=== PATIENT | female | born 1970 | race Caucasian/White ===

== ENCOUNTER → 2016-12-16 | Outpatient (CLI) | payer BC, OTHER ==
[~2016-12-16] MED LIST: ANAS1TAB6 PO; BSP15 PO; BUSP30TA2 PO; CLON0.5T3 PO; CMP/10 PO; DOCU100C PO; EFFSR75 PO; GOSE3.6I IM; LISI-788 PO; LPT10 PO; MELO15TA4 PO; MELO7.5T5 PO; METO-157 PO; ONDA-63 PO; OXYC1TAB3 PO; PANT1TAB48 PO; PANT40TA PO; POTA10CA28 PO; RANI150T3 PO; TIZA2CAP PO; TRAS440I2 IV; VENL150C56 PO; WLL100 PO; ZNTT/150 PO
== END | disposition home or self-care (01) ==
LOC: C.LABSPEC 17:50
PROVIDERS: ATTEND Nurse Practitioner Family
DX: J06.9 Acute upper respiratory infection, unspecified (principal)

== ENCOUNTER → 2016-12-28 | Outpatient (CLI) | payer BC, OTHER | END | disposition home or self-care (01) | LOC: C.MAMM 13:45 | PROVIDERS: ATTEND Internal Medicine Hematology & Oncology | DX: C50.912 Malignant neoplasm of unspecified site of left female breast (principal) ==

== ENCOUNTER → 2016-12-30 | Outpatient (CLI) | payer BC, OTHER ==
[2016-12-30 14:02] VITALS: BP 112/69; PULSE 87; TEMP 36.6; O2SAT 95
--- NOTE | 2016-12-30 14:53 | Radiation Oncology Follow-Up ---
Radiation Oncology Follow-Up Date of Visit Dec 30, 2016. Reason For Visit One-month follow-up and cancer survivorship care plan Radiation Completion Date finished 12-02-2016 Diagnosis (1) Breast cancer Onset Date: 07/13/2016 Histology Subtype: ductal Stage: l (A) Permanent Comment: Abnormal left breast mammogram Status post stereotactic biopsy 07/13/2016 revealing ductal carcinoma Estrogen receptor positive, progesterone receptor positive, HER-2/patrick positive Status post lumpectomy and sentinel lymph node biopsy 08/16/2016 Stage pT1b pN0M0 Systemic chemotherapy (TCH) with severe reaction one dose given and stopped Continue Herceptin for 1 year Status post completion of radiation therapy 12/02/2016 received 6280 cGy Last Edited By: Delaney Ornelas on Dec 07, 2016 08:53 History of Present Illness Ms. Addison is a 45-year-old female with a family history of breast cancer. The patient's mother was diagnosed with breast cancer and remains alive and well at age 65. She underwent bilateral annual digital screening mammograms. Her most recent ones on 06/30/2016. This showed a possible grouped calcifications in the left upper outer quadrant which were not evident on prior exams. I recommended spot magnification view was made. This procedure was performed on 07/07/2016. This confirmed a new group of calcifications in the left upper outer quadrant and a stereotactic biopsy was recommended. On 07/13/2016 patient underwent a stereotactic guided biopsy. Biopsy markers were placed and 2 separate biopsies were evaluated both on the left upper outer quadrant. The first specimen revealed an infiltrating ductal carcinoma grade 3 of 3 with high-grade DCIS with comedonecrosis and microcalcifications present. The second tissues sample also identified infiltrating ductal carcinoma grade 3 of 3 with ductal carcinoma in situ, high-grade with comedo necrosis. Microcalcifications were present. No perineural or lymphovascular invasion was identified. Estrogen receptors were positive (100%, strong). Progesterone receptors were positive (75%, moderate). HER-2/patrick was equivocal (2+). This tissue was evaluated by FISH analysis and was positive. Case: [id number]. Patient was seen by Dr. Darrin Loaiza who discussed treatment options with the patient. The patient agreed to proceed with breast conserving therapy. Therefore on 08/16/2016 patient underwent a needle localization left partial mastectomy with sentinel node biopsy. A single sentinel node was identified and was benign by routine sections and by immunohistochemical stain for cytokeratin. The lumpectomy specimen confirmed an invasive ductal carcinoma. The invasive carcinoma was noted within 2 blocks representing sequential sections. The foci measured 0.2 and 0.5 cm in greatest dimension. If these represented a contiguous tumor it could measure up to 0.8 cm in greatest dimension. Much of the area consisted of biopsy site and therefore the exact determination of tumor size was unclear. The invasive tumor extended to within 7 mm of the superior margin and 7 mm from the inferior margin. The DCIS extended to within 0.5 cm of the inferior margin and 7 mm of the superior margin. Both superior and inferior margins were reexcised and showed no residual tumor at the en face margins. Therefore the margins are greater than 1 cm. The final pathologic stage was therefore a pT1b pN0(sn-)ER positive, KS positive and HER-2/patrick positive. Case: [id number]. The patient was seen by Dr. Baum for discussion of the role of adjuvant therapy. They did discuss genetic testing for BRCA1 and BRCA2 with a family history of breast cancer in both her mother and maternal grandmother. Patient however declined. The decision was made to treat with TCH and her first treatment began on 08/30/2016. Unfortunately the patient struggled with significant asthenias, nausea, vomiting and abdominal pain. The patient was seen in the emergency department and treated symptomatically and discharged. She return to the clinic the next day with intractable nausea and vomiting and abdominal pain. The examination and lab studies revealed a markedly elevated LFTs with a prior history of hepatic steatosis. She was admitted for further evaluation and a CT of the abdomen revealed an ileus. Patient ultimately returned to see medical oncology and at that time refused consideration of further systemic chemotherapy. She did however agreed to continue with Herceptin and to subsequently proceed with adjuvant radiation. It is for this reason the patient is seen in referral. She underwent conventional radiation therapy. Radiation was completed 2016. She received 6280 cGy Interim History She has been doing well over the past month. Irritation of the skin healed without difficulty. She does continue to have a dark discoloration. She has noted no masses or occasional mild tenderness and no change of the axilla. She is having no swelling of her arm. She does not give the pain a pain level. She continues on Herceptin every 3 weeks. She did have some issues with depression and is seeing psychologist on a regular basis. She is on anastrozole and did not complain of any side effects. She is not currently scheduled for follow-up mammography. Allergies Coded Allergies: No Known Allergies (Verified , 02/23/17) Home Medications Scheduled Anastrozole (Anastrozole), 1 TAB PO QAM Atorvastatin (Atorvastatin Calcium), 10 MG PO QAM Buspirone Hcl (Buspirone Hcl), 30 MG PO BID Goserelin Acetate (Zoladex), 1 DOSE IM EVERY 4 WEEKS Lisinopril/Hctz (Zestoretic 20MG/25MG), 1 TAB PO QAM Meloxicam (Mobic), 15 MG PO HS Pantoprazole (Protonix), 40 MG PO QAM Potassium Chloride (Micro-K Ext Rel), 10 MEQ PO BID Ranitidine (Zantac), 150 MG PO BID Trastuzumab (Herceptin), 1 DOSE IV Q 3 WEEK Venlafaxine Hcl (Effexor Extended Rel), 300 MG PO HS Scheduled PRN Ondansetron (Ondansetron HCl), 8 MG PO TID PRN for Nausea Prochlorperazine Maleate (Prochlorperazine Maleate), 10 MG PO Q6H PRN for Nausea or Vomiting Review of Systems Gastrointestinal: Symptoms: Constipation GI Comments: stool softner daily Oral: Symptoms: No Problems Respiratory: Symptoms: WNL Urinary: Symptoms: WNL Skin: Symptoms: No Problems Breast: Right Upper Arm Measurement: 34.4 Right Mid Arm Measurement: 26.5 Right Wrist Measurement: 17.5 Left Upper Arm Measurement: 35.5 Left Mid Arm Measurement: 26.5 Left Wrist Measurement: 17.3 Arm Dominence: Right Patient Cosmetic Evaluation: Good Staff Cosmetic Evalaluation: Good Additional Notes: She completed a distress management report and answered "no" to all questions other than she is having problems with depression. She is on medication and is seeing a psychologist currently. Physical Exam Vital Signs Date Time Temp Pulse Resp B/P Pulse Ox O2 Delivery O2 Flow Rate FiO2 12/30/16 14:02 36.6 87 20 112/69 95 Pain: Side: Bilateral Patient Pain Scale: 0 - 10 Initial Pain Intensity: 0.0 Fatigue: None General Appearance: no apparent distress Eyes: normal inspection, EOMI ENT: normal ENT inspection, hearing grossly normal Neck: supple, no adenopathy Respiratory/Chest: lungs clear, no respiratory distress, no accessory muscle use Breast: Breast examination reveals residual hyperpigmentation of the left breast. There are no masses or tenderness and no axillary adenopathy. She has no skin retractions or nipple changes. There is no edema. Using the Stites score cosmesis she has a good outcome. Right breast showed no masses or tenderness and no axillary adenopathy Cardiovascular: regular rate, rhythm, no gallop, no murmur Abdomen: non tender Extremities: no pedal edema Neurologic/Psychiatric: no motor/sensory deficits, alert, normal mood/affect Skin: warm/dry Lymphatic: no adenopathy Laboratory Studies Test 10/05/16 16:58 10/08/16 11:34 11/19/16 10:50 12/10/16 10:53 Est Creatinine Clear Calc Drug Dose 139.3 ml/min Prothrombin Time 10.0 SECONDS (9.0-12.0) Prothrombin Time INR 0.9 (0.9-1.1) Urine Color YELLOW Urine Appearance CLEAR (CLEAR) Urine pH 5.0 (4.5-7.5) Urine Specific [place] 1.019 (1.000-1.030) Urine Protein NEG (NEG) Urine Glucose (UA) NEG (NEG) Urine Ketones NEG (NEG) Urine Occult Blood NEG (NEG) Urine Nitrite NEG (NEG) Urine Bilirubin NEG (NEG) Urine Urobilinogen NEG (NEG) Urine Leukocyte Esterase NEG (NEG) Urine WBC (Auto) 1-5 /hpf (0-5) Urine RBC (Auto) 0-4 /hpf (0-4) Urine Hyaline Casts (Auto) 0 /lpf (0-5) Urine Epithelial Cells (Auto) >30 /lpf (0-5) Urine Bacteria (Auto) NEG (NEG) Triglycerides Level 146 mg/dl (0-150) Cholesterol Level 181 mg/dl (0-200) HDL Cholesterol 43 mg/dl LDL Cholesterol, Calculated 109 mg/dl VLDL Cholesterol, Calculated 29 mg/dl Cholesterol/HDL Ratio 4.2 White Blood Count 5.16 K/uL (4.8-10.8) 4.72 K/uL (4.8-10.8) Red Blood Count 4.58 M/uL (4.2-5.4) 4.47 M/uL (4.2-5.4) Hemoglobin 14.4 g/dL (12.0-16.0) 14.1 g/dL (12.0-16.0) Hematocrit 41.8 % (37-47) 40.2 % (37-47) Mean Corpuscular Volume 91.3 fL (80-100) 89.9 fL (80-100) Mean Corpuscular Hemoglobin 31.4 pg (25-34) 31.5 pg (25-34) Mean Corpuscular Hemoglobin Concent 34.4 g/dl (32-36) 35.1 g/dl (32-36) Platelet Count 229 K/uL (130-400) 205 K/uL (130-400) Mean Platelet Volume 11.0 fL (7.4-10.4) 10.6 fL (7.4-10.4) Neutrophils (%) (Auto) 70.0 % 69.5 % Lymphocytes (%) (Auto) 20.5 % 21.2 % Monocytes (%) (Auto) 5.6 % 5.7 % Eosinophils (%) (Auto) 3.1 % 3.0 % Basophils (%) (Auto) 0.8 % 0.4 % Neutrophils # (Auto) 3.61 K/uL (1.4-6.5) 3.28 K/uL (1.4-6.5) Lymphocytes # (Auto) 1.06 K/uL (1.2-3.4) 1.00 K/uL (1.2-3.4) Monocytes # (Auto) 0.29 K/uL (0.11-0.59) 0.27 K/uL (0.11-0.59) Eosinophils # (Auto) 0.16 K/uL (0-0.5) 0.14 K/uL (0-0.5) Basophils # (Auto) 0.04 K/uL (0-0.2) 0.02 K/uL (0-0.2) RDW Standard Deviation 43.1 fL (36.4-46.3) 40.7 fL (36.4-46.3) RDW Coefficient of Variation 12.9 % (11.5-14.5) 12.4 % (11.5-14.5) Immature Granulocyte % (Auto) 0.0 % 0.2 % Immature Granulocyte # (Auto) 0.00 K/uL (0.00-0.02) 0.01 K/uL (0.00-0.02) Sodium Level 137 mmol/L (136-145) 141 mmol/L (136-145) Potassium Level 3.8 mmol/L (3.5-5.1) 3.6 mmol/L (3.5-5.1) Chloride Level 105 mmol/L (98-107) 106 mmol/L (98-107) Carbon Dioxide Level 25 mmol/L (21-32) 27 mmol/L (21-32) Anion Gap 7.0 mmol/L (3-11) 8.0 mmol/L (3-11) Blood Urea Nitrogen 17 mg/dl (7-18) 13 mg/dl (7-18) Creatinine 0.82 mg/dl (0.60-1.20) 0.84 mg/dl (0.60-1.20) Estimated GFR () 101.6 98.7 Estimated GFR (Non- 87.6 85.1 BUN/Creatinine Ratio 20.4 (10-20) 15.2 (10-20) Random Glucose 81 mg/dl (70-99) 97 mg/dl (70-99) Calcium Level 8.8 mg/dl (8.5-10.1) 8.9 mg/dl (8.5-10.1) Total Bilirubin 0.4 mg/dl (0.2-1) 0.2 mg/dl (0.2-1) Aspartate Amino Transferase (AST) 76 U/L (15-37) 49 U/L (15-37) Alanine Aminotransferase (ALT) 145 U/L (12-78) 96 U/L (12-78) Alkaline Phosphatase 91 U/L (45-117) 87 U/L (45-117) Lactate Dehydrogenase 180 U/L (84-246) 160 U/L (84-246) Total Protein 7.4 gm/dl (6.4-8.2) 6.8 gm/dl (6.4-8.2) Albumin 3.9 gm/dl (3.4-5.0) 3.7 gm/dl (3.4-5.0) Globulin 3.5 gm/dl (2.5-4.0) 3.1 gm/dl (2.5-4.0) Albumin/Globulin Ratio 1.1 (0.9-2) 1.2 (0.9-2) Assessment & Plan Plan: Continue regular follow-up with her primary care provider and medical oncology. She continues on the anastrozole. Follow-up mammography was scheduled. She'll have a digital diagnostic mammogram of the left breast in 2 months. She'll then have bilateral mammography in 8 months. Today we completed a cancer survivorship care plan. A copy of the document was given to the patient. She does continue to smoke and has greatly cut down. We discussed weaning off of cigarettes. To continue to decrease and wean off of cigarettes. She will continue on her Herceptin every 3 weeks. We asked her to return to our office in 6 months. She may call if she has any questions or concerns in the interim. Total Time In Follow-Up I spent 20 minutes speaking to the patient performing examination. I spent 20 minutes reviewing information, preparing the survivorship document, and completing this note. Copy To Klaus Baum D.O.; Salvatore Parra III, CRNP; Darrin Loaiza M.D. Problem Qualifiers (1) Breast cancer: Breast location: upper outer quadrant of breast Patient sex: female Laterality: left Qualified Codes: C50.412 - Malignant neoplasm of upper- outer quadrant of left female breast
== END | disposition home or self-care (01) ==
LOC: C.ONC 13:54
PROVIDERS: ATTEND Radiology Radiation Oncology
DX: Z08 Encounter for follow-up examination after completed treatment for malignant neoplasm (principal); Z92.3 Personal history of irradiation; Z85.3 Personal history of malignant neoplasm of breast

== ENCOUNTER 2017-01-14 11:03 | Emergency (ER) | payer BC, OTHER ==
[~2017-01-14] VITALS: Ht 167.6 cm; Wt 108.0 kg
[~2017-01-14 11:03] MED LIST changes: -BUSP30TA2 PO; -CLON0.5T3 PO; -GOSE3.6I IM; -LISI-788 PO; -MELO15TA4 PO; -MELO7.5T5 PO; -OXYC1TAB3 PO; -PANT1TAB48 PO; -PANT40TA PO; -POTA10CA28 PO; -RANI150T3 PO; -VENL150C56 PO; -ZNTT/150 PO
[2017-01-14 11:05] VITALS: TEMP 36.9; Ht 167.6 cm; Wt 108.0 kg
[2017-01-14] MEDS ORDERED: BUSP30TA2 PO (12:05)
[2017-01-14] MEDS ORDERED: GOSE3.6I IM (12:05)
[2017-01-14] MEDS ORDERED: LISI-788 PO (12:07)
[2017-01-14 12:54] LABS: BASO % 0.6 %; BASO ABS # 0.03 K/uL (0-0.2); COMPLETE YES; EOS % 3.3 %; IG% 0.2 %; LYMPH % 25.9 %; LYMPH ABS # 1.32 K/uL (1.2-3.4); MEAN CELL VOLUME 88.2 fL (80-100); MEAN CORPUSCULAR HEMOGLOBIN 30.8 pg (25-34); MEAN CORPUSCULAR HGB CONC 34.9 g/dl (32-36); MONO % 6.3 %; NEUT % 63.7 %; PLATELET COUNT 214 K/uL (130-400); RED BLOOD COUNT 4.42 M/uL (4.2-5.4); WHITE BLOOD COUNT 5.09 K/uL (4.8-10.8)
[2017-01-14] MEDS ORDERED: ONDANSETRON INJ 2 MG/ML 2 ML VIAL IV STA (12:55)
[2017-01-14] MEDS ORDERED: SODIUM CHLORIDE 0.9% 1000ML 1,000 ML IV STA ×2 (12:55)
--- NOTE | 2017-01-14 12:59 | EMERGENCY ROOM VISIT NOTE ---
History Report prepared by Ivelisse: Taylor Laguerre Under the Supervision of: Dr. Heri Elizabeth D.O. First contact with patient: 12:53 Chief Complaint: ABDOMINAL PAIN Stated Complaint: STOMACH PAIN Nursing Triage Summary: pt to the ED with c/o epigastric pain with nausea and decreased Po intake pt has breast CA and was sent in for hydration History of Present Illness The patient is a 46 year old female who presents to the Emergency Room with complaints of worsening upper abdominal pain beginning 2 months prior to arrival. Patient states that she was seen at her PCP today and was referred to the ED due to unknown cause of pain. She notes that pain worsens with eating and drinking. She is experiencing nausea, diarrhea, increased urinary frequency and decreased appetite. The patient denies chest pain, trouble breathing, or swelling to lower extremities. The patient has breast cancer and is done chemotherapy. 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 A total of 10 systems reviewed and were otherwise negative. Past Medical & Surgical Medical Problems: (1) Anxiety (2) Breast cancer (3) Chemotherapy induced nausea and vomiting (4) Depression (5) Esophageal Reflux (6) Hiatal hernia (7) Tobacco Use Disorder Surgical Problems: (1) Hx of cholecystectomy Family History Cancer FH: CABG (coronary artery bypass surgery) FATHER Social History Smoking Status: Current Every Day Smoker Drug Use: none Marital Status: Housing Status: lives with family Occupation Status: employed Current/Historical Medications Scheduled Anastrozole (Anastrozole), 1 TAB PO DAILY Atorvastatin (Atorvastatin Calcium), 10 MG PO DAILY Bupropion HCl (Bupropion HCl), 100 MG PO BID Buspirone Hcl (Buspirone Hcl), 30 MG PO BID Docusate Sodium (Stool Softener), 100 MG PO BID Lisinopril/Hctz (Zestoretic 20MG/25MG), 1 TAB PO DAILY Pantoprazole (Protonix), 40 MG PO DAILY Ranitidine Hcl (Zantac), 150 MG PO BID Venlafaxine Hcl (Effexor Extended Rel), 225 MG PO HS Scheduled PRN Ondansetron (Ondansetron HCl), 8 MG PO TID PRN for Nausea Oxycodone Immediate Rel Tab (Roxicodone Ir), 1-2 TAB PO Q4H PRN for Severe Pain Prochlorperazine Maleate (Prochlorperazine Maleate), 10 MG PO Q6H PRN for Nausea or Vomiting Miscellaneous Medications Goserelin Acetate (Zoladex) Trastuzumab (Herceptin) Allergies Coded Allergies: No Known Allergies (Verified , 01/14/17) Physical Exam Vital Signs Date Time Temp Pulse Resp B/P Pulse Ox O2 Delivery O2 Flow Rate FiO2 01/14/17 17:06 89 16 162/95 94 01/14/17 15:24 97 Room Air 01/14/17 15:00 90 16 131/79 96 Room Air 01/14/17 13:58 86 18 132/72 95 Room Air 01/14/17 12:57 83 16 123/67 97 Room Air 01/14/17 11:05 36.9 97 18 142/95 98 Physical Exam GENERAL: Patient is awake, alert, and in no acute distress. Patient is resting comfortably and showing no signs of anxiety EYES: The conjunctivae are clear. The pupils are round and reactive. EARS, NOSE, MOUTH AND THROAT: The nose is without any evidence of any deformity. Mucous membranes are moist tongue is midline NECK: The neck is nontender and supple. RESPIRATORY: Normal respiratory effort is noted there is no evidence of wheezing rhonchi or rales CARDIOVASCULAR: Regular rate and rhythm noted there no murmurs rubs or gallops normal S1 normal S2 GASTROINTESTINAL: The abdomen is soft. Bowel sounds are present in all quadrants. Abdomen is mildly distended, soft diffuse tenderness to palpation. Specific tenderness in right upper quadrant, epigastric and left lower quadrant regions. MUSCULOSKELETAL/EXTREMITIES: There is no evidence of gross deformity full range of motion is noted in the hips and shoulders SKIN: There is no obvious evidence of any rash. There are no petechiae, pallor or cyanosis noted. NEUROLOGIC: Patient is awake alert and oriented x3 Medical Decision & Procedures ER Provider Diagnostic Interpretation: CT results as stated below per my review and radiologist interpretation. ABDOMEN AND PELVIS CT WITH IV AND ORAL CONTRAST CT DOSE: 1213.55 mGy.cm HISTORY: Pain sent by PCP for CT TECHNIQUE: Multiaxial CT images of the abdomen and pelvis were performed following the use of intravenous and oral contrast. COMPARISON STUDY: 09/06/2016 FINDINGS: Lung bases are remarkable for bilateral platelike atelectasis. Fatty infiltration of liver. Prior cholecystectomy. Spleen is uniform. Kidneys negative for hydronephrosis. Pancreas is unremarkable. Nonobstructive bowel pattern. Normal appendix. No evidence for abscess or collection. IMPRESSION: Fatty infiltration of liver. Otherwise negative study status post cholecystectomy Electronically signed by: Mariusz Hernandez M.D. 01/14/2017 3:54 PM Dictated Date/Time: 01/14/2017 3:48 PM Laboratory Results 01/14/17 11:34 Red Blood Count 4.42, Mean Corpuscular Volume 88.2, Mean Corpuscular Hemoglobin 30.8, Mean Corpuscular Hemoglobin Concent 34.9, Mean Platelet Volume 11.0, Neutrophils (%) (Auto) 63.7, Lymphocytes (%) (Auto) 25.9, Monocytes (%) (Auto) 6.3, Eosinophils (%) (Auto) 3.3, Basophils (%) (Auto) 0.6, Neutrophils # (Auto) 3.24, Lymphocytes # (Auto) 1.32, Monocytes # (Auto) 0.32, Eosinophils # (Auto) 0.17, Basophils # (Auto) 0.03 01/14/17 11:34 Test 01/14/17 11:34 01/14/17 12:00 White Blood Count 5.09 K/uL (4.8-10.8) Red Blood Count 4.42 M/uL (4.2-5.4) Hemoglobin 13.6 g/dL (12.0-16.0) Hematocrit 39.0 % (37-47) Mean Corpuscular Volume 88.2 fL (80-100) Mean Corpuscular Hemoglobin 30.8 pg (25-34) Mean Corpuscular Hemoglobin Concent 34.9 g/dl (32-36) Platelet Count 214 K/uL (130-400) Mean Platelet Volume 11.0 fL (7.4-10.4) Neutrophils (%) (Auto) 63.7 % Lymphocytes (%) (Auto) 25.9 % Monocytes (%) (Auto) 6.3 % Eosinophils (%) (Auto) 3.3 % Basophils (%) (Auto) 0.6 % Neutrophils # (Auto) 3.24 K/uL (1.4-6.5) Lymphocytes # (Auto) 1.32 K/uL (1.2-3.4) Monocytes # (Auto) 0.32 K/uL (0.11-0.59) Eosinophils # (Auto) 0.17 K/uL (0-0.5) Basophils # (Auto) 0.03 K/uL (0-0.2) RDW Standard Deviation 39.6 fL (36.4-46.3) RDW Coefficient of Variation 12.3 % (11.5-14.5) Immature Granulocyte % (Auto) 0.2 % Immature Granulocyte # (Auto) 0.01 K/uL (0.00-0.02) Anion Gap 7.0 mmol/L (3-11) Est Creatinine Clear Calc Drug Dose 92.0 ml/min Estimated GFR () 82.3 Estimated GFR (Non- 71.0 BUN/Creatinine Ratio 14.8 (10-20) Calcium Level 8.9 mg/dl (8.5-10.1) Total Bilirubin 0.3 mg/dl (0.2-1) Aspartate Amino Transf (AST/SGOT) 45 U/L (15-37) Alanine Aminotransferase (ALT/SGPT) 89 U/L (12-78) Alkaline Phosphatase 93 U/L (45-117) Total Protein 7.1 gm/dl (6.4-8.2) Albumin 3.5 gm/dl (3.4-5.0) Globulin 3.6 gm/dl (2.5-4.0) Albumin/Globulin Ratio 1.0 (0.9-2) Lipase 148 U/L (73-393) Human Chorionic Gonadotropin, Qual NEG (NEG) Urine Color DK YELLOW Urine Appearance CLEAR (CLEAR) Urine pH 6.5 (4.5-7.5) Urine Specific [place] 1.029 (1.000-1.030) Urine Protein NEG (NEG) Urine Glucose (UA) NEG (NEG) Urine Ketones NEG (NEG) Urine Occult Blood NEG (NEG) Urine Nitrite NEG (NEG) Urine Bilirubin NEG (NEG) Urine Urobilinogen NEG (NEG) Urine Leukocyte Esterase MODERATE (NEG) Urine WBC (Auto) 5-10 /hpf (0-5) Urine RBC (Auto) 0-4 /hpf (0-4) Urine Hyaline Casts (Auto) 5-10 /lpf (0-5) Urine Epithelial Cells (Auto) >30 /lpf (0-5) Urine Bacteria (Auto) 1+ (NEG) Laboratory results per my review. Medications Administered Medications (Trade) Dose Ordered Sig/Rodolfo Route Start Time Stop Time Status Last Admin Dose Admin Sodium Chloride 1,000 ml @ 999 mls/hr Q1H1M STAT IV 01/14/17 12:55 01/14/17 13:55 DC 01/14/17 11:40 999 MLS/HR Sodium Chloride (Nss 1000ml) 1,000 ml @ 250 mls/hr Q4H STAT IV 01/14/17 12:55 01/14/17 16:54 DC 01/14/17 12:50 250 MLS/HR Morphine Sulfate (MoRPHine SULFATE INJ) 4 mg Q15M PRN IV 01/14/17 13:00 01/14/17 17:21 DC 01/14/17 15:20 4 MG Ondansetron HCl (Zofran Inj) 4 mg NOW STAT IV 01/14/17 12:55 01/14/17 12:57 DC 01/14/17 13:10 4 MG Heparin Sodium (Porcine) (Heparin 100 Unit/ml 5ml Flush) 5 ml STK-MED ONCE .ROUTE 01/14/17 16:44 01/14/17 16:46 DC 01/14/17 16:59 5 ML ED Course 1254: The patient was evaluated in room C4. A complete history and physical examination were performed. 1255: Zofran Inj 4 mg IV, Sodium Chloride 1,000 ml @ 250 mls/hr IV, Sodium Chloride 1,000 ml @ 999 mls/hr IV. 1300: Morphine Sulfate Inj 4 mg IV. 1620: I reevaluated the patient. 1625: Upon reevaluation, the patient is hemodynamically stable. I discussed the results and treatment plan with her. She verbalized agreement of the treatment plan. She was discharged home. Medical Decision Differential diagnosis: Etiologies such as appendicitis, diverticulitis, PUD, biliary pathology, UTI, pancreatitis, obstruction, mesenteric ischemia, aortic pathology, infections, inflammatory bowel disease, renal colic, as well as others were entertained. Nursing notes reviewed. The patient is a 46-year-old female who presented to emergency department for an evaluation of upper abdominal pain. The patient was seen by her primary care physician for this pain. It has been intermittent for the last 2 months and worsens with food. The patient does not have a gallbladder because it was removed surgically in the past. The patient was sent to the emergency department for a CAT scan by her primary care physician. The patient's abdominal exam was not consistent with an acute surgical abdomen but she had significant upper abdominal tenderness to palpation. I discussed the patient's laboratory and radiographic studies with her. She was treated with IV fluids IV pain medication and IV antiemetics in the emergency department. On subsequent reevaluation she was significant improved. I discussed patient's laboratory and radiographic studies with her. She was encouraged to continue all medications as prescribed and rest. She was encouraged to call her primary care physician to schedule a follow-up appointment and to discuss the possibility that she may require referral to a trouble shooter to further evaluate the cause for pain. She was also encouraged to return to the emergency department immediately if symptoms change worsen or the need arises. Impression Primary Impression: Upper abdominal pain Scribe Attestation The scribe's documentation has been prepared under my direction and personally reviewed by me in its entirety. I confirm that the note above accurately reflects all work, treatment, procedures, and medical decision making performed by me. Departure Information Dispostion Home / Self-Care Prescriptions Ranitidine Hcl (ZANTAC) 150 Mg Tab 150 MG PO BID, #60 TAB Prov: Heri Elizabeth, DO 01/14/17 Pantoprazole (PROTONIX) 40 Mg Tab 40 MG PO DAILY, #30 TAB Prov: Heri Elizabeth, DO 01/14/17 Oxycodone Immediate Rel Tab (ROXICODONE IR) 5 Mg Tab 1-2 TAB PO Q4H Y for Severe Pain, #24 TAB Prov: Heri Elizabeth, DO 01/14/17 Referrals No Doctor, Assigned (PCP) Forms Call Back Authorization, HOME CARE DOCUMENTATION FORM, IMPORTANT VISIT INFORMATION Patient Instructions ED Abd Pain Unkn Cause [facility], [facility] Additional Instructions Rest and avoid any strenuous activity. Avoid taking NSAIDs such as ibuprofen or naproxen. Continue using Tylenol struck did for mild pain. You may try using Maalox or Mylanta as directed for symptomatically relief. Follow-up with your family doctor soon as possible. I would recommend a referral to a trouble shooter if symptoms do not improve.
[2017-01-14] MEDS ORDERED: OPTIRAY 320 IV PRN (13:00)
[2017-01-14 13:09] LABS: BUN/CREATININE RATIO 14.8 (10-20); CALCIUM 8.9 mg/dl (8.5-10.1); CREATININE 0.97 mg/dl (0.60-1.20); POTASSIUM 3.1 mmol/L (3.5-5.1)
[2017-01-14 13:10] LABS: PREG INTERNAL NEGATIVE QC NEG CLEAR BACKGROUND; PREG INTERNAL POSITIVE QC POS CONTROL LINE
[2017-01-14] MEDS: MoRPHine SULFATE 4 MG/ML 1 ML CARP\\VIAL IV PRN ×3 (13:10→15:20)
[2017-01-14 13:19] LABS: URINE APPEARANCE CLEAR (CLEAR); URINE BILIRUBIN NEG (NEG); URINE COLOR DK YELLOW; URINE EPITHELIAL CELL AUTO >30 /lpf (0-5); URINE NITRITE NEG (NEG); URINE PH 6.5 (4.5-7.5); URINE SPECIFIC GRAVITY 1.029 (1.000-1.030); UROBILINOGEN NEG (NEG); ZZUR CULT IF INDIC CLEAN CATCH YES
[2017-01-14 13:20] LABS: MANUAL MICROSCOPIC REQUIRED? NO; REVIEW REQ? NO
[2017-01-14 15:24] VITALS: O2SAT 97
--- NOTE | 2017-01-14 15:56 | DIAGNOSTIC IMAGING REPORT ---
ABDOMEN AND PELVIS CT WITH IV AND ORAL CONTRAST CT DOSE: 1213.55 mGy.cm HISTORY: Pain sent by PCP for CT TECHNIQUE: Multiaxial CT images of the abdomen and pelvis were performed following the use of intravenous and oral contrast. COMPARISON STUDY: 09/06/2016 FINDINGS: Lung bases are remarkable for bilateral platelike atelectasis. Fatty infiltration of liver. Prior cholecystectomy. Spleen is uniform. Kidneys negative for hydronephrosis. Pancreas is unremarkable. Nonobstructive bowel pattern. Normal appendix. No evidence for abscess or collection. IMPRESSION: Fatty infiltration of liver. Otherwise negative study status post cholecystectomy Electronically signed by: Mariusz Hernandez M.D. 01/14/2017 3:54 PM Dictated Date/Time: 01/14/2017 3:48 PM
[2017-01-14] MEDS ORDERED: RANI150T3 PO (16:24)
[2017-01-14] MEDS ORDERED: PANT1TAB48 PO (16:24)
[2017-01-14] MEDS ORDERED: OXYC1TAB3 PO (16:24)
[2017-01-14 17:06] VITALS: BP 162/95; PULSE 89; O2SAT 94
[2017-02-23] MEDS ORDERED: POTA10CA28 PO (14:49)
[2017-02-23] MEDS ORDERED: ZNTT/150 PO (14:49)
[2017-02-23] MEDS ORDERED: VENL150C56 PO (14:49)
[2017-02-23] MEDS ORDERED: PANT40TA PO (14:49)
[2017-06-30] MEDS ORDERED: MELO7.5T5 PO (14:45)
== END 2017-01-14 17:08 | disposition home or self-care (01) ==
LOC: C.EDB 11:04 → C.EDC 17:08
DX: R10.13 Epigastric pain (principal); C50.919 Malignant neoplasm of unspecified site of unspecified female breast; F41.9 Anxiety disorder, unspecified; F32.9 Major depressive disorder, single episode, unspecified; K21.9 Gastro-esophageal reflux disease without esophagitis; F17.210 Nicotine dependence, cigarettes, uncomplicated; Z79.899 Other long term (current) drug therapy

== ENCOUNTER → 2017-02-21 | Outpatient (CLI) | payer BC, OTHER ==
[~2017-02-21] MED LIST changes: -BSP15 PO; +BUSP30TA2 PO; +CALC600T9 PO; +CHOL1000 PO; +GOSE3.6I IM; +HYDR-5688 PO; +LISI-788 PO; +MELO7.5T5 PO; -METO-157 PO; +OXYC1TAB3 PO; +PANT1TAB48 PO; +PANT40TA PO; +POTA10CA28 PO; +RANI150T3 PO; +TAMO20TA9 PO; -TIZA2CAP PO; +VENL150C56 PO; +ZNTT/150 PO
--- NOTE | 2017-02-21 14:01 | MAMMOGRAPHY REPORT ---
UNILATERAL LEFT DIGITAL DIAGNOSTIC MAMMOGRAM TOMOSYNTHESIS WITH CAD: 02/21/2017 CLINICAL HISTORY: 46-year-old woman with a history of left breast cancer status post lumpectomy and radiation therapy. She presents to establish new baseline after treatment. TECHNIQUE: Left CC and MLO 2-D digital and tomosynthesis images, repeat left MLO and spot magnificat ion left CC and ML views were obtained. Current study was also evaluated with a Computer Aided Dete ction (CAD) system. COMPARISON: Comparison is made to exams dated: 08/16/2016 specimen, 08/16/2016 localization, 6 stereotactic biopsy, 07/13/2016 mammogram, 07/07/2016 mammogram, and 09/05/2013 mammogram - [facility]. BREAST COMPOSITION: There are scattered areas of fibroglandular density in the left breast. FINDINGS: A linear scar marker overlies the upper outer middle one third of the left breast. There is expected asymmetry, architectural distortion and surgical clips in the upper outer middle one thi rd of the left breast, at the site of prior lumpectomy. The spot magnification views demonstrate on e single microcalcifications near the surgical site, but no suspicious grouping or cluster of calcif ications. No other new suspicious mass, architectural distortion or suspicious microcalcifications is seen elsewhere in the left breast. IMPRESSION: ACR-BI-RADS CATEGORY 3: PROBABLY BENIGN Expected post treatment changes in the left breast, without definite mammographic evidence of malign coco. Recommend follow-up diagnostic mammograms of the left breast in 6 months to ensure stability after treatment. Annual right mammography will also be due at that time. These results and recommendations were discussed with the patient at the time of the exam. She tent atively scheduled a follow-up appointment prior to leaving our department. Approximately 10% of breast cancers are not detected with mammography. A negative mammographic repor t should not delay biopsy if a clinically suggestive mass is present. Rachel Lora M.D. ay/:02/21/2017 12:50:04 [employer]: Snow SALCIDO)(Janie), [facility] letter sent: Personal History 3 BI-RADS Code: ACR-BI-RADS Category 3: Probably Benign
== END | disposition home or self-care (01) ==
LOC: C.MAMM 09:57
PROVIDERS: ATTEND Physician Assistant Medical
DX: Z92.3 Personal history of irradiation (principal); Z85.3 Personal history of malignant neoplasm of breast

== ENCOUNTER → 2017-03-03 | Day surgery (SDC) | payer BC, OTHER ==
[2017-02-23 14:49] VITALS: Ht 167.6 cm; Wt 106.8 kg
[~2017-03-03] VITALS: Ht 167.6 cm; Wt 106.8 kg
[~2017-03-03] MED LIST changes: +ATROPINE SULFATE 0.1 MG/ML 5ML SYR IV PRN; -DOCU100C PO; -EFFSR75 PO; +EpHEDrine SULFATE INJ 50 MG/ML AMP IV PRN; +LIDOCAINE HCL 2% 2 ML VIAL (20MG/ML) ONE; +MIDAZOLAM HCL 1 MG/ML 2ML VIAL ONE; +ONDANSETRON INJ 2 MG/ML 2 ML VIAL ONE; -OXYC1TAB3 PO; -PANT1TAB48 PO; +PROPOFOL IV EMULSION 10 MG/ML 20 ML VIAL IV ONE; -RANI150T3 PO; +SODIUM CHLORIDE 0.9% 500ML 500 ML IV ONE
--- NOTE | 2017-03-03 12:23 | Endo History and Physical ---
History & Physical Date of Service: Mar 03, 2017. Chief Complaint: Epigastric pain Referring Physician: Salvatore Parra History of Present Illness 46 yo CF who presents for EGD secondary to epigastric abdominal pain. Past Medical History Cancer Past Surgical History Hx Cardiac Surgery: No Hx Internal Defibrillator: No Hx Pacemaker: No Hx Abdominal Surgery: Yes (LAP AMANDA) Hx Post-Op Nausea and Vomiting: No Hx Cancer Surgery: Yes (BREAST LUMPECTOMY) Hx Thoracic Surgery: No Hx Orthopedic: No Hx Urinary Tract Surgery: No Family History None Social History Smoking Status: Current Every Day Smoker Hx Substance Use: No Hx Alcohol Use: No Allergies Coded Allergies: No Known Allergies (Verified , 02/23/17) Current Medications Reported Home Medications Medications Dose Route/Sig Max Daily Dose Days Date Category Micro-K Ext Rel (Potassium Chloride) 10 Meq Capcr 10 Meq PO QAM 02/23/17 Reported Protonix (Pantoprazole Sodium) 40 Mg Tab 40 Mg PO QAM 02/23/17 Reported Zantac (Ranitidine HCl) 150 Mg Tab 150 Mg PO BID 02/23/17 Reported Effexor Extended Rel (Venlafaxine Hcl) 150 Mg Cap 300 Mg PO HS 02/23/17 Reported Zestoretic 20MG/25MG (HCTZ/Lisinopril) Tab 1 Tab PO QAM 01/14/17 Reported Zoladex (Goserelin Acetate) 3.6 Mg Imp 1 Dose IM EVERY 4 WEEKS 01/14/17 Reported Buspirone Hcl 30 Mg Tab 30 Mg PO BID 01/14/17 Reported Herceptin (Trastuzumab) 440 Mg Inj 1 Dose IV Q 3 WEEK 12/30/16 Reported Anastrozole 1 Mg Tab 1 Tab PO QAM 30 12/30/16 Reported Atorvastatin Calcium (Atorvastatin) 10 Mg Tab 10 Mg PO QAM 10/05/16 Reported Ondansetron HCl (Ondansetron) 8 Mg Tab 8 Mg PO TID PRN 10/05/16 Reported Bupropion HCl 100 Mg Tab 100 Mg PO BID 10/05/16 Reported Prochlorperazine Maleate 10 Mg Tab 10 Mg PO Q6H PRN 10/05/16 Reported Vital Signs Weight (Kilograms): 106.82 Height (Feet): 5 Height (Inches): 6 Date Time Temp Pulse Resp B/P Pulse Ox O2 Delivery O2 Flow Rate FiO2 03/03/17 12:05 36.9 85 18 133/91 94 Room Air Physical Exam General Appearance: WD/WN, no apparent distress Respiratory/Chest: Auscultation: breath sounds normal Cardiovascular: Heart Auscultation: RRR Abdomen: Bowel Sounds: normal Inspection & Palpation: soft, non-distended, no tenderness, guarding & rebound Assessment and Plan Assessment: 46 yo CF who presents for EGD secondary to epigastric abdominal pain. Plan: Proceed with EGD.
--- NOTE | 2017-03-03 12:46 | Discharge Instructions ---
Endoscopy Patient Instructions Date / Procedure(s) Performed Mar 03, 2017. EGD Allergy Information Coded Allergies: No Known Allergies (Verified , 02/23/17) Discharge Date / Findings Mar 03, 2017. Gastritis s/p biopsies Distal esophageal biopsies Medication Instructions Stopped Medication(s): Patient was told to not take her bp pill today. OK to resume all medications today as prescribed. Reported Home Medications Medications Dose Route/Sig Max Daily Dose Days Date Category Micro-K Ext Rel (Potassium Chloride) 10 Meq Capcr 10 Meq PO QAM 02/23/17 Reported Protonix (Pantoprazole Sodium) 40 Mg Tab 40 Mg PO QAM 02/23/17 Reported Zantac (Ranitidine HCl) 150 Mg Tab 150 Mg PO BID 02/23/17 Reported Effexor Extended Rel (Venlafaxine Hcl) 150 Mg Cap 300 Mg PO HS 02/23/17 Reported Zestoretic 20MG/25MG (HCTZ/Lisinopril) Tab 1 Tab PO QAM 01/14/17 Reported Zoladex (Goserelin Acetate) 3.6 Mg Imp 1 Dose IM EVERY 4 WEEKS 01/14/17 Reported Buspirone Hcl 30 Mg Tab 30 Mg PO BID 01/14/17 Reported Herceptin (Trastuzumab) 440 Mg Inj 1 Dose IV Q 3 WEEK 12/30/16 Reported Anastrozole 1 Mg Tab 1 Tab PO QAM 30 12/30/16 Reported Atorvastatin Calcium (Atorvastatin) 10 Mg Tab 10 Mg PO QAM 10/05/16 Reported Ondansetron HCl (Ondansetron) 8 Mg Tab 8 Mg PO TID PRN 10/05/16 Reported Bupropion HCl 100 Mg Tab 100 Mg PO BID 10/05/16 Reported Prochlorperazine Maleate 10 Mg Tab 10 Mg PO Q6H PRN 10/05/16 Reported Provider Instructions Activity Restrictions - No exercising or heavy lifting for 24 hours. - Do not drink alcohol the day of the procedure. - Do not drive a car or operate machinery until the day after the procedure. - Do not make any important decisions or sign important papers in 24 hours after the procedure. Following Day: - Return to full activity which may include returning to work/school. Diet Start your diet with liquids and light foods (jello, soup, juice, toast). Then eat your usual diet if not nauseated. Treatment For Common After Affects For mild abdominal pain, bloating, or excessive gas: - Rest - Eat lightly - Lie on right side Follow-Up Information Follow-up with Salvatore Parra as scheduled Anesthesia Information What You Should Know You have had a procedure that required some medicine to reduce anxiety and discomfort. This treatment is called moderate sedation. After receiving the treatment, you may be sleepy, but you will be able to breathe on your own. The effects of the treatment may last for several hours. Follow these instructions along with Activity/Diet recommendations noted above: * Do NOT do anything where dizziness or clumsiness would be dangerous. * Rest quietly at home today, then you can be up and about tomorrow. * Have a responsible person stay with you the rest of today. * You may have had an I.V. today. If so, you may take the dressing off later today. Recommendations Call your doctor if: * Trouble breathing * Continuous vomiting for more than 24 hours * Temperature above 101 degrees * Severe abdominal pain or bloating * Pain not relieved by pain medicine ordered * There is increased drainage or redness from any incision * A large amount of rectal bleeding greater than 2-3 tablespoons. (If you had a polyp/s removed or have hemorrhoids, a small amount of blood - from the rectum is to be expected.) * You have any unanswered questions or concerns. IN THE EVENT OF A SERIOUS EMERGENCY, GO TO THE NEAREST EMERGENCY ROOM Your discharge instructions were prepared by provider Shimon Gomez. Patient Instructions Signature Page Aleja Addison Patient (or Guardian) Signature/Date: I have read and understand the instructions given to me by my caregivers. Caregiver/RN/Doctor Signature/Date: The above-named patient and/or guardian has received patient instructions on this date. + Original Patient Signature Page (only) stays with chart. Please make copy for patient.
--- NOTE | 2017-03-03 12:58 | GI REPORT ---
Procedure Date: 03/03/2017 12:32 PM Procedure: Upper GI endoscopy Indications: Epigastric abdominal pain Medicines: Monitored Anesthesia Care Complications: No immediate complications. Estimated Blood Loss: Estimated blood loss: none. Procedure: Pre-Anesthesia Assessment: - Prior to the procedure, a History and Physical was performed, and patient medications and allergies were reviewed. The patient's tolerance of previous anesthesia was also reviewed. The risks and benefits of the procedure and the sedation options and risks were discussed with the patient. All questions were answered, and informed consent was obtained. Prior Anticoagulants: The patient has taken no previous anticoagulant or antiplatelet agents. ASA Grade Assessment: IV - A patient with severe systemic disease that is a constant threat to life. After reviewing the risks and benefits, the patient was deemed in satisfactory condition to undergo the procedure. After obtaining informed consent, the endoscope was passed under direct vision. Throughout the procedure, the patient's blood pressure, pulse, and oxygen saturations were monitored continuously. The Scope was introduced through the mouth, and advanced to the second part of duodenum. The upper GI endoscopy was accomplished without difficulty. The patient tolerated the procedure well. Findings: The Z-line was irregular. Biopsies were taken with a cold forceps for histology. Localized mild inflammation characterized by erythema was found in the gastric antrum. Biopsies were taken with a cold forceps for histology. The examined duodenum was normal. Impression: - Z-line irregular. Biopsied. - Gastritis. Biopsied. - Normal examined duodenum. Recommendation: - Resume previous diet. - Continue present medications. - Await pathology results. - Return to primary care physician as previously scheduled. Shimon Gomez, DO 03/03/2017 12:57:39 PM This report has been signed electronically. Note Initiated On: 03/03/2017 12:32 PM I attest to the content of the Intraoperative Record and orders documented therein, exceptions below
--- NOTE | 2017-03-03 13:06 | Anesthesiology Progress Note ---
Anesthesia Post Op Note Date & Time Mar 03, 2017 at 13:05 Vital Signs Pain Intensity: 0 Vital Signs Past 12 Hours Date Time Temp Pulse Resp B/P Pulse Ox O2 Delivery O2 Flow Rate FiO2 03/03/17 12:55 89 16 132/77 95 Room Air 03/03/17 12:05 36.9 85 18 133/91 94 Room Air Notes Mental Status: alert / awake / arousable, participated in evaluation Pt Amnestic to Procedure: Yes Nausea / Vomiting: adequately controlled Pain: adequately controlled Airway Patency, RR, SpO2: stable & adequate BP & HR: stable & adequate Hydration State: stable & adequate Anesthetic Complications: no major complications apparent
[2017-03-03 13:33] VITALS: BP 143/72; PULSE 82; O2SAT 95
== END | disposition home or self-care (01) ==
LOC: C.GI 11:41
PROVIDERS: ATTEND Internal Medicine
DX: K29.70 Gastritis, unspecified, without bleeding (principal); Z98.890 Other specified postprocedural states

== ENCOUNTER → 2017-05-05 | Outpatient (CLI) | payer BC, OTHER ==
[~2017-05-05] MED LIST changes: -ATROPINE SULFATE 0.1 MG/ML 5ML SYR IV PRN; -EpHEDrine SULFATE INJ 50 MG/ML AMP IV PRN; -LIDOCAINE HCL 2% 2 ML VIAL (20MG/ML) ONE; -MIDAZOLAM HCL 1 MG/ML 2ML VIAL ONE; -ONDANSETRON INJ 2 MG/ML 2 ML VIAL ONE; -PROPOFOL IV EMULSION 10 MG/ML 20 ML VIAL IV ONE; -SODIUM CHLORIDE 0.9% 500ML 500 ML IV ONE
--- NOTE | 2017-05-05 15:20 | ECHOCARDIOGRAM REPORT ---
*NOTICE TO RECEIVING REPUBLICAN AGENCY This information is strictly Confidential and protected under [place] law. [place] law prohibits you from making any further disclosure of this information unless further disclosure is expressly permitted by the written consent of the person to whom it pertains or is authorized by law. A general authorization for the release of medical or other information is not sufficient for this purpose. Hospital accepts no responsibility if the information is made available to any other person, INCLUDING THE PATIENT. Interpretation Summary * Name: MATEO WANG Study Date: 05/05/2017 12:34 PM BP: 141/85 mmHg * Patient Location: [facility] [place] HR: 102 * : 1970 (M/d/yyyy) Gender: Female Height: 65 in * Age: 46 yrs Ethnicity: [place] Weight: 215 lb * Ordering Physician: Klaus Baum * Performed By: Ana Thomas * * Reason For Study: BREAST CA, CHEMO * BSA: 2.0 m2 * -- Conclusions -- * 1. Normal left ventricular size and systolic function. EF 60-65%. No regional wall motion abnormalities. Moderate concentric left ventricular hypertrophy. * 2. No significant valvular abnormalities visualized. * 3. No significant change from prior study on 08/05/2016. Procedure Details * A complete two-dimensional transthoracic echocardiogram was performed (2D, M-mode, Doppler and color flow Doppler). Left Ventricle * Normal left ventricular size and systolic function. EF 60-65%. No regional wall motion abnormalities. Moderate concentric left ventricular hypertrophy. Right Ventricle * The right ventricle is normal in size and function. * The right ventricular systolic function is normal as assessed by tricuspid annular plane systolic excursion (TAPSE) (normal >1.5 cm). Atria * The left atrial size is normal. * Right atrial size is normal. * There is no evidence of atrial septal defect, but resolution does not allow assessment for a patent foramen ovale. Mitral Valve * The mitral valve leaflets appear thickened, but open well. * There is no mitral valve stenosis. * There is trace mitral regurgitation. Tricuspid Valve * The tricuspid valve is not well visualized. * There is no tricuspid stenosis. * Significant tricuspid regurgitation is absent. Aortic Valve * The aortic valve is trileaflet. * The aortic valve is normal in structure and function. * No hemodynamically significant valvular aortic stenosis. * No aortic regurgitation is present. Pulmonic Valve * The pulmonary valve is inadequately visualized, but the Doppler data is adequate for interpretation. * There is no pulmonic valvular stenosis. * Trace pulmonic valvular regurgitation. Great Vessels * The aortic root is normal size. * Ascending aorta of normal dimension * Aortic arch of normal dimension. Pericardium/Pleural * There is no pericardial effusion. Great Vessels * Normal inferior vena cava size and collapsability with sniff indicates a normal right atrial pressure of 3 mmHg Left Ventricular Diastolic Function * No significant diastolic dysfunction. MMode 2D Measurements and Calculations IVSd 1.4 cm IVSs 2.2 cm LVIDd 4.1 cm LVIDs 2.6 cm LVPWd 1.4 cm LVPWs 2.2 cm IVS/LVPW 1.0 FS 37.5 % EDV(Teich) 75.5 ml ESV(Teich) 24.1 ml EF(Teich) 68.0 % EDV(cubed) 70.4 ml ESV(cubed) 17.2 ml EF(cubed) 75.6 % % IVS thick 50.7 % % LVPW thick 56.6 % LV mass(C)d 222.5 grams LV mass(C)dI 109.1 grams/m\S\2 LV mass(C)s 262.9 grams LV mass(C)sI 128.9 grams/m\S\2 SV(Teich) 51.3 ml SI(Teich) 25.2 ml/m\S\2 SV(cubed) 53.2 ml SI(cubed) 26.1 ml/m\S\2 Ao root diam 3.1 cm Ao root area 7.3 cm\S\2 ACS 1.4 cm LA dimension 3.9 cm asc Aorta Diam 2.9 cm LA/Ao 1.3 LVOT diam 2.1 cm LVOT area 3.5 cm\S\2 LVAd ap4 27.9 cm\S\2 LVLd ap4 8.3 cm EDV(MOD-sp4) 78.2 ml EDV(sp4-el) 79.1 ml LVAs ap4 16.4 cm\S\2 LVLs ap4 7.3 cm ESV(MOD-sp4) 33.5 ml ESV(sp4-el) 31.3 ml EF(MOD-sp4) 57.2 % EF(sp4-el) 60.5 % LVAd ap2 32.2 cm\S\2 LVLd ap2 8.4 cm EDV(MOD-sp2) 99.4 ml EDV(sp2-el) 104.7 ml LVAs ap2 17.5 cm\S\2 LVLs ap2 8.0 cm ESV(MOD-sp2) 32.7 ml ESV(sp2-el) 32.7 ml EF(MOD-sp2) 67.1 % EF(sp2-el) 68.8 % LVLd %diff -0.41 % EDV(MOD-bp) 90.3 ml LVLs %diff 14.3 % ESV(MOD-bp) 33.2 ml EF(MOD-bp) 63.2 % SV(MOD-sp4) 44.7 ml SI(MOD-sp4) 21.9 ml/m\S\2 SV(MOD-sp2) 66.7 ml SI(MOD-sp2) 32.7 ml/m\S\2 SV(MOD-bp) 57.1 ml SI(MOD-bp) 28.0 ml/m\S\2 SV(sp4-el) 47.9 ml SI(sp4-el) 23.5 ml/m\S\2 SV(sp2-el) 72.0 ml SI(sp2-el) 35.3 ml/m\S\2 Doppler Measurements and Calculations MV E max gretchen 55.9 cm/sec MV A max gretchen 55.5 cm/sec MV E/A 1.0 MV dec time 0.14 sec Ao V2 max 141.2 cm/sec Ao max PG 8.0 mmHg Ao max PG (full) 4.6 mmHg RAUL(V,A) 2.3 cm\S\2 RAUL(V,D) 2.3 cm\S\2 LV V1 max PG 3.4 mmHg LV V1 max 92.5 cm/sec TV E max gretchen 43.8 cm/sec PA V2 max 67.9 cm/sec PA max PG 1.8 mmHg
== END | disposition home or self-care (01) ==
LOC: C.CPL 12:24
PROVIDERS: ATTEND Internal Medicine Hematology & Oncology
DX: C50.912 Malignant neoplasm of unspecified site of left female breast (principal)

== ENCOUNTER → 2017-06-30 | Outpatient (CLI) | payer BC, OTHER ==
[~2017-06-30] MED LIST changes: -CALC600T9 PO; -CHOL1000 PO; -HYDR-5688 PO; -TAMO20TA9 PO
[2017-06-30 14:23] VITALS: BP 139/85; PULSE 96; TEMP 36.7; O2SAT 99
--- NOTE | 2017-06-30 16:36 | Radiation Oncology Follow-Up ---
Radiation Oncology Follow-Up Date of Visit Jun 30, 2017. Radiation Completion Date 12/02/16 Diagnosis (1) Breast cancer Onset Date: 07/13/2016 Stage: l (A) Permanent Comment: Abnormal left breast mammogram Status post stereotactic biopsy 07/13/2016 revealing ductal carcinoma Estrogen receptor positive, progesterone receptor positive, HER-2/patrick positive Status post lumpectomy and sentinel lymph node biopsy 08/16/2016 Stage pT1b pN0M0 Systemic chemotherapy (TCH) with severe reaction one dose given and stopped Continue Herceptin for 1 year Status post completion of radiation therapy 12/02/2016 received 6280 cGy Last Edited By: Delaney Ornelas on Dec 07, 2016 08:53 History of Present Illness Ms. Addison is a 46-year-old female with a family history of breast cancer. The patient's mother was diagnosed with breast cancer and remains alive and well at age 65. She underwent bilateral annual digital screening mammograms. Her most recent ones on 06/30/2016. This showed a possible grouped calcifications in the left upper outer quadrant which were not evident on prior exams. I recommended spot magnification view was made. This procedure was performed on 07/07/2016. This confirmed a new group of calcifications in the left upper outer quadrant and a stereotactic biopsy was recommended. On 07/13/2016 patient underwent a stereotactic guided biopsy. Biopsy markers were placed and 2 separate biopsies were evaluated both on the left upper outer quadrant. The first specimen revealed an infiltrating ductal carcinoma grade 3 of 3 with high-grade DCIS with comedonecrosis and microcalcifications present. The second tissues sample also identified infiltrating ductal carcinoma grade 3 of 3 with ductal carcinoma in situ, high-grade with comedo necrosis. Microcalcifications were present. No perineural or lymphovascular invasion was identified. Estrogen receptors were positive (100%, strong). Progesterone receptors were positive (75%, moderate). HER-2/patrick was equivocal (2+). This tissue was evaluated by FISH analysis and was positive. Case: [id number]. Patient was seen by Dr. Darrin Loaiza who discussed treatment options with the patient. The patient agreed to proceed with breast conserving therapy. Therefore on 08/16/2016 patient underwent a needle localization left partial mastectomy with sentinel node biopsy. A single sentinel node was identified and was benign by routine sections and by immunohistochemical stain for cytokeratin. The lumpectomy specimen confirmed an invasive ductal carcinoma. The invasive carcinoma was noted within 2 blocks representing sequential sections. The foci measured 0.2 and 0.5 cm in greatest dimension. If these represented a contiguous tumor it could measure up to 0.8 cm in greatest dimension. Much of the area consisted of biopsy site and therefore the exact determination of tumor size was unclear. The invasive tumor extended to within 7 mm of the superior margin and 7 mm from the inferior margin. The DCIS extended to within 0.5 cm of the inferior margin and 7 mm of the superior margin. Both superior and inferior margins were reexcised and showed no residual tumor at the en face margins. Therefore the margins are greater than 1 cm. The final pathologic stage was therefore a pT1b pN0(sn-)ER positive, MI positive and HER-2/patrick positive. Case: [id number]. The patient was seen by Dr. Baum for discussion of the role of adjuvant therapy. They did discuss genetic testing for BRCA1 and BRCA2 with a family history of breast cancer in both her mother and maternal grandmother. Patient however declined. The decision was made to treat with TCH and her first treatment began on 08/30/2016. Unfortunately the patient struggled with significant asthenias, nausea, vomiting and abdominal pain. The patient was seen in the emergency department and treated symptomatically and discharged. She return to the clinic the next day with intractable nausea and vomiting and abdominal pain. The examination and lab studies revealed a markedly elevated LFTs with a prior history of hepatic steatosis. She was admitted for further evaluation and a CT of the abdomen revealed an ileus. Patient ultimately returned to see medical oncology and at that time refused consideration of further systemic chemotherapy. She did however agreed to continue with Herceptin and to subsequently proceed with adjuvant radiation. It is for this reason the patient is seen in referral. She underwent conventional radiation therapy. Radiation was completed 2016. She received 6280 cGy Interim History She has noted no changes to her breast. She does continue to have dark discoloration of the skin. She is noted no masses. She has occasional sharp quick discomfort of the breast. There is been no change of the axilla. She does have lymphedema and is followed at [facility]. She is doing well and there is steady improvement in the swelling of the arm. Today her arm is wrapped. She is having difficulty with her antiestrogen therapy. She feels that Arimidex is causing joint pain. This can be up to level . She has discussed this with medical oncology and recommendation was to use ibuprofen. She also had some urinary symptoms and was going to follow-up with urology but has not heard back from their office. Allergies Coded Allergies: No Known Allergies (Verified , 02/23/17) Home Medications Scheduled Anastrozole (Anastrozole), 1 TAB PO QAM Atorvastatin (Atorvastatin Calcium), 10 MG PO QAM Buspirone Hcl (Buspirone Hcl), 30 MG PO BID Goserelin Acetate (Zoladex), 1 DOSE IM EVERY 4 WEEKS Lisinopril/Hctz (Zestoretic 20MG/25MG), 1 TAB PO QAM Meloxicam (Mobic), 15 MG PO HS Pantoprazole (Protonix), 40 MG PO QAM Potassium Chloride (Micro-K Ext Rel), 10 MEQ PO BID Ranitidine (Zantac), 150 MG PO BID Trastuzumab (Herceptin), 1 DOSE IV Q 3 WEEK Venlafaxine Hcl (Effexor Extended Rel), 300 MG PO HS Scheduled PRN Ondansetron (Ondansetron HCl), 8 MG PO TID PRN for Nausea Prochlorperazine Maleate (Prochlorperazine Maleate), 10 MG PO Q6H PRN for Nausea or Vomiting Review of Systems Gastrointestinal: Symptoms: WNL, Nausea GI Comments: Nausea after Herceptin Oral: Symptoms: No Problems Respiratory: Symptoms: WNL Urinary: Symptoms: WNL, Burning Comments: Dysuria - Awaiting urology consult from Dr. Sanderson Skin: Symptoms: No Problems Breast: Right Upper Arm Measurement: 33.0 Right Mid Arm Measurement: 25.1 Right Wrist Measurement: 17.5 Left Upper Arm Measurement: 36.8 Left Mid Arm Measurement: 27.4 Left Wrist Measurement: 20.8 Cosmetic Comments: Patient developed lymphedema of left arm after tx Physical Exam Vital Signs Date Time Temp Pulse Resp B/P (MAP) Pulse Ox O2 Delivery O2 Flow Rate FiO2 06/30/17 14:23 36.7 96 16 139/85 99 General Appearance: no apparent distress Eyes: normal inspection, EOMI ENT: normal ENT inspection, hearing grossly normal Neck: no adenopathy, thyroid normal Respiratory/Chest: lungs clear, no respiratory distress, no accessory muscle use Breast: There are well-healed incisions on the left breast. She continues to have significant post radiation hyperpigmentation. There is no dryness of the skin. There are no areas of desquamation. There are no masses or tenderness and no axillary adenopathy. She has no skin retractions or nipple changes. Using the Bergton score cosmesis she has a fair outcome. The right breast showed no masses or tenderness no axillary adenopathy. Cardiovascular: regular rate, rhythm, no gallop, no murmur Extremities: no pedal edema Neurologic/Psychiatric: no motor/sensory deficits, alert, normal mood/affect Skin: normal color Lymphatic: no adenopathy Laboratory Studies Test 04/04/17 09:03 04/19/17 13:18 05/30/17 13:39 06/20/17 13:33 Lactate Dehydrogenase 191 U/L (84-246) 217 U/L (84-246) White Blood Count 4.87 K/uL (4.8-10.8) 6.33 K/uL (4.8-10.8) Red Blood Count 4.55 M/uL (4.2-5.4) 4.60 M/uL (4.2-5.4) Hemoglobin 13.6 g/dL (12.0-16.0) 14.0 g/dL (12.0-16.0) Hematocrit 40.4 % (37-47) 41.6 % (37-47) Mean Corpuscular Volume 88.8 fL (80-100) 90.4 fL (80-100) Mean Corpuscular Hemoglobin 29.9 pg (25-34) 30.4 pg (25-34) Mean Corpuscular Hemoglobin Concent 33.7 g/dl (32-36) 33.7 g/dl (32-36) Platelet Count 221 K/uL (130-400) 248 K/uL (130-400) Mean Platelet Volume 10.3 fL (7.4-10.4) 10.5 fL (7.4-10.4) Neutrophils (%) (Auto) 56.3 % 56.2 % Lymphocytes (%) (Auto) 32.0 % 33.5 % Monocytes (%) (Auto) 6.8 % 5.7 % Eosinophils (%) (Auto) 4.1 % 3.9 % Basophils (%) (Auto) 0.6 % 0.5 % Neutrophils # (Auto) 2.74 K/uL (1.4-6.5) 3.56 K/uL (1.4-6.5) Lymphocytes # (Auto) 1.56 K/uL (1.2-3.4) 2.12 K/uL (1.2-3.4) Monocytes # (Auto) 0.33 K/uL (0.11-0.59) 0.36 K/uL (0.11-0.59) Eosinophils # (Auto) 0.20 K/uL (0-0.5) 0.25 K/uL (0-0.5) Basophils # (Auto) 0.03 K/uL (0-0.2) 0.03 K/uL (0-0.2) RDW Standard Deviation 40.8 fL (36.4-46.3) 41.9 fL (36.4-46.3) RDW Coefficient of Variation 12.6 % (11.5-14.5) 12.8 % (11.5-14.5) Immature Granulocyte % (Auto) 0.2 % 0.2 % Immature Granulocyte # (Auto) 0.01 K/uL (0.00-0.02) 0.01 K/uL (0.00-0.02) Sodium Level 140 mmol/L (136-145) 142 mmol/L (136-145) Potassium Level 3.9 mmol/L (3.5-5.1) 3.6 mmol/L (3.5-5.1) Chloride Level 105 mmol/L (98-107) 107 mmol/L (98-107) Carbon Dioxide Level 28 mmol/L (21-32) 29 mmol/L (21-32) Anion Gap 7.0 mmol/L (3-11) 6.0 mmol/L (3-11) Blood Urea Nitrogen 14 mg/dl (7-18) 14 mg/dl (7-18) Creatinine 1.10 mg/dl (0.60-1.20) 1.00 mg/dl (0.60-1.20) Estimated GFR () 70.7 79.4 Estimated GFR (Non- 61.0 68.5 BUN/Creatinine Ratio 13.0 (10-20) 14.2 (10-20) Random Glucose 96 mg/dl (70-99) 89 mg/dl (70-99) Calcium Level 9.7 mg/dl (8.5-10.1) 9.4 mg/dl (8.5-10.1) Magnesium Level 2.1 mg/dl (1.8-2.4) 2.1 mg/dl (1.8-2.4) Total Bilirubin 0.3 mg/dl (0.2-1) 0.2 mg/dl (0.2-1) Aspartate Amino Transferase (AST) 39 U/L (15-37) 46 U/L (15-37) Alanine Aminotransferase (ALT) 77 U/L (12-78) 95 U/L (12-78) Alkaline Phosphatase 97 U/L (45-117) 102 U/L (45-117) Total Protein 7.1 gm/dl (6.4-8.2) 7.3 gm/dl (6.4-8.2) Albumin 3.7 gm/dl (3.4-5.0) 3.7 gm/dl (3.4-5.0) Globulin 3.4 gm/dl (2.5-4.0) 3.6 gm/dl (2.5-4.0) Albumin/Globulin Ratio 1.1 (0.9-2) 1.0 (0.9-2) Chemistry Specimen Hemolysis Additional Studies Patient: MATEO ADDISON [facility] Rec: [id number] Address1: [facility] Address2: [place] [address] Acct ID: [id number] Date: 1970 Sex: F Ref Phy: Delaney Ornelas PA-C Att Phy: Delaney Ornelas PA-C Naye Phy: Salvatore Parra III, HOLLI Inter Phy: Rachel Lora MD [facility] Zip: [place] [address] SC: [id number] Report #: [id number] Clinical Appeals Specialist: SHAHIDA Diagnosis: 3 MONTH POST RADIATION--HX LEFT BREAST CA Service Date: 02/21/17 MNE: [id number] Ordering Dr: Delaney Ornelas PA-C CC: Delaney Ornelas PA-C CONF: DICTATED BY: Rachel Lora MD MAMMOGRAPHY REPORT UNILATERAL LEFT DIGITAL DIAGNOSTIC MAMMOGRAM TOMOSYNTHESIS WITH CAD: 02/21/2017 CLINICAL HISTORY: 46-year-old woman with a history of left breast cancer status post lumpectomy and radiation therapy. She presents to establish new baseline after treatment. TECHNIQUE: Left CC and MLO 2-D digital and tomosynthesis images, repeat left MLO and spot magnification left CC and ML views were obtained. Current study was also evaluated with a Computer Aided Detection (CAD) system. COMPARISON: Comparison is made to exams dated: 08/16/2016 specimen, 08/16/2016 localization, 07/13/2016 stereotactic biopsy, 07/13/2016 mammogram, 07/07/2016 mammogram, and 09/05/2013 mammogram - [facility]. BREAST COMPOSITION: There are scattered areas of fibroglandular density in the left breast. FINDINGS: A linear scar marker overlies the upper outer middle one third of the left breast. There is expected asymmetry, architectural distortion and surgical clips in the upper outer middle one third of the left breast, at the site of prior lumpectomy. The spot magnification views demonstrate one single microcalcifications near the surgical site, but no suspicious grouping or cluster of calcifications. No other new suspicious mass, architectural distortion or suspicious microcalcifications is seen elsewhere in the left breast. IMPRESSION: ACR-BI-RADS CATEGORY 3: PROBABLY BENIGN Expected post treatment changes in the left breast, without definite mammographic evidence of malignancy. Recommend follow-up diagnostic mammograms of the left breast in 6 months to ensure stability after treatment. Annual right mammography will also be due at that time. These results and recommendations were discussed with the patient at the time of the exam. She tentatively scheduled a follow-up appointment prior to leaving our department. Approximately 10% of breast cancers are not detected with mammography. A negative mammographic report should not delay biopsy if a clinically suggestive mass is present. Rachel Lora M.D. ay/:02/21/2017 12:50:04 Rn Registry: Snow SHEN(Gaviota)(M), [facility] letter sent: Personal History 3 BI-RADS Code: ACR-BI-RADS Category 3: Probably Benign Dictated by: Rachel Lora MD Signed by: Rachel Lora MD Assessment & Plan Plan: Continue with scheduled mammography. She has a mammogram on August 23. She stated she was concerned about the prior mammogram and possible changes that have been noted. I reviewed with her that the mammogram showed that there were no definite signs of malignancy. She'll continue follow-up with the lymphedema clinic. She'll be seeing medical oncology. I have asked her to review her side effects with Dr. Sanderson. I also discussed stretching exercises to help with pain of the joints. I've asked her to see Salvatore Parra, nurse practitioner in regards to some of her urinary complaints. She can use over-the -counter skin moisturizers for the left breast. We discussed that the hyperpigmentation should steadily resolved. We asked her to return to our office in 1 year. She may call if she has any questions or concerns in the interim. Total Time In Follow-Up I spent 20 minutes speaking to the patient and performing examination. I spent 15 minutes reviewing information in completing this note. Copy To Salvatore Parra III, CRNP; Darrin Loaiza M.D.; Luis Sanderson D.O. Problem Qualifiers (1) Breast cancer: Breast location: upper outer quadrant of breast Estrogen receptor status: positive Patient sex: female Laterality: left Qualified Codes: C50.412 - Malignant neoplasm of upper-outer quadrant of left female breast; Z17.0 - Estrogen receptor positive status [ER+]
== END | disposition home or self-care (01) ==
LOC: C.ONC 13:48
PROVIDERS: ATTEND Physician Assistant Medical
DX: Z08 Encounter for follow-up examination after completed treatment for malignant neoplasm (principal); Z92.3 Personal history of irradiation; Z85.3 Personal history of malignant neoplasm of breast

== ENCOUNTER → 2017-07-20 | Outpatient (CLI) | payer BC, OTHER ==
[~2017-07-20] MED LIST changes: -WLL100 PO
--- NOTE | 2017-07-20 17:22 | DIAGNOSTIC IMAGING REPORT ---
ULTRASOUND VENOUS DOPP LOWER EXT UNILAT CLINICAL HISTORY: Left lower extremity pain and swelling COMPARISON STUDY: No previous studies for comparison. FINDINGS: Real-time and color flow Doppler imaging were performed. Flow was seen within the femoral, popliteal and calf veins with no intraluminal thrombus demonstrated. The saphenous vein is patent. There is a left popliteal cyst measuring 23 x 8 x 13 mm. IMPRESSION: No evidence of left lower extremity DVT. Electronically signed by: Ra Alba M.D. 07/20/2017 5:21 PM Dictated Date/Time: 07/20/2017 5:20 PM
== END | disposition home or self-care (01) ==
LOC: C.ULTR 16:37
PROVIDERS: ATTEND Nurse Practitioner Family
DX: M79.609 Pain in unspecified limb (principal); M79.89 Other specified soft tissue disorders

== ENCOUNTER → 2017-08-23 | Outpatient (CLI) | payer BC, OTHER ==
--- NOTE | 2017-08-23 15:31 | MAMMOGRAPHY REPORT ---
BILATERAL DIGITAL DIAGNOSTIC MAMMOGRAM TOMOSYNTHESIS WITH CAD AND TARGETED RIGHT ULTRASOUND: 7 CLINICAL HISTORY: 46-year-old woman with a personal history of left breast cancer status post breast conservation treatment present for continued close follow-up in the left breast and routine screening of the right breast. TECHNIQUE: Bilateral CC and MLO 2-D and tomosynthesis images spot magnification left CC and ML views were obtained. Current study was also evaluated with a Computer Aided Detection (CAD) system. COMPARISON: Comparison is made to exams dated: 02/21/2017 mammogram, 07/07/2016 mammogram, 06/30/2016 ma mmogram, 09/05/2013 ultrasound, 09/05/2013 mammogram, and 10/08/2011 mammogram - [facility]. BREAST COMPOSITION: There are scattered areas of fibroglandular density in both breasts. FINDINGS: There is expected architectural distortion, asymmetry and surgical clips in the upper outer middle to posterior left breast, at the site of prior lumpectomy. On the spot magnification views o f the left breast, there are 2 benign-appearing round microcalcifications. When comparing to the sirena or spot magnification views, only one of these calcifications was identified on the prior exam, but b oth have benign appearance and may be related to prior surgery. There is currently no suspicious zuleika uping or cluster of calcifications to suggest tumor recurrence. However, another short interval foll ow-up left diagnostic mammogram including spot magnification views is recommended to ensure stability in 6 months. No other new suspicious mass, calcifications, asymmetry or distortion are seen in the left breast. In the lateral anterior right breast on CC tomosynthesis slice , there is a 6 mm nodular asymmet ry for which further characterization with ultrasound was performed. No other suspicious mass, area of architectural distortion suspicious microcalcifications or asymmetry is seen in the right breast. Targeted ultrasound was performed in the right breast. In the 8:30 axis, 3 cm from the nipple, there are 2 adjacent microcystic clusters. The smaller measures 3 mm and the larger measures 4.4 x 2.4 x 3.7 mm, which is thought to correlate with the mammographic finding. The second is likely incidental . No suspicious solid mass is seen. IMPRESSION: ACR-BI-RADS CATEGORY 3: PROBABLY BENIGN, TARGETED ULTRASOUND ACR-BI-RADS CATEGORY 3: PRO BABLY BENIGN 1. There are 2 probably benign round microcalcifications near the surgical site in the left upper ou ter quadrant, that are most likely dystrophic in nature. However, given that they are new comparing to prior exams, another short interval follow-up left diagnostic mammogram including spot magnificati on views is recommended to ensure stability in 6 months. 2. No other significant interval change in the left breast mammographically. 3. A subcentimeter nodular asymmetry in the lateral right breast is thought to correspond to a micro cystic cluster in the 8:30 axis on ultrasound. These findings are most compatible with benign fibroc ystic changes. Would recommend routine screening of the right breast in 1 year. 4. Given the personal history of left breast cancer, would also recommend continued annual surveilla nce with breast MRI, which is due now. These results and recommendations were discussed with the patient at the time of the exam. Approximately 10% of breast cancers are not detected with mammography. A negative mammographic report should not delay biopsy if a clinically suggestive mass is present. Rachel Lora M.D. ay/:08/23/2017 14:04:18 Certified Registered Locksmith: Neyda SALCIDO)(Janie), [facility] letter sent: Follow Up Recommended 3 BI-RADS Code: ACR-BI-RADS Category 3: Probably Benign Ultrasound BI-RADS: ACR-BI-RADS Category 3: Pr obably Benign
== END | disposition home or self-care (01) ==
LOC: C.MAMM 10:08
PROVIDERS: ATTEND Physician Assistant Medical
DX: R92.1 Mammographic calcification found on diagnostic imaging of breast (principal); Z85.3 Personal history of malignant neoplasm of breast

== ENCOUNTER → 2017-08-23 | Outpatient (CLI) | payer BC, OTHER ==
[2017-08-23 12:49] LABS: BLOOD UREA NITROGEN 14 mg/dl (7-18); BUN/CREATININE RATIO 15.4 (10-20); CALCIUM 9.6 mg/dl (8.5-10.1); CARBON DIOXIDE 30 mmol/L (21-32); CHLORIDE 106 mmol/L (98-107); CREATININE 0.88 mg/dl (0.60-1.20); GLUCOSE 94 mg/dl (70-99); HDL CHOLESTEROL 41 mg/dl; MAGNESIUM 2.1 mg/dl (1.8-2.4); POTASSIUM 4.4 mmol/L (3.5-5.1); SODIUM 140 mmol/L (136-145)
[2017-08-23 12:56] LABS: ALB/GLOB RATIO 1.1 (0.9-2); ALKALINE PHOSPHATASE 106 U/L (45-117); ALT/SGPT 72 U/L (12-78); AST/SGOT 38 U/L (15-37); CHOLESTEROL 228 mg/dl (0-200); CHOLESTEROL/HDL RATIO 5.6; FERRITIN 132.5 ng/ml (8.0-388.0); LDL CHOLESTEROL CALCULATED 144 mg/dl; TRIGLYCERIDES 213 mg/dl (0-150); VERY LOW DENSITY LIPOPROT CALC 43 mg/dl
== END | disposition home or self-care (01) ==
LOC: C.LAB 09:22
PROVIDERS: ATTEND Nurse Practitioner Family
DX: E78.00 Pure hypercholesterolemia, unspecified (principal); I10 Essential (primary) hypertension; K21.9 Gastro-esophageal reflux disease without esophagitis; M79.1 Myalgia

== ENCOUNTER → 2017-09-13 | Outpatient (CLI) | payer BC, OTHER ==
[~2017-09-13] MED LIST changes: +GADAVIST IV PRN
--- NOTE | 2017-09-14 07:58 | MAMMOGRAPHY REPORT ---
BREAST MRI OF BOTH BREASTS : 09/13/2017 CLINICAL HISTORY: 46-year-old woman with a personal history of left breast cancer status post breast conserving treatment presents for annual surveillance MRI. COMPARISON: Comparison is made to exams dated: 08/23/2017 mammogram, 08/23/2017 ultrasound, 02/21/2017 m ammogram, 08/16/2016 specimen, 08/16/2016 localization, and 08/02/2016 breast MRI - [facility]. TECHNIQUE: Using a 1.5 Julianne magnet and dedicated breast coil, multisequence axial images were obtain ed through the breasts. After uneventful IV administration of 8.4 mL of Gadavist, dynamic multiphase contrast-enhanced axial images, and sagittal postcontrast were obtained. Temporal subtraction axial images and 3-D MIP images are provided. Everything was then reviewed on a 3-D workstation, [employer]. FINDINGS: There is minimal to mild background parenchymal enhancement of the breasts. The degree of background enhancement has slightly decreased comparing to the 08/02/2016 MRI. There is a 3 cm surgi radha cavity in the middle one third of the left breast 2:00 to 3:00 axes. There is no evidence of a s uspicious enhancing mass, suspicious non-mass enhancement or suspicious kinetics in either breast. N o focal skin thickening or nipple retraction. The retromammary fat is intact. No suspicious axillar y, subpectoral or internal mammary lymphadenopathy is identified. Note is made of susceptibility art ifact from a Mediport catheter in the upper inner right chest. IMPRESSION: ACR BI-RADS CATEGORY 2: BENIGN 1. Expected postsurgical changes in the left breast, without MRI evidence of malignancy bilaterally. 2. A six-month follow-up left diagnostic mammogram including spot magnification views is still recom mended based on prior diagnostic mammogram report, and for continued close surveillance after treatme nt. The patient will receive written notification of the results. Rachel Lora M.D. 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
== END | disposition home or self-care (01) ==
LOC: C.MRI 09:14
PROVIDERS: ATTEND Physician Assistant Medical
DX: Z80.3 Family history of malignant neoplasm of breast (principal); R92.8 Other abnormal and inconclusive findings on diagnostic imaging of breast

== ENCOUNTER → 2017-10-04 | Day surgery (SDC) | payer BC, OTHER ==
[2017-09-27 12:47] VITALS: Ht 167.6 cm; Wt 106.8 kg
[~2017-10-04] VITALS: Ht 167.6 cm; Wt 106.8 kg
[~2017-10-04] MED LIST changes: -ANAS1TAB6 PO; +ATROPINE SULFATE 0.1 MG/ML 5ML SYR IV PRN; +CALC600T9 PO; +CEFAZOLIN 2000MG IV PUSH 10 ML IV SCH; +CHOL1000 PO; +EpHEDrine SULFATE INJ 50 MG/ML AMP IV PRN; +FENTANYL CITRATE INJ 50 MCG/1 ML 2 ML VIAL IV PRN; +FENTANYL CITRATE INJ 50 MCG/1 ML 2 ML VIAL ONE; -GADAVIST IV PRN; +HYDR-5688 PO; +HYDROCODONE/ACETAMOPHEN 5/325MG TAB PO PRN; +LACTATED RINGER'S 1000ML 1,000 ML IV SCH; +LIDOCAINE HCL 1% 20 ML VIAL ONE; +LIDOCAINE HCL 2% 2 ML VIAL (20MG/ML) ONE; +MIDAZOLAM HCL 1 MG/ML 2ML VIAL ONE; +ONDANSETRON INJ 2 MG/ML 2 ML VIAL IV PRN; +ONDANSETRON INJ 2 MG/ML 2 ML VIAL ONE; +PATIENT'S ALLERGY INFO NEEDS ENTERED SCH; +PROPOFOL IV EMULSION 10 MG/ML 20 ML VIAL IV ONE; +SODIUM CHLORIDE 0.9% 1000ML 1,000 ML IV SCH; +TAMO20TA9 PO; -TRAS440I2 IV
--- NOTE | 2017-10-04 06:40 | History & Physical Bridge - SC ---
H&P Re-Evaluation Bridge Note: I have examined the patient, reviewed the History & Physical and in the interval since the performance of the History & Physical I have noted the following changes of clinical significance: No changes noted
--- NOTE | 2017-10-04 07:32 | [facility] Operative Report ---
Operative Report Operative Date Oct 04, 2017. Pre-Operative Diagnosis Breast Cancer Post-Operative Diagnosis Same Procedure(s) Performed A-port Removal Surgeon Dr. Loaiza Mold Swabber Surgeon(s) None Estimated Blood Loss 20 mL Findings port- pt had some increased oozing- sutured Specimens A. Explanted A-port Anesthesia local/ sedation Complication(s) None Disposition Recovery Room / PACU I attest to the content of the Intraoperative Record and any orders documented therein. Any exceptions are noted below.
--- NOTE | 2017-10-04 07:36 | Discharge Instructions-SurgCtr ---
Discharge Instructions Date of Service Oct 04, 2017. Visit Reason for Visit: Breast Cancer, Port Cath In Place Discharge Discharge Diagnosis / Problem: port in place Discharge Goals Goal(s): Decrease discomfort, Improve function, Improve disease control Medications Stopped Medications Name(s): no blood thinners Activity Recommendations Activity Limitations: as noted below Lifting Limitations: no more than 25 pounds Exercise/Sports Limitations: until after follow-up appointment May Resume Sexual Activity: when tolerated Shower/Bathe: tomorrow Driving or Machine Use: resume 1 day after discharge SPECIAL CARE INSTRUCTIONS: * Cover incisions and change daily for comfort/drainage. * May use ibuprofen for pain as tolerated. * Expect some swelling and bruising. Call your doctor if: * Temperature above 101 degrees * Pain not relieved by pain medicine ordered * There is increased drainage or redness from any incision * You have any unanswered questions or concerns [phone]. FOLLOW UP VISIT: If not already scheduled, please call the office for a follow-up visit. for 2 weeks- suture removal OFFICE PHONE NUMBER: Dr. Loaiza Office Anesthesia . Post Anesthesia Instructions: If you have had General Anesthesia or IV Sedation: * Do not drive today. * Resume driving when surgeon permits. * Do not make important decisions or sign legal documents today. * Call surgeon for: 1. Temperature elevations greater than 101 degrees F. 2. Uncontrollable pain. 3. Excessive bleeding. 4. Persistent nausea and vomiting. 5. Medication intolerance (nausea, vomiting or rash). * For nausea and vomiting use only clear liquids such as: tea, soda, bouillon until nausea subsides, then gradually increase diet as tolerated. * If you have any concerns or questions, call your surgeon's office. If physician is unavailable and it is an emergency, call 911 or go to the nearest emergency room. . Diet Recommendations Home Diet: resume previous diet Procedures Procedures Performed: A-port Removal Pending Studies Studies pending at discharge: no Medical Emergencies . Who to Call and When: Medical Emergencies: If at any time you feel your situation is an emergency, please call 911 immediately. . Non-Emergent Contact Non-Emergency issues call your: Primary Care Provider, Surgeon . . "Provider Documentation" section prepared by Darrin Loaiza. .
--- NOTE | 2017-10-04 07:45 | OPERATIVE REPORT ---
DATE OF OPERATION: 10/04/2017 NAME OF OPERATION: Port removal. PREOPERATIVE DIAGNOSIS: Port in place with history of breast cancer. POSTOPERATIVE DIAGNOSIS: Same. STAFF SURGEON: Darrin Loaiza MD. ANESTHESIA: 1% plain lidocaine with sedation. DESCRIPTION OF PROCEDURE: The patient was brought in the operating room and placed on the operating table in supine position. Her right chest was prepped and draped in usual fashion. She had a scar noted in the right upper chest with A-port in place. The catheter went into the right internal jugular vein. Incision was made using 1% plain lidocaine carrying dissection down identifying the catheter and port. The catheter was clamped proximal and distal and then transected in between and then the catheter removed with the tunnel oversewn using 2-0 chromic catgut suture. The port was then dissected free from surrounding tissue and then sent for routine pathology. The patient did have some mild increased oozing, but this was suture ligated using 2-0 chromic and plain suture. At this point, the skin was reapproximated using interrupted 4-0 nylon suture. Dressing applied and patient transferred to recovery room in stable condition. I attest to the content of the Intraoperative Record and any orders documented therein. Any exception s are noted below.
[2017-10-04 07:57] VITALS: TEMP 36.7
--- NOTE | 2017-10-04 08:10 | Anesthesiology Progress Note ---
Anesthesia Post Op Note Date & Time Oct 04, 2017 at 08:10 Vital Signs Pain Intensity: 3 Vital Signs Past 12 Hours Date Time Temp Pulse Resp B/P (MAP) Pulse Ox O2 Delivery O2 Flow Rate FiO2 10/04/17 07:57 36.7 89 16 135/85 (102) 96 Room Air 10/04/17 07:54 36.4 10/04/17 07:53 85 9 96 10/04/17 07:53 86 9 10/04/17 07:51 143/92 (103) 10/04/17 07:48 88 6 97 10/04/17 07:48 89 6 10/04/17 07:46 135/88 (101) 10/04/17 07:43 89 20 10/04/17 07:43 89 20 98 10/04/17 07:42 Room Air 10/04/17 07:41 140/95 (101) 10/04/17 07:38 91 15 99 10/04/17 07:38 91 15 10/04/17 07:36 146/96 (108) 10/04/17 07:33 92 141/91 (101) 99 10/04/17 07:33 92 10/04/17 07:31 36.6 94 16 141/91 98 Diffusion Mask 5 10/04/17 06:33 36.5 87 16 136/99 (111) 97 Room Air Notes Mental Status: alert / awake / arousable, participated in evaluation Pt Amnestic to Procedure: Yes Nausea / Vomiting: adequately controlled Pain: adequately controlled Airway Patency, RR, SpO2: stable & adequate BP & HR: stable & adequate Hydration State: stable & adequate Anesthetic Complications: no major complications apparent
[2017-10-04 08:30] VITALS: BP 139/92; PULSE 85; O2SAT 99
== END | disposition home or self-care (01) ==
LOC: X.SURG 06:11
PROVIDERS: ATTEND Surgery
DX: C50.919 Malignant neoplasm of unspecified site of unspecified female breast (principal); Z95.828 Presence of other vascular implants and grafts; I10 Essential (primary) hypertension; R06.83 Snoring; F17.200 Nicotine dependence, unspecified, uncomplicated; G47.10 Hypersomnia, unspecified; Z80.3 Family history of malignant neoplasm of breast; Z79.899 Other long term (current) drug therapy

== ENCOUNTER → 2017-12-16 | Outpatient (CLI) | payer BC, OTHER ==
[~2017-12-16] MED LIST changes: -ATROPINE SULFATE 0.1 MG/ML 5ML SYR IV PRN; -CEFAZOLIN 2000MG IV PUSH 10 ML IV SCH; -EpHEDrine SULFATE INJ 50 MG/ML AMP IV PRN; -FENTANYL CITRATE INJ 50 MCG/1 ML 2 ML VIAL IV PRN; -FENTANYL CITRATE INJ 50 MCG/1 ML 2 ML VIAL ONE; -HYDROCODONE/ACETAMOPHEN 5/325MG TAB PO PRN; -LACTATED RINGER'S 1000ML 1,000 ML IV SCH; -LIDOCAINE HCL 1% 20 ML VIAL ONE; -LIDOCAINE HCL 2% 2 ML VIAL (20MG/ML) ONE; -MIDAZOLAM HCL 1 MG/ML 2ML VIAL ONE; -ONDANSETRON INJ 2 MG/ML 2 ML VIAL IV PRN; -ONDANSETRON INJ 2 MG/ML 2 ML VIAL ONE; -PATIENT'S ALLERGY INFO NEEDS ENTERED SCH; -PROPOFOL IV EMULSION 10 MG/ML 20 ML VIAL IV ONE; -SODIUM CHLORIDE 0.9% 1000ML 1,000 ML IV SCH
== END | disposition home or self-care (01) ==
LOC: C.PAPS 10:17
PROVIDERS: ATTEND Obstetrics & Gynecology
DX: Z01.411 Encounter for gynecological examination (general) (routine) with abnormal findings (principal); R87.610 Atypical squamous cells of undetermined significance on cytologic smear of cervix (ASC-US)

== ENCOUNTER → 2018-02-01 | Outpatient (CLI) | payer BC, OTHER ==
[~2018-02-01] MED LIST changes: +BUPR-83 PO; -CALC600T9 PO; -CHOL1000 PO; +CHOL200027 PO; -CMP/10 PO; +CYAN100073 PO; +EXM/25 PO; -GOSE3.6I IM; -HYDR-5688 PO; -MELO7.5T5 PO; -ONDA-63 PO; +ONDA8TAB12 PO; -PANT40TA PO; -POTA10CA28 PO; +PROC1TAB5 PO; +RANI150T85 PO; -TAMO20TA9 PO; -ZNTT/150 PO
[2018-02-01 12:30] LABS: BASO % 0.7 %; BASO ABS # 0.04 K/uL (0-0.2); EOS % 4.1 %; EOS ABS # 0.25 K/uL (0-0.5); HEMATOCRIT 44.1 % (37-47); HEMOGLOBIN 14.9 g/dL (12.0-16.0); LYMPH % 26.8 %; LYMPH ABS # 1.65 K/uL (1.2-3.4); MEAN CELL VOLUME 90.4 fL (80-100); MEAN CORPUSCULAR HEMOGLOBIN 30.5 pg (25-34); MEAN CORPUSCULAR HGB CONC 33.8 g/dl (32-36); MEAN PLATELET VOLUME 10.9 fL (7.4-10.4); MONO % 5.7 %; MONO ABS # 0.35 K/uL (0.11-0.59); NEUT % 62.7 %; NEUT ABS # 3.86 K/uL (1.4-6.5); PLATELET COUNT 255 K/uL (130-400); RED CELL DISTRIBUTION WIDTH CV 12.9 % (11.5-14.5); RED CELL DISTRIBUTION WIDTH SD 42.8 fL (36.4-46.3); WHITE BLOOD COUNT 6.15 K/uL (4.8-10.8)
[2018-02-01 13:35] LABS: ALBUMIN 3.7 gm/dl (3.4-5.0); ALT/SGPT 168 U/L (12-78); AST/SGOT 99 U/L (15-37); BLOOD UREA NITROGEN 9 mg/dl (7-18); CALCIUM 9.1 mg/dl (8.5-10.1); CARBON DIOXIDE 26 mmol/L (21-32); CREATININE 0.82 mg/dl (0.60-1.20); GLUCOSE 108 mg/dl (70-99); POTASSIUM 3.8 mmol/L (3.5-5.1); SODIUM 138 mmol/L (136-145)
[2018-02-01 13:43] LABS: ALKALINE PHOSPHATASE 110 U/L (45-117); CHOLESTEROL 182 mg/dl (0-200); LDL CHOLESTEROL CALCULATED 114 mg/dl; TOTAL PROTEIN 7.2 gm/dl (6.4-8.2)
== END | disposition home or self-care (01) ==
LOC: C.LABPVFM 10:01
PROVIDERS: ATTEND Nurse Practitioner Family
DX: F41.8 Other specified anxiety disorders (principal); E78.00 Pure hypercholesterolemia, unspecified; R42 Dizziness and giddiness; K21.9 Gastro-esophageal reflux disease without esophagitis; C50.919 Malignant neoplasm of unspecified site of unspecified female breast; I10 Essential (primary) hypertension

== ENCOUNTER 2018-02-13 05:31 | Inpatient (IN) | payer BC, OTHER ==
[2018-01-30 13:00] VITALS: BMI 40.0
--- NOTE | 2018-01-30 13:42 | PAT Medication Instructions ---
Service Date Jan 30, 2018. Current Home Medication List Atorvastatin (Lipitor), 10 MG PO QAM Bupropion (Wellbutrin), 100 MG PO BID Buspirone Hcl (Buspirone Hcl), 30 MG PO BID Cholecalciferol (Vitamin D-3), 4,000 INTERUNIT PO QAM Cyanocobalamin (B12), 1 TAB PO QAM Exemestane (Aromasin), 25 MG PO QAM Goserelin Acetate (Zoladex), Unknown Dose Lisinopril/Hctz (Zestoretic 20MG/25MG), 1 TAB PO QAM Ondansetron Hcl (Zofran), 8 MG PO UD PRN for PRN Prochlorperazine Maleate (Compazine), 10 MG PO UD PRN for PRN Ranitidine (Zantac), 150 MG PO BID Venlafaxine Hcl (Effexor Extended Rel), 300 MG PO HS Medication Instructions For Your Scheduled Surgery -Contact your presciber for instructions for: Exemestane (Aromasin), 25 MG PO QAM - Hold the following medications the morning of surgery: Cholecalciferol (Vitamin D-3), 4,000 INTERUNIT PO QAM Cyanocobalamin (B12), 1 TAB PO QAM Lisinopril/Hctz (Zestoretic 20MG/25MG), 1 TAB PO QAM - Take the following medications the morning of surgery with a sip of water: Atorvastatin (Lipitor), 10 MG PO QAM Bupropion (Wellbutrin), 100 MG PO BID Buspirone Hcl (Buspirone Hcl), 30 MG PO BID Ondansetron Hcl (Zofran), 8 MG PO UD PRN for PRN (if needed) Ranitidine (Zantac), 150 MG PO BID Prochlorperazine Maleate (Compazine), 10 MG PO UD PRN for PRN (if needed) - Take the following medications as scheduled the night before surgery: Bupropion (Wellbutrin), 100 MG PO BID Buspirone Hcl (Buspirone Hcl), 30 MG PO BID Ondansetron Hcl (Zofran), 8 MG PO UD PRN for PRN (if needed) Ranitidine (Zantac), 150 MG PO BID Prochlorperazine Maleate (Compazine), 10 MG PO UD PRN for PRN (if needed) Venlafaxine Hcl (Effexor Extended Rel), 300 MG PO HS If you have any questions please call us at [phone] or [phone] or [phone]
[2018-01-30 15:06] LABS: BASO % 0.3 %; BASO ABS # 0.02 K/uL (0-0.2); EOS ABS # 0.24 K/uL (0-0.5); HEMATOCRIT 41.8 % (37-47); HEMOGLOBIN 13.9 g/dL (12.0-16.0); LYMPH % 32.5 %; LYMPH ABS # 1.97 K/uL (1.2-3.4); MEAN CELL VOLUME 90.3 fL (80-100); MEAN CORPUSCULAR HGB CONC 33.3 g/dl (32-36); MEAN PLATELET VOLUME 10.7 fL (7.4-10.4); MONO % 6.3 %; MONO ABS # 0.38 K/uL (0.11-0.59); NEUT % 56.9 %; NEUT ABS # 3.45 K/uL (1.4-6.5); PLATELET COUNT 247 K/uL (130-400); RED CELL DISTRIBUTION WIDTH CV 13.1 % (11.5-14.5); RED CELL DISTRIBUTION WIDTH SD 43.2 fL (36.4-46.3); WHITE BLOOD COUNT 6.06 K/uL (4.8-10.8)
[2018-01-30 15:38] LABS: CALCIUM 9.7 mg/dl (8.5-10.1); CREATININE 0.79 mg/dl (0.60-1.20); POTASSIUM 4.1 mmol/L (3.5-5.1)
[2018-02-13] VITALS (19 sets, daily range): BP systolic 112–149; BP diastolic 75–98; PULSE 100–130; TEMP 36.6–36.8; O2SAT 92–100; Ht 167.6 cm; Wt 107.8 kg
[~2018-02-13] VITALS: Ht 167.6 cm; Wt 107.8 kg
[2018-02-13 05:58] LABS: HEMATOCRIT 44.5 % (37-47); MEAN CELL VOLUME 90.6 fL (80-100); MEAN CORPUSCULAR HEMOGLOBIN 30.5 pg (25-34); MEAN CORPUSCULAR HGB CONC 33.7 g/dl (32-36); MEAN PLATELET VOLUME 11.4 fL (7.4-10.4); PLATELET COUNT 245 K/uL (130-400); RED CELL DISTRIBUTION WIDTH CV 12.9 % (11.5-14.5); RED CELL DISTRIBUTION WIDTH SD 42.8 fL (36.4-46.3); WHITE BLOOD COUNT 6.64 K/uL (4.8-10.8)
[2018-02-13] MEDS ORDERED: CEFAZOLIN 3000MG IV PUSH 22.5 ML IV SCH (06:00)
[2018-02-13] MEDS ORDERED: LACTATED RINGER'S 1000ML 1,000 ML IV SCH (06:00)
[2018-02-13] MEDS ORDERED: PROPOFOL IV EMULSION 10 MG/ML 20 ML VIAL IV ONE (06:46)
[2018-02-13] MEDS ORDERED: LIDOCAINE HCL 2% 2 ML VIAL (20MG/ML) ONE (06:46)
[2018-02-13] MEDS ORDERED: ONDANSETRON INJ 2 MG/ML 2 ML VIAL ONE ×2 (06:46→08:19)
[2018-02-13] MEDS ORDERED: FENTANYL CITRATE INJ 50 MCG/1 ML 2 ML VIAL ONE ×4 (06:46→12:26)
[2018-02-13] MEDS ORDERED: HYDROmorphone INJ 2 MG/ML SYR/VIAL ONE (06:46)
[2018-02-13] MEDS ORDERED: DEXAMETHASONE SOD INJ 4 MG/ML VIAL ONE (06:46)
[2018-02-13] MEDS ORDERED: MIDAZOLAM HCL 1 MG/ML 2ML VIAL ONE ×3 (06:46→12:25)
[2018-02-13] MEDS ORDERED: LARYING-O-JET KIT (LTA) ONE (06:47)
[2018-02-13] MEDS ORDERED: SODIUM CHLORIDE 0.9% INJ 10 ML VIAL ONE (06:47)
[2018-02-13] MEDS ORDERED: BUPIVACAINE 0.5 % 5 MG/1 ML MPF 30ML VIAL ONE (07:02)
[2018-02-13] MEDS ORDERED: KETAMINE HCL INJ 50 MG/ML 10 ML VIAL ONE (07:57)
[2018-02-13] MEDS ORDERED: HYDROmorphone INJ 2 MG/ML SYR/VIAL IV PRN (08:15)
[2018-02-13] MEDS ORDERED: ATROPINE SULFATE 0.1 MG/ML 5ML SYR IV PRN (08:15)
[2018-02-13] MEDS ORDERED: EpHEDrine SULFATE INJ 50 MG/ML AMP IV PRN (08:15)
[2018-02-13] MEDS ORDERED: ONDANSETRON INJ 2 MG/ML 2 ML VIAL IV PRN ×2 (08:15→09:45)
[2018-02-13] MEDS ORDERED: PHENYLEPHRINE 100MCG/ML 5ML SYR IV PRN (08:15)
[2018-02-13] MEDS ORDERED: LABETALOL HCL IV 5 MG/ML 20ML IV ONE (08:17)
[2018-02-13] MEDS ORDERED: METHYLENE BLUE 0.5% 10 ML VIAL ONE ×2 (08:32→09:09)
[2018-02-13] MEDS ORDERED: FUROSEMIDE 10 MG/ML 10 ML VIAL ONE (09:01)
[2018-02-13] MEDS ORDERED: NEOSTIGMINE METHYLSULFATE 5 MG/5 ML SYR ONE (09:04)
[2018-02-13] MEDS ORDERED: GLYCOPYRROLATE INJ 0.2 MG/ML VIAL ONE (09:04)
[2018-02-13] MEDS ORDERED: ROCURONIUM BROMIDE 10 MG/ML 5 ML VIAL IV ONE (09:04)
[2018-02-13] MEDS ORDERED: TISSEEL FIBRIN SEALANT 4ML TOP ONE ×2 (09:22→09:57)
--- NOTE | 2018-02-13 09:37 | [facility] Post Operative Brief Note ---
Immediate Operative Summary Operative Date Feb 13, 2018. Pre-Operative Diagnosis Menorrhagia, failed ablation, and genetic risk for breast cancer Post-Operative Diagnosis Menorrhagia, failed ablation, and genetic risk for breast cancer Procedure(s) Performed Robotic assisted total laparoscopic hysterectomy with bilateral salpingo-oopgerectomy and cystoscopy Surgeon Dr. Humberto Vila MD Telecommunication Lines Repairer Surgeon(s) None Estimated Blood Loss 10ml Findings Consistent with Post-Op Diagnosis Specimens A. Uterus, cervix, bilateral fallopian tubes, and ovaries Drains Hankins Anesthesia Type General Complication(s) none Disposition Accompanied Pt To Recover: no Disposition: Recovery Room / PACU
--- NOTE | 2018-02-13 09:41 | Discharge Instructions ---
Discharge Instructions Date of Service Feb 13, 2018. Admission Reason for Admission: Menorrhagia, Breast Cancer Discharge Discharge Diagnosis / Problem: menorrhagia Discharge Goals Goal(s): Routine recovery after surgery Activity Recommendations Activity Limitations: per Instructions/Follow-up section . Instructions / Follow-Up Instructions / Follow-Up POST OPERATIVE: BOWEL FUNCTION/MEDICATIONS: 1. Constipation pain and discomfort are the most common complaints 5-7 days after surgery. Points 2-6 address the things that can help. 2. Chewing gum can help stimulate the gut and help improve digestion and motility. 3. Milk of Magnesia 1-2 times per day until return of bowel function. 4. Colace is a stool softener that helps. Taking this 2-3 times per day until bowel function returns to normal is highly recommended. 5. Dulcolax is a laxative that may be used if several days have passed without a bowel movement. Alternatively Miralax may be used daily instead. 6. Drink plenty of fluids as this will also reduce constipation. 7. Narcotic pain medications will be prescribed by your physician. They are safe to use and we encourage you to use them. If you are not allergic, ibuprofen will also be prescribed. Many patients will be able to transition off of the narcotic medications to ibuprofen by postoperative day 3. ACTIVITY RECOMMENDATIONS: 1. Get plenty of rest and listen to your body. If you are tired, take a nap. 2. You may shower, but do not take a tub bath until you see your doctor at the 2 week post operative visit. 3. Absolutely NO intercourse and nothing in the vagina until you are examined by your doctor at the 6 week visit. At that visit it will be determined when such activities can be resumed. This can range from 6-12 weeks after your surgery depending on healing time. 4. The main physical activity in the first week should be walking. By the second week you can slowly increase activity. There are no limits on walking up and down stairs. 5. Do not lift more than 5-10 lbs for 4 weeks. Remember the "one-handed rule", i.e. if you can lift something with only one hand it's likely okay. 6. Minimize transit man like vacuuming and exercising for 4 weeks. "Overdoing it" can lead to incisions not healing, pain and vaginal bleeding , so again, listen to your body. 7. Driving can be resumed when you feel able. Do not drive within 24 hours of taking a narcotic medication. EXPECTATIONS: 1. Vaginal spotting, bleeding and discharge are common after surgery. There may even be an odor to the discharge which is often related to sutures used in the vagina. If you experience heavy vaginal bleeding, call the office number day or night [phone]. 2. Bladder discomfort is common after surgery from the catheter. This usually resolves in 1-2 weeks. 3. By the end of the 3rd or 4th week you should be feeling much better. It may take up to 6 weeks for your energy levels to return to normal. 4. Narcotic medications have side effects such as: dizziness, headache, nausea and/or vomiting. If you suspect your pain medication is causing problems, call our office and we may be able to prescribe an alternate medication. 5. The skin incisions are often covered with a liquid bandage. This will gradually peel off over time. CALL THE OFFICE IF YOU HAVE ANY OF THE FOLLOWIN. Temperature of 101 degrees or higher. 2. Severe abdominal or pelvic pain not relieved by pain medication. 3. Persistent nausea or vomiting. 4. Increased pain with urination or difficulty urinating. 5. Bright red bleeding that soaks more than 1 pad per hour. CONTACT PHONE NUMBERS: Main Office: [phone] Surgical Nurse: [phone] extension [phone] Avoid all tobacco products. If you need help to stop smoking, call [place]'s FREE QUITLINE at . This is a free call. Current Hospital Diet Patient's current hospital diet: Discharge Diet Recommended Diet: Regular Diet Procedures Procedures Performed: Robotic assisted total laparoscopic hysterectomy with bilateral salpingo-oopgerectomy and cystoscopy Pending Studies Studies pending at discharge: no Laboratory Results Lipid Panel Test 02/01/18 10:10 Range/Units Triglycerides Level 138 0-150 mg/dl Cholesterol Level 182 0-200 mg/dl HDL Cholesterol 40 mg/dl Cholesterol/HDL Ratio 4.6 LDL Cholesterol, Calculated 114 mg/dl Medical Emergencies . Who to Call and When: Medical Emergencies: If at any time you feel your situation is an emergency, please call 911 immediately. . Non-Emergent Contact Non-Emergency issues call your: Financial Counselor . . "Provider Documentation" section prepared by Luis Vila. .
[2018-02-13] MEDS ORDERED: MTR600X PO (09:44)
[2018-02-13] MEDS ORDERED: OXYC-57 PO (09:44)
[2018-02-13] MEDS ORDERED: IBUPROFEN 600 MG TAB PO PRN (09:45)
[2018-02-13] MEDS ORDERED: PROMETHAZINE HCL INJ 25 MG in SODIUM CHLORIDE 0.9% 50ML 50 ML IV PRN (09:45)
[2018-02-13] MEDS ORDERED: MEPERIDINE HCL 50 MG/ML CARP IV PRN ×2 (09:45)
[2018-02-13] MEDS ORDERED: ACETAMINOPHEN 325 MG TAB PO PRN (09:45)
[2018-02-13] MEDS ORDERED: ZOLPIDEM TARTRATE 5 MG TAB PO PRN (09:45)
[2018-02-13] MEDS ORDERED: MAGNESIUM HYDROXIDE SUSP 30 ML UDC PO PRN (09:45)
[2018-02-13] MEDS ORDERED: PROMETHAZINE HCL INJ 12.5 MG in SODIUM CHLORIDE 0.9% 50ML 50 ML IV PRN (09:45)
[2018-02-13] MEDS ORDERED: OXYCODONE/ACETAMINOPHEN 5-325 TAB PO PRN (09:45)
[2018-02-13] MEDS ORDERED: SIMETHICONE 80 MG CHEW PO PRN (09:45)
[2018-02-13] MEDS ORDERED: KETOROLAC TROMETHAMINE 30 MG/ML VIAL IV. PRN (09:45)
[2018-02-13] MEDS ORDERED: BISACODYL 10 MG SUPP PR PRN (09:45)
--- NOTE | 2018-02-13 10:23 | OPERATIVE REPORT ---
DATE OF OPERATION: 02/13/2018 PREOPERATIVE DIAGNOSES: Menorrhagia, failed endometrial ablation and genetic risk for ovarian cancer. POSTOPERATIVE DIAGNOSES: Same. PROCEDURE: Robotically assisted total laparoscopic hysterectomy, bilateral salpingo-oophorectomy and cystoscopy. SURGEON: Dr. Vila. SENIOR UNDERWRITER: None. ESTIMATED BLOOD LOSS: 10 mL FINDINGS: Consistent with postop diagnoses. SPECIMENS: Uterus, bilateral fallopian tubes and ovaries. DRAINS: Hankins catheter. ANESTHETIC: General. COMPLICATIONS: reaction to methylene blue (post op). DISPOSITION: Recovery room. Aleja was given a general anesthetic, prepped and draped in dorsal lithotomy position. Care was taken on positioning. 3 grams of Ancef were given preoperatively. Hankins catheter used to drain her bladder. VCare placed into her uterus and sewn into place in usual fashion. Gloves changed. A supraumbilical incision made with scalpel, dissecting down through open technique, cutting down through the fascia, splitting the rectus muscles, entering the peritoneal cavity. A blunt tipped Vesna trocar then placed. Balloon in the port then inflated to allow stabilization. CO2 gas used to insufflate the abdomen. FINDINGS: Upper abdomen normal. No sign of visceral organ injury. Deep Trendelenburg then obtained. FINDINGS: Normal tubes, ovaries and uterus. No significant adhesions, endometriosis or anomalies. Ureters seem to follow a normal course. Two robotic ports made, 1 on the left, 1 on the right, and then a left upper quadrant bladeless 11 mm port as well. We then docked the robot and arm #1 was the monopolar james, arm #2 bipolar [place]. Procedure was begun by identifying the course of the left ureter first and then isolating the IP ligament proximal to the left ovary. This was then coagulated with the bipolar [place] and cut with monopolar james. The ovary was then released from its lateral wall attachments. Round ligament was coagulated and cut as well and then bladder flap was sharply dissected away. We skeletonized the uterine vessels on the left side and coagulated these with the bipolar [place], staying well away from the left ureter. At this stage, the vessels were then cut. The exact same process was continued on the right, and once we had both uterine vessels ligated and cut and we ensured that the bladder was well away, we made an anterior colpotomy with the monopolar james. This was continued around until the colpotomy was completed. Then, uterus, ovaries and tubes were removed through the vagina. A glove and a sponge were placed in the vagina to maintain pneumoperitoneum. IV methylene blue was given. Instrument exchanged. Arm #1 became the wilber needle milk driver, arm #2 the cobra grasper. A 12-inch 2-0 90-day suture was then passed through the accessory port, V-Loc. Cuff was closed from left to right, back right to left to ensure no gaps in closure and then suture was cut so there was no tail and needle removed from the accessory port. After generous irrigation and suction, we did apply Tisseel 4 mL to the area for hemostasis. We performed cystoscopy initially with the patient in Trendelenburg position, but then we had to reverse out of this and give a second dose of methylene blue, however we actually gave less than the traditional dose overall, in that we gave a total of 80mg nd routinely we give 100mg and a fluid bolus and a small amount of Lasix as well to finally get both ureters, but at that stage both left and right ureters had good strong jets of bluish colored dye coming from each orifice. There was no sign of damage or sutures in the bladder. Cystoscope removed. A new Hankins catheter placed. Sponge had been removed from the vagina. Robot was then docked. Ports removed. Incisions all injected with 0.5% Marcaine. Fascia very carefully closed in the umbilical port and left upper quadrant port. Subcutaneous fat irrigated and then 4-0 subcuticular Monocryl closures. Dermabond applied. Sponge and instrument counts correct. Note the patient did have a reaction in the recovery room afterwards, likely related to the methylene blue. She was observed in the ICU I attest to the content of the Intraoperative Record and any orders documented therein. Any exceptions are noted below. MTDD
[2018-02-13] MEDS ORDERED: NURSING VERBAL MED ORDER ONE ×4 (10:48→23:45)
--- NOTE | 2018-02-13 11:23 | DIAGNOSTIC IMAGING REPORT ---
PORTABLE SUPINE AP CHEST RADIOGRAPH CLINICAL HISTORY: Difficult breathing. COMPARISON STUDY: Chest radiograph March 16, 2017. FINDINGS: Exam is compromised given portable supine technique. There are cholecystectomy clips. Lung volumes are mildly diminished. No pneumothorax or pleural effusion is noted. Right internal jugular [id number] has been removed since previous exam. Mediastinal widening is likely technical. Apparent left lung asymmetric opacity is likely artifactual. IMPRESSION: 1. Suboptimal evaluation given portable supine technique. Apparent asymmetric left lung opacity is likely artifactual however airspace disease could appear similar. 2. Mild mediastinal widening which is likely technical. Electronically signed by: Rohan Rivas M.D. 02/13/2018 11:21 AM Dictated Date/Time: 02/13/2018 11:20 AM
--- NOTE | 2018-02-13 12:12 | Critical Care Consultation ---
Critical Care Consultation Date of Consultation: Feb 13, 2018. Attending Physician: Dionicio Vila M.D. Reason for Consultation: Postoperative respiratory insufficiency, possible medication effect History of Present Illness Patient is a 47-year-old female with significant past medical history of breast cancer who presented for elective total abdominal hysterectomy Family History Cancer FH: CABG (coronary artery bypass surgery) FATHER Social History Smoking Status: Current Every Day Smoker Drug Use: none Marital Status: Housing Status: lives with family Occupation Status: employed Allergies Coded Allergies: Anastrozole (Verified Adverse Reaction, Unknown, MUSCLE AND BONE PAIN, ) Home Medications Scheduled Atorvastatin (Lipitor), 20 MG PO QAM Bupropion (Wellbutrin), 100 MG PO BID Buspirone Hcl (Buspirone Hcl), 30 MG PO BID Cholecalciferol (Vitamin D-3), 4,000 INTERUNIT PO QAM Cyanocobalamin (B12), 1 TAB PO QAM Exemestane (Aromasin), 25 MG PO QAM Lisinopril/Hctz (Zestoretic 20MG/25MG), 1 TAB PO QAM Ranitidine (Zantac), 150 MG PO BID Venlafaxine Hcl (Effexor Extended Rel), 300 MG PO HS Scheduled PRN Ibuprofen (Ibuprofen), 600 MG PO Q6H PRN for Pain,GROVER,cramping,or fever Ondansetron Hcl (Zofran), 8 MG PO UD PRN for PRN Oxycodone/Acetaminophen 5MG/325MG (Percocet 5MG/325MG), 1 TAB PO Q4H PRN for Pain (pain scale 1-5) Prochlorperazine Maleate (Compazine), 10 MG PO UD PRN for PRN Current Inpatient Medications Current Inpatient Medications Medications (Trade) Dose Ordered Sig/Rodolfo Route Start Time Stop Time Status Last Admin Dose Admin Lactated Ringer's 1,000 ml @ 125 mls/hr Q8H IV 02/13/18 06:00 02/13/18 18:00 02/13/18 06:35 125 MLS/HR Cefazolin Sodium 22.5 ml @ 4.5 mls/min PREOP IV 02/13/18 06:00 02/13/18 18:00 02/13/18 07:25 4.5 MLS/MIN Hydromorphone HCl (Dilaudid Inj) 0.5 mg Q5M PRN IV 02/13/18 08:15 02/13/18 13:00 Ondansetron HCl (Zofran Inj) 4 mg ONE PRN IV 02/13/18 08:15 02/13/18 13:00 Ephedrine Sulfate (EpHEDrine SULFATE INJ) 5 mg Q5M PRN IV 02/13/18 08:15 02/13/18 13:00 Atropine Sulfate (Atropine Sulfate 0.1mg/ml Inj) 0.5 mg Q1M PRN IV 02/13/18 08:15 02/13/18 13:00 Phenylephrine HCl (Osiel-Synephrine 500MCG/5ML Syr) 100 mcg Q5M PRN IV 02/13/18 08:15 02/13/18 13:00 Lactated Ringer's 1,000 ml @ 125 mls/hr Q8H IV 02/13/18 09:37 03/15/18 09:36 UNV Acetaminophen (Tylenol Tab) 650 mg Q6H PRN PO 02/13/18 09:45 03/15/18 09:44 UNV Ketorolac Tromethamine (Toradol Inj) 30 mg Q6H PRN IV. 02/13/18 09:45 02/18/18 09:44 UNV Meperidine HCl (Demerol Inj) 50 mg Q4H PRN IV 02/13/18 09:45 02/27/18 09:44 UNV Meperidine HCl (Demerol Inj) 75 mg Q4H PRN IV 02/13/18 09:45 02/27/18 09:44 UNV Oxycodone/ Acetaminophen (Percocet 5-325mg Tab) 1 tab Q4H PRN PO 02/13/18 09:45 02/27/18 09:44 UNV Oxycodone/ Acetaminophen (Percocet 5-325mg Tab) 2 tab Q4H PRN PO 02/13/18 09:45 02/27/18 09:44 UNV Ibuprofen (Motrin Tab) 600 mg Q6H PRN PO 02/13/18 09:45 03/15/18 09:44 UNV Promethazine HCl 12.5 mg/Sodium Chloride 50.5 ml @ 200 mls/hr Q4H PRN IV 02/13/18 09:45 03/15/18 09:44 UNV Promethazine HCl 25 mg/Sodium Chloride 51 ml @ 200 mls/hr Q4H PRN IV 02/13/18 09:45 03/15/18 09:44 UNV Ondansetron HCl (Zofran Inj) 4 mg Q6H PRN IV 02/13/18 09:45 03/15/18 09:44 UNV Bisacodyl (Dulcolax Supp) 10 mg DAILY PRN OR 02/13/18 09:45 03/15/18 09:44 UNV Docusate Sodium (coLACE CAP) 100 mg BID PO 02/13/18 21:00 03/15/18 20:59 UNV Magnesium Hydroxide (Milk Of Magnesia Susp) 30 ml HS PRN PO 02/13/18 09:45 03/15/18 09:44 UNV Zolpidem Tartrate (Ambien Tab) 5 mg HS PRN PO 02/13/18 09:45 03/15/18 09:44 UNV Simethicone (Mylicon Chew Tab) 80 mg TID PRN PO 02/13/18 09:45 03/15/18 09:44 UNV Miscellaneous Information (Nursing Verbal Med Order) 1 ea ONE ONCE N/A 02/13/18 10:48 02/13/18 10:49 UNV Review of Systems Unable to obtain secondary to acute encephalopathy Physical Exam Date Time Temp Pulse Resp B/P (MAP) Pulse Ox O2 Delivery O2 Flow Rate FiO2 02/13/18 11:35 36.8 110 14 124/88 94 Non-Rebreather 15 02/13/18 11:25 126 16 153/91 93 Non-Rebreather 15 02/13/18 11:15 110 14 141/89 94 Non-Rebreather 15 02/13/18 11:05 113 14 168/86 94 Non-Rebreather 15 02/13/18 10:55 118 24 123/91 94 Non-Rebreather 15 02/13/18 10:45 133 24 92 Non-Rebreather 15 02/13/18 10:35 127 20 89 Mask 10 02/13/18 10:29 36.8 125 20 131/106 91 Mask 10 02/13/18 05:55 36.7 100 18 121/87 (98) 97 Room Air General: Alert. nontoxic. Skin: Warm, dry, Head: Atraumatic Ears, nose, mouth and throat: airway patent Cardiovascular: Normal peripheral perfusion Respiratory: no respiratory distress Gastrointestinal: Non distended Musculoskeletal: No deformity Laboratory Results Last 24 Hours Test 02/13/18 05:50 02/13/18 05:58 White Blood Count 6.64 K/uL Red Blood Count 4.91 M/uL Hemoglobin 15.0 g/dL Hematocrit 44.5 % Mean Corpuscular Volume 90.6 fL Mean Corpuscular Hemoglobin 30.5 pg Mean Corpuscular Hemoglobin Concent 33.7 g/dl RDW Standard Deviation 42.8 fL RDW Coefficient of Variation 12.9 % Platelet Count 245 K/uL Mean Platelet Volume 11.4 fL Diagnostic Results Atorvastatin (Lipitor), 10 MG PO QAM Bupropion (Wellbutrin), 100 MG PO BID: Buspirone Hcl (Buspirone Hcl), 30 MG PO BID Cholecalciferol (Vitamin D-3), 4,000 INTERUNIT PO QAM Cyanocobalamin (B12), 1 TAB PO QAM Exemestane (Aromasin), 25 MG PO QAM Goserelin Acetate (Zoladex), Unknown Dose Lisinopril/Hctz (Zestoretic 20MG/25MG), 1 TAB PO QAM Ondansetron Hcl (Zofran), 8 MG PO UD PRN for PRN Prochlorperazine Maleate (Compazine), 10 MG PO UD PRN for PRN Ranitidine (Zantac), 150 MG PO BID Venlafaxine Hcl (Effexor Extended Rel), 300 MG PO HS Assessment & Plan Reason Critically Ill: Acute encephalopathy with postoperative respiratory insufficiency PLAN: Neuro: Acute encephalopathy * Likely multifactorial * Pain secondary to recent surgery * Recent inhaled general anesthetics * Possible drug to drug interactions for serotonin syndrome * Remote possibility of Wellbutrin and Effexor interacting with IV methylene blue * Medical research notes that dosing range of 0.75 - 1 mg/kg IV methylene Blue required to reach levels which inhibit MAOI * Patient received 10 mg methylene blue via the ureterx2, 50 mg per 10 mL's, total given 100 mg methylene blue * Betito serotonin toxicity criteria: She does not have inducible nor spontaneous clonus, she is mildly hyperreflexic however she is not hyperthermic at this time we will continue to monitor. * Benzodiazepines as needed Resp: Postoperative respiratory insufficiency * Current saturating well * Concern for possible negative pressure pulmonary edema * Positive pressure as needed as needed CV: Reviewed echo dated May 05, 2017 Fluids/Renal: Continue maintenance fluid * We will check CPK later today ID: Monitor fever curve GI/Nutrition: N.p.o. until mental status improves Heme: DVT prophylaxis Endocrine: ICU glycemic control I have personally spent 60 minutes of critical care time in the direct management of this patient. This is a life/limb threatening event. This includes time spent evaluating patient, direct bedside care, chart review, placing orders, interpretation of diagnostic studies, discussion with consultants, patient, and/or family members regarding treatment decisions, as well as other required patient management activities. This time is exclusive of all separately billable procedures, and teaching time and separate from and in addition to any other critical care service time.
[2018-02-13] MEDS ORDERED: ICU PROTOCOL FOR HYPERGLYCEMIA PRN (12:15)
[2018-02-13] MEDS ORDERED: MIDAZOLAM HCL 5 MG/ML 1 ML VIAL IV PRN (12:45)
[2018-02-13] MEDS: LACTATED RINGER'S 1000ML 1,000 ML IV SCH ×2 (12:56→18:53)
--- NOTE | 2018-02-13 12:59 | Anesthesiology Progress Note ---
Anesthesia Post Op Note Date & Time Feb 13, 2018 at 11:44 Vital Signs Pain Intensity: 0 Vital Signs Past 12 Hours Date Time Temp Pulse Resp B/P (MAP) Pulse Ox O2 Delivery O2 Flow Rate FiO2 02/13/18 10:55 118 24 123/91 94 Non-Rebreather 15 02/13/18 10:45 133 24 92 Non-Rebreather 15 02/13/18 10:35 127 20 89 Mask 10 02/13/18 10:29 36.8 125 20 131/106 91 Mask 10 02/13/18 05:55 36.7 100 18 121/87 (98) 97 Room Air Notes Mental Status: see Notes Nausea / Vomiting: adequately controlled Pain: adequately controlled Airway Patency, RR, SpO2: see Notes BP & HR: see Notes Anesthetic Complications: I was called into the operating room after the patient was extubated. She was somnolent and her sp02 was between 88 and 92. There was suspicion of negative pressure pulmonary edema because the geothermal powerplant mechanic stated that her airway obstucted after extubation, but it was not a complete obstruction. Her lungs had coarse rales bilaterally. A nasal airway was placed to augment the oral airway which was only partially relieving the obstruction. We placed a simple mask on her until we got to the PACU where we changed it to a non-rebreather. In the PACU we ordered a chest xray which was equivocal for pulmonary edema. It was read as possible airway disease. In the PACU she was tachycardic, very agitated and restless, trying to climb out of the bed, she never opened her eyes on command. She had nystagmus. 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 She was not on SSRIs but she was given 35 mg of ketamine intraoperatively which could account for the nystagmus but not the prolonged somnolence for the amount of narcotic that she was given.She did get a small amount of versed and fantanyl to control her symptoms. I discussed this with Dr. Vila and together we talked to the family and told them we were going to admit her to the ICU to watch her overnight. This was all discussed with Dr. Bear and requested a consult from him. He accepted transfer of her and she was transferred to the ICU.
--- NOTE | 2018-02-13 13:29 | DIAGNOSTIC IMAGING REPORT ---
CHEST ONE VIEW PORTABLE CLINICAL HISTORY: 47 years-old Female presenting with Hypoxia. TECHNIQUE: Portable semiupright AP view of the chest was obtained. COMPARISON: 01/24/2018 at 10:50 AM. FINDINGS: Atherosclerosis of aortic arch. Cardiac silhouette enlarged. Significantly low lung volumes with hypoventilatory changes. Significantly worsened aeration of the lung bases more prominently on the left though some of this appearance may in part be due to overlapping soft tissue structures in the setting of a large body habitus. Pulmonary vascular prominence suggested. Osseous structures normal. IMPRESSION: 1. Significantly low lung volumes with hypoventilatory changes. 2. The presence of a left basilar consolidation/infection cannot be excluded. This may alternatively represent significant atelectasis, aspiration, or asymmetric edema. 3. Cardiomegaly with suggestion of volume overload. Electronically signed by: Ronaldo Yuan M.D. 02/13/2018 1:28 PM Dictated Date/Time: 02/13/2018 1:26 PM
[2018-02-13] MEDS ORDERED: MIDAZOLAM HCL 1 MG/ML 2ML VIAL IV PRN (13:30)
[2018-02-13] MEDS: FENTANYL CITRATE INJ 50 MCG/1 ML 2 ML VIAL IV PRN ×5 (13:53→18:14)
[2018-02-13] MEDS ORDERED: FENTANYL CITRATE INJ 50 MCG/1 ML 2 ML VIAL IV ONE (14:30)
[2018-02-13] MEDS: MIDAZOLAM HCL 1 MG/ML 2ML VIAL IV PRN ×2 (14:50→16:14)
--- NOTE | 2018-02-13 16:42 | Progress Note ---
Progress Note Date of Service Feb 13, 2018. Progress Note Intraop note per anesthesia: During case once patient was placed into steep trendelenberg position on the Volume Control ventilation mode peak airway pressures were running above 40. Adjustments were made and patient was placed on Pressure control ventilation to maintain airway pressures less than 38. Tidal volumes achieved ranged from the ~350-450 range. Respiration rate was adjusted between 12-16 bpm to maintain ETCO2<48. Once patient was taken out of trendelenberg airway pressures came down and patient was able to be ventilated with VCV mode. ETCO2 came down to ~38 prior to reversal. Cystoscopy was performed by Dr. Vila. 10 minutes prior to cystoscopy a total of 50 mg IV methylene blue was given per Dr. Vila (noted on anesthesia chart pt was on Wellbutrin). Pt was given a bolus of fluid (~400cc) during cystoscopy due to no visualization of methyene blue by Dr. Vila. Another 5 minutes went by 10 mg IV Lasix was given per Dr. Vila. Another 5 minutes went by another 10 mg IV lasix was given per Dr. Vila. Another 5 minutes went by and still no visualization of ureteral ejection of methylene blue at this time. Dr. Vila ordered to give another dose of methylene blue. 30 mg IV methylene blue was given IV. (doses during a cystoscopy are supposed to be: 50-100 mg; you are able to give a subsequent dose of 0.2-0.5 ml/kg of methylene blue if needed). Throughout this case a total of 80 mg methylene blue used. At this time VSS. methylene blue was visualized. Continued to complete procedure. Pt was reversed using 5 mg IV neostigmine and 0.8 mg robinol. Pt was on pressure support ventilation triggering at 3 L/min at a rate of 10 per minute. Pt was monitored until she was breathing spontaneously without any support tidal volumes 380-450cc at a rate of 10-12 bpm. Pupils were noted to be equal round and reactive (not pin point). Pt was extubated. Pt noted on extubation to start obstructing. A nasal airway was placed at this time and pt was assisted via bag mask with volumes around 350 at this time. It was decided to put an oral airway in at this time. once oral airway was in place patient was easily breathing on her own pulling tidal volumes of about 480 ccs. pt was then transferred to her bed and sat up in bed. Pt was placed on an oxygen facemask. At this time the patient started to desaturate into the mid 80s (85-87%). Dr. Reeves was notified. Dr Reeves was to OR. Pt was supported with bag mask until taking large enough volumes were achieved. I suggested to Dr. Reeves possibly getting CPAP for the PACU until patient woke up. At this time Dr. Reeves disagreed. He wanted to place pt on a nonrebreather. Pt was placed on a facemask and sating 88-92%. Pt was transported to the PACU where the nurse told us there was no NRB available. I suggested again at this time the patient should be placed on CPAP because I was concerned with her body habitus and atelectasis due to hypoventilation. Pt was starting to become more agitated at this time. Her eyes had a roving movement to them. Dr. Reeves thought the patient may be having Serotonin syndrome. CXR was ordered by Dr. Reeves to check for possible negative pressure pulmonary edema. NRB was placed. Pt was given 1 mg IV versed by PACU nurse to help decrease agitation. CXR was then able to be taken. Patient started getting more agitated again and another 1 mg dose of IV versed was given. Report was given to PACU nurses by INSURANCE ASSOCIATE for transfer of care.
--- NOTE | 2018-02-13 16:46 | Critical Care Progress Note ---
Critical Care Progress Note Date of Service Feb 13, 2018. Critical Care Progress Note Patient reevaluated More alert, following complex commands, able to give thumbs up with left hand, show 2 fingers on right hand. reports that she has been intermittently more alert. 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 Did admit to mild pain, administered 50 mcg fentanyl, continue close observation
--- NOTE | 2018-02-13 19:57 | Progress Note ---
Progress Note Date of Service Feb 13, 2018. Progress Note Note, I have spoken to the family and patient as she is doing better. Discussed possible reaction to the methylene blue. Discussed management. ICU and anesthesiologist consulted and admitted to ICU earlier. ALVERTO
[2018-02-13 20:07] LABS: HEMATOCRIT 42.3 % (37-47)
[2018-02-13] MEDS: OXYCODONE/ACETAMINOPHEN 5-325 TAB PO PRN (20:25)
[2018-02-13] MEDS: DOCUSATE SODIUM 100 MG CAP PO SCH (20:25)
[2018-02-13] MEDS ORDERED: INFLUENZA VIRUS QUAD VACCINE 0.5 ML SYR IM. ONE (21:15)
[2018-02-13] MEDS ORDERED: INFLUENZA ADMINISTRATION CHARGE ONE (21:15)
[2018-02-14] VITALS (15 sets, daily range): BP systolic 107–127; BP diastolic 63–82; PULSE 94–125; TEMP 36.6–36.9; O2SAT 90–96
[2018-02-14] MEDS: OXYCODONE/ACETAMINOPHEN 5-325 TAB PO PRN ×3 (02:54→13:26)
[2018-02-14] MEDS: FENTANYL CITRATE INJ 50 MCG/1 ML 2 ML VIAL IV PRN (04:02)
[2018-02-14 06:07] LABS: BASO % 0.2 %; BASO ABS # 0.02 K/uL (0-0.2); EOS % 0.5 %; EOS ABS # 0.05 K/uL (0-0.5); HEMATOCRIT 38.8 % (37-47); HEMOGLOBIN 12.9 g/dL (12.0-16.0); IG# 0.01 K/uL (0.00-0.02); LYMPH % 20.1 %; LYMPH ABS # 1.83 K/uL (1.2-3.4); MEAN CELL VOLUME 91.5 fL (80-100); MEAN CORPUSCULAR HEMOGLOBIN 30.4 pg (25-34); MEAN CORPUSCULAR HGB CONC 33.2 g/dl (32-36); MEAN PLATELET VOLUME 11.1 fL (7.4-10.4); MONO % 5.4 %; MONO ABS # 0.49 K/uL (0.11-0.59); NEUT % 73.7 %; NEUT ABS # 6.72 K/uL (1.4-6.5); PLATELET COUNT 191 K/uL (130-400); RED CELL DISTRIBUTION WIDTH CV 12.8 % (11.5-14.5); RED CELL DISTRIBUTION WIDTH SD 43.1 fL (36.4-46.3); WHITE BLOOD COUNT 9.12 K/uL (4.8-10.8)
[2018-02-14 06:52] LABS: CALCIUM 8.8 mg/dl (8.5-10.1); CREATININE 0.81 mg/dl (0.60-1.20)
[2018-02-14 06:53] LABS: PHOSPHORUS 3.1 mg/dl (2.5-4.9)
--- NOTE | 2018-02-14 07:49 | Progress Note ---
Subjective Feb 14, 2018. Subjective conversation w/ patient, physical exam, lab review Voiding: rocha catheter in place Diet Tolerance: Regular Diet Objective Vital Signs Date Time Temp Pulse Resp B/P (MAP) Pulse Ox O2 Delivery O2 Flow Rate FiO2 02/14/18 06:01 94 16 107/69 (77) 92 02/14/18 05:02 100 16 109/63 (82) 92 02/14/18 04:01 95 16 127/71 (83) 92 02/14/18 04:00 36.6 02/14/18 04:00 92 Nasal Cannula 2.0 Oxymask 02/14/18 03:02 103 11 120/70 (101) 94 02/14/18 02:01 103 14 116/67 (84) 93 02/14/18 01:01 109 15 114/74 (93) 92 02/14/18 00:02 111 18 121/66 (96) 94 02/14/18 00:01 36.8 02/13/18 23:59 96 Nasal Cannula 3.0 Oxymask 02/13/18 23:02 112 27 130/75 (101) 92 02/13/18 22:01 113 16 121/75 (93) 95 02/13/18 21:08 111 25 119/80 (94) 96 02/13/18 21:01 112 19 119/80 (94) 96 02/13/18 20:01 111 13 121/84 (99) 95 02/13/18 20:00 36.8 02/13/18 20:00 98 Oxymask 10.0 02/13/18 19:01 115 17 119/75 (95) 100 02/13/18 18:00 118 16 138/77 (97) 98 Non-Rebreather 15.0 02/13/18 16:00 96 Non-Rebreather 15.0 02/13/18 16:00 36.7 127 16 143/84 (103) 97 Non-Rebreather 15.0 02/13/18 15:30 117 21 95 02/13/18 15:01 118 22 121/75 (90) 96 Non-Rebreather 15.0 02/13/18 14:31 120 14 124/85 (98) 95 02/13/18 14:01 119 12 138/85 (102) 96 02/13/18 13:31 121 14 149/91 (110) 96 Non-Rebreather 15.0 02/13/18 13:15 36.6 128 16 95 02/13/18 13:02 129/98 (108) 02/13/18 12:45 36.6 130 20 112/86 Non-Rebreather 15.0 02/13/18 12:00 116 14 114/88 96 Non-Rebreather 15 02/13/18 11:45 118 18 128/82 94 Non-Rebreather 15 02/13/18 11:35 36.8 110 14 124/88 94 Non-Rebreather 15 02/13/18 11:25 126 16 153/91 93 Non-Rebreather 15 02/13/18 11:15 110 14 141/89 94 Non-Rebreather 15 02/13/18 11:05 113 14 168/86 94 Non-Rebreather 15 02/13/18 10:55 118 24 123/91 94 Non-Rebreather 15 02/13/18 10:45 133 24 92 Non-Rebreather 15 02/13/18 10:35 127 20 89 Mask 10 02/13/18 10:29 36.8 125 20 131/106 91 Mask 10 Physical Exam General Appearance: WELL-APPEARING Respiratory/Chest: lungs clear Abdomen: normal bowel sounds, non tender Incision Description: Clean, Dry & Intact Laboratory Results Last 24 Hours Test 02/13/18 13:51 02/13/18 18:16 02/13/18 19:52 02/14/18 05:15 Total Creatine Kinase 136 U/L Bedside Glucose 119 mg/dl 126 mg/dl Hemoglobin 14.0 g/dL Hematocrit 42.3 % Test 02/14/18 05:46 White Blood Count 9.12 K/uL Red Blood Count 4.24 M/uL Hemoglobin 12.9 g/dL Hematocrit 38.8 % Mean Corpuscular Volume 91.5 fL Mean Corpuscular Hemoglobin 30.4 pg Mean Corpuscular Hemoglobin Concent 33.2 g/dl Platelet Count 191 K/uL Mean Platelet Volume 11.1 fL Neutrophils (%) (Auto) 73.7 % Lymphocytes (%) (Auto) 20.1 % Monocytes (%) (Auto) 5.4 % Eosinophils (%) (Auto) 0.5 % Basophils (%) (Auto) 0.2 % Neutrophils # (Auto) 6.72 K/uL Lymphocytes # (Auto) 1.83 K/uL Monocytes # (Auto) 0.49 K/uL Eosinophils # (Auto) 0.05 K/uL Basophils # (Auto) 0.02 K/uL RDW Standard Deviation 43.1 fL RDW Coefficient of Variation 12.8 % Immature Granulocyte % (Auto) 0.1 % Immature Granulocyte # (Auto) 0.01 K/uL Sodium Level 140 mmol/L Potassium Level 3.0 mmol/L Chloride Level 103 mmol/L Carbon Dioxide Level 32 mmol/L Anion Gap 6.0 mmol/L Blood Urea Nitrogen 11 mg/dl Creatinine 0.81 mg/dl Est Creatinine Clear Calc Drug Dose 108.9 ml/min Estimated GFR () 101.7 Estimated GFR (Non- 87.7 BUN/Creatinine Ratio 13.4 Random Glucose 131 mg/dl Calcium Level 8.8 mg/dl Phosphorus Level 3.1 mg/dl Magnesium Level 1.9 mg/dl Assessment and Plan Problem List Medical Problems: (1) Depression Status: Acute (2) Migraine Status: Acute (3) Mood disorder Status: Acute (4) Suicidal ideation Status: Acute (5) Suicidal ideation Status: Acute (6) Upper abdominal pain Status: Acute Post-Op Day#: 1 Continue Routine Care: Postoperative day #1 from total laparoscopic hysterectomy and bilateral salpingo -oophorectomy Surgically the patient is doing well she is tolerating an oral diet she states she has minimal pain. Physical exam vital signs are stable she is afebrile chest clear abdomen soft nontender incisions clean dry and intact extremity exam and negative Impression and plan postop day #1 from likely methylene blue reaction much better oriented 3 will have Rocha catheter removed this morning and likely will be able to be discharged home by noon discussed her reaction to the methylene blue
[2018-02-14] MEDS: DOCUSATE SODIUM 100 MG CAP PO SCH (08:26)
[2018-02-14] MEDS ORDERED: POTASSIUM CHLORIDE 20 MEQ TABCR PO ONE (09:30)
--- NOTE | 2018-02-14 13:19 | Critical Care Progress Note ---
Critical Care Progress Note Date of Service Feb 14, 2018. ICU Day ICU Day Number: 2, postop day [address] Hardin Subjective No complaint of abdominal pain, anxiousness, chest pain, shortness of breath. Postoperative pain well controlled at this time. I discussed at length the patient's likely reaction to methylene blue, and have added that to adverse reactions in the patient's record. Objective General: Alert. nontoxic. Skin: Warm, dry, Head: Atraumatic Ears, nose, mouth and throat: airway patent, conversant Cardiovascular: Normal peripheral perfusion Respiratory: no respiratory distress Gastrointestinal: Non distended Musculoskeletal: No deformity Neuro: No focal deficit, no rigidity Psych: Alert and oriented 3 conversant, clear line of thinking, no encephalopathy Assessment & Plan Neuro: Acute encephalopathy: Resolved * Likely multifactorial * Pain secondary to recent surgery * Possible relation to IV methylene blue administration, I have added this to adverse reactions Resp: Postoperative respiratory insufficiency resolved CV: Reviewed echo dated May 05, 2017 Fluids/Renal: Mild hypokalemia Awaiting patient to spontaneously void * Given 60 mEq K-Dur ID: Monitor fever curve GI/Nutrition: Tolerating regular diet Heme: Patient now ambulatory Endocrine: ICU glycemic control Discussed with gynecologic surgery, likely stable for discharge home this afternoon after voiding trial Critical care will sign off, please reconsult for any questions Data Medications: Current Inpatient Medications Medications (Trade) Dose Ordered Sig/Rodolfo Route Start Time Stop Time Status Last Admin Dose Admin Acetaminophen (Tylenol Tab) 650 mg Q6H PRN PO 02/13/18 09:45 03/15/18 09:44 Ketorolac Tromethamine (Toradol Inj) 30 mg Q6H PRN IV. 02/13/18 09:45 02/18/18 09:44 Oxycodone/ Acetaminophen (Percocet 5-325mg Tab) 1 tab Q4H PRN PO 02/13/18 09:45 02/27/18 09:44 02/14/18 08:26 1 TAB Oxycodone/ Acetaminophen (Percocet 5-325mg Tab) 2 tab Q4H PRN PO 02/13/18 09:45 02/27/18 09:44 Ibuprofen (Motrin Tab) 600 mg Q6H PRN PO 02/13/18 09:45 03/15/18 09:44 Promethazine HCl 12.5 mg/Sodium Chloride 50.5 ml @ 200 mls/hr Q4H PRN IV 02/13/18 09:45 03/15/18 09:44 Promethazine HCl 25 mg/Sodium Chloride 51 ml @ 200 mls/hr Q4H PRN IV 02/13/18 09:45 03/15/18 09:44 Ondansetron HCl (Zofran Inj) 4 mg Q6H PRN IV 02/13/18 09:45 03/15/18 09:44 Bisacodyl (Dulcolax Supp) 10 mg DAILY PRN NM 02/13/18 09:45 03/15/18 09:44 Docusate Sodium (coLACE CAP) 100 mg BID PO 02/13/18 21:00 03/15/18 20:59 02/14/18 08:26 100 MG Magnesium Hydroxide (Milk Of Magnesia Susp) 30 ml HS PRN PO 02/13/18 09:45 03/15/18 09:44 Zolpidem Tartrate (Ambien Tab) 5 mg HS PRN PO 02/13/18 09:45 03/15/18 09:44 Simethicone (Mylicon Chew Tab) 80 mg TID PRN PO 02/13/18 09:45 03/15/18 09:44 Fentanyl Citrate (Fentanyl Inj) 50 mcg Q1H PRN IV 02/13/18 12:15 02/27/18 12:14 02/14/18 04:02 50 MCG Miscellaneous Information (Icu Protocol For Hyperglycemia) 1 ea PRN PRN N/A 02/13/18 12:15 02/15/18 12:14 Midazolam HCl (Versed Inj) 2 mg Q1H PRN IV 02/13/18 14:45 03/15/18 13:29 02/13/18 16:14 2 MG Vital Signs: Date Time Temp Pulse Resp B/P (MAP) Pulse Ox O2 Delivery O2 Flow Rate FiO2 02/14/18 10:55 99 20 118/78 (91) 96 Room Air 02/14/18 10:45 36.9 98 17 90 Room Air 02/14/18 10:00 100 17 93 Room Air 02/14/18 08:00 90 Room Air 02/14/18 08:00 36.9 98 17 112/65 (81) 90 Room Air 3/27/18 06:01 94 16 107/69 (77) 92 02/14/18 05:02 100 16 109/63 (82) 92 02/14/18 04:01 95 16 127/71 (83) 92 02/14/18 04:00 36.6 02/14/18 04:00 92 Nasal Cannula 2.0 Oxymask 02/14/18 03:02 103 11 120/70 (101) 94 02/14/18 02:01 103 14 116/67 (84) 93 02/14/18 01:01 109 15 114/74 (93) 92 02/14/18 00:02 111 18 121/66 (96) 94 02/14/18 00:01 36.8 02/13/18 23:59 96 Nasal Cannula 3.0 Oxymask 02/13/18 23:02 112 27 130/75 (101) 92 02/13/18 22:01 113 16 121/75 (93) 95 02/13/18 21:08 111 25 119/80 (94) 96 02/13/18 21:01 112 19 119/80 (94) 96 02/13/18 20:01 111 13 121/84 (99) 95 02/13/18 20:00 36.8 02/13/18 20:00 98 Oxymask 10.0 02/13/18 19:01 115 17 119/75 (95) 100 02/13/18 18:00 118 16 138/77 (97) 98 Non-Rebreather 15.0 02/13/18 16:00 96 Non-Rebreather 15.0 02/13/18 16:00 36.7 127 16 143/84 (103) 97 Non-Rebreather 15.0 02/13/18 15:30 117 21 95 02/13/18 15:01 118 22 121/75 (90) 96 Non-Rebreather 15.0 02/13/18 14:31 120 14 124/85 (98) 95 02/13/18 14:01 119 12 138/85 (102) 96 02/13/18 13:31 121 14 149/91 (110) 96 Non-Rebreather 15.0 02/13/18 13:15 36.6 128 16 95 Laboratory Results: Last 24 Hours Test 02/13/18 13:51 02/13/18 18:16 02/13/18 19:52 02/14/18 05:15 Total Creatine Kinase 136 U/L Bedside Glucose 119 mg/dl 126 mg/dl Hemoglobin 14.0 g/dL Hematocrit 42.3 % Test 02/14/18 05:46 White Blood Count 9.12 K/uL Red Blood Count 4.24 M/uL Hemoglobin 12.9 g/dL Hematocrit 38.8 % Mean Corpuscular Volume 91.5 fL Mean Corpuscular Hemoglobin 30.4 pg Mean Corpuscular Hemoglobin Concent 33.2 g/dl Platelet Count 191 K/uL Mean Platelet Volume 11.1 fL Neutrophils (%) (Auto) 73.7 % Lymphocytes (%) (Auto) 20.1 % Monocytes (%) (Auto) 5.4 % Eosinophils (%) (Auto) 0.5 % Basophils (%) (Auto) 0.2 % Neutrophils # (Auto) 6.72 K/uL Lymphocytes # (Auto) 1.83 K/uL Monocytes # (Auto) 0.49 K/uL Eosinophils # (Auto) 0.05 K/uL Basophils # (Auto) 0.02 K/uL RDW Standard Deviation 43.1 fL RDW Coefficient of Variation 12.8 % Immature Granulocyte % (Auto) 0.1 % Immature Granulocyte # (Auto) 0.01 K/uL Sodium Level 140 mmol/L Potassium Level 3.0 mmol/L Chloride Level 103 mmol/L Carbon Dioxide Level 32 mmol/L Anion Gap 6.0 mmol/L Blood Urea Nitrogen 11 mg/dl Creatinine 0.81 mg/dl Est Creatinine Clear Calc Drug Dose 108.9 ml/min Estimated GFR () 101.7 Estimated GFR (Non- 87.7 BUN/Creatinine Ratio 13.4 Random Glucose 131 mg/dl Calcium Level 8.8 mg/dl Phosphorus Level 3.1 mg/dl Magnesium Level 1.9 mg/dl
--- NOTE | 2018-02-14 13:24 | Anesthesiology Progress Note ---
Anesthesia Post Op Note Date & Time Feb 14, 2018 at 13:24 Vital Signs Vital Signs Past 12 Hours Date Time Temp Pulse Resp B/P (MAP) Pulse Ox O2 Delivery O2 Flow Rate FiO2 02/14/18 10:55 99 20 118/78 (91) 96 Room Air 02/14/18 10:45 36.9 98 17 90 Room Air 02/14/18 10:00 100 17 93 Room Air 02/14/18 08:00 90 Room Air 02/14/18 08:00 Room Air 02/14/18 08:00 36.9 98 17 112/65 (81) 90 Room Air 02/14/18 06:01 94 16 107/69 (77) 92 02/14/18 05:02 100 16 109/63 (82) 92 02/14/18 04:01 95 16 127/71 (83) 92 02/14/18 04:00 36.6 02/14/18 04:00 92 Nasal Cannula 2.0 Oxymask 02/14/18 03:02 103 11 120/70 (101) 94 02/14/18 02:01 103 14 116/67 (84) 93 Notes Mental Status: alert / awake / arousable, participated in evaluation Pt Amnestic to Procedure: Yes Nausea / Vomiting: adequately controlled Pain: adequately controlled Airway Patency, RR, SpO2: stable & adequate BP & HR: stable & adequate Hydration State: stable & adequate Anesthetic Complications: no major complications apparent
== END 2018-02-14 14:46 | disposition home or self-care (01) | DRG 742 ==
LOC: C.ACU 05:31 → C.MSICU 11:37 → ENRESERV 11:45
PROVIDERS: ADMIT Obstetrics & Gynecology; ATTEND Obstetrics & Gynecology
PROC: 0UT9FZZ Resection of Uterus, Via Natural or Artificial Opening With Percutaneous Endoscopic Assistance (ICD-10-PCS; principal; 2018-02-13 07:30)
PROC: 0UT2FZZ Resection of Bilateral Ovaries, Via Natural or Artificial Opening With Percutaneous Endoscopic Assistance (ICD-10-PCS; principal; 2018-02-13 07:30)
PROC: 8E0W8CZ Robotic Assisted Procedure of Trunk Region, Via Natural or Artificial Opening Endoscopic (ICD-10-PCS; principal; 2018-02-13 07:30)
PROC: 0UT7FZZ Resection of Bilateral Fallopian Tubes, Via Natural or Artificial Opening With Percutaneous Endoscopic Assistance (ICD-10-PCS; principal; 2018-02-13 07:30)
PROC: 0UTC8ZZ Resection of Cervix, Via Natural or Artificial Opening Endoscopic (ICD-10-PCS; principal; 2018-02-13 07:30)
DX: N92.0 Excessive and frequent menstruation with regular cycle (principal); G93.40 Encephalopathy, unspecified; R06.89 Other abnormalities of breathing; T50.6X5A Adverse effect of antidotes and chelating agents, initial encounter; E87.6 Hypokalemia; I10 Essential (primary) hypertension; F41.8 Other specified anxiety disorders; K21.9 Gastro-esophageal reflux disease without esophagitis; E78.00 Pure hypercholesterolemia, unspecified; E66.9 Obesity, unspecified; F17.200 Nicotine dependence, unspecified, uncomplicated; Z79.899 Other long term (current) drug therapy; Z15.01 Genetic susceptibility to malignant neoplasm of breast; Z98.890 Other specified postprocedural states; Z85.3 Personal history of malignant neoplasm of breast; Z68.39 Body mass index [BMI] 39.0-39.9, adult; Z88.8 Allergy status to other drugs, medicaments and biological substances; Z80.3 Family history of malignant neoplasm of breast; Z82.49 Family history of ischemic heart disease and other diseases of the circulatory system; Z82.0 Family history of epilepsy and other diseases of the nervous system

== ENCOUNTER → 2018-02-21 | Outpatient (CLI) | payer BC, OTHER ==
[~2018-02-21] MED LIST changes: +MTR600X PO; +OXYC-57 PO
--- NOTE | 2018-02-22 07:58 | MAMMOGRAPHY REPORT ---
UNILATERAL LEFT DIGITAL DIAGNOSTIC MAMMOGRAM TOMOSYNTHESIS WITH CAD AND TARGETED LEFT ULTRASOUND: 02/21 CLINICAL HISTORY: 47-year-old woman with a personal history of left breast infiltrating ductal carcin genna and ductal carcinoma in situ presents for continued close follow-up in the left breast after lindsay st conservation treatment. TECHNIQUE: Left breast tomosynthesis in addition to standard 2D mammography was performed. Spot magn ification left CC and ML views were also obtained. Current study was also evaluated with a Computer Aided Detection (CAD) system. COMPARISON: Comparison is made to exams dated: 08/23/2017 mammogram, 08/23/2017 ultrasound, 02/21/2017 m ammogram, 07/13/2016 mammogram, 07/07/2016 mammogram, and 06/30/2016 mammogram - [facility]. BREAST COMPOSITION: There are scattered areas of fibroglandular density in the left breast. FINDINGS: There are involutional changes of the left breast comparing to more remote prior mammograms . There is focal asymmetry and architectural distortion with a few surgical clips in the upper outer middle to posterior left breast at the site of prior lumpectomy. There is evidence of scar retracti on comparing to the initial postsurgical mammograms. There is a vague 11 mm asymmetry in the superio r anterior left breast on the MLO tomosynthesis images (slice 43/83), that could represent normal fib roglandular tissue although further evaluation with ultrasound was performed to exclude a mass. The spot magnification views of the left breast redemonstrate 2 punctate microcalcifications along th e inferomedial aspect of the scar and a new third microcalcification is seen in the CC projection jus t anterior to the surgical clips. There is still no evidence of a suspicious grouping or cluster of calcifications to suggest recurrent disease. Continued close follow-up with spot magnification views is recommended in 6 months. No other new suspicious findings are identified in the left breast. Targeted ultrasound was performed in the superior left breast. There is a residual fluid collection at the surgical site in the 1:30 left breast, compatible with evolving postsurgical seroma and/or hem atoma (this was shown to be decreasing in size mammographically). No suspicious solid or cystic mass is identified. IMPRESSION: ACR-BI-RADS CATEGORY 3: PROBABLY BENIGN, TARGETED ULTRASOUND ACR-BI-RADS CATEGORY 3: PRO BABLY BENIGN 1. Evolving postsurgical changes in the left breast, with evidence of scar retraction at the surgica l site in the upper outer quadrant. There are 3 punctate microcalcifications located near the surgic al site that are not in any suspicious grouping or cluster and most likely represent benign calcifica tions from the surgery. However, continued monitoring with follow-up spot magnification views is rec ommended to ensure stability in 6 months. 2. Involutional changes of the left breast comparing to more remote prior mammograms. An asymmetry in the superior left breast on the MLO tomosynthesis images is felt to represent normal fibroglandula r tissue as a partially effaced on the tomosynthesis images and no suspicious sonographic correlate w as identified. 3. Overall, recommend bilateral diagnostic tomosynthesis mammograms including left spot magnificatio n views and possible ultrasound in 6 months. Would also recommend continued surveillance with breast MRI, ideally performed 1-2 weeks prior to diagnostic mammography in case any additional workup may b e needed based on MRI results. These results and recommendations were discussed with the patient at the time of the exam. Approximately 10% of breast cancers are not detected with mammography. A negative mammographic report should not delay biopsy if a clinically suggestive mass is present. Rachel Lora M.D. ay/:02/21/2018 12:37:43 Bread Jockey: Neyda SALCIDO)(Janie), [facility] letter sent: Follow Up Recommended 3 BI-RADS Code: ACR-BI-RADS Category 3: Probably Benign Ultrasound BI-RADS: ACR-BI-RADS Category 3: Pr obably Benign
== END | disposition home or self-care (01) ==
LOC: C.MAMM 09:03
PROVIDERS: ATTEND Physician Assistant Medical
DX: R92.0 Mammographic microcalcification found on diagnostic imaging of breast (principal); N64.89 Other specified disorders of breast

== ENCOUNTER 2018-03-16 01:57 | Emergency (ER) | payer BC, OTHER ==
[2018-03-16] MEDS ORDERED: FENTANYL CITRATE INJ 50 MCG/1 ML 2 ML VIAL ONE (03:12)
[2018-03-16] MEDS ORDERED: IBUP-1450 PO (03:33)
--- NOTE | 2018-03-16 03:33 | EMERGENCY ROOM VISIT NOTE ---
History Report prepared by Ivelisse: Henry Deutsch Under the Supervision of: Dr. Mason Garcia M.D. First contact with patient: 03:19 Chief Complaint: SEIZURE Stated Complaint: SEIZURE History of Present Illness The patient is a 47 year old female who presents to the Emergency Room with complaints of an episode of seizure-like activity occurring tonight. The patient states that she had a hysterectomy last month and had an allergic reaction induced seizure at that time. She notes that since she was discharged from the ICU following her hysterectomy, she has had several episodes of seizure -like activity, but has not come to the emergency department. She reports that she had another episode today that she does not remember. The patient states that her episode began with her heart racing, and then she notes that she felt lightheaded. Per , the patient's episode tonight lasted about thirty seconds. He reports that during her episode, the patient's head was shaking and her hands were moving. He states that the patient did not turn blue and was not drooling. He notes that when the patient's episode ended, she seemed confused, but he reports that the confusion did not last long. The patient currently complains of left upper chest pain, nausea, dizziness, neck pain, and a headache. She also states that her tongue "feels funny." She notes that she did not have a headache prior to her episode, and reports light makes her headache worse. She denies any abdominal pain, SOB, leg swelling, change to her appetite , and double vision. The patient states that she has a history of thyroid problems, palpitations, migraines, and breast cancer. She notes that she ended treatment for her cancer in 08/07, but reports that she has three more spots in her left breast. The patient states that she does not believe that her cancer spread anywhere else. She denies any personal history of blood clots in the lungs/legs, and notes that she does not have a family history of seizures and blood clots. Source of History: patient, spouse/significant other () Onset: tonight Position: other (global) Quality: other (seizure-like behavior) Timing: other (an episode) Associated Symptoms: + headache, + neck pain, + chest pain (left upper), + nausea, No SOB, No abdominal pain Note: The patient complains of heart racing, lightheadedness, and dizziness. She also states that her tongue "feels funny." She denies any leg swelling, change to her appetite, and double vision. Review of Systems See HPI for pertinent positives & negatives. A total of 10 systems reviewed and were otherwise negative. Past Medical & Surgical Medical Problems: (1) Anxiety (2) Breast cancer (3) Chemotherapy induced nausea and vomiting (4) Depression (5) Esophageal Reflux (6) Hiatal hernia (7) Menorrhagia (8) Migraine (9) Palpitations (10) Post-operative complication (11) Tobacco Use Disorder Surgical Problems: (1) Hx of cholecystectomy Family History Cancer FH: CABG (coronary artery bypass surgery) FATHER FH: myocardial infarction Hypertension Social History Smoking Status: Current Every Day Smoker Drug Use: none Marital Status: Housing Status: lives with family Occupation Status: unemployed Current/Historical Medications Scheduled Atorvastatin (Lipitor), 20 MG PO QAM Bupropion (Wellbutrin), 100 MG PO BID Buspirone Hcl (Buspirone Hcl), 30 MG PO BID Cholecalciferol (Vitamin D-3), 4,000 INTERUNIT PO QAM Cyanocobalamin (B12), 1 TAB PO QAM Exemestane (Aromasin), 25 MG PO QAM Lisinopril/Hctz (Zestoretic 20MG/25MG), 1 TAB PO QAM Ranitidine (Zantac), 150 MG PO BID Venlafaxine Hcl (Effexor Extended Rel), 300 MG PO HS Scheduled PRN Ibuprofen (Motrin), 600 MG PO Q6 PRN for pain,h/a,fever Ondansetron Hcl (Zofran), 8 MG PO UD PRN for PRN Oxycodone/Acetaminophen 5MG/325MG (Percocet 5MG/325MG), 1 TABLET PO Q4H PRN for Pain Prochlorperazine Maleate (Compazine), 10 MG PO UD PRN for PRN Allergies Coded Allergies: Methylene Blue (Verified Allergy, Intermediate, DELIRIUM, 03/16/18) Serotonin syndrome-like reaction with IV administration Anastrozole (Verified Adverse Reaction, Unknown, MUSCLE AND BONE PAIN, ) Physical Exam Vital Signs Date Time Temp Pulse Resp B/P (MAP) Pulse Ox O2 Delivery O2 Flow Rate FiO2 03/16/18 04:32 72 16 127/70 96 Room Air 03/16/18 03:16 79 18 122/65 98 Room Air Physical Exam GENERAL: Patient is well appearing and in mild distress. EYES: No scleral icterus, unremarkable pupils. ENT: Mucous membranes moist, no nasal congestion. NECK: No masses appreciated, no meningismus, trachea is midline. RESPIRATORY: No dyspnea. Clear to auscultation and equal bilaterally. No wheeze , no rhonchi. CARDIOVASCULAR: Regular rate and rhythm. No murmurs, rubs, gallops appreciated. GASTROINTESTINAL: Abdomen soft, nontender, no peritonitis. Bowel sounds positive. No masses appreciated. BACK: No midline tenderness, no CVA tenderness EXTREMITIES: Normal motion all extremities, no cyanosis, no edema. NEUROLOGIC: Alert and oriented, no acute motor or sensory deficits, no focal weakness, cranial nerves grossly intact. SKIN: No rash, no jaundice, no diaphoresis. Medical Decision & Procedures ER Provider Diagnostic Interpretation: Radiology results and stated below per my review and radiologist interpretation: CT HEAD: No acute intracranial hemorrhage or mass effect. No visualized cortical edema. No hydrocephalus. Mildly motion limited. Radiologist: Dilan Gray MD. X ray results are stated below per my interpretation: Chest: 1 view: No infiltrate, no effusion, normal cardiac border. Laboratory Results 03/16/18 02:15 Red Blood Count 5.03, Mean Corpuscular Volume 90.9, Mean Corpuscular Hemoglobin 30.4, Mean Corpuscular Hemoglobin Concent 33.5, Mean Platelet Volume 10.9, Neutrophils (%) (Auto) 46.2, Lymphocytes (%) (Auto) 38.2, Monocytes (%) (Auto) 7.4, Eosinophils (%) (Auto) 7.4, Basophils (%) (Auto) 0.4, Neutrophils # (Auto) 3.61, Lymphocytes # (Auto) 2.98, Monocytes # (Auto) 0.58, Eosinophils # (Auto) 0.58, Basophils # (Auto) 0.03 03/16/18 02:15 Test 03/16/18 02:15 03/16/18 04:05 White Blood Count 7.81 K/uL (4.8-10.8) Red Blood Count 5.03 M/uL (4.2-5.4) Hemoglobin 15.3 g/dL (12.0-16.0) Hematocrit 45.7 % (37-47) Mean Corpuscular Volume 90.9 fL (80-100) Mean Corpuscular Hemoglobin 30.4 pg (25-34) Mean Corpuscular Hemoglobin Concent 33.5 g/dl (32-36) Platelet Count 258 K/uL (130-400) Mean Platelet Volume 10.9 fL (7.4-10.4) Neutrophils (%) (Auto) 46.2 % Lymphocytes (%) (Auto) 38.2 % Monocytes (%) (Auto) 7.4 % Eosinophils (%) (Auto) 7.4 % Basophils (%) (Auto) 0.4 % Neutrophils # (Auto) 3.61 K/uL (1.4-6.5) Lymphocytes # (Auto) 2.98 K/uL (1.2-3.4) Monocytes # (Auto) 0.58 K/uL (0.11-0.59) Eosinophils # (Auto) 0.58 K/uL (0-0.5) Basophils # (Auto) 0.03 K/uL (0-0.2) RDW Standard Deviation 42.3 fL (36.4-46.3) RDW Coefficient of Variation 12.8 % (11.5-14.5) Immature Granulocyte % (Auto) 0.4 % Immature Granulocyte # (Auto) 0.03 K/uL (0.00-0.02) D-Dimer 490 ug/L FEU (0-500) Anion Gap 4.0 mmol/L (3-11) Estimated GFR () 59.6 Estimated GFR (Non- 51.4 BUN/Creatinine Ratio 12.0 (10-20) Calcium Level 9.2 mg/dl (8.5-10.1) Magnesium Level 2.1 mg/dl (1.8-2.4) Total Creatine Kinase 105 U/L (26-192) Troponin I < 0.015 ng/ml (0-0.045) Thyroid Stimulating Hormone (TSH) 5.340 uIu/ml (0.300-4.500) Bedside Troponin I < 0.030 ng/ml (0-0.045) Laboratory results as reviewed by me. Medications Administered Medications (Trade) Dose Ordered Sig/Rodolfo Route Start Time Stop Time Status Last Admin Dose Admin Potassium Chloride (Klor-Con M10) 40 meq STK-MED ONCE .ROUTE 03/16/18 04:27 03/16/18 04:28 DC 03/16/18 04:31 40 MEQ ECG Per My Interpretation Indication: chest pain Rate (beats per minute): 92 Rhythm: normal sinus Findings: no ectopy, other (QTC 457) ED Course 0211: The patient was evaluated in room A10. A complete history and physical exam was performed. 0309: I reevaluated and updated the patient. She states that her headache is much worse after CT. I ordered fentanyl IV. 0348: I rechecked the patient. She states that she has no further headache and is feeling much better. She notes that her father had an ME in his early 50s and that her grandfather in his 60s due to an ME. She reports no previous seizure history. The patient states that she discussed her seizure-like episodes with her surgeon at discharge. 0400: Upon reevaluation, the patient has no further headache. She states that she would like to go home. I offered for a hospitalist to talk to her for a seizure and chest pain evaluation. She declined. She states that she has a neurologist that she will call in the morning. She notes that she will also called her PCP in the morning. I informed her that she is not to drive until she is cleared by her neurologist. 0432: Reevaluated the patient. Discussed results and discharge instructions: she verbalized understanding and agreement. The patient is ready for discharge. Medical Decision Differential: Headache, Migraine, Cluster Headache, Seizure, Meningitis, Sinusitis, CO exposure, ICH/SAH, Infectious, Tumor, Sinus Thrombosis, Arterial Dissection, amongst other pathologies entertained. 47 yr old female arrives following seizure like episode witnessed by . Given 30 second episode followed by what vaguely sounds like post ictal state must assume this was a seizure until proven otherwise. CT head looks good. Labs look good. Notes left cp/palpitations prior to this thus EKG/Trop/Dimer which were unremarkable. She is not interested in staying in hospital. She has minor renal insufficiency as well as some hypoK. Notes she has been quite stressed with taxes, family and recent hospitalization following hysterectomy. She admits history of migraines and notes this felt similar to that as well. She was offered admission with plan for further brain imaging, neurology evaluation, cards rule out, etc but she declines. She understands the risks of discharge and fact that not everything can be ruled out in brief ED stay. She understands she can not drive/operate machinery until cleared by Neuro and that [facility] Stable and comfortable at discharge and aware she can return at any time if worsening or other concerns. Medication Reconcilliation Current Medication List: was personally reviewed by me Blood Pressure Screening Patient's blood pressure: Normal blood pressure Blood pressure disposition: Did not require urgent referral Impression Primary Impression: Seizure-like activity Additional Impressions: Headache Left sided chest pain Renal insufficiency Hypokalemia Scribe Attestation The scribe's documentation has been prepared under my direction and personally reviewed by me in its entirety. I confirm that the note above accurately reflects all work, treatment, procedures, and medical decision making performed by me. Departure Information Dispostion Home / Self-Care Referrals Salvatore Parra III, CRNP (PCP) Forms HOME CARE DOCUMENTATION FORM, IMPORTANT VISIT INFORMATION Patient Instructions My [facility] Additional Instructions It is very important you follow up with your primary care provider and Neurologist as soon as possible. This is very important and you should call them this morning! Please discuss having a stress test of your heart, and MRI of the brain, and possibly an EEG (brain wave study). Return immediately or call 911 if further seizures, worsening headache, fevers, neck stiffness, passing out, further chest pain, difficulty breathing or other concerning symptoms. We are always here to help. Do not drive nor place yourself in dangerous positions until you are cleared by your Neurologist. Your Potassium was a bit low and thus it is important that you eat a well balanced diet. Keep well hydrated over the next few days. Problem Qualifiers
[2018-03-16 03:35] LABS: BLOOD UREA NITROGEN 15 mg/dl (7-18); CALCIUM 9.2 mg/dl (8.5-10.1); CARBON DIOXIDE 30 mmol/L (21-32); CREATININE 1.26 mg/dl (0.60-1.20); GLUCOSE 87 mg/dl (70-99); POTASSIUM 3.1 mmol/L (3.5-5.1); SODIUM 137 mmol/L (136-145)
[2018-03-16] MEDS ORDERED: OXYC-57 PO (03:35)
[2018-03-16 03:40] LABS: BASO % 0.4 %; BASO ABS # 0.03 K/uL (0-0.2); EOS % 7.4 %; EOS ABS # 0.58 K/uL (0-0.5); HEMATOCRIT 45.7 % (37-47); HEMOGLOBIN 15.3 g/dL (12.0-16.0); IG# 0.03 K/uL (0.00-0.02); LYMPH % 38.2 %; LYMPH ABS # 2.98 K/uL (1.2-3.4); MEAN CELL VOLUME 90.9 fL (80-100); MEAN CORPUSCULAR HEMOGLOBIN 30.4 pg (25-34); MEAN CORPUSCULAR HGB CONC 33.5 g/dl (32-36); MEAN PLATELET VOLUME 10.9 fL (7.4-10.4); MONO % 7.4 %; MONO ABS # 0.58 K/uL (0.11-0.59); NEUT % 46.2 %; NEUT ABS # 3.61 K/uL (1.4-6.5); PLATELET COUNT 258 K/uL (130-400); RED CELL DISTRIBUTION WIDTH CV 12.8 % (11.5-14.5); RED CELL DISTRIBUTION WIDTH SD 42.3 fL (36.4-46.3); WHITE BLOOD COUNT 7.81 K/uL (4.8-10.8)
[2018-03-16] MEDS ORDERED: POTASSIUM CHLORIDE 20 MEQ TABCR PO STA (04:25)
[2018-03-16] MEDS ORDERED: POTASSIUM CHLORIDE 10 MEQ TABCR ONE (04:27)
[2018-03-16 04:32] VITALS: BP 127/70; PULSE 72; O2SAT 96
--- NOTE | 2018-03-16 08:52 | DIAGNOSTIC IMAGING REPORT ---
HEAD CT NONCONTRAST CT DOSE: HISTORY: SEIZURE TECHNIQUE: Multiaxial CT images of the head were performed without the use of intravenous contrast. Automated exposure control was utilized for this study. A dose lowering technique was utilized adhering to the principles of ALARA. Comparison: Head CT 02/05/2016. Findings: The paranasal sinuses and mastoid air cells are clear. The calvarium and skull base are intact. The ventricles and sulci are within normal limits. There is no mass, hematoma, midline shift, or acute infarct. Impression: No acute intracranial abnormality. If this is the patient's first reported seizure consider follow-up nonemergent MRI for further evaluation. Electronically signed by: Dilan Ricardo M.D. 03/16/2018 7:03 AM Dictated Date/Time: 03/16/2018 7:01 AM
--- NOTE | 2018-03-16 08:52 | DIAGNOSTIC IMAGING REPORT ---
SINGLE VIEW CHEST CLINICAL HISTORY: Left-sided chest pain. FINDINGS: An AP, portable, upright chest radiograph is compared to study dated 02/13/2018. The examination is degraded by portable technique and patient rotation. The cardiomediastinal silhouette is unremarkable. Platelike atelectasis is at the left lung base. The lungs and pleural spaces are otherwise clear. No pneumothorax is seen. The bony thorax is grossly intact. IMPRESSION: No active disease in the chest. Electronically signed by: Gallito Patle M.D. 03/16/2018 7:19 AM Dictated Date/Time: 03/16/2018 7:19 AM
== END 2018-03-16 04:32 | disposition home or self-care (01) ==
LOC: C.EDB 02:00 → C.EDA 04:32
DX: R56.9 Unspecified convulsions (principal); R51 Headache; R07.9 Chest pain, unspecified; N28.9 Disorder of kidney and ureter, unspecified; E87.6 Hypokalemia; Z86.69 Personal history of other diseases of the nervous system and sense organs; Z90.710 Acquired absence of both cervix and uterus; F17.200 Nicotine dependence, unspecified, uncomplicated; F32.9 Major depressive disorder, single episode, unspecified; F41.9 Anxiety disorder, unspecified; K21.9 Gastro-esophageal reflux disease without esophagitis; Z88.8 Allergy status to other drugs, medicaments and biological substances

== ENCOUNTER → 2018-03-20 | Outpatient (CLI) | payer BC, OTHER ==
[~2018-03-20] MED LIST changes: +IBUP-1450 PO; -MTR600X PO
[2018-03-20 17:43] LABS: MEAN CELL VOLUME 91.1 fL (80-100); MEAN CORPUSCULAR HEMOGLOBIN 30.4 pg (25-34); MEAN CORPUSCULAR HGB CONC 33.3 g/dl (32-36); MEAN PLATELET VOLUME 11.2 fL (7.4-10.4); PLATELET COUNT 251 K/uL (130-400); RED CELL DISTRIBUTION WIDTH SD 42.9 fL (36.4-46.3)
[2018-03-20 18:21] LABS: ALKALINE PHOSPHATASE 130 U/L (45-117); ALT/SGPT 163 U/L (12-78); AST/SGOT 114 U/L (15-37); BLOOD UREA NITROGEN 10 mg/dl (7-18); CALCIUM 9.4 mg/dl (8.5-10.1); CARBON DIOXIDE 25 mmol/L (21-32); CREATININE 0.93 mg/dl (0.60-1.20); GLUCOSE 112 mg/dl (70-99); LUTEINIZING HORMONE 0.22 IU/L; POTASSIUM 4.1 mmol/L (3.5-5.1); PROLACTIN 6.31 ng/mL; SODIUM 140 mmol/L (136-145)
[2018-03-20 18:22] LABS: FOLLICLE STIMULAT HORMONE 9.12 IU/L
== END | disposition home or self-care (01) ==
LOC: C.LABPVFM 13:19
PROVIDERS: ATTEND Obstetrics & Gynecology
DX: R41.9 Unspecified symptoms and signs involving cognitive functions and awareness (principal); R94.6 Abnormal results of thyroid function studies; E87.6 Hypokalemia; R79.89 Other specified abnormal findings of blood chemistry

== ENCOUNTER → 2018-03-24 | Outpatient (CLI) | payer BC, OTHER | END | disposition home or self-care (01) | LOC: C.NEUR 08:40 | PROVIDERS: ATTEND Nurse Practitioner Family | DX: R56.9 Unspecified convulsions (principal) ==

== ENCOUNTER → 2018-03-24 | Outpatient (CLI) | payer BC, OTHER ==
[~2018-03-24] MED LIST changes: +GADAVIST IV PRN
--- NOTE | 2018-03-24 18:11 | DIAGNOSTIC IMAGING REPORT ---
BRAIN COMBO FOR SEIZURE CLINICAL HISTORY: 47 years-old Female presenting with SEIZURE, headaches, history of breast cancer. TECHNIQUE: Multisequence, multiplanar MR imaging of the brain was performed before and after the administration of intravenous contrast. Dedicated sequences to evaluate the temporal lobes were performed. IV contrast: 10.8 mL of Gadavist. COMPARISON: 08/24/[address] head from 03/16/2018. FINDINGS: Incidental note made of a partially empty sella, which can be a normal variant. Ventricles and sulci normal in size. Minimal foci of FLAIR hyperintensity in periventricular white matter within the normal range for age. Brain parenchyma otherwise normal in appearance with preserved yost-white differentiation. No mass effect or midline shift. No restricted diffusion to suggest acute ischemia. No hemorrhage. No extra-axial fluid collection. T2 skull base flow voids preserved. No abnormal parenchymal enhancement. Bone marrow signal intensity within the calvarium within normal limits. IMPRESSION: 1. No acute intracranial pathology. No abnormal enhancement. Electronically signed by: Ronaldo Yuan M.D. 03/24/2018 6:10 PM Dictated Date/Time: 03/24/2018 6:03 PM
== END | disposition home or self-care (01) ==
LOC: C.MRI 16:09
PROVIDERS: ATTEND Nurse Practitioner Family
DX: R56.9 Unspecified convulsions (principal)

== ENCOUNTER 2018-04-04 01:52 | Emergency (ER) | payer BC, OTHER ==
[~2018-04-04] VITALS: Ht 167.6 cm; Wt 110.8 kg
[~2018-04-04 01:52] MED LIST changes: -GADAVIST IV PRN; +PROC10TA PO; -PROC1TAB5 PO
[2018-04-04 01:55] VITALS: TEMP 36.6; Ht 167.6 cm; Wt 110.8 kg
[2018-04-04] MEDS ORDERED: SODIUM CHLORIDE 0.9% 1000ML 1,000 ML IV STA (02:18)
[2018-04-04] MEDS ORDERED: ACETAMINOPHEN 500 MG TAB PO STA (02:18)
[2018-04-04 02:40] LABS: BASO % 0.6 %; BASO ABS # 0.04 K/uL (0-0.2); EOS ABS # 0.25 K/uL (0-0.5); HEMOGLOBIN 14.2 g/dL (12.0-16.0); IG# 0.01 K/uL (0.00-0.02); LYMPH % 39.5 %; LYMPH ABS # 2.45 K/uL (1.2-3.4); MEAN CELL VOLUME 88.4 fL (80-100); MEAN CORPUSCULAR HEMOGLOBIN 30.6 pg (25-34); MEAN CORPUSCULAR HGB CONC 34.6 g/dl (32-36); MEAN PLATELET VOLUME 10.7 fL (7.4-10.4); MONO % 7.1 %; MONO ABS # 0.44 K/uL (0.11-0.59); NEUT % 48.6 %; NEUT ABS # 3.02 K/uL (1.4-6.5); PLATELET COUNT 226 K/uL (130-400); RED CELL DISTRIBUTION WIDTH CV 12.8 % (11.5-14.5); WHITE BLOOD COUNT 6.21 K/uL (4.8-10.8)
[2018-04-04] MEDS ORDERED: POTA-639 PO (03:00)
[2018-04-04 03:03] LABS: ALBUMIN 3.7 gm/dl (3.4-5.0); CALCIUM 8.8 mg/dl (8.5-10.1); CREATININE 0.96 mg/dl (0.60-1.20); POTASSIUM 3.3 mmol/L (3.5-5.1)
[2018-04-04 03:05] LABS: TOTAL PROTEIN 7.3 gm/dl (6.4-8.2)
--- NOTE | 2018-04-04 03:22 | EMERGENCY ROOM VISIT NOTE ---
History First contact with patient: :61 Chief Complaint: SEIZURE Stated Complaint: SEIZURE Nursing Triage Summary: Pt c/o seizures since January, had EEG testing done-negative. This morning patient was sleeping and had woken up and found her seizing. Pt c/o headache and not feeling well. History of Present Illness The patient is a 47 year old female who presents to the Emergency Room with complaints of seizure-like activity occurring tonight. The patient states that her woke up to her having a seizure. She states that she was sleeping on the couch. Her reports that he heard noises and saw her shaking. This lasted approximately 30 seconds. Afterward, he states the patient talked right away but seems slightly confused. There was no incontinence or tongue biting. The patient reports she has pain in her head and across her neck and shoulders. She states that her left hand is tingling slightly. The patient has been having seizures since a hysterectomy in January. She has had an MRI and EEG. She saw Dr. Boyer of neurology in the office this week. He she was instructed to take Keppra and decrease her Wellbutrin, but she states this made her very tired, so she stopped taking the Keppra. She does have an appointment with her psychiatrist tomorrow to discuss her medication changes. She rates her discomfort a 5/10. Review of Systems A complete 10 point review of systems was reviewed with the patient with pertinent positives and negatives as per history of present illness. All else were negative. Past Medical/Surgical History Medical Problems: (1) Anxiety (2) Breast cancer (3) Chemotherapy induced nausea and vomiting (4) Depression (5) Esophageal Reflux (6) Hiatal hernia (7) Menorrhagia (8) Migraine (9) Palpitations (10) Post-operative complication (11) Tobacco Use Disorder Surgical Problems: (1) Hx of cholecystectomy Family History Cancer FH: CABG (coronary artery bypass surgery) FATHER FH: myocardial infarction Hypertension Social History Smoking Status: Current Every Day Smoker Drug Use: none Marital Status: Housing Status: lives with family Occupation Status: unemployed Current/Historical Medications Scheduled Atorvastatin (Lipitor), 20 MG PO QAM Bupropion (Wellbutrin), 100 MG PO BID Buspirone Hcl (Buspirone Hcl), 30 MG PO BID Cholecalciferol (Vitamin D-3), 4,000 INTERUNIT PO QAM Cyanocobalamin (B12), 1 TAB PO QAM Exemestane (Aromasin), 25 MG PO QAM Lisinopril/Hctz (Zestoretic 20MG/25MG), 1 TAB PO QAM Potassium Ext Rel (Klor-Con), 10 MEQ PO BID Ranitidine (Zantac), 150 MG PO BID Venlafaxine Hcl (Effexor Extended Rel), 300 MG PO HS Physical Exam Vital Signs Date Time Temp Pulse Resp B/P (MAP) Pulse Ox O2 Delivery O2 Flow Rate FiO2 04/04/18 03:35 89 20 114/71 97 Room Air 04/04/18 01:55 36.6 103 20 132/92 98 Room Air Physical Exam VITALS: Vitals are noted on the nurse's note and reviewed by myself. Vital signs stable. GENERAL: This is a 47-year-old female, in no acute distress, nondiaphoretic, well-developed well-nourished. SKIN: The skin was without rashes. EARS: External auditory canals clear, tympanic membranes pearly yost without erythema or effusion bilaterally. EYES: Pupils equal round and reactive to light and accommodation. Extraocular movements intact. NOSE: Patent, turbinates without inflammation or discharge. No sinus tenderness. MOUTH: Mucous membranes moist. NECK: Supple without nuchal rigidity. No lymphadenopathy. Cervical spine is nontender. HEART: Regular rate and rhythm without murmurs gallops or rubs. LUNGS: Clear to auscultation bilaterally without wheezes, rales or rhonchi. MUSCULOSKELETAL: Strength 5/5 throughout. NEURO: Patient was alert and oriented to person place and time. No focal neurological deficits. Medical Decision & Procedures Laboratory Results 04/04/18 02:20 Red Blood Count 4.64, Mean Corpuscular Volume 88.4, Mean Corpuscular Hemoglobin 30.6, Mean Corpuscular Hemoglobin Concent 34.6, Mean Platelet Volume 10.7, Neutrophils (%) (Auto) 48.6, Lymphocytes (%) (Auto) 39.5, Monocytes (%) (Auto) 7.1, Eosinophils (%) (Auto) 4.0, Basophils (%) (Auto) 0.6, Neutrophils # (Auto) 3.02, Lymphocytes # (Auto) 2.45, Monocytes # (Auto) 0.44, Eosinophils # (Auto) 0.25, Basophils # (Auto) 0.04 04/04/18 02:20 Test 04/04/18 02:20 04/04/18 02:30 White Blood Count 6.21 K/uL (4.8-10.8) Red Blood Count 4.64 M/uL (4.2-5.4) Hemoglobin 14.2 g/dL (12.0-16.0) Hematocrit 41.0 % (37-47) Mean Corpuscular Volume 88.4 fL (80-100) Mean Corpuscular Hemoglobin 30.6 pg (25-34) Mean Corpuscular Hemoglobin Concent 34.6 g/dl (32-36) Platelet Count 226 K/uL (130-400) Mean Platelet Volume 10.7 fL (7.4-10.4) Neutrophils (%) (Auto) 48.6 % Lymphocytes (%) (Auto) 39.5 % Monocytes (%) (Auto) 7.1 % Eosinophils (%) (Auto) 4.0 % Basophils (%) (Auto) 0.6 % Neutrophils # (Auto) 3.02 K/uL (1.4-6.5) Lymphocytes # (Auto) 2.45 K/uL (1.2-3.4) Monocytes # (Auto) 0.44 K/uL (0.11-0.59) Eosinophils # (Auto) 0.25 K/uL (0-0.5) Basophils # (Auto) 0.04 K/uL (0-0.2) RDW Standard Deviation 41.0 fL (36.4-46.3) RDW Coefficient of Variation 12.8 % (11.5-14.5) Immature Granulocyte % (Auto) 0.2 % Immature Granulocyte # (Auto) 0.01 K/uL (0.00-0.02) Anion Gap 8.0 mmol/L (3-11) Est Creatinine Clear Calc Drug Dose 93.3 ml/min Estimated GFR () 82.8 Estimated GFR (Non- 71.4 BUN/Creatinine Ratio 9.8 (10-20) Calcium Level 8.8 mg/dl (8.5-10.1) Total Bilirubin 0.3 mg/dl (0.2-1) Aspartate Amino Transf (AST/SGOT) 93 U/L (15-37) Alanine Aminotransferase (ALT/SGPT) 127 U/L (12-78) Alkaline Phosphatase 119 U/L (45-117) Total Protein 7.3 gm/dl (6.4-8.2) Albumin 3.7 gm/dl (3.4-5.0) Globulin 3.6 gm/dl (2.5-4.0) Albumin/Globulin Ratio 1.0 (0.9-2) Urine Color YELLOW Urine Appearance CLEAR (CLEAR) Urine pH 5.0 (4.5-7.5) Urine Specific [place] 1.016 (1.000-1.030) Urine Protein NEG (NEG) Urine Glucose (UA) NEG (NEG) Urine Ketones NEG (NEG) Urine Occult Blood NEG (NEG) Urine Nitrite NEG (NEG) Urine Bilirubin NEG (NEG) Urine Urobilinogen NEG (NEG) Urine Leukocyte Esterase SMALL (NEG) Urine WBC (Auto) 5-10 /hpf (0-5) Urine RBC (Auto) 0-4 /hpf (0-4) Urine Hyaline Casts (Auto) 1-5 /lpf (0-5) Urine Epithelial Cells (Auto) >30 /lpf (0-5) Urine Bacteria (Auto) NEG (NEG) Medications Administered Medications (Trade) Dose Ordered Sig/Rodolfo Route Start Time Stop Time Status Last Admin Dose Admin Sodium Chloride 1,000 ml @ 999 mls/hr Q1H1M STAT IV 04/04/18 02:18 04/04/18 03:18 DC 04/04/18 02:29 999 MLS/HR Acetaminophen (Tylenol Tab) 1,000 mg NOW STAT PO 04/04/18 02:18 04/04/18 02:21 DC 04/04/18 02:29 1,000 MG Medical Decision Differential diagnosis includes breakthrough seizure, electrolyte abnormality, infection, among others. The patient was evaluated as above. Labs revealed no leukocytosis, anemia or concerning electrolyte abnormalities. I reviewed previous records as well as the patient's records from her outpatient visit with neurology. She was started on Keppra but has not been taking this. It does seem that her seizures have been decreasing in frequency. The patient has already had an MRI and EEG. I do not feel that admission would benefit the patient at this time. I recommended that she contact her neurologist to schedule follow-up. She does have follow-up scheduled with her psychiatrist. She verbalized understanding of my assessment and treatment plan and was discharged home in good condition. The patient's case was reviewed with Dr. Garcia, ED attending physician, who agreed with my assessment and treatment plan. Medication Reconcilliation Current Medication List: was personally reviewed by me Blood Pressure Screening Patient's blood pressure: Normal blood pressure Impression Primary Impression: Seizure Departure Information Dispostion Home / Self-Care Condition GOOD Referrals Salvatore Parra III, CRNP (PCP) Dewey Boyer M.D. Patient Instructions My [facility] Additional Instructions Contact neurology in the morning to discuss follow-up. Follow-up with your psychiatrist as scheduled. Return here for any lengthy seizures, severe head pain, passing out or other new /concerning symptoms.
[2018-04-04 03:35] VITALS: BP 114/71; PULSE 89; O2SAT 97
== END 2018-04-04 03:37 | disposition home or self-care (01) ==
LOC: C.EDB 01:53
DX: R56.9 Unspecified convulsions (principal); Z90.710 Acquired absence of both cervix and uterus; F41.9 Anxiety disorder, unspecified; Z85.3 Personal history of malignant neoplasm of breast; F32.9 Major depressive disorder, single episode, unspecified; K21.9 Gastro-esophageal reflux disease without esophagitis; F17.210 Nicotine dependence, cigarettes, uncomplicated; Z80.9 Family history of malignant neoplasm, unspecified; Z82.49 Family history of ischemic heart disease and other diseases of the circulatory system; Z79.899 Other long term (current) drug therapy

== ENCOUNTER → 2018-07-04 | Outpatient (CLI) | payer BC, OTHER ==
[~2018-07-04] MED LIST changes: -IBUP-1450 PO; +LAMO200T35 PO; +LEVE250T PO; -ONDA8TAB12 PO; -OXYC-57 PO; +POTA-639 PO; -PROC10TA PO
[2018-07-04 13:31] VITALS: BP 113/80; PULSE 100; TEMP 36.9; O2SAT 96
--- NOTE | 2018-07-04 15:35 | Radiation Oncology Follow-Up ---
Radiation Oncology Follow-Up Date of Visit Jul 04, 2018. Radiation Completion Date 12/02/16 Diagnosis (1) Breast cancer Onset Date: 07/13/2016 Stage: l (A) Permanent Comment: Abnormal left breast mammogram Status post stereotactic biopsy 07/13/2016 revealing ductal carcinoma Estrogen receptor positive, progesterone receptor positive, HER-2/patrick positive Status post lumpectomy and sentinel lymph node biopsy 08/16/2016 Stage pT1b pN0M0 Systemic chemotherapy (TCH) with severe reaction one dose given and stopped Continue Herceptin for 1 year Status post completion of radiation therapy 12/02/2016 received 6280 cGy Last Edited By: Delaney Ornelas on Dec 07, 2016 08:53 History of Present Illness Ms. Addison has a family history of breast cancer. The patient's mother was diagnosed with breast cancer and remains alive and well at age 65. She underwent bilateral annual digital screening mammograms. Her most recent ones on 06/30/2016. This showed a possible grouped calcifications in the left upper outer quadrant which were not evident on prior exams. I recommended spot magnification view was made. This procedure was performed on 07/07/2016. This confirmed a new group of calcifications in the left upper outer quadrant and a stereotactic biopsy was recommended. On 07/13/2016 patient underwent a stereotactic guided biopsy. Biopsy markers were placed and 2 separate biopsies were evaluated both on the left upper outer quadrant. The first specimen revealed an infiltrating ductal carcinoma grade 3 of 3 with high-grade DCIS with comedonecrosis and microcalcifications present. The second tissues sample also identified infiltrating ductal carcinoma grade 3 of 3 with ductal carcinoma in situ, high-grade with comedo necrosis. Microcalcifications were present. No perineural or lymphovascular invasion was identified. Estrogen receptors were positive (100%, strong). Progesterone receptors were positive (75%, moderate). HER-2/patrick was equivocal (2+). This tissue was evaluated by FISH analysis and was positive. Case: [id number]. Patient was seen by Dr. Darrin Loaiza who discussed treatment options with the patient. The patient agreed to proceed with breast conserving therapy. Therefore on 08/16/2016 patient underwent a needle localization left partial mastectomy with sentinel node biopsy. A single sentinel node was identified and was benign by routine sections and by immunohistochemical stain for cytokeratin. The lumpectomy specimen confirmed an invasive ductal carcinoma. The invasive carcinoma was noted within 2 blocks representing sequential sections. The foci measured 0.2 and 0.5 cm in greatest dimension. If these represented a contiguous tumor it could measure up to 0.8 cm in greatest dimension. Much of the area consisted of biopsy site and therefore the exact determination of tumor size was unclear. The invasive tumor extended to within 7 mm of the superior margin and 7 mm from the inferior margin. The DCIS extended to within 0.5 cm of the inferior margin and 7 mm of the superior margin. Both superior and inferior margins were reexcised and showed no residual tumor at the en face margins. Therefore the margins are greater than 1 cm. The final pathologic stage was therefore a pT1b pN0(sn-)ER positive, MO positive and HER-2/patrick positive. Case: [id number]. The patient was seen by Dr. Baum for discussion of the role of adjuvant therapy. They did discuss genetic testing for BRCA1 and BRCA2 with a family history of breast cancer in both her mother and maternal grandmother. Patient however declined. The decision was made to treat with TCH and her first treatment began on 08/30/2016. Unfortunately the patient struggled with significant asthenias, nausea, vomiting and abdominal pain. The patient was seen in the emergency department and treated symptomatically and discharged. She return to the clinic the next day with intractable nausea and vomiting and abdominal pain. The examination and lab studies revealed a markedly elevated LFTs with a prior history of hepatic steatosis. She was admitted for further evaluation and a CT of the abdomen revealed an ileus. Patient ultimately returned to see medical oncology and at that time refused consideration of further systemic chemotherapy. She did however agreed to continue with Herceptin and to subsequently proceed with adjuvant radiation. It is for this reason the patient is seen in referral. She underwent conventional radiation therapy. Radiation was completed 2016. She received 6280 cGy Interim History She denies any changes to her breast. She is noted no masses or tenderness and no change of the axilla. She has had no swelling of her arm. She is up-to- date on mammography. She stated that she also has had MRI imaging. There are following a few areas in her breast that are being monitored. She is scheduled for her next mammogram in August. There is consideration of further follow-up with MRI. She has developed a seizure disorder. She had undergone a hysterectomy with bilateral salpingo-oophorectomy. This was performed in order in order to no longer require hormonal ablation injections. She stated that the seizures began following the surgery. She is being followed by neurology and is on anti-seizure medication. Allergies Coded Allergies: Methylene Blue (Verified Allergy, Intermediate, DELIRIUM, 07/04/18) Serotonin syndrome-like reaction with IV administration Anastrozole (Verified Adverse Reaction, Unknown, MUSCLE AND BONE PAIN, ) Home Medications Scheduled Atorvastatin (Lipitor), 20 MG PO QAM Buspirone Hcl (Buspirone Hcl), 30 MG PO BID Cholecalciferol (Vitamin D-3), 4,000 INTERUNIT PO QAM Cyanocobalamin (B12), 1 TAB PO QAM Exemestane (Aromasin), 25 MG PO QAM Lamotrigine (Lamictal), 175 MG PO BID Levetiracetam (Keppra), 500 MG PO HS Lisinopril/Hctz (Zestoretic 20MG/25MG), 1 TAB PO QAM Potassium Ext Rel (Klor-Con), 10 MEQ PO BID Ranitidine (Zantac), 150 MG PO BID Venlafaxine Hcl (Effexor Extended Rel), 300 MG PO HS Review of Systems Gastrointestinal: Symptoms: WNL Oral: Symptoms: No Problems Respiratory: Symptoms: WNL Urinary: Symptoms: WNL Skin: Symptoms: No Problems Other Skin Symptoms: Darkness is fading - lymphedema sleeve on left arm Breast: Right Upper Arm Measurement: 32.1 Right Mid Arm Measurement: 25.5 Right Wrist Measurement: 17.5 Left Upper Arm Measurement: 34.8 Left Mid Arm Measurement: 24.9 Left Wrist Measurement: 17.6 Arm Dominence: Right Patient Cosmetic Evaluation: Fair Physical Exam Vital Signs Date Time Temp Pulse Resp B/P (MAP) Pulse Ox O2 Delivery O2 Flow Rate FiO2 07/04/18 13:31 36.9 100 16 113/80 96 Fatigue: None General Appearance: no apparent distress Eyes: normal inspection, EOMI ENT: normal ENT inspection, hearing grossly normal Neck: no adenopathy, thyroid normal Respiratory/Chest: lungs clear, no respiratory distress, no accessory muscle use Breast: Breast examination reveals well-healed incisions of the left breast. There is hyperpigmentation. There are no masses or tenderness and no axillary adenopathy. She has no skin retractions or nipple changes. Using the Waterford score cosmesis she has a good outcome. The right breast showed no masses or tenderness and no axillary adenopathy. Cardiovascular: regular rate, rhythm, no gallop, no murmur Extremities: no pedal edema Neurologic/Psychiatric: no motor/sensory deficits, alert, normal mood/affect Skin: warm/dry Pain Management Patient Reports Pain: No Initial Pain Intensity: 0.0 Pain Management Plan She denies pain therefore requires no pain management. Laboratory Laboratory Results: not applicable Pathology Pathology Results: were reviewed, and pertinent findings noted in HPI Imaging Imaging Studies: were reviewed, and pertinent findings noted below Imaging Comments Patient: MATEO ADDISON [facility] Rec: [id number] Address1: [address] [place], [place] [address]Mariela [facility] Address2: [facility] ID: [id number] Date: 1970 Sex: F Ref Phy: Luis Sanderson D.O. Att Phy: Delaney Ornelas PA-C Naye Phy: Salvatore Parra III, CRNP Inter Phy: Rachel Lora MD [facility] Zip: [place] [address] SC: SonMAMM Report #: [id number] Planner: LEANDRO Diagnosis: 6 MONTH F/U LEFT HX BREAST CA Service Date: 02/21/18 MNE: MAMM1 Ordering Dr: Delaney Ornelas PA-C CC: Delaney Ornelas PA-C CONF: DICTATED BY: Rachel Lora MD MAMMOGRAPHY REPORT UNILATERAL LEFT DIGITAL DIAGNOSTIC MAMMOGRAM TOMOSYNTHESIS WITH CAD AND TARGETED LEFT ULTRASOUND: 02/21/2018 CLINICAL HISTORY: 47-year-old woman with a personal history of left breast infiltrating ductal carcinoma and ductal carcinoma in situ presents for continued close follow-up in the left breast after breast conservation treatment. TECHNIQUE: Left breast tomosynthesis in addition to standard 2D mammography was performed. Spot magnification left CC and ML views were also obtained. Current study was also evaluated with a Computer Aided Detection (CAD) system. COMPARISON: Comparison is made to exams dated: 08/23/2017 mammogram, 08/23/2017 ultrasound, 02/21/2017 mammogram, 07/13/2016 mammogram, 07/07/2016 mammogram, and 08/2016 mammogram - [facility]. BREAST COMPOSITION: There are scattered areas of fibroglandular density in the left breast. FINDINGS: There are involutional changes of the left breast comparing to more remote prior mammograms. There is focal asymmetry and architectural distortion with a few surgical clips in the upper outer middle to posterior left breast at the site of prior lumpectomy. There is evidence of scar retraction comparing to the initial postsurgical mammograms. There is a vague 11 mm asymmetry in the superior anterior left breast on the MLO tomosynthesis images (slice 43/83) , that could represent normal fibroglandular tissue although further evaluation with ultrasound was performed to exclude a mass. The spot magnification views of the left breast redemonstrate 2 punctate microcalcifications along the inferomedial aspect of the scar and a new third microcalcification is seen in the CC projection just anterior to the surgical clips. There is still no evidence of a suspicious grouping or cluster of calcifications to suggest recurrent disease. Continued close follow-up with spot magnification views is recommended in 6 months. No other new suspicious findings are identified in the left breast. Targeted ultrasound was performed in the superior left breast. There is a residual fluid collection at the surgical site in the 1:30 left breast, compatible with evolving postsurgical seroma and/or hematoma (this was shown to be decreasing in size mammographically). No suspicious solid or cystic mass is identified. IMPRESSION: ACR-BI-RADS CATEGORY 3: PROBABLY BENIGN, TARGETED ULTRASOUND ACR-BI -RADS CATEGORY 3: PROBABLY BENIGN 1. Evolving postsurgical changes in the left breast, with evidence of scar retraction at the surgical site in the upper outer quadrant. There are 3 punctate microcalcifications located near the surgical site that are not in any suspicious grouping or cluster and most likely represent benign calcifications from the surgery. However, continued monitoring with follow-up spot magnification views is recommended to ensure stability in 6 months. 2. Involutional changes of the left breast comparing to more remote prior mammograms. An asymmetry in the superior left breast on the MLO tomosynthesis images is felt to represent normal fibroglandular tissue as a partially effaced on the tomosynthesis images and no suspicious sonographic correlate was identified. 3. Overall, recommend bilateral diagnostic tomosynthesis mammograms including left spot magnification views and possible ultrasound in 6 months. Would also recommend continued surveillance with breast MRI, ideally performed 1-2 weeks prior to diagnostic mammography in case any additional workup may be needed based on MRI results. These results and recommendations were discussed with the patient at the time of the exam. Approximately 10% of breast cancers are not detected with mammography. A negative mammographic report should not delay biopsy if a clinically suggestive mass is present. Rachel Lora M.D. ay/:02/21/2018 12:37:43 [employer] Web Developer: Neyda SALCIDO)(Janie), [facility] letter sent: Follow Up Recommended 3 BI-RADS Code: ACR-BI-RADS Category 3: Probably Benign Ultrasound BI-RADS: ACR- BI-RADS Category 3: Probably Benign Dictated by: Rachel Lora MD Signed by: Rachel Lora MD Patient: MATEO ADDISON [facility] Rec: [id number] Address1: [address] [place] [address] Address2: Acct ID: [id number] Date: 1970 Sex: F Ref Phy: Natalia Wyatt CRNP Att Phy: Natalia Wyatt CRNP Naye Phy: Salvatore Parra III, CRNP Inter Phy: Teresa Rangel MD [facility]: [place] [address] SC: C.MRI Report #: [id number] Planner: BRANDI Diagnosis: HX LEFT BREAST CA Service Date: 04/13/18 MNE: MAMM1 Ordering Dr: Natalia Wyatt CC: Natalia Wyatt CRNP CONF: DICTATED BY: Teresa Rangel MD MAMMOGRAPHY REPORT BREAST MRI OF BOTH BREASTS : 04/13/2018 CLINICAL HISTORY: History of left breast cancer status post lumpectomy July 2016. The patient presents for routine bilateral screening breast MRI. COMPARISON: Comparison is made to exams dated: 02/21/2018 mammogram, 09/13/2017 breast MRI, 08/23/2017 mammogram, 08/02/2016 breast MRI, 07/07/2016 mammogram, and 09/05/2013 mammogram - [facility]. Technique: The patient was placed prone in a dedicated breast imaging coil. Precontrast axial T1-weighted, axial T2-weighted fat saturation, and axial T1- weighted fat saturation images were obtained. After the administration of 10 mL of Gadavist IV contrast, sequential T1-weighted fat saturation images were obtained. Subtraction images were obtained of the dynamic contrast enhanced sequences, and 3-D reformations were performed. The [employer] software was used for kinetic analysis. Findings: There is mild background parenchymal enhancement involving bilateral breasts. Again noted are postsurgical changes in the left lateral breast at approximately 2:00 from prior lumpectomy, including an elongated circumscribed T2 hyperintense mass with a thin rim of enhancement which measures 3.2 cm x 0.7 cm and is consistent with a postsurgical seroma (series 4 image 35); this appears slightly decreased compared to the prior 2017 MRI exam. There are no suspicious enhancing masses or areas of abnormal non-mass enhancement within either breast. A few scattered bilateral foci of enhancement are stable compared to prior MRI exams and are considered benign given the multiplicity and bilaterality as well as stability. There is no evidence of axillary adenopathy. The chest wall structures are negative. Extramammary soft tissues are unremarkable. IMPRESSION: ACR BI-RADS CATEGORY 2: BENIGN No MRI evidence of malignancy in either breast. Note that the patient is due for follow-up bilateral diagnostic tomosynthesis mammograms around August 2018. Also consider continued surveillance with annual breast MRI. Teresa Rangel M.D. ah/:04/13/2018 17:20:04 [employer] Web Developer: jordan worker, [facility] letter sent: Normal 1/2 BI-RADS Code: ACR BI-RADS Category 2: Benign Dictated by: Teresa Rangel MD Signed by: Teresa Rangel MD Assessment & Plan Plan: Continue with scheduled mammography. She will be having a mammogram in August. This will be a bilateral digital diagnostic mammogram. Will await those results. Previous MRI suggested annual follow-up. This had been scheduled through medical oncology office. She continues on Arimidex. She will continue follow-up with medical oncology. She continues follow-up with neurology. We asked her to return to our office in 1 year. She may call if she has any questions or concerns in the interim. Total Time In Follow-Up I spent 20 minutes speaking to the patient in performing examination. I spent 15 minutes reviewing information and completing this note. Copy To Salvatore Parra III, CRNP; Dewey Boyer M.D.; Luis Sanderson D.O. Problem Qualifiers (1) Breast cancer: Breast location: upper outer quadrant of breast Estrogen receptor status: positive Patient sex: female Laterality: left Qualified Codes: C50.412 - Malignant neoplasm of upper-outer quadrant of left female breast; Z17.0 - Estrogen receptor positive status [ER+]
== END | disposition home or self-care (01) ==
LOC: C.ONC 13:21
PROVIDERS: ATTEND Physician Assistant Medical
DX: Z08 Encounter for follow-up examination after completed treatment for malignant neoplasm (principal); Z92.3 Personal history of irradiation; Z85.3 Personal history of malignant neoplasm of breast

== ENCOUNTER 2021-06-13 13:50 | Inpatient (IN) ==
[2021-06-13] MEDS ORDERED: ONDANSETRON INJ 2 MG/ML 2 ML VIAL IV STA (14:49)
--- NOTE | 2021-06-13 14:51 | Emergency Department Note ---
History of Present Illness General Chief complaint: Nausea Stated complaint: NAUSEA-THROWING UP-TROUBLE SWALLOWING Time Seen by Provider: 06/13/21 14:37 History of Present Illness Maximum Pain Intensity: 2 This is a 50-year-old female that presents to the emergency department via private vehicle accompanied by male with complaints of "nausea, vomiting, trouble swallowing". The patient states that she has not been able to eat for the past 12 days. She is able to drink liquids but cannot eat foods. She states that she was here a few times previous for the same thing. She notes per sistence of epigastric as well as lower quadrant abdominal discomfort. She states that when she tries to eat food she feels as though she is gagging. She also notes her symptoms are worse at nighttime. The patient does note that she was prescribed Zofran and Phenergan and has been taking these with minimal relief. She does state that she is on medication currently for her reflux. She has been compliant with these medications. Home Medications Medication Instructions Recorded Confirmed Type cholecalciferol (vitamin D3) 50 2,000 units PO QAM cap 07/11/19 06/13/21 History mcg (2,000 unit) capsule (Vitamin D3) cyanocobalamin (vitamin B-12) 1,000 mcg PO QAM tab 07/11/19 06/13/21 History 1,000 mcg tablet (Vitamin B-12) buspirone 30 mg tablet 30 mg PO BID 07/27/19 06/13/21 History brexpiprazole 2 mg tablet (Rexulti) 2 mg PO HS tab 09/26/20 06/13/21 History prazosin 2 mg capsule (Minipress) 2 mg PO HS 10/10/20 06/13/21 History sertraline 100 mg tablet (Zoloft) 200 mg PO QAM 01/29/21 06/13/21 History levothyroxine 50 mcg tablet 50 mcg PO QAM 02/20/21 06/13/21 History (Synthroid) pantoprazole 40 mg tablet,delayed 40 mg PO QAM 02/20/21 06/13/21 History release (Protonix) promethazine 25 mg tablet 25 - 50 mg PO Q6H PRN #20 tab 06/04/21 06/13/21 Rx atorvastatin 20 mg tablet (Lipitor) 20 mg PO QAM 06/13/21 06/13/21 History hydroxyzine HCl 25 mg tablet 25 mg PO TID PRN 06/13/21 06/13/21 History lamotrigine 200 mg tablet 200 mg PO BID 06/13/21 06/13/21 History (Lamictal) lamotrigine 25 mg tablet (Lamictal) 25 mg PO BID 06/13/21 06/13/21 History lisinopril 20 1 tab PO QAM 06/13/21 06/13/21 History mg-hydrochlorothiazide 25 mg tablet (Zestoretic) naltrexone 50 mg tablet 25 mg PO HS 06/13/21 06/13/21 History nicotine 14 mg/24 hr daily 14 mg TRANSDERMAL Q24H 06/13/21 06/13/21 History transdermal patch (Nicoderm CQ) ondansetron HCl 4 mg tablet 4 mg PO Q8H PRN 06/13/21 06/13/21 History (Zofran) potassium chloride 10 mEq 20 meq PO BID 06/13/21 06/13/21 History tablet,extended release (Klor-Con) promethazine 25 mg rectal 25 mg DC Q6H PRN 06/13/21 06/13/21 History suppository (Promethegan) topiramate 50 mg tablet (Topamax) See Rx Instructions .ROUTE .COMPLEX 06/13/21 06/13/21 History Allergies Allergy/AdvReac Type Severity Reaction Status Date / Time methylene blue Allergy Intermediate seizures Verified 06/13/21 15:58 Past Med/Surg History Medical History Anxiety Breast cancer (07/13/16) "Abnormal left breast mammogram Status post stereotactic biopsy 07/13/2016 revealing ductal carcinoma Estrogen receptor positive, progesterone receptor positive, HER-2/patrick positive Status post lumpectomy and sentinel lymph node biopsy 08/16/2016 Stage pT1b pN0M0 Systemic chemotherapy (TCH) with severe reaction one dose given and stopped Continue Herceptin for 1 year Status post completion of radiation therapy 12/02/2016 received 6280 cGy" On 12/07/16 08:44 Delaney Ornelas wrote "Abnormal left breast mammogram Status post stereotactic biopsy 07/13/2016 revealing ductal carcinoma Estrogen receptor positive, progesterone receptor positive, HER-2/patrick positive Status post lumpectomy and sentinel lymph node biopsy 08/16/2016 Stage pT1b pN0M0 Systemic chemotherapy (TCH) with severe reaction one dose given and stopped Continue Herceptin for 1 year Status post completion of radiation therapy 12/02/2015 received 6280 cGy" On 09/23/16 10:04 Delaney M Johnson wrote "Abnormal left breast mammogram Status post stereotactic biopsy 07/13/2016 revealing ductal carcinoma Estrogen receptor positive, progesterone receptor positive, HER-2/patrick positive Status post lumpectomy and sentinel lymph node biopsy 08/16/2016 Stage pT1b pN0M0 Systemic chemotherapy with severe reaction one dose given and stopped Continue Herceptin" Degenerative disc disease Depression Diverticular disease GERD (gastroesophageal reflux disease) Hiatal hernia History of Clostridium difficile infection History of seizures last seizure 1.5 yrs ago HLD (hyperlipidemia) HTN (hypertension) Hypothyroidism Obesity (BMI 30-39.9) Osteoarthritis PTSD (post-traumatic stress disorder) Surgical History History of anesthesia reaction "I had a seizure coming out of anesthesia." -- hyster 2018 @ [place] History of breast biopsy History of cholecystectomy History of lumpectomy of left breast History of removal of Port-a-Cath History of tooth extraction History of total hysterectomy with bilateral salpingo-oophorectomy (BSO) History of vascular access device Family History Mother Breast cancer Father Myocardial infarction Grandmother (Maternal) Breast cancer Grandmother (Paternal) Breast cancer Sister Migraine Denies family history of Ovarian cancer Prostate cancer Colorectal cancer Social History Smoking Status: Current every day smoker Tobacco Type: Cigarettes Age Started Using Tobacco: 28; packs per day: 1.5; Cigarettes Per Day: 15 per day; Second Hand Exposure: Yes; Hx Alcohol Use: No Hx Substance Use: No Preferred Language: Sami Communication Ability: Effective Visual Impairment: No Limitations Hearing Ability: Normal Beliefs That Will Affect Care: None marital status: Current Living Situation: Spouse current occupational status: unemployed Feels Safe at Home: Yes Childhood Exposure to Second-Hand Smoke: No Dental Care, Regularly: No Physical Activity Frequency: Does not Exercise Seatbelt Use: always Sunscreen Use: No Assistive Devices: Glasses Review of Systems A total of 10 systems reviewed and were otherwise negative Physical Exam Vital Signs Vital Signs - 24 hr 06/13/21 13:58 06/13/21 14:33 06/13/21 14:36 Temperature 36.7 C Temperature Source Temporal Artery Scan Pulse Rate 103 H 94 H Pulse Rate [Right Finger] 95 H Pulse Rate from SpO2 Sensor 95 H Respiratory Rate 18 17 17 Respiratory Depth Normal Blood Pressure 109/72 106/79 Blood Pressure [Right Arm] 106/79 Blood Pressure Mean 84 88 Blood Pressure Mean [Right Arm] 88 Pulse Oximetry 97 94 95 Oxygen Delivery Method Room Air Room Air Sepsis Recent Fever Within 48 Hours No Sepsis New/Unexplained Change in Mental Status No Sepsis Action Taken by Nursing No Action Required 06/13/21 15:00 06/13/21 15:11 06/13/21 15:30 Temperature Temperature Source Pulse Rate 92 H 90 Pulse Rate [Right Finger] Pulse Rate from SpO2 Sensor 92 H 90 Respiratory Rate 18 17 Respiratory Depth Blood Pressure 111/81 118/78 Blood Pressure [Right Arm] Blood Pressure Mean 91 91 Blood Pressure Mean [Right Arm] Pulse Oximetry 93 96 97 Oxygen Delivery Method Room Air Sepsis Recent Fever Within 48 Hours Sepsis New/Unexplained Change in Mental Status Sepsis Action Taken by Nursing 06/13/21 16:00 06/13/21 18:00 06/13/21 19:09 Temperature 36.8 C Temperature Source Oral Pulse Rate 95 H Pulse Rate [Right Finger] 95 H Pulse Rate from SpO2 Sensor 94 H Respiratory Rate 17 18 18 Respiratory Depth Blood Pressure 116/81 Blood Pressure [Right Arm] 135/84 127/79 Blood Pressure Mean 92 Blood Pressure Mean [Right Arm] 101 95 Pulse Oximetry 98 95 95 Oxygen Delivery Method Room Air Room Air Sepsis Recent Fever Within 48 Hours Sepsis New/Unexplained Change in Mental Status Sepsis Action Taken by Nursing 06/13/21 21:09 Temperature Temperature Source Pulse Rate Pulse Rate [Right Finger] 92 H Pulse Rate from SpO2 Sensor Respiratory Rate Respiratory Depth Blood Pressure Blood Pressure [Right Arm] 135/74 Blood Pressure Mean Blood Pressure Mean [Right Arm] 94 Pulse Oximetry 94 Oxygen Delivery Method Room Air Sepsis Recent Fever Within 48 Hours Sepsis New/Unexplained Change in Mental Status Sepsis Action Taken by Nursing VITAL SIGNS - Vital signs and nursing notes were reviewed. Stable and afebrile. GENERAL - 50-year-old female appearing her stated age who is in no acute distress. Communicates well with provider and answers questions appropriately. SKIN - Without rashes. HEAD - NC/AT. EYES - PERRL with EOMI bilaterally. Sclera anicteric. EARS - No deformities of external structures noted on gross examination bilaterally. NOSE - Midline and without cyanosis. No epistaxis or purulent drainage noted. MOUTH/OROPHARYNX - Without perioral cyanosis. NECK - Neck with FROM. No nuchal rigidity. LUNGS - Chest wall symmetric without accessory muscle use, intercostals retractions, or central cyanosis. Normal vesicular breath sounds CTA B/L. No wheezes, rales, or rhonchi appreciated. CARDIAC - RRR with S1/S2. No murmur, rubs, or gallops appreciated. ABDOMEN - Abdominal contour normal without pulsations or visible masses. BS normoactive all four quadrants. No tenderness, palpable masses, hepatosplenomega ly, or ascites noted. NEUROLOGIC - Cranial nerves II through XII grossly intact. PSYCH - A&O, and cooperates fully with examiner. Pt is very pleasant and interacts well with examiner. Course Administered Medications Discontinued Medications Diphenhydramine HCl (Diphenhydramine 50 Mg/Ml Vial) 25 mg IV NOW STA Stop: 06/13/21 18:46 Last Admin: 06/13/21 18:52 Dose: 25 mg Documented by: [id number] Sodium Chloride (Nss 1000ml) 1,000 mls @ 999 mls/hr IV .Q1H1M MOI Stop: 06/13/21 16:00 Last Infusion: 06/13/21 16:51 Dose: 0 mls/hr Documented by: [id number] Admin: 06/13/21 15:18 Dose: 999 mls/hr Documented by: [id number] Ioversol (Optiray 320 100ml) 94 ml IV ONCE ONE Stop: 06/13/21 16:25 Last Admin: 06/13/21 16:24 Dose: 94 ml Documented by: [id number] Ketorolac Tromethamine (Ketorolac Tromethamine 15 Mg/Ml Vial) 15 mg IV NOW STA Stop: 06/13/21 17:19 Last Admin: 06/13/21 17:22 Dose: 15 mg Documented by: [id number] Metoclopramide HCl (Metoclopramide Hcl Inj 5 Mg/Ml 2 Ml Vial) 10 mg IV NOW STA Stop: 06/13/21 18:46 Last Admin: 06/13/21 18:52 Dose: 10 mg Documented by: [id number] Ondansetron HCl (Ondansetron Inj 2 Mg/Ml 2 Ml Vial) 4 mg IV NOW STA Stop: 06/13/21 14:50 Last Admin: 06/13/21 15:18 Dose: 4 mg Documented by: [id number] Medical Decision Making Laboratory Data Result diagrams: 06/13/21 15:08 06/13/21 15:08 Lab Results 06/13/21 06/13/21 06/13/21 Range/Units 15:08 15:08 15:10 WBC 9.93 (4.8-10.8) K/uL RBC 5.32 (4.2-5.4) M/uL Hgb 16.0 (12.0-16.0) g/dL Hct 46.0 (37-47) % MCV 86.5 (80-100) fL MCH 30.1 (25-34) pg MCHC 34.8 (32-36) g/dL RDW Std Deviation 41.7 (36.4-46.3) fL RDW Coeff of Tammi 13.2 (11.5-14.5) % Plt Count 292 (130-400) K/uL MPV 11.0 H (7.4-10.4) fL Immature Gran % (Auto) 0.3 % Neut % (Auto) 61.0 % Lymph % (Auto) 28.6 % [place] % (Auto) 7.8 % Eos % (Auto) 1.9 % Baso % (Auto) 0.4 % Neut # (Auto) 6.06 (1.4-6.5) K/uL Lymph # (Auto) 2.84 (1.2-3.4) K/uL [place] # (Auto) 0.77 H (0.11-0.59) K/uL Eos # (Auto) 0.19 (0-0.5) K/uL Baso # (Auto) 0.04 (0-0.2) K/uL Immature Gran # (Auto) 0.03 H (0.00-0.02) K/uL Sodium 128 L (136-145) mmol/L Potassium 3.7 (3.5-5.1) mmol/L Chloride 95 L (98-107) mmol/L Carbon Dioxide 25 (21-32) mmol/L Anion Gap 8.0 (3-11) BUN 15 (7-18) mg/dl Creatinine 0.86 (0.6-1.2) mg/dl Est Cr Clr Drug Dosing 96.0 ml/min Est GFR ( Amer) 92.6 ml/min Est GFR (Non-Af Amer) 79.9 ml/min BUN/Creatinine Ratio 17.8 (10-20) Glucose 101 H (70-99) mg/dl Calcium 10.0 (8.5-10.1) mg/dl Magnesium 2.1 (1.8-2.4) mg/dl Total Bilirubin 0.8 (0.2-1) mg/dl AST 100 H (15-37) U/L ALT 177 H (12-78) U/L Alkaline Phosphatase 149 H (45-117) U/L Troponin I < 0.015 (0-0.045) ng/ml Total Protein 8.2 (6.4-8.2) gm/dl Albumin 4.5 (3.4-5.0) gm/dl Globulin 3.7 (2.5-4.0) gm/dl Albumin/Globulin Ratio 1.2 (0.9-2) Lipase 267 (73-393) U/L TSH 1.420 (0.300-4.500) uIu/ml Urine Color Dark Yellow Urine Appearance Clear (Clear) Urine pH 7.0 (4.5-7.5) Ur Specific [place] 1.021 (1.000-1.030) Urine Protein Negative (Negative) Urine Glucose (UA) Negative (Negative) Urine Ketones Negative (Negative) Urine Blood Negative (Negative) Urine Nitrite Negative (Negative) Urine Bilirubin Negative (Negative) Urine Urobilinogen Negative (Negative) Ur Leukocyte Esterase Negative (Negative) POC Ur Test (NEG) COVID-19 Eval Order SARS-CoV-2 (PCR) (Negative) 06/13/21 06/13/21 06/13/21 Range/Units 15:10 19:12 19:12 WBC (4.8-10.8) K/uL RBC (4.2-5.4) M/uL Hgb (12.0-16.0) g/dL Hct (37-47) % MCV (80-100) fL MCH (25-34) pg MCHC (32-36) g/dL RDW Std Deviation (36.4-46.3) fL RDW Coeff of Tammi (11.5-14.5) % Plt Count (130-400) K/uL MPV (7.4-10.4) fL Immature Gran % (Auto) % Neut % (Auto) % Lymph % (Auto) % [place] % (Auto) % Eos % (Auto) % Baso % (Auto) % Neut # (Auto) (1.4-6.5) K/uL Lymph # (Auto) (1.2-3.4) K/uL [place] # (Auto) (0.11-0.59) K/uL Eos # (Auto) (0-0.5) K/uL Baso # (Auto) (0-0.2) K/uL Immature Gran # (Auto) (0.00-0.02) K/uL Sodium (136-145) mmol/L Potassium (3.5-5.1) mmol/L Chloride (98-107) mmol/L Carbon Dioxide (21-32) mmol/L Anion Gap (3-11) BUN (7-18) mg/dl Creatinine (0.6-1.2) mg/dl Est Cr Clr Drug Dosing ml/min Est GFR ( Amer) ml/min Est GFR (Non-Af Amer) ml/min BUN/Creatinine Ratio (10-20) Glucose (70-99) mg/dl Calcium (8.5-10.1) mg/dl Magnesium (1.8-2.4) mg/dl Total Bilirubin (0.2-1) mg/dl AST (15-37) U/L ALT (12-78) U/L Alkaline Phosphatase (45-117) U/L Troponin I (0-0.045) ng/ml Total Protein (6.4-8.2) gm/dl Albumin (3.4-5.0) gm/dl Globulin (2.5-4.0) gm/dl Albumin/Globulin Ratio (0.9-2) Lipase (73-393) U/L TSH (0.300-4.500) uIu/ml Urine Color Urine Appearance (Clear) Urine pH (4.5-7.5) Ur Specific [place] (1.000-1.030) Urine Protein (Negative) Urine Glucose (UA) (Negative) Urine Ketones (Negative) Urine Blood (Negative) Urine Nitrite (Negative) Urine Bilirubin (Negative) Urine Urobilinogen (Negative) Ur Leukocyte Esterase (Negative) POC Ur Test NEG (NEG) COVID-19 Eval Order Covid19 at [facility] SARS-CoV-2 (PCR) NEGATIVE (Negative) Imaging Data Radiologist's Impression: Abdomen/Pelvis CT 06/13/21 14:49 CT OF THE ABDOMEN AND PELVIS WITH CONTRAST CLINICAL HISTORY: Epigastric and lower abdominal pain. COMPARISON STUDY: CT of the abdomen and pelvis January 21, 2021. Abdominal series June 04, 2021. TECHNIQUE: Following IV administration of 94 mL of Optiray, axial images of the abdomen and pelvis were obtained from the lung bases to the proximal femurs. Images were reviewed in the axial, sagittal, and coronal planes. IV contrast was administered without complication. Automated exposure control was utilized for the study. A dose lowering technique was utilized adhering to the principles of ALARA. CT DOSE: 1036.55 mGy.cm FINDINGS: No pneumatosis, free air or portal venous gas is present. There is hepatic steatosis. There is no biliary ductal dilatation status post cholecystectomy. Mild splenomegaly is unchanged. The adrenal glands, kidneys and pancreas are normal. There is no peripancreatic infiltration. There is no hydro nephrosis. The caliber and wall thickness of small and large bowel are normal. The appendix is normal. There is no free fluid. There is no lymphadenopathy. The uterus is surgically absent. Major vasculature is patent. No acute fracture or suspicious lesion is identified within the visualized skeletal structures. IMPRESSION: 1. No acute process within the abdomen or pelvis. 2. No bowel obstruction. No bowel wall thickening. Normal appendix. 3. Hepatic steatosis. Stable mild splenomegaly. ACT 112: Negative or not required by law. Electronically signed by: Rohan Rivas M.D. 06/13/2021 5:52 PM [facility] Narrative Patient was seen and evaluated as above in room A 11. Review was performed of nursing notes and vital signs. I did review pertinent previous visits and patient history. After obtaining a thorough history and physical examination the above work up was performed. Patient presents to us today with inability to tolerate p.o. food over the past 12 days. She can drink liquids. She seems to have worsening symptoms at nighttime. She is nontoxic on exam. Vital signs stable. Abdominal exam is benign. Options of care were discussed with the patient. IV access established. Labs were drawn. Patient able tolerate p.o. fluids but not able to tolerate food and begins to dry heave when attempts to eat were made. There is no leukocytosis or concerning anemia. There is hyponatremia that is trending down compared to previous at 128 now. No emergent metabolic service otherwise. Chronic elevation of AST and ALT noted. Troponin negative. Urinalysis does not just infection. Covid testing negative. EKG was performed noting the epigastric discomfort that has been persistent and reveals normal sinus rhythm at a rate of 91 bpm. QTc 474. QRS 96. There is no ST elevation. This was compared EKG of June 04, 2021 and no significant change was found.With the patient having inability to tolerate food in the setting of epigastric as well as bilateral lower quadrant abdominal discomfort it is felt that a CT scan at this time is now warranted. This was obtained. Results as above. This was essentially negative. I reviewed this with the patient. Patient despite antiemetics not able to tolerate food. With her now having worsening hyponatremia in the se tting of not being able tolerate food despite antiemetics at home and here in the ED it is felt that further evaluation and management inpatient setting is warranted. She is also given IV Toradol for pain. Case discussed with the hospitalist. Please refer to further documentation regarding her stay. GCS: 15 In the evaluation and treatment of this patient, the following differential diagnoses were considered: ASC, ND, Pneumonia, GERD, Cholecystitis, Ascending Cholangitis, Cholydocholithiasis, Bowel Obstruction, PE, Amongst Others. Impression & Plan Difficulty swallowing solids, Abdominal pain, epigastric, Abdominal pain, acu te, bilateral lower quadrant, Hyponatremia Discharge Plan Visit Data Chief Complaint: Nausea Stated Complaint: NAUSEA-THROWING UP-TROUBLE SWALLOWING ED Provider: Jose Elias Castro ED Midlevel Provider: Ángel Razo Discharge Problem: Difficulty swallowing solids, Abdominal pain, epigastric, Abdominal pain, acute, bilateral lower quadrant, Hyponatremia Patient Disposition: Admitted As Inpatient Condition: Good Forms Stand Alone Forms: My [facility] [employer] Prescriptions Prescriptions: No Action buspirone 30 mg tablet 30 mg PO BID RF: 0 Rexulti 2 mg tablet 2 mg PO HS RF: 0 cholecalciferol (vitamin D3) [Vitamin D3] 2,000 unit capsule 2,000 units PO QAM RF: 0 cyanocobalamin (vitamin B-12) [Vitamin B-12] 1,000 mcg tablet 1,000 mcg PO QAM RF: 0 prazosin [Minipress] 2 mg capsule 2 mg PO HS RF: 0 levothyroxine [Synthroid] 50 mcg tablet 50 mcg PO QAM RF: 0 pantoprazole [Protonix] 40 mg tablet,delayed release (DR/EC) 40 mg PO QAM RF: 0 sertraline [Zoloft] 100 mg tablet 200 mg PO QAM RF: 0 promethazine 25 mg tablet 25 - 50 mg PO Q6H PRN (Reason: nausea and vomiting) Qty: 20 RF: 1 nicotine [Nicoderm CQ] 14 mg/24 hr patch 24 hour 14 mg transdermal Q24H RF: 0 naltrexone 50 mg tablet 25 mg PO HS RF: 0 hydroxyzine HCl 25 mg tablet 25 mg PO TID PRN (Reason: Anxiety) RF: 0 topiramate [Topamax] 50 mg tablet See Rx Instructions .ROUTE .COMPLEX RF: 0 ondansetron HCl [Zofran] 4 mg tablet 4 mg PO Q8H PRN (Reason: Nausea And Vomiting) RF: 0 atorvastatin [Lipitor] 20 mg tablet 20 mg PO QAM RF: 0 lamotrigine [Lamictal] 200 mg tablet 200 mg PO BID RF: 0 promethazine [Promethegan] 25 mg suppository 25 mg DC Q6H PRN (Reason: sedation) RF: 0 potassium chloride [Klor-Con 10] 10 mEq tablet extended release 20 meq PO BID RF: 0 lamotrigine [Lamictal] 25 mg tablet 25 mg PO BID RF: 0 lisinopril-hydrochlorothiazide [Zestoretic] 20-25 mg tablet 1 tab PO QAM RF: 0 Referrals Referrals: Salvatore Parra III, CRNP [Primary Care Provider] -
[2021-06-13] MEDS ORDERED: SODIUM CHLORIDE 0.9% 1000ML 1,000 ML IV SCH (15:00)
[2021-06-13 15:27] LABS: Basophils # (auto) 0.04 K/uL (0-0.2); Basophils % (auto) 0.4 %; Eosinophils # (auto) 0.19 K/uL (0-0.5); Eosinophils % (auto) 1.9 %; Immature Granulocytes # (auto) 0.03 K/uL (0.00-0.02); Immature Granulocytes % (auto) 0.3 %; Lymphocytes # (auto) 2.84 K/uL (1.2-3.4); Lymphocytes % (auto) 28.6 %; Mean Corpuscular Hemoglobin 30.1 pg (25-34); Mean Corpuscular Hgb Conc 34.8 g/dL (32-36); Mean Corpuscular Volume 86.5 fL (80-100); Monocytes # (auto) 0.77 K/uL (0.11-0.59); Monocytes % (auto) 7.8 %; Neutrophils # (auto) 6.06 K/uL (1.4-6.5); Platelet Count 292 K/uL (130-400); RDW Coefficient of Variation 13.2 % (11.5-14.5); RDW Standard Deviation 41.7 fL (36.4-46.3); Red Blood Count 5.32 M/uL (4.2-5.4); White Blood Count 9.93 K/uL (4.8-10.8)
[2021-06-13 15:29] LABS: Appearance Urine Clear (Clear); Bilirubin Urine Negative (Negative); Blood Urine Negative (Negative); Color Urine Dark Yellow; Glucose Urine UA Negative (Negative); Ketones Urine Negative (Negative); Leukocyte Esterase Urine Negative (Negative); Nitrite Urine Negative (Negative); Protein Urine Negative (Negative); Specific Gravity Urine 1.021 (1.000-1.030); Urobilinogen Urine Negative (Negative)
[2021-06-13 15:48] LABS: Alanine Aminotransferase 177 U/L (12-78); Albumin Level 4.5 gm/dl (3.4-5.0); Aspartate Aminotransferase 100 U/L (15-37); BUN Creatinine Ratio 17.8 (10-20); Blood Urea Nitrogen 15 mg/dl (7-18); Carbon Dioxide 25 mmol/L (21-32); Chloride 95 mmol/L (98-107); Est GFR (African American) 92.6 ml/min; Est GFR (Non-African American) 79.9 ml/min; Glucose 101 mg/dl (70-99); Lipase 267 U/L (73-393); Magnesium 2.1 mg/dl (1.8-2.4); Potassium 3.7 mmol/L (3.5-5.1); Sodium 128 mmol/L (136-145)
[2021-06-13 15:59] LABS: Albumin Globulin Ratio 1.2 (0.9-2); Alkaline Phosphatase 149 U/L (45-117); Bilirubin,Total 0.8 mg/dl (0.2-1); Globulin 3.7 gm/dl (2.5-4.0); Total Protein 8.2 gm/dl (6.4-8.2); Troponin I < 0.015 ng/ml (0-0.045)
[2021-06-13] MEDS ORDERED: OPTIRAY 320 100ml IV ONE (16:24)
[2021-06-13] MEDS ORDERED: KETOROLAC TROMETHAMINE 15 MG/ML VIAL IV STA (17:18)
--- NOTE | 2021-06-13 17:54 | CT Scan Report ---
CT OF THE ABDOMEN AND PELVIS WITH CONTRAST CLINICAL HISTORY: Epigastric and lower abdominal pain. COMPARISON STUDY: CT of the abdomen and pelvis January 21, 2021. Abdominal series June 04, 2021. TECHNIQUE: Following IV administration of 94 mL of Optiray, axial images of the abdomen and pelvis we re obtained from the lung bases to the proximal femurs. Images were reviewed in the axial, sagittal, and coronal planes. IV contrast was administered without complication. Automated exposure control wa s utilized for the study. A dose lowering technique was utilized adhering to the principles of ALARA . CT DOSE: 1036.55 mGy.cm FINDINGS: No pneumatosis, free air or portal venous gas is present. There is hepatic steatosis. There is no biliary ductal dilatation status post cholecystectomy. Mild splenomegaly is unchanged. The adr enal glands, kidneys and pancreas are normal. There is no peripancreatic infiltration. There is no hy dronephrosis. The caliber and wall thickness of small and large bowel are normal. The appendix is nor mal. There is no free fluid. There is no lymphadenopathy. The uterus is surgically absent. Major vasc ulature is patent. No acute fracture or suspicious lesion is identified within the visualized skeleta l structures. IMPRESSION: 1. No acute process within the abdomen or pelvis. 2. No bowel obstruction. No bowel wall thickening. Normal appendix. 3. Hepatic steatosis. Stable mild splenomegaly. ACT 112: Negative or not required by law. Electronically signed by: Rohan Rivas M.D. 06/13/2021 5:52 PM
[2021-06-13] MEDS ORDERED: METOCLOPRAMIDE HCL INJ 5 MG/ML 2 ML VIAL IV STA (18:45)
[2021-06-13] MEDS ORDERED: diphenhydrAMINE 50 MG/ML VIAL IV STA (18:45)
--- NOTE | 2021-06-13 19:42 | History & Physical Report ---
Date of Service June 13, 2021 Assessment & Plan (1) Vomiting: Plan: 50yo female presenting with 10 days of nausea, post-prandial vomiting and inability to tolerate PO. Also with epigastric tenderness, globus sensation and fullness in throat. Patient with history of GERD and hiatal hernia. Denies melena/hematochezia. She is afebrile, HD stable, slightly dry in appearance. PO challenge in ER with crackers failed resulting in vomiting. CT Abdomen is negative for acute process. ?Slight decrease in Na contributing to nausea. Stable elevation of LFTs. -Admit to medical floor -Will increase Protonix to 40mg BID -Maalox PRN -Regular diet as tolerated -Zofran PRN -Phenergan PRN -GI consultation appreciated -Patient with history of breast CA in remission - doubtful but may consider brain imaging as additional workup for ongoing nausea. Seems to be GI in alfred ure, however (2) Abdominal pain, epigastric: Plan: ?secondary to hiatal hernia, possible GERD. Abdomen is soft and tender without rebound/guarding/peritoneal signs. -Protonix BID as above -Maalox PRN (3) Hyponatremia: Plan: Jg=003. Has been 135-128 since her symptoms started. ?secondary to poor po intake. IVF given in ER. -Continue NSS at 80mL/hr x 2 liters -Will hold HCTZ for now -Repeat chemistry in AM (4) Transaminitis: Plan: History of same. Hepatic steatosis noted on imaging -Repeat LFTs in AM -Avoid hepatotoxic agents (5) HTN (hypertension): Plan: Blood pressure stable -Continue Lisinopril -Holding HCTZ as above in setting of hyponatremia (6) GERD without esophagitis: Plan: Chronic -Continue Protonix - will increase to BID (7) Hypothyroidism: Plan: Chronic -Continue Synthroid (8) Hypercholesterolemia: Plan: Chronic -Continue Atorvastatin (9) Depression with anxiety: Plan: Chronic. -Continue Suspirone -Continue Hydroxyzine PRN -Continue Prazosin -Continue Sertraline Plan: F/E/N - NSS at 80mL/hr, K repletion, regular diet as tolerated Code - Full Dispo - Admit to medical History of Present Illness Chief Complaint: Nausea Primary Care Provider: Salvatore Parra III, HOLLI Aleja Addison is a 50yo female presenting with ongoing nausea. She reports her symptoms have been ongoing for at least 10 days. She has had significant nausea with post-prandial vomiting of mostly undigested food and yellow liquid. She has the feeling of fullness and globus in her throat as well as a foul taste in her mouth. Also with epigastric and lower abdominal pain. Patient was seen by her PCP by [facility] on 06/03 with complaints of body aches, headache, loss of taste/smell, nausea, upset stomach, loss of appetite and fatigue. Covid-19 infection suspected at that time - test was NEGATIVE. She was seen by her PCP on 06/04 with continued symptoms as well as chills, diaphoresis, body aches and was sent to the ER due to inability to tolerate PO intake. Workup at the ER was unremarkable. Covid test was again NEGATIVE. She was given IV NSS, Zofran, Toradol, Benadryl and Phenergan and ultimately discharged home with Phenergan. Patient seen in the ER again on 06/07 - workup unremarkable and patient was discharged home. She was seen by her PCP on 06/10 with similar symptoms thought to be secondary to hiatal hernia rather than GERD. Her Zofran was refilled. Patient has had some hot flashes and chills but denies true fever. She has had decreased oral intake and BMs - no melena or hematochezia. She has had occasional dizziness, palpitations and SOB. Allergies Allergy/AdvReac Type Severity Reaction Status Date / Time methylene blue Allergy Intermediate seizures Verified 06/13/21 15:58 Home Medications Medication Instructions Recorded Confirmed Type cholecalciferol (vitamin D3) 50 2,000 units PO QAM cap 07/11/19 06/13/21 History mcg (2,000 unit) capsule (Vitamin D3) cyanocobalamin (vitamin B-12) 1,000 mcg PO QAM tab 07/11/19 06/13/21 History 1,000 mcg tablet (Vitamin B-12) buspirone 30 mg tablet 30 mg PO BID 07/27/19 06/13/21 History brexpiprazole 2 mg tablet (Rexulti) 2 mg PO HS tab 09/26/20 06/13/21 History prazosin 2 mg capsule (Minipress) 2 mg PO HS 10/10/20 06/13/21 History sertraline 100 mg tablet (Zoloft) 200 mg PO QAM 01/29/21 06/13/21 History levothyroxine 50 mcg tablet 50 mcg PO QAM 02/20/21 06/13/21 History (Synthroid) pantoprazole 40 mg tablet,delayed 40 mg PO QAM 02/20/21 06/13/21 History release (Protonix) promethazine 25 mg tablet 25 - 50 mg PO Q6H PRN #20 tab 06/04/21 06/13/21 Rx atorvastatin 20 mg tablet (Lipitor) 20 mg PO QAM 06/13/21 06/13/21 History hydroxyzine HCl 25 mg tablet 25 mg PO TID PRN 06/13/21 06/13/21 History lamotrigine 200 mg tablet 200 mg PO BID 06/13/21 06/13/21 History (Lamictal) lamotrigine 25 mg tablet (Lamictal) 25 mg PO BID 06/13/21 06/13/21 History lisinopril 20 1 tab PO QAM 06/13/21 06/13/21 History mg-hydrochlorothiazide 25 mg tablet (Zestoretic) naltrexone 50 mg tablet 25 mg PO HS 06/13/21 06/13/21 History nicotine 14 mg/24 hr daily 14 mg TRANSDERMAL Q24H 06/13/21 06/13/21 History transdermal patch (Nicoderm CQ) ondansetron HCl 4 mg tablet 4 mg PO Q8H PRN 06/13/21 06/13/21 History (Zofran) potassium chloride 10 mEq 20 meq PO BID 06/13/21 06/13/21 History tablet,extended release (Klor-Con) promethazine 25 mg rectal 25 mg PA Q6H PRN 06/13/21 06/13/21 History suppository (Promethegan) topiramate 50 mg tablet (Topamax) See Rx Instructions .ROUTE .COMPLEX 06/13/21 06/13/21 History Past Med/Surg History Medical History Anxiety Breast cancer (07/13/16) "Abnormal left breast mammogram Status post stereotactic biopsy 07/13/2016 revealing ductal carcinoma Estrogen receptor positive, progesterone receptor positive, HER-2/patrick positive Status post lumpectomy and sentinel lymph node biopsy 08/16/2016 Stage pT1b pN0M0 Systemic chemotherapy (TCH) with severe reaction one dose given and stopped Continue Herceptin for 1 year Status post completion of radiation therapy 12/02/2016 received 6280 cGy" On 12/07/16 08:44 Delaney Ornelas wrote "Abnormal left breast mammogram Status post stereotactic biopsy 07/13/2016 revealing ductal carcinoma Estrogen receptor positive, progesterone receptor positive, HER-2/patrick positive Status post lumpectomy and sentinel lymph node biopsy 08/16/2016 Stage pT1b pN0M0 Systemic chemotherapy (TCH) with severe reaction one dose given and stopped Continue Herceptin for 1 year Status post completion of radiation therapy 12/02/2015 received 6280 cGy" On 09/23/16 10:04 Delaney Ornelas wrote "Abnormal left breast mammogram Status post stereotactic biopsy 07/13/2016 revealing ductal carcinoma Estrogen receptor positive, progesterone receptor positive, HER-2/patrick positive Status post lumpectomy and sentinel lymph node biopsy 08/16/2016 Stage pT1b pN0M0 Systemic chemotherapy with severe reaction one dose given and stopped Continue Herceptin" Degenerative disc disease Depression Diverticular disease GERD (gastroesophageal reflux disease) Hiatal hernia History of Clostridium difficile infection History of seizures last seizure 1.5 yrs ago HLD (hyperlipidemia) HTN (hypertension) Hypothyroidism Obesity (BMI 30-39.9) Osteoarthritis PTSD (post-traumatic stress disorder) Surgical History History of anesthesia reaction "I had a seizure coming out of anesthesia." -- hyster 2018 @ [place] History of breast biopsy History of cholecystectomy History of lumpectomy of left breast History of removal of Port-a-Cath History of tooth extraction History of total hysterectomy with bilateral salpingo-oophorectomy (BSO) History of vascular access device Family History Mother Breast cancer Father Myocardial infarction Grandmother (Maternal) Breast cancer Grandmother (Paternal) Breast cancer Sister Migraine Denies family history of Ovarian cancer Prostate cancer Colorectal cancer Social History Smoking Status: Current every day smoker Tobacco Type: Cigarettes Age Started Using Tobacco: 28; packs per day: 1.5; Cigarettes Per Day: 15 per day; Second Hand Exposure: Yes; Do You Dip or Chew Tobacco: No; Tobacco Cessation Education Requested by Patient: No Hx Alcohol Use: Yes Alcohol type: hard liquor Hx Substance Use: No Preferred Language: Argentine Communication Ability: Effective Visual Impairment: No Limitations Hearing Ability: Normal [employer] Required: No Beliefs That Will Affect Care: None marital status: Current Living Situation: Spouse current occupational status: unemployed Other Information That Helps Us Care for You: No Feels Safe at Home: Yes Safety Concerns: Feels Safe At This Time Childhood Exposure to Second-Hand Smoke: No Dental Care, Regularly: No Physical Activity Frequency: Does not Exercise Seatbelt Use: always Sunscreen Use: No Assistive Devices: Denture - Upper and Glasses Review of Systems Review of Systems: All systems reviewed & are unremarkable except as noted in HPI & below Physical Exam Physical Exam: General: patient resting comfortably, NAD, non-toxic in appearance, AA&O x 4 Skin: warm, dry, intact, no rashes or lesions HEENT: NC/AT, PERRL, EOMI, anicteric sclera, conjunctiva without injection, external ear normal to inspection and nontender, nares patent, moist mucus membranes, dentition intact, no oropharyngeal lesions, neck supple, trachea midline, no LAD, no thyromegaly, no JVD Heart: +S1/S2, regular, no m/r/g Lungs: equal air entry bilaterally, no rales/rhonchi/wheezes Abd: +BS, soft, tender in epigastric region and lower abdomen, no shayy s/organomegaly/ascites Ext: warm, 2+ pulses in UE/LE bilaterally, no clubbing/cyanosis or edema Neuro: nonfocal, patient AA&O x 4, speech intact, no facial droop, moving all extremities on command with equal strength 5/5 Results & Data Results & Data ([facility]) Vital Signs (Past 12 Hours) Vital Signs Temp Pulse Pulse Resp BP BP Pulse Ox 06/13/21 19:09 95 H 18 127/79 95 06/13/21 18:00 36.8 C 18 135/84 95 06/13/21 16:00 95 H 17 116/81 98 06/13/21 15:30 90 17 118/78 97 06/13/21 15:11 96 06/13/21 15:00 92 H 18 111/81 93 06/13/21 14:36 95 H 17 106/79 95 06/13/21 14:33 94 H 17 106/79 94 06/13/21 13:58 36.7 C 103 H 18 109/72 97 Laboratory Results Laboratory Results WBC 9.93 K/uL (4.8-10.8) 06/13/21 15:08 RBC 5.32 M/uL (4.2-5.4) 06/13/21 15:08 Hgb 16.0 g/dL (12.0-16.0) 06/13/21 15:08 Hct 46.0 % (37-47) 06/13/21 15:08 MCV 86.5 fL (80-100) 06/13/21 15:08 MCH 30.1 pg (25-34) 06/13/21 15:08 MCHC 34.8 g/dL (32-36) 06/13/21 15:08 RDW Std Deviation 41.7 fL (36.4-46.3) 06/13/21 15:08 RDW Coeff of Tammi 13.2 % (11.5-14.5) 06/13/21 15:08 Plt Count 292 K/uL (130-400) 06/13/21 15:08 MPV 11.0 fL (7.4-10.4) H 06/13/21 15:08 Immature Gran % (Auto) 0.3 % 06/13/21 15:08 Neut % (Auto) 61.0 % 06/13/21 15:08 Lymph % (Auto) 28.6 % 06/13/21 15:08 Barren % (Auto) 7.8 % 06/13/21 15:08 Eos % (Auto) 1.9 % 06/13/21 15:08 Baso % (Auto) 0.4 % 06/13/21 15:08 Neut # (Auto) 6.06 K/uL (1.4-6.5) 06/13/21 15:08 Lymph # (Auto) 2.84 K/uL (1.2-3.4) 06/13/21 15:08 Barren # (Auto) 0.77 K/uL (0.11-0.59) H 06/13/21 15:08 Eos # (Auto) 0.19 K/uL (0-0.5) 06/13/21 15:08 Baso # (Auto) 0.04 K/uL (0-0.2) 06/13/21 15:08 Immature Gran # (Auto) 0.03 K/uL (0.00-0.02) H 06/13/21 15:08 Sodium 128 mmol/L (136-145) L 06/13/21 15:08 Potassium 3.7 mmol/L (3.5-5.1) 06/13/21 15:08 Chloride 95 mmol/L (98-107) L 06/13/21 15:08 Carbon Dioxide 25 mmol/L (21-32) 06/13/21 15:08 Anion Gap 8.0 (3-11) 06/13/21 15:08 BUN 15 mg/dl (7-18) 06/13/21 15:08 Creatinine 0.86 mg/dl (0.6-1.2) 06/13/21 15:08 Est Cr Clr Drug Dosing 96.0 ml/min 06/13/21 15:08 Est GFR ( Amer) 92.6 ml/min 06/13/21 15:08 Est GFR (Non-Af Amer) 79.9 ml/min 06/13/21 15:08 BUN/Creatinine Ratio 17.8 (10-20) 06/13/21 15:08 Glucose 101 mg/dl (70-99) H 06/13/21 15:08 Calcium 10.0 mg/dl (8.5-10.1) 06/13/21 15:08 Magnesium 2.1 mg/dl (1.8-2.4) 06/13/21 15:08 Total Bilirubin 0.8 mg/dl (0.2-1) 06/13/21 15:08 AST 100 U/L (15-37) H 06/13/21 15:08 ALT 177 U/L (12-78) H 06/13/21 15:08 Alkaline Phosphatase 149 U/L (45-117) H 06/13/21 15:08 Troponin I < 0.015 ng/ml (0-0.045) 06/13/21 15:08 Total Protein 8.2 gm/dl (6.4-8.2) 06/13/21 15:08 Albumin 4.5 gm/dl (3.4-5.0) 06/13/21 15:08 Globulin 3.7 gm/dl (2.5-4.0) 06/13/21 15:08 Albumin/Globulin Ratio 1.2 (0.9-2) 06/13/21 15:08 Lipase 267 U/L (73-393) 06/13/21 15:08 TSH 1.420 uIu/ml (0.300-4.500) 06/13/21 15:08 Urine Color Dark Yellow 06/13/21 15:10 Urine Appearance Clear (Clear) 06/13/21 15:10 Urine pH 7.0 (4.5-7.5) 06/13/21 15:10 Ur Specific [place] 1.021 (1.000-1.030) 06/13/21 15:10 Urine Protein Negative (Negative) 06/13/21 15:10 Urine Glucose (UA) Negative (Negative) 06/13/21 15:10 Urine Ketones Negative (Negative) 06/13/21 15:10 Urine Blood Negative (Negative) 06/13/21 15:10 Urine Nitrite Negative (Negative) 06/13/21 15:10 Urine Bilirubin Negative (Negative) 06/13/21 15:10 Urine Urobilinogen Negative (Negative) 06/13/21 15:10 Ur Leukocyte Esterase Negative (Negative) 06/13/21 15:10 POC Ur Test NEG (NEG) 06/13/21 15:10 COVID-19 Eval Order Covid19 at [facility] 06/13/21 19:12 SARS-CoV-2 (PCR) NEGATIVE (Negative) 06/13/21 19:12 Impressions Abdomen/Pelvis CT 06/13/21 14:49 CT OF THE ABDOMEN AND PELVIS WITH CONTRAST CLINICAL HISTORY: Epigastric and lower abdominal pain. COMPARISON STUDY: CT of the abdomen and pelvis January 21, 2021. Abdominal series June 04, 2021. TECHNIQUE: Following IV administration of 94 mL of Optiray, axial images of the abdomen and pelvis were obtained from the lung bases to the proximal femurs. Images were reviewed in the axial, sagittal, and coronal planes. IV contrast was administered without complication. Automated exposure control was utilized for the study. A dose lowering technique was utilized adhering to the principles of ALARA. CT DOSE: 1036.55 mGy.cm FINDINGS: No pneumatosis, free air or portal venous gas is present. There is hepatic steatosis. There is no biliary ductal dilatation status post cholecystectomy. Mild splenomegaly is unchanged. The adrenal glands, kidneys and pancreas are normal. There is no peripancreatic infiltration. There is no hydronephrosis. The caliber and wall thickness of small and large bowel are normal. The appendix is normal. There is no free fluid. There is no lymphadenopathy. The uterus is surgically absent. Major vasculature is patent. No acute fracture or suspicious lesion is identified within the visualized skeletal structures. IMPRESSION: 1. No acute process within the abdomen or pelvis. 2. No bowel obstruction. No bowel wall thickening. Normal appendix. 3. Hepatic steatosis. Stable mild splenomegaly. ACT 112: Negative or not required by law. Electronically signed by: Rohan Rivas M.D. 06/13/2021 5:52 PM ECG Additional Comments: EKG wtih NSR at 91, JK=508, QRS=96, GEn=313, poor R wave progression Code Status & VTE Plan VTE Prophylaxis Plan VTE Prophylaxis will be ordered: Yes PG Care Time/CCT Total # of Minutes Spent Total Time Spent with Patient: Total time spent is greater than 50% in coordination of care (as documented) at patient's floor/unit and/or counseling patient: Coding Level of Care Code INT OBSERVATION CARE 70M LVL 3 Diagnoses Abdominal pain, epigastric R10.13 Hyponatremia E87.1 Vomiting R11.2 Nausea presence: with nausea Vomiting Intractability: non-intractable Vomiting type: unspecified Transaminitis R74.01 HTN (hypertension) I10 Hypertension type: essential hypertension GERD without esophagitis K21.9 Hypothyroidism E03.9 Hypercholesterolemia E78.00 Depression with anxiety F41.8 (1) Vomiting Nausea presence: with nausea Vomiting Intractability: non-intractable Vomiting type: unspecified Qualified Code(s): R11.2 - Nausea with vomiting, unspecified (2) HTN (hypertension) Hypertension type: essential hypertension Qualified Code(s): I10 - Essential (primary) hypertension
[2021-06-13] MEDS ORDERED: PROMETHAZINE HCL 25 MG SUPP PR PRN ×2 (21:35→23:18)
[2021-06-13] MEDS ORDERED: hydrOXYzine HCl 25 MG TAB PO PRN (21:35)
[2021-06-13] MEDS ORDERED: ALUMINUM/MAGNESIUM SUSP 30 ML UDC PO PRN (21:35)
[2021-06-13] MEDS: SODIUM CHLORIDE 0.9% 1000ML 1,000 ML IV SCH (23:07)
[2021-06-13 23:37] LABS: Lyme Ab IgG w/WB Rflx Negative (Negative); Lyme Ab IgM w/WB Rflx Negative (Negative)
[2021-06-14] MEDS: PRAZOSIN HCL 1 MG CAP PO SCH ×2 (00:27→21:39)
[2021-06-14] MEDS: NALTREXONE HCL 50 MG TAB PO SCH ×2 (00:28→20:45)
[2021-06-14] MEDS: POTASSIUM CHLORIDE CRTAB 20 MEQ TABCR PO SCH ×3 (00:28→20:44)
[2021-06-14] MEDS: busPIRone 15 MG TAB PO SCH ×3 (00:29→20:47)
[2021-06-14] MEDS: lamoTRIgine 25 MG TAB PO SCH ×3 (00:29→20:44)
[2021-06-14] MEDS: lamoTRIgine 100 MG TAB PO SCH ×3 (00:29→20:43)
[2021-06-14] MEDS: PANTOprazole 40 MG TAB PO SCH ×3 (00:30→20:48)
[2021-06-14] MEDS: TOPIRAMATE 50 MG TAB PO SCH ×2 (00:30→20:46)
[2021-06-14] MEDS: ONDANSETRON INJ 2 MG/ML 2 ML VIAL IV PRN ×4 (01:31→22:16)
[2021-06-14] MEDS: LEVOTHYROXINE SODIUM 50 MCG TABLET PO SCH (06:29)
[2021-06-14 08:07] LABS: Basophils # (auto) 0.03 K/uL (0-0.2); Basophils % (auto) 0.5 %; Eosinophils % (auto) 1.8 %; Hematocrit (blood only) 41.1 % (37-47); Hemoglobin 14.2 g/dL (12.0-16.0); Immature Granulocytes # (auto) 0.01 K/uL (0.00-0.02); Immature Granulocytes % (auto) 0.2 %; Lymphocytes # (auto) 2.14 K/uL (1.2-3.4); Lymphocytes % (auto) 38.1 %; Mean Corpuscular Hemoglobin 30.2 pg (25-34); Mean Corpuscular Hgb Conc 34.5 g/dL (32-36); Mean Corpuscular Volume 87.4 fL (80-100); Mean Platelet Volume 10.3 fL (7.4-10.4); Monocytes # (auto) 0.33 K/uL (0.11-0.59); Monocytes % (auto) 5.9 %; Neutrophils % (auto) 53.5 %; Platelet Count 193 K/uL (130-400); RDW Coefficient of Variation 13.2 % (11.5-14.5); RDW Standard Deviation 42.5 fL (36.4-46.3); White Blood Count 5.61 K/uL (4.8-10.8)
[2021-06-14 08:28] LABS: Albumin Level 3.7 gm/dl (3.4-5.0); BUN Creatinine Ratio 14.1 (10-20); Bilirubin Direct 0.2 mg/dl (0-0.2); Bilirubin,Total 0.5 mg/dl (0.2-1); Calcium 9.2 mg/dl (8.5-10.1); Creatinine Clr Calc Pharmacy 111.8 ml/min; Est GFR (Non-African American) 95.8 ml/min; Potassium 3.7 mmol/L (3.5-5.1); Total Protein 6.7 gm/dl (6.4-8.2)
[2021-06-14] MEDS: TOPIRAMATE 25 MG TAB PO SCH (08:28)
[2021-06-14] MEDS: SERTRALINE HCL 100 MG TABLET PO SCH (08:28)
[2021-06-14] MEDS: lisinopril 20 MG TAB PO SCH (08:28)
[2021-06-14] MEDS ORDERED: ATORVASTATIN 20 MG TAB PO SCH (09:00)
--- NOTE | 2021-06-14 09:43 | Gastrointestinal Consultation ---
Date of Consultation June 14, 2021 Assessment & Plan (1) Abdominal pain, epigastric: Patient with a history of abdominal discomfort and postprandial nausea. I would recommend that he perform a right upper quadrant ultrasound and begin a bowel regimen with MiraLAX 17 g twice daily. We will have Dr. Gomez resume care tomorrow and likely perform an upper endoscopy for initial evaluation of her symptoms. It is quite possible that symptoms could be related to medication such as sertraline. Recommendations N.p.o. at midnight for upper endoscopy with Dr. Gomez tomorrow Start MiraLAX 17 g twice daily Consider ordering a right upper quadrant ultrasound Please call with any additional questions or concerns coverage to resume with [facility] gastroenterology tomorrow History of Present Illness Reason for Consultation: Nausea Requesting Physician: Dr. Slade Attending Physician: Immanuel Slade MD History of Present Illness 50-year-old female presenting for 10 to 15 days of postprandial nausea. The patient notes that the symptoms began quite suddenly without any specific antecedent change. She denies having any new medication changes but does admit to having long periods of constipation. She has previously been evaluated by Dr. Gomez with the [facility] physician group and underwent a colonoscopy several years ago. The patient denies having fevers, chills sweats or rigors. She did have a prior cholecystectomy performed about 4 or 5 years ago due to a question of choledocholithiasis. The patient does have a history of elevated liver enzymes thought to be related to fatty infiltration of the liver. Allergies Allergy/AdvReac Type Severity Reaction Status Date / Time methylene blue Allergy Intermediate seizures Verified 06/13/21 15:58 Home Medications Medication Instructions Recorded Confirmed Type cholecalciferol (vitamin D3) 50 2,000 units PO QAM cap 07/11/19 06/13/21 History mcg (2,000 unit) capsule (Vitamin D3) cyanocobalamin (vitamin B-12) 1,000 mcg PO QAM tab 07/11/19 06/13/21 History 1,000 mcg tablet (Vitamin B-12) buspirone 30 mg tablet 30 mg PO BID 07/27/19 06/13/21 History brexpiprazole 2 mg tablet (Rexulti) 2 mg PO HS tab 09/26/20 06/13/21 History prazosin 2 mg capsule (Minipress) 2 mg PO HS 10/10/20 06/13/21 History sertraline 100 mg tablet (Zoloft) 200 mg PO QAM 01/29/21 06/13/21 History levothyroxine 50 mcg tablet 50 mcg PO QAM 02/20/21 06/13/21 History (Synthroid) pantoprazole 40 mg tablet,delayed 40 mg PO QAM 02/20/21 06/13/21 History release (Protonix) promethazine 25 mg tablet 25 - 50 mg PO Q6H PRN #20 tab 06/04/21 06/13/21 Rx atorvastatin 20 mg tablet (Lipitor) 20 mg PO QAM 06/13/21 06/13/21 History hydroxyzine HCl 25 mg tablet 25 mg PO TID PRN 06/13/21 06/13/21 History lamotrigine 200 mg tablet 200 mg PO BID 06/13/21 06/13/21 History (Lamictal) lamotrigine 25 mg tablet (Lamictal) 25 mg PO BID 06/13/21 06/13/21 History lisinopril 20 1 tab PO QAM 06/13/21 06/13/21 History mg-hydrochlorothiazide 25 mg tablet (Zestoretic) naltrexone 50 mg tablet 25 mg PO HS 06/13/21 06/13/21 History nicotine 14 mg/24 hr daily 14 mg TRANSDERMAL Q24H 06/13/21 06/13/21 History transdermal patch (Nicoderm CQ) ondansetron HCl 4 mg tablet 4 mg PO Q8H PRN 06/13/21 06/13/21 History (Zofran) potassium chloride 10 mEq 20 meq PO BID 06/13/21 06/13/21 History tablet,extended release (Klor-Con) promethazine 25 mg rectal 25 mg IN Q6H PRN 06/13/21 06/13/21 History suppository (Promethegan) topiramate 50 mg tablet (Topamax) See Rx Instructions .ROUTE .COMPLEX 06/13/21 06/13/21 History Patient History Medical History Anxiety Breast cancer (07/13/16) "Abnormal left breast mammogram Status post stereotactic biopsy 07/13/2016 revealing ductal carcinoma Estrogen receptor positive, progesterone receptor positive, HER-2/patrick positive Status post lumpectomy and sentinel lymph node biopsy 08/16/2016 Stage pT1b pN0M0 Systemic chemotherapy (TCH) with severe reaction one dose given and stopped Continue Herceptin for 1 year Status post completion of radiation therapy 12/02/2016 received 6280 cGy" On 12/07/16 08:44 Delaney Ornelas wrote "Abnormal left breast mammogram Status post stereotactic biopsy 07/13/2016 revealing ductal carcinoma Estrogen receptor positive, progesterone receptor positive, HER-2/patrick positive Status post lumpectomy and sentinel lymph node biopsy 08/16/2016 Stage pT1b pN0M0 Systemic chemotherapy (TCH) with severe reaction one dose given and stopped Continue Herceptin for 1 year Status post completion of radiation therapy 12/02/2015 received 6280 cGy" On 09/23/16 10:04 Delaney Ornelas wrote "Abnormal left breast mammogram Status post stereotactic biopsy 07/13/2016 revealing ductal carcinoma Estrogen receptor positive, progesterone receptor positive, HER-2/patrick positive Status post lumpectomy and sentinel lymph node biopsy 08/16/2016 Stage pT1b pN0M0 Systemic chemotherapy with severe reaction one dose given and stopped Continue Herceptin" Degenerative disc disease Depression Diverticular disease GERD (gastroesophageal reflux disease) Hiatal hernia History of Clostridium difficile infection History of seizures last seizure 1.5 yrs ago HLD (hyperlipidemia) HTN (hypertension) Hypothyroidism Obesity (BMI 30-39.9) Osteoarthritis PTSD (post-traumatic stress disorder) Surgical History History of anesthesia reaction "I had a seizure coming out of anesthesia." -- hyster 2018 @ [place] History of breast biopsy History of cholecystectomy History of lumpectomy of left breast History of removal of Port-a-Cath History of tooth extraction History of total hysterectomy with bilateral salpingo-oophorectomy (BSO) History of vascular access device Family History Mother Breast cancer Father Myocardial infarction Grandmother (Maternal) Breast cancer Grandmother (Paternal) Breast cancer Sister Migraine Denies family history of Ovarian cancer Prostate cancer Colorectal cancer Social History Smoking Status: Current every day smoker Tobacco Type: Cigarettes Age Started Using Tobacco: 28; packs per day: 1.5; Cigarettes Per Day: 15 per day; Second Hand Exposure: Yes; Do You Dip or Chew Tobacco: No; Tobacco Cessation Education Requested by Patient: No Hx Alcohol Use: Yes Alcohol type: hard liquor Hx Substance Use: No Preferred Language: Gambian Communication Ability: Effective Visual Impairment: No Limitations Hearing Ability: Normal Reuse Technician Required: No Beliefs That Will Affect Care: None marital status: Current Living Situation: Spouse current occupational status: unemployed Other Information That Helps Us Care for You: No Feels Safe at Home: Yes Safety Concerns: Feels Safe At This Time Childhood Exposure to Second-Hand Smoke: No Dental Care, Regularly: No Physical Activity Frequency: Does not Exercise Seatbelt Use: always Sunscreen Use: No Assistive Devices: Denture - Upper and Glasses Review of Systems Constitutional: as per Subjective / HPI; no sweats Eyes: no diplopia Ear, Nose, Mouth, Throat: no ear trauma Respiratory: no change in sputum and no hemoptysis Cardiovascular: no chest pain with activity and no dyspnea at rest Gastrointestinal: + bloating, + nausea, + cramping and + constipation; no hematemesis Genitourinary: no urinary frequency Musculoskeletal: no radicular pain Integumentary: no rash Neurologic: no falls and no paralysis Psychiatric: no hopelessness Endocrine: no polydipsia Hematologic / Lymphatic: no coagulopathy Allergy / Immunological: no lip swelling Physical Exam Eyes: PERRL, conjunctivae normal, anicteric sclerae Neck: trachea midline, no thyromegaly Respiratory: normal respiratory effort, lungs clear to auscultation Cardiovascular: Rate/Rhythm: regular rate Gastrointestinal (Abdomen): normal bowel sounds, soft, nontender, no hepatosplenomegaly Musculoskeletal: no cyanosis or clubbing, extremities motor strength 5/5 Neurologic: Speech / Cognition: normal speech Psychiatric: Orientation: oriented x 3 Results & Data ([facility]) Vital Signs (Past 12 Hours) Vital Signs Temp Pulse Resp BP Pulse Ox 06/14/21 07:35 36.7 C 100 H 16 113/72 95 Laboratory Results IF YOU EXPERIENCE ANY OF THE FOLLOWING SYMPTOMS AFTER YOUR PROCEDURE CALL YOUR PRIMARY CARE PHYSICIAN IMMEDIATELY OR SEEK MEDICAL ATTENTION AT YOUR NEAREST EMERGENCY ROOM: 1. SEVERE abdominal pain or bloating 2. FEVER greater than 101.1 degrees within 24 hours after the procedure 3. LARGE AMOUNTS OF BLEEDING greater than 2-3 tablespoons. If you had a polyp/s removed or have hemorrhoids, a small amount of blood from the rectum is to be expected. 4. A localized irritation of the vein may occur at the site of the IV injection. Hot moist packs to the vein applied 4-6 times per day may reduce pain and irritation. A tender lump may develop and remain for several weeks to several months, but goes away eventually. If the area continues to be painful or becomes red and hot to the touch. For routine questions call [facility] at [phone]. * Avoid the use of alcohol and sedatives for [address] OF THE ABDOMEN AND PELVIS WITH CONTRAST CLINICAL HISTORY: Epigastric and lower abdominal pain. COMPARISON STUDY: CT of the abdomen and pelvis January 21, 2021. Abdominal series June 04, 2021. TECHNIQUE: Following IV administration of 94 mL of Optiray, axial images of the abdomen and pelvis were obtained from the lung bases to the proximal femurs. Images were reviewed in the axial, sagittal, and coronal planes. IV contrast was administered without complication. Automated exposure control was utilized for the study. A dose lowering technique was utilized adhering to the principles of ALARA. CT DOSE: 1036.55 mGy.cm FINDINGS: No pneumatosis, free air or portal venous gas is present. There is hepatic steatosis. There is no biliary ductal dilatation status post cholecystectomy. Mild splenomegaly is unchanged. The adrenal glands, kidneys and pancreas are normal. There is no peripancreatic infiltration. There is no hydronephrosis. The caliber and wall thickness of small and large bowel are normal. The appendix is normal. There is no free fluid. There is no lymphadenopathy. The uterus is surgically absent. Major vasculature is patent. No acute fracture or suspicious lesion is identified within the visualized skeletal structures. IMPRESSION: 1. No acute process within the abdomen or pelvis. 2. No bowel obstruction. No bowel wall thickening. Normal appendix. 3. Hepatic steatosis. Stable mild splenomegaly.
[2021-06-14] MEDS: SODIUM CHLORIDE 0.9% 1000ML 1,000 ML IV SCH (09:53)
[2021-06-14 10:06] LABS: Amphetamines+Metham, Urine Neg (Neg); Barbiturates, Urine Neg (Neg); Benzodiazepine, Urine Neg (Neg); Cocaine, Urine Neg (Neg); MDMA (Ecstacy), Urine Neg (Neg); Methadone, Urine Neg (Neg); Opiate, Urine Neg (Neg); Phencyclidine, Urine Neg (Neg)
--- NOTE | 2021-06-14 11:46 | Electrocardiogram Report ---
Test Reason : Blood Pressure : / mmHG Vent. Rate : 091 BPM Atrial Rate : 091 BPM P-R Int : 162 ms QRS Dur : 096 ms QT Int : 386 ms P-R-T Axes : 056 -25 031 degrees QTc Int : 474 ms Normal sinus rhythm Poor R wave progression, consider anterior GA vs. lead placement vs. LVH Abnormal ECG When compared with ECG of 04-JUN-2021 18:07, Incomplete right bundle branch block is no longer Present Confirmed by Lane Haji ([id number]) on 06/14/2021 11:45:42 AM Referred By: REFERRED SELF Confirmed By:Lane Haji
--- NOTE | 2021-06-14 15:00 | Hospitalist Progress Note ---
Date of Service June 14, 2021 Assessment & Plan (1) Vomiting: Plan: 50yo female presenting with 10 days of nausea, post-prandial vomiting and inability to tolerate PO. Also with epigastric tenderness, globus sensation and fullness in throat. Patient with history of GERD and hiatal hernia. Denies melena/hematochezia. She is afebrile, HD stable, slightly dry in appearance. PO challenge in ER with crackers failed resulting in vomiting. CT Abdomen is negative for acute process. -I suspect that this is GI in nature. -? Uncontrolled reflux versus stricture versus issues related to HH -Discussed esophagram; however, patient adamantly refuses -Consult GIappreciate recommendations. Suspect patient may need EGD -Continue empiric PPI. May need to consider H2 kurt/Carafate pending EGD -Patient with history of breast CA in remission - doubtful but may consider brain imaging as additional workup for ongoing nausea. Seems to be GI in nature (2) Abdominal pain, epigastric: Plan: ?secondary to hiatal hernia, possible GERD. Abdomen is soft and tender without rebound/guarding/peritoneal signs. -Protonix BID as above -Maalox PRN (3) Hyponatremia: Plan: Dw=077. Has been 135-128 since her symptoms started. ?secondary to poor po intake. IVF given in ER. -Has responded to IV hydration -Likely multifactorial. Patient on multiple psych meds that can cause hyponatremia. In addition, she was on HCTZ in addition to her lisinopril. -Intractable vomiting with poor oral intake likely made matters worse -Continue to hold HCTZ (would advise discontinuation altogetherBP 113/72 without HCTZ component) -Continue to trend (4) Transaminitis: Plan: History of same. Hepatic steatosis noted on imaging -Patient on statin therapy -Hold statinlikely will need a drug holiday -Right upper quadrant ultrasound. Patient does not have a gallbladder but could potentially have stones/sludge in the remaining ducts (5) HTN (hypertension): Plan: Blood pressure stable -Continue Lisinopril -Holding HCTZ as above in setting of hyponatremia (6) GERD without esophagitis: Plan: Chronic -Continue Protonix - will increase to BID (7) Hypothyroidism: Plan: Chronic -Continue Synthroid (8) Hypercholesterolemia: Plan: Chronic -hold Atorvastatin given transaminitis. Would maybe benefit from drug holiday (9) Depression with anxiety: Plan: Chronic. -Continue Suspirone -Continue Hydroxyzine PRN -Continue Prazosin -Continue Sertraline Plan: Plan of care will be discussed with Dr. Slade. Further orders as warranted. Admission and Anticipated Discharge Date Admission Date: June 13, 2021 Subjective Patient hospitalized overnight for intractable vomiting and inability to tolerate oral intake. Reports ongoing but worse over the past week. Has globus sensation with epigastric pain. Denies melena or hematochezia. Does have abdominal bloating with excessive eructation and known hiatal hernia. Denies early satiety. Is not diabetic. Has been unable to even tolerate her oral meds over the past several days. Reports a 19 pound weight loss over the past 2 weeks. Work-up in the ED did reveal hyponatremia of 128 but otherwise, the rest of her lab data and diagnostic studies were normal including a CT of the abdomen and pelvis. Has never had issues with hyponatremia in the past. Is on multiple psych meds including Lamictal, Zoloft, and Topamax. In addition, takes lisinopril/HCTZ. TSH done in the ED was normal at 1.4 Urine/serum osmolalitynot obtained In regards to antireflux meds, she does take pantoprazole daily. Patient hospitalized for intractable vomiting with hyponatremia thought to be due to volume contraction. Patient unable to tolerate breakfast. Attempted 2 bites of eggs but reports "could not get it down". Is "starving but cannot swallow". With gentle IV hydration, sodium level has normalized to 135. Rest of her metabolic panel is within normal limits. Patient has had a cholecystectomy in the past Review of Systems Review of Systems: All systems reviewed and are unremarkable except as noted in HPI and below + Dysphagia, nausea, epigastric pain along with globus sensation. Denies fevers, chills, headache, nasal congestion, sore throat, cough, chest pain, shortness of breath, dysuria, hematuria, frequency, skin lesions or rashes. Physical Exam Physical Exam: General: Resting comfortably in her hospital bed. NAD. Neck: No JVD. Negative hepatojugular reflex Cardiac: RRR with 1/6 MAURO Lungs: CTA without W/R/R Abdomen: Normoactive X4. Soft with mild epigastric tenderness Extremities: No peripheral clubbing cyanosis or edema Neuro: A&O X4 cranial nerves II through XII are grossly intact no focal neuro deficits Skin: No obvious skin lesions or rashes Results & Data Results & Data ([facility]) Vital Signs (Past 12 Hours) Vital Signs Temp Pulse Resp BP Pulse Ox 06/14/21 07:35 36.7 C 100 H 16 113/72 95 Laboratory Results 06/14/21 07:56 06/14/21 07:56 PG Care Time/CCT Total # of Minutes Spent Total Time Spent with Patient: Total time spent is greater than 50% in coordination of care (as documented) at patient's floor/unit and/or counseling patient: Coding [place] [address] Subseq Hosp Care Lvl 3 Patient Type Established Medical Decision Making Moderate Complexity Diagnoses Vomiting R11.2 Nausea presence: with nausea Vomiting Intractability: non-intractable Vomiting type: unspecified Abdominal pain, epigastric R10.13 Hyponatremia E87.1 Transaminitis R74.01 HTN (hypertension) I10 Hypertension type: essential hypertension GERD without esophagitis K21.9 Hypothyroidism E03.9 Hypercholesterolemia E78.00 Depression with anxiety F41.8 Time Spent (min) 60 (1) HTN (hypertension) Hypertension type: essential hypertension Qualified Code(s): I10 - Essential (primary) hypertension (2) Vomiting Nausea presence: with nausea Vomiting Intractability: non-intractable Vomiting type: unspecified Qualified Code(s): R11.2 - Nausea with vomiting, unspecified
--- NOTE | 2021-06-14 21:38 | Ultrasound Report ---
ABDOMINAL ULTRASOUND, RIGHT UPPER QUADRANT HISTORY: liver and ducts-- transaminitis. COMPARISON: August 05, 2016 FINDINGS: Pancreas: Visualized portion of the pancreas shows no evidence of focal lesions. Evaluation is limite d due to overlying bowel gas. Liver: Is enlarged measuring 19.5 cm in length. There is diffuse increase in liver parenchymal echoge nicity and coarsening of echotexture without focal lesions or intrahepatic biliary dilatation. Gallbladder: Surgically absent CBD: 0.4 cm Right kidney: No hydronephrosis. IMPRESSION: 1. Hepatic steatosis. Hepatomegaly. 2. Status post cholecystectomy. ACT 112: Negative or not required by law. The above report was generated using voice recognition software. It may contain grammatical, syntax o r spelling errors. Electronically signed by: Yany Tenorio DO 06/14/2021 9:37 PM
[2021-06-15] MEDS: LEVOTHYROXINE SODIUM 50 MCG TABLET PO SCH (05:36)
[2021-06-15 06:48] LABS: Basophils # (auto) 0.03 K/uL (0-0.2); Basophils % (auto) 0.5 %; Eosinophils # (auto) 0.13 K/uL (0-0.5); Eosinophils % (auto) 2.3 %; Hematocrit (blood only) 39.8 % (37-47); Hemoglobin 13.4 g/dL (12.0-16.0); Immature Granulocytes # (auto) 0.01 K/uL (0.00-0.02); Immature Granulocytes % (auto) 0.2 %; Lymphocytes % (auto) 39.9 %; Mean Corpuscular Hemoglobin 30.2 pg (25-34); Mean Corpuscular Hgb Conc 33.7 g/dL (32-36); Mean Corpuscular Volume 89.8 fL (80-100); Mean Platelet Volume 10.9 fL (7.4-10.4); Monocytes # (auto) 0.44 K/uL (0.11-0.59); Monocytes % (auto) 7.6 %; Neutrophils # (auto) 2.85 K/uL (1.4-6.5); Neutrophils % (auto) 49.5 %; Platelet Count 196 K/uL (130-400); RDW Coefficient of Variation 13.2 % (11.5-14.5); RDW Standard Deviation 44.3 fL (36.4-46.3); Red Blood Count 4.43 M/uL (4.2-5.4); White Blood Count 5.76 K/uL (4.8-10.8)
[2021-06-15 07:38] LABS: Albumin Level 3.5 gm/dl (3.4-5.0); BUN Creatinine Ratio 11.3 (10-20); Calcium 9.1 mg/dl (8.5-10.1); Creatinine Clr Calc Pharmacy 104.7 ml/min; Est GFR (African American) 102.6 ml/min; Est GFR (Non-African American) 88.5 ml/min; Magnesium 2.2 mg/dl (1.8-2.4); Potassium 3.8 mmol/L (3.5-5.1)
[2021-06-15 07:41] LABS: Albumin Globulin Ratio 1.2 (0.9-2); Bilirubin,Total 0.5 mg/dl (0.2-1); Total Protein 6.5 gm/dl (6.4-8.2)
[2021-06-15] MEDS: SERTRALINE HCL 100 MG TABLET PO SCH (08:55)
[2021-06-15] MEDS: PANTOprazole 40 MG TAB PO SCH ×2 (08:55→22:01)
[2021-06-15] MEDS: busPIRone 15 MG TAB PO SCH ×2 (08:55→22:00)
[2021-06-15] MEDS: TOPIRAMATE 25 MG TAB PO SCH (08:55)
[2021-06-15] MEDS: POTASSIUM CHLORIDE CRTAB 20 MEQ TABCR PO SCH ×2 (08:55→22:00)
[2021-06-15] MEDS: lamoTRIgine 25 MG TAB PO SCH ×2 (08:56→21:58)
[2021-06-15] MEDS: lamoTRIgine 100 MG TAB PO SCH ×2 (08:56→21:57)
[2021-06-15] MEDS: lisinopril 20 MG TAB PO SCH (08:56)
--- NOTE | 2021-06-15 09:48 | Hospitalist Progress Note ---
Date of Service June 15, 2021 Assessment & Plan (1) Vomiting: Plan: 50yo female presenting with 10 days of nausea, post-prandial vomiting and inability to tolerate PO. Also with epigastric tenderness, globus sensation and fullness in throat. Patient with history of GERD and hiatal hernia. Denies melena/hematochezia. She is afebrile, HD stable, slightly dry in appearance. PO challenge in ER with crackers failed resulting in vomiting. CT Abdomen is negative for acute process. -EGD performed June 15, 2021 shows normal esophagus with moderate inflammation characterized by erosions and erythema found in the entire examined stomach with biopsies taken. Small hiatal hernia the duodenum being normal recommending medical management Healthy is with resolving transaminitis -Patient with history of breast CA in remission - doubtful but may consider brain imaging as additional workup for ongoing nausea. Seems to be GI in nature (2) Abdominal pain, epigastric: Plan: ?secondary to hiatal hernia, possible GERD. Abdomen remains soft and tender without rebound/guarding/peritoneal signs. -Protonix BID as above may add Carafate for short run -Maalox PRN (3) Hyponatremia: Plan: Resolved. -Continue to hold HCTZ (would advise discontinuation altogetherBP 113/72 without HCTZ component) - (4) Transaminitis: Plan: History of same. Hepatic steatosis noted on imaging -Patient on statin therapy -Hold statinlikely will need a drug holiday for hold at discharge -Right upper quadrant ultrasound. Only shown hepatic steatosis with a pathology noted (5) HTN (hypertension): Plan: Blood pressure stable -Continue Lisinopril -Holding HCTZ as above in setting of hyponatremia (6) GERD without esophagitis: Plan: Chronic -Continue Protonix - will increase to BID (7) Hypothyroidism: Plan: Chronic -Continue Synthroid (8) Hypercholesterolemia: Plan: Chronic -hold Atorvastatin given transaminitis. Would maybe benefit from drug holiday (9) Depression with anxiety: Plan: Chronic. -Continue Suspirone -Continue Hydroxyzine PRN -Continue Prazosin -Continue Sertraline Admission and Anticipated Discharge Date Admission Date: June 13, 2021 Subjective Patient was seen post procedure she did tolerate a liquid meal afterwards. She was given the description of her erosions and gastritis seen on EGD she wishes to tolerate a regular diet before considering going home Review of Systems Review of Systems: Mild distress and fatigue no headache, no visual changes no speech or swallowing issues no chest pain, pressure or palpitations no shortness of breath, cough or wheezes Abdominal pain nausea and vomiting have improved although she is only a short time post procedure no dysuria, hematuria or frequency no focal joint pain or swelling no back pain, CVA tenderness or radicular pain no bruising, bleeding or rashes no focal signs of weakness or numbness or altered sensation no complaints of anxiety or depression.. Physical Exam Physical Exam: The patient appeared well nourished and normally developed. Vital signs as documented. Head exam is normocephalic atraumatic Neck is without JVD, thyromegaly, or carotid bruits. Lungs are clear to auscultation, no focal loss of breath sounds Cardiac exam, Rhythm is regular.. No murmurs, rubs or gallops. Abdominal exam reveals normal bowel sounds, soft non tender, no masses Extremities are nonedematous and both pedal pulses are present Neurologic exam is alert and oriented, no focal loss of strength or sensation Skin is without bruises or rashes Psychologically is without concerns for anxiety or depression Results & Data Results & Data ([facility]) Vital Signs (Past 12 Hours) Vital Signs Temp Pulse Resp BP Pulse Ox 06/15/21 07:00 98.4 F 75 20 112/75 96 06/14/21 22:05 97.5 F L 73 16 95/61 L 95 PG Care Time/CCT Total # of Minutes Spent Total Time Spent with Patient: Total time spent is greater than 50% in coordination of care (as documented) at patient's floor/unit and/or counseling patient: Coding Level of Care Code 09947 Subseq Hosp Care Lvl 3 Diagnoses Vomiting R11.2 Nausea presence: with nausea Vomiting Intractability: non-intractable Vomiting type: unspecified Abdominal pain, epigastric R10.13 Hyponatremia E87.1 Transaminitis R74.01 HTN (hypertension) I10 Hypertension type: essential hypertension GERD without esophagitis K21.9 Hypothyroidism E03.9 Hypercholesterolemia E78.00 Depression with anxiety F41.8 (1) HTN (hypertension) Hypertension type: essential hypertension Qualified Code(s): I10 - Essential (primary) hypertension (2) Vomiting Nausea presence: with nausea Vomiting Intractability: non-intractable Vomiting type: unspecified Qualified Code(s): R11.2 - Nausea with vomiting, unspecified
--- NOTE | 2021-06-15 12:05 | Anesthesiology Consultation ---
Date of Service June 15, 2021 Assessment & Plan (1) Encounter for pre-operative examination: Chart Review Chart Review: Acceptable Risk for Surgery and Patient NOT seen in Pre Admission Testing Consults Requested none History Surgery Operation Date: 06/15/21 16:30 Proposed Procedures p Esophagogastroduodenoscopy Dr Gomez - Shimon Weaver Case, DO Height/Weight Height: 5 ft 6 in Weight: 101.5 kg Allergies Allergy/AdvReac Type Severity Reaction Status Date / Time methylene blue Allergy Intermediate seizures Verified 06/13/21 15:58 Medications Home Medications Medication Instructions Recorded Confirmed Last Taken cholecalciferol (vitamin D3) 50 2,000 units PO QAM cap 07/11/19 06/13/21 06/13/21 mcg (2,000 unit) capsule (Vitamin D3) cyanocobalamin (vitamin B-12) 1,000 mcg PO QAM tab 07/11/19 06/13/21 06/13/21 1,000 mcg tablet (Vitamin B-12) buspirone 30 mg tablet 30 mg PO BID 07/27/19 06/13/21 06/13/21 brexpiprazole 2 mg tablet (Rexulti) 2 mg PO HS tab 09/26/20 06/13/21 06/12/21 prazosin 2 mg capsule (Minipress) 2 mg PO HS 10/10/20 06/13/21 06/12/21 sertraline 100 mg tablet (Zoloft) 200 mg PO QAM 01/29/21 06/13/21 06/13/21 levothyroxine 50 mcg tablet 50 mcg PO QAM 02/20/21 06/13/21 06/13/21 (Synthroid) pantoprazole 40 mg tablet,delayed 40 mg PO QAM 02/20/21 06/13/21 06/13/21 release (Protonix) promethazine 25 mg tablet 25 - 50 mg PO Q6H PRN #20 tab 06/04/21 06/13/21 Unknown atorvastatin 20 mg tablet (Lipitor) 20 mg PO QAM 06/13/21 06/13/21 06/13/21 hydroxyzine HCl 25 mg tablet 25 mg PO TID PRN 06/13/21 06/13/21 Unknown lamotrigine 200 mg tablet 200 mg PO BID 06/13/21 06/13/21 06/13/21 (Lamictal) lamotrigine 25 mg tablet (Lamictal) 25 mg PO BID 06/13/21 06/13/21 06/13/21 lisinopril 20 1 tab PO QAM 06/13/21 06/13/21 06/13/21 mg-hydrochlorothiazide 25 mg tablet (Zestoretic) naltrexone 50 mg tablet 25 mg PO HS 06/13/21 06/13/21 06/12/21 nicotine 14 mg/24 hr daily 14 mg TRANSDERMAL Q24H 06/13/21 06/13/21 Unknown transdermal patch (Nicoderm CQ) ondansetron HCl 4 mg tablet 4 mg PO Q8H PRN 06/13/21 06/13/21 06/13/21 (Zofran) potassium chloride 10 mEq 20 meq PO BID 06/13/21 06/13/21 06/13/21 tablet,extended release (Klor-Con) promethazine 25 mg rectal 25 mg [place] Q6H PRN 06/13/21 06/13/21 Unknown suppository (Promethegan) topiramate 50 mg tablet (Topamax) See Rx Instructions .ROUTE .COMPLEX 06/13/21 06/13/21 06/13/21 25 mg Active Medications Generic Name Dose Route Start Last Admin Trade Name Deborah PRN Reason Stop Dose Admin Buspirone HCl 30 mg 06/13/21 22:00 06/15/21 08:55 Buspirone 15 Mg Tab PO 07/13/21 21:59 30 mg BID MOI Administration Lamotrigine 200 mg 06/13/21 22:00 06/15/21 08:56 Lamotrigine 100 Mg Tab PO 07/13/21 21:59 200 mg BID MOI Administration Lamotrigine 25 mg 06/13/21 22:00 06/15/21 08:56 Lamotrigine 25 Mg Tab PO 07/13/21 21:59 25 mg BID MOI Administration Levothyroxine Sodium 50 mcg 06/14/21 06:30 06/15/21 05:36 Levothyroxine Sodium 50 Mcg Tablet PO 07/14/21 06:29 50 mcg DAILYBB MOI Administration Lisinopril 20 mg 06/14/21 09:00 06/15/21 08:56 Lisinopril 20 Mg Tab PO 07/14/21 08:59 20 mg QAM MOI Administration Miscellaneous 1 ea 06/14/21 00:00 06/15/21 10:48 *Rexulti*Order Awaiting Action N/A 07/14/21 00:00 Not Given QS MOI Naltrexone HCl 25 mg 06/13/21 22:00 06/14/21 20:45 Naltrexone Hcl 50 Mg Tab PO 07/13/21 21:59 25 mg HS MOI Administration Ondansetron HCl 4 mg 06/13/21 23:18 06/14/21 22:16 Ondansetron Inj 2 Mg/Ml 2 Ml Vial IV 07/13/21 23:17 4 mg Q6H PRN Administration Nausea And Vomiting Pantoprazole Sodium 40 mg 06/13/21 22:00 06/15/21 08:55 Pantoprazole 40 Mg Tab PO 07/13/21 21:59 40 mg BID MOI Administration Potassium Chloride 20 meq 06/13/21 22:00 06/15/21 08:55 Potassium Chloride Crtab 20 Meq Tabcr PO 07/13/21 21:59 20 meq BID MOI Administration Prazosin HCl 2 mg 06/13/21 22:00 06/14/21 21:39 Prazosin Hcl 1 Mg Cap PO 07/13/21 21:59 Not Given HS MOI Promethazine HCl 25 mg 06/13/21 23:18 06/13/21 23:25 Promethazine Hcl 25 Mg Supp [place] 07/13/21 21:34 25 mg Q6H PRN Administration Nausea Sertraline HCl 200 mg 06/14/21 09:00 06/15/21 08:55 Sertraline Hcl 100 Mg Tablet PO 07/14/21 08:59 200 mg QAM MOI Administration Topiramate 25 mg 06/14/21 09:00 06/15/21 08:55 Topiramate 25 Mg Tab PO 07/14/21 08:59 25 mg QAM MOI Administration Topiramate 50 mg 06/13/21 22:00 06/14/21 20:46 Topiramate 50 Mg Tab PO 07/13/21 21:59 50 mg HS MOI Administration Past Medical History Medical History (Updated 06/15/21 @ 12:06 by Macario Zaldivar MD) Anxiety Breast cancer (07/13/16) Degenerative disc disease Depression Diverticular disease GERD (gastroesophageal reflux disease) Hiatal hernia History of Clostridium difficile infection History of seizures last seizure 1.5 yrs ago HLD (hyperlipidemia) HTN (hypertension) Hypothyroidism Obesity (BMI 30-39.9) Osteoarthritis PTSD (post-traumatic stress disorder) Exercise / Class Metabolic Activity II 4-5 Yardwork/Stairs/Walk up hill Past Family History Family History Mother Breast cancer Father Myocardial infarction Grandmother (Maternal) Breast cancer Grandmother (Paternal) Breast cancer Sister Migraine Denies family history of Ovarian cancer Prostate cancer Colorectal cancer Past Surgical History Surgical History History of anesthesia reaction "I had a seizure coming out of anesthesia." -- hyster 2018 @ [place] History of breast biopsy History of cholecystectomy History of lumpectomy of left breast History of removal of Port-a-Cath History of tooth extraction History of total hysterectomy with bilateral salpingo-oophorectomy (BSO) History of vascular access device Past Anesthesia History No Hx of Anesthesia Complications and No Family Hx of Anesthesia Complications History of PONV No Hx of PONV and No Hx of Motion Sickness Social History Smoking Status: Current every day smoker tobacco type: cigarettes Smoking cigarettes per day: 15 per day Do You Dip or Chew Tobacco: No Hx Alcohol Use: Yes Alcohol type: hard liquor alcohol intake frequency: holidays/special occasions only Hx Substance Use: No Physical Exam Vital Signs Last Vital Signs Temp 36.9 C 06/15/21 07:00 Pulse 75 06/15/21 07:00 Resp 20 06/15/21 07:00 BP 112/75 06/15/21 07:00 Pulse Ox 96 06/15/21 07:00 Testing Laboratory Results 06/15/21 06:06 06/15/21 06:06 Urine Color Dark Yellow 06/13/21 15:10 Urine Appearance Clear (Clear) 06/13/21 15:10 Urine pH 7.0 (4.5-7.5) 06/13/21 15:10 Ur Specific [place] 1.021 (1.000-1.030) 06/13/21 15:10 Urine Protein Negative (Negative) 06/13/21 15:10 Urine Glucose (UA) Negative (Negative) 06/13/21 15:10 Urine Ketones Negative (Negative) 06/13/21 15:10 Urine Nitrite Negative (Negative) 06/13/21 15:10 Ur Leukocyte Esterase Negative (Negative) 06/13/21 15:10 06/13/21 15:10 POC Ur Test NEG Electrocardiogram Date: 06/13/21 Test Reason : Blood Pressure : / mmHG Vent. Rate : 091 BPM Atrial Rate : 091 BPM P-R Int : 162 ms QRS Dur : 096 ms QT Int : 386 ms P-R-T Axes : 056 -25 031 degrees QTc Int : 474 ms Normal sinus rhythm Poor R wave progression, consider anterior AR vs. lead placement vs. LVH Abnormal ECG When compared with ECG of 04-JUN-2021 18:07, Incomplete right bundle branch block is no longer Present
--- NOTE | 2021-06-15 12:29 | Gastroenterology Progress Note ---
Date of Service June 15, 2021 Assessment & Plan (1) Abdominal pain, epigastric: (2) Nausea & vomiting: Plan: Proceed with EGD now Continue current therapy and supportive care. Admission and Anticipated Discharge Date Admission Date: June 13, 2021 Subjective Still with epigastric pain and nausea, but vomiting has ceased. She states her symptoms have improved overnight. She denies any fevers, chills, hematemesis, melena or hematochezia. She has no further complaints. Review of Systems Constitutional: as per Subjective / HPI Eyes: as per Subjective / HPI Ear, Nose, Mouth, Throat: as per Subjective / HPI Respiratory: as per Subjective / HPI Cardiovascular: as per Subjective / HPI Gastrointestinal: as per Subjective / HPI Musculoskeletal: as per Subjective / HPI Integumentary: as per Subjective / HPI Neurologic: as per Subjective / HPI Psychiatric: as per Subjective / HPI Endocrine: as per Subjective / HPI Hematologic / Lymphatic: as per Subjective / HPI Allergy / Immunological: as per Subjective / HPI Physical Exam Constitutional: WD/WN, vitals as above Respiratory: normal respiratory effort, lungs clear to auscultation Cardiovascular: RRR, no murmur, no edema Gastrointestinal (Abdomen): normal bowel sounds, soft, nontender, no hepatosplenomegaly Results & Data Results & Data ([facility]) Vital Signs (Past 12 Hours) Vital Signs Temp Pulse Resp BP Pulse Ox 06/15/21 12:06 36.6 C 71 16 94/62 L 96 06/15/21 07:00 36.9 C 75 20 112/75 96 PG Care Time/CCT Total # of Minutes Spent Total Time Spent with Patient: Total time spent is greater than 50% in coordination of care (as documented) at patient's floor/unit and/or counseling patient: Coding Level of Care Code None Diagnoses Abdominal pain, epigastric R10.13 Nausea & vomiting R11.2 Vomiting Intractability: non-intractable Vomiting type: unspecified (1) Nausea & vomiting Vomiting Intractability: non-intractable Vomiting type: unspecified Qualified Code(s): R11.2 - Nausea with vomiting, unspecified
[2021-06-15] MEDS ORDERED: SODIUM CHLORIDE 0.9% 1000ML 1,000 ML IV SCH (12:30)
--- NOTE | 2021-06-15 12:55 | GI REPORT ---
Patient Name: Aleja Addison Procedure Date: 06/15/2021 12:31 PM Date of : 1970 Admit Type: Inpatient Age: 50 Gender: Female Attending MD: Shimon Gomez DO Procedure: Upper GI endoscopy Providers: Shiomn Gomez DO Referring MD: Félix Bazan Indications: Epigastric abdominal pain, Nausea with vomiting Medicines: Monitored Anesthesia Care Complications: No immediate complications. Estimated Blood Loss: Estimated blood loss: none. Procedure: Pre-Anesthesia Assessment: - Prior to the procedure, a History and Physical was performed, and patient medications and allergies were reviewed. The patient's tolerance of previous anesthesia was also reviewed. The risks and benefits of the procedure and the sedation options and risks were discussed with the patient. All questions were answered, and informed consent was obtained. Prior Anticoagulants: The patient has taken no previous anticoagulant or antiplatelet agents. ASA Grade Assessment: III - A patient with severe systemic disease. After reviewing the risks and benefits, the patient was deemed in satisfactory condition to undergo the procedure. After obtaining informed consent, the endoscope was passed under direct vision. Throughout the procedure, the patient's blood pressure, pulse, and oxygen saturations were monitored continuously. The Endoscope was introduced through the mouth, and advanced to the second part of duodenum. The upper GI endoscopy was accomplished without difficulty. The patient tolerated the procedure well. Findings: The esophagus was normal. Diffuse moderate inflammation characterized by erosions and erythema was found in the entire examined stomach. Biopsies were taken with a cold forceps for histology. A small hiatal hernia was present. The examined duodenum was normal. Impression: - Normal esophagus. - Gastritis. Biopsied. - Small hiatal hernia. - Normal examined duodenum. Recommendation: - [facility] patient to [facility] for [facility] care. - Advance diet as tolerated. - Continue present medications. - Await pathology results. Shimon Gomez DO 06/15/2021 12:54:46 PM This report has been signed electronically. Note Initiated On: 06/15/2021 12:31 PM Number of Addenda: 0 I attest to the content of the Intraoperative Record and orders documented therein, exceptions below {[id number]}
[2021-06-15] MEDS ORDERED: PROPOFOL IV EMULSION 10 MG/ML 20 ML VIAL IV ONE (12:56)
[2021-06-15] MEDS ORDERED: LIDOCAINE 2% 2 ML VIAL/AMP(20MG/ML) INFIL ONE (12:56)
--- NOTE | 2021-06-15 13:06 | Anesthesiology Progress Note ---
Date of Service June 15, 2021 Anesthesia Post Procedure Vital Signs Vital Signs: Temp Pulse Resp BP Pulse Ox 06/15/21 13:03 71 16 91/57 L 96 06/15/21 12:50 36.6 C 88 16 81/56 L 95 06/15/21 12:06 36.6 C 71 16 94/62 L 96 06/15/21 07:00 36.9 C 75 20 112/75 96 06/14/21 22:05 36.4 C L 73 16 95/61 L 95 06/14/21 20:41 76 91/64 L 06/14/21 14:52 37.0 C 88 16 99/64 L 93 Transfer of Care Handoff Completed per policy Notes Mental Status: alert / awake / arousable and participated in evaluation Patient Amnestic to Procedure: Yes Nausea / Vomiting: adequately controlled Pain: adequately controlled Airway Patency, RR, SpO2: stable & adequate BP & HR: stable & adequate Hydration State: stable & adequate Anesthetic Complications: no major complications apparent and Pt Satisfied with anesthetic care
[2021-06-15] MEDS: SUCRALFATE 1 GM TAB PO SCH (21:56)
[2021-06-15] MEDS: TOPIRAMATE 50 MG TAB PO SCH (21:58)
[2021-06-15] MEDS: NALTREXONE HCL 50 MG TAB PO SCH (21:59)
[2021-06-15] MEDS: PRAZOSIN HCL 1 MG CAP PO SCH (22:04)
[2021-06-16] MEDS: LEVOTHYROXINE SODIUM 50 MCG TABLET PO SCH (05:43)
[2021-06-16] MEDS: SERTRALINE HCL 100 MG TABLET PO SCH (08:03)
[2021-06-16] MEDS: SUCRALFATE 1 GM TAB PO SCH ×2 (08:04→11:27)
[2021-06-16] MEDS: lamoTRIgine 25 MG TAB PO SCH (08:04)
[2021-06-16] MEDS: busPIRone 15 MG TAB PO SCH (08:04)
[2021-06-16] MEDS: PANTOprazole 40 MG TAB PO SCH (08:04)
[2021-06-16] MEDS: lamoTRIgine 100 MG TAB PO SCH (08:04)
[2021-06-16] MEDS: POTASSIUM CHLORIDE CRTAB 20 MEQ TABCR PO SCH (08:05)
[2021-06-16] MEDS: TOPIRAMATE 25 MG TAB PO SCH (08:06)
[2021-06-16] MEDS: lisinopril 20 MG TAB PO SCH (08:13)
--- NOTE | 2021-06-16 10:38 | Gastroenterology Progress Note ---
Date of Service June 16, 2021 Assessment & Plan (1) Gastritis: Plan: -Continue Protonix 40 mg BID for now -Follow-up in our office in 2-4 weeks -If needed, can use Carafate 1 gm four times daily before meals and at bedtime Admission and Anticipated Discharge Date Admission Date: June 13, 2021 Supervising Physician Co-Signing Physician Notes Agree with MAGDA Navarro as above Abd: Soft, NT, ND, +BS Tolerating PO intake Continue current therapy and supportive care Followup in our office as an outpatient for further evaluation and recommendations. Subjective Patient is a 50 yo female with nausea & vomiting. She underwent an EGD yesterday that indicated erosive gastritis. She reports resolution of her GI symptoms. She is eager to return home. She is on Protonix 40 mg BID. Review of Systems Constitutional: no fever and no chills Respiratory: no cough and no dyspnea Cardiovascular: no chest pain Gastrointestinal: no abdominal pain, no nausea and no vomiting Physical Exam Constitutional: well developed Respiratory: normal respiratory effort, lungs clear to auscultation Cardiovascular: Rate/Rhythm: regular rate Gastrointestinal (Abdomen): normal bowel sounds, soft, nontender, no hepatosplenomegaly Psychiatric: A+Ox3, euthymic affect Results & Data Results & Data ([facility]) Vital Signs (Past 12 Hours) Vital Signs Temp Pulse Resp BP Pulse Ox 06/16/21 08:12 95/62 L 06/16/21 07:32 36.6 C 78 16 96/64 L 93 PG Care Time/CCT Total # of Minutes Spent Total Time Spent with Patient: Total time spent is greater than 50% in coordination of care (as documented) at patient's floor/unit and/or counseling patient: Coding Level of Care Code 69349 Subseq Hosp Care Lvl 2 Diagnoses Gastritis K29.00 Chronicity: acute Gastritis bleeding: presence of bleeding unspecified Gastritis type: unspecified gastritis (1) Gastritis Chronicity: acute Gastritis bleeding: presence of bleeding unspecified Gastritis type: unspecified gastritis Qualified Code(s): K29.00 - Acute gastritis without bleeding
--- NOTE | 2021-06-16 20:25 | Discharge Summary ---
Date of Service June 16, 2021 Admission HPI Per Admitting Provider Aleja Addison is a 50yo female presenting with ongoing nausea. She reports her symptoms have been ongoing for at least 10 days. She has had significant nausea with post-prandial vomiting of mostly undigested food and yellow liquid. She has the feeling of fullness and globus in her throat as well as a foul taste in her mouth. Also with epigastric and lower abdominal pain. Patient was seen by her PCP by [facility] on 06/03 with complaints of body aches, headache, loss of taste/smell, nausea, upset stomach, loss of appetite and fatigue. Covid-19 infection suspected at that time - test was NEGATIVE. She was seen by her PCP on 06/04 with continued symptoms as well as chills, diaphoresis, body aches and was sent to the ER due to inability to tolerate PO intake. Workup at the ER was unremarkable. Covid test was again NEGATIVE. She was given IV NSS, Zofran, Toradol, Benadryl and Phenergan and ultimately discharged home with Phenergan. Patient seen in the ER again on 06/07 - workup unremarkable and patient was discharged home. She was seen by her PCP on 06/10 with similar symptoms thought to be secondary to hiatal hernia rather than GERD. Her Zofran was refilled. Patient has had some hot flashes and chills but denies true fever. She has had decreased oral intake and BMs - no melena or hematochezia. She has had occasional dizziness, palpitations and SOB. Principal Diagnosis Nausea and vomiting secondary gastritis and gastric erosions Discharge Exam The patient appeared well Vital signs as documented. Lungs are clear to auscultation and appear unlabored Cardiac exam, Rhythm is regular.. No murmurs, rubs or gallops. Abdominal exam reveals normal bowel sounds, soft non tender, no masses Extremities are nonedematous and both pedal pulses are normal. Neurologic exam is alert and oriented, no focal loss of strength or sensation Skin is without bruises or rashes Psychologically is without concerns for anxiety or depression. Discharge Data Allergies Allergy/AdvReac Type Severity Reaction Status Date / Time methylene blue Allergy Intermediate seizures Verified 06/13/21 15:58 Consultations 06/13/21 19:07 ED Decision to Admit Stat 06/13/21 19:42 Consult Gastroenterology Routine Procedures Performed Operation Date: 06/15/21 16:30 Actual Procedures p EGD Biopsy Cytology - Shimon G. Case, DO Ordered Studies 06/13/21 14:49 CT abd pelvis IV con only Stat 06/14/21 14:59 US abdomen limited Routine Hospital Course (1) Vomitinyo female presenting with 10 days of nausea, post-prandial vomiting and inability to tolerate PO. Also with epigastric tenderness, globus sensation and fullness in throat. Patient with history of GERD and hiatal hernia. Denies melena/hematochezia. She is afebrile, HD stable, slightly dry in appearance. PO challenge in ER with crackers failed resulting in vomiting. CT Abdomen is negative for acute process. -EGD performed June 15, 2021 shows normal esophagus with moderate inflammation characterized by erosions and erythema found in the entire examined stomach with biopsies taken. Small hiatal hernia the duodenum being normal recommending medical management LFTs are with resolving transaminitis -Patient with history of breast CA in remission - doubtful but may consider brain imaging as additional workup for ongoing nausea. Seems to be GI in nature (2) Abdominal pain, epigastric: Gastritis and gastric erosions. -Protonix BID as above may add Carafate for 5 days -Commend GI follow-up (3) Hyponatremia: Resolved. -Resume medications at time of discharge - (4) Transaminitis: History of same. 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 Only shown hepatic steatosis with a pathology noted (5) HTN (hypertension): Blood pressure stable -Continue Lisinopril/hctz - (6) GERD without esophagitis: Chronic -Continue Protonix - BID (7) Hypothyroidism: Chronic -Continue Synthroid (8) Hypercholesterolemia: (9) Depression with anxiety: Chronic. -Continue Suspirone -Continue Hydroxyzine PRN -Continue Prazosin -Continue Sertraline Total Time Total Time Spent Total Time Spent (In Minutes): It required greater than 30 minutes to prepare this patient for discharge Discharge Plan Discharge Items Patient Disposition: Home - Self-Care Reason For Visit: NAUSEA Discharge Diagnosis: gastritis and gastric erosions Condition on Discharge: Good Activity: Resume your previous activity Non-emergency contact: Primary Care Provider and Plant Sprayer Call non-emergency contact if: your symptoms worsen and you have a fever Follow-up/Referrals: Salvatore Parra III, CRNP [Primary Care Provider] - 06/29/21 4:00 pm Diet: Regular Addtl Attending Provider Instructions: To help lessen your symptoms of gastritis take medication as prescribed and here are some suggested Foods to eat: High-fiber foods such as raw vegetables, whole grains and beans. Low-fat foods such as lean meat and dairy products. Probiotics such as kombucha, yogurt, kimchi, and sauerkraut Foods to avoid: Carbonated drinks Fried foods Spicy foods Allergenic foods Pending Studies at Discharge: Yes Studies:: some biopsies were taken during Endoscopy, these will be relayed to you thru your follow up appointments Stand-Alone Forms: My [facility], Smoking Cessation Medications and DC Order Prescriptions: New sucralfate 1 gram Tablet 1 g PO ACHS Qty: 20 RF: 0 Continued buspirone 30 mg tablet 30 mg PO BID RF: 0 Rexulti 2 mg tablet 2 mg PO HS RF: 0 cholecalciferol (vitamin D3) [Vitamin D3] 2,000 unit capsule 2,000 units PO QAM RF: 0 cyanocobalamin (vitamin B-12) [Vitamin B-12] 1,000 mcg tablet 1,000 mcg PO QAM RF: 0 prazosin [Minipress] 2 mg capsule 2 mg PO HS RF: 0 levothyroxine [Synthroid] 50 mcg tablet 50 mcg PO QAM RF: 0 sertraline [Zoloft] 100 mg tablet 200 mg PO QAM RF: 0 promethazine 25 mg tablet 25 - 50 mg PO Q6H PRN (Reason: nausea and vomiting) Qty: 20 RF: 1 nicotine [Nicoderm CQ] 14 mg/24 hr patch 24 hour 14 mg transdermal Q24H RF: 0 naltrexone 50 mg tablet 25 mg PO HS RF: 0 hydroxyzine HCl 25 mg tablet 25 mg PO TID PRN (Reason: Anxiety) RF: 0 topiramate [Topamax] 50 mg tablet See Rx Instructions .ROUTE .COMPLEX RF: 0 ondansetron HCl [Zofran] 4 mg tablet 4 mg PO Q8H PRN (Reason: Nausea And Vomiting) RF: 0 atorvastatin [Lipitor] 20 mg tablet 20 mg PO QAM RF: 0 lamotrigine [Lamictal] 200 mg tablet 200 mg PO BID RF: 0 promethazine [Promethegan] 25 mg suppository 25 mg [place] Q6H PRN (Reason: sedation) RF: 0 potassium chloride [Klor-Con 10] 10 mEq tablet extended release 20 meq PO BID RF: 0 lamotrigine [Lamictal] 25 mg tablet 25 mg PO BID RF: 0 lisinopril-hydrochlorothiazide [Zestoretic] 20-25 mg tablet 1 tab PO QAM RF: 0 Changed pantoprazole [Protonix] 40 mg tablet,delayed release (DR/EC) 40 mg PO BID Qty: 60 RF: 4 Discharge Orders: Discharge Order (Routine); Ordered 06/16/21 Ordered By: Félix Bazan Admission Data Admit Date/Time: 06/13/21 19:42 Attending Provider: Félix Bazan Admit Provider: Evelyn Singleton Primary Care Provider: Salvatore Parra III Other Providers: Shimon Gomez ; Evelyn Singleton Other Interventions: Discharge Summary Assessment (RN) Last Done: 06/16/21 16:23 Coding Level of Care Code D/C DAY MANAGEMENT >30 MINS Diagnoses Vomiting R11.2 Nausea presence: with nausea Vomiting Intractability: non-intractable Vomiting type: unspecified Abdominal pain, epigastric R10.13 Hyponatremia E87.1 Transaminitis R74.01 HTN (hypertension) I10 Hypertension type: essential hypertension GERD without esophagitis K21.9 Hypothyroidism E03.9 Hypercholesterolemia E78.00 Depression with anxiety F41.8
== END 2021-06-16 04:50 | disposition home or self-care (01) | DRG 392 ==
LOC: ED 13:50 → 3W 19:42 → SUATTDRO 19:42 → 3W 21:24

== ENCOUNTER 2021-07-03 14:40 | Inpatient (IN) ==
--- NOTE | 2021-07-03 15:06 | Emergency Department Note ---
History of Present Illness General Chief Complaint: Abnormal Labs/Diagnostic Testing Stated Complaint: ABNORMAL MRI Time Seen by Provider: 07/03/21 15:04 Source: patient Mode of arrival: ambulatory Limitations: no limitations History of Present Illness Provider Complaint: + other (Abnormal MRI which was completed earlier today which showed possible infarct at the corpus callosum) Returns today for: + persistent/worsening pain related to initial visit Description of abnormal result: Abnormal MRI Symptoms since prior visit: + no new symptoms Context: + other (Called about abnormal MRI result) Associated symptoms: + nausea; no chest pain or no shortness of breath Treatments prior to arrival: + none Home Medications Medication Instructions Recorded Confirmed Type cholecalciferol (vitamin D3) 50 2,000 units PO QAM cap 07/11/19 07/03/21 History mcg (2,000 unit) capsule (Vitamin D3) cyanocobalamin (vitamin B-12) 1,000 mcg PO QAM tab 07/11/19 07/03/21 History 1,000 mcg tablet (Vitamin B-12) buspirone 30 mg tablet 30 mg PO BID 07/27/19 07/03/21 History brexpiprazole 2 mg tablet (Rexulti) 2 mg PO HS tab 09/26/20 07/03/21 History prazosin 2 mg capsule (Minipress) 2 mg PO HS 10/10/20 07/03/21 History sertraline 100 mg tablet (Zoloft) 200 mg PO QAM 01/29/21 07/03/21 History levothyroxine 50 mcg tablet 50 mcg PO QAM 02/20/21 07/03/21 History (Synthroid) promethazine 25 mg tablet 25 - 50 mg PO Q6H PRN #20 tab 06/04/21 07/03/21 Rx atorvastatin 20 mg tablet (Lipitor) 20 mg PO QAM 06/13/21 07/03/21 History hydroxyzine HCl 25 mg tablet 25 mg PO TID PRN 06/13/21 07/03/21 History lamotrigine 200 mg tablet 200 mg PO BID 06/13/21 07/03/21 History (Lamictal) lamotrigine 25 mg tablet (Lamictal) 25 mg PO BID 06/13/21 07/03/21 History lisinopril 20 1 tab PO QAM 06/13/21 07/03/21 History mg-hydrochlorothiazide 25 mg tablet (Zestoretic) naltrexone 50 mg tablet 25 mg PO HS 06/13/21 07/03/21 History nicotine 14 mg/24 hr daily 14 mg TRANSDERMAL Q24H 06/13/21 07/03/21 History transdermal patch (Nicoderm CQ) ondansetron HCl 4 mg tablet 4 mg PO Q8H PRN 06/13/21 07/03/21 History (Zofran) potassium chloride 10 mEq 20 meq PO BID 06/13/21 07/03/21 History tablet,extended release (Klor-Con) promethazine 25 mg [address] Q6H PRN 06/13/21 07/03/21 History suppository (Promethegan) topiramate 50 mg tablet (Topamax) See Rx Instructions .ROUTE .COMPLEX 06/13/21 07/03/21 History pantoprazole 40 mg tablet,delayed 40 mg PO BID #60 tab 06/16/21 07/03/21 Rx release (Protonix) Allergies Allergy/AdvReac Type Severity Reaction Status Date / Time methylene blue Allergy Intermediate seizures Verified 07/03/21 16:31 Past Med/Surg History Medical History Anxiety Breast cancer (07/13/16) Degenerative disc disease Depression Diverticular disease GERD (gastroesophageal reflux disease) Hiatal hernia History of Clostridium difficile infection History of diverticulitis History of seizures last seizure 1.5 yrs ago HLD (hyperlipidemia) HTN (hypertension) Hypothyroidism Obesity (BMI 30-39.9) Osteoarthritis PTSD (post-traumatic stress disorder) Surgical History History of anesthesia reaction "I had a seizure coming out of anesthesia." -- hyster 2018 @ [facility] History of breast biopsy History of cholecystectomy History of lumpectomy of left breast History of removal of Port-a-Cath History of tooth extraction History of total hysterectomy with bilateral salpingo-oophorectomy (BSO) History of vascular access device Family History Mother Breast cancer Father Myocardial infarction Grandmother (Maternal) Breast cancer Grandmother (Paternal) Breast cancer Sister Migraine Denies family history of Ovarian cancer Prostate cancer Colorectal cancer Social History Smoking Status: Current every day smoker Tobacco Type: Cigarettes Age Started Using Tobacco: 28; packs per day: 1.5; Cigarettes Per Day: 15 per day; Second Hand Exposure: Yes; Do You Dip or Chew Tobacco: No; Tobacco Cessation Education Requested by Patient: No Hx Alcohol Use: Yes Alcohol type: hard liquor Hx Substance Use: No Preferred Language: Ecuadorean Communication Ability: Effective Visual Impairment: No Limitations Hearing Ability: Normal Manager Analysis Required: No Beliefs That Will Affect Care: None marital status: Current Living Situation: Spouse current occupational status: unemployed Other Information That Helps Us Care for You: No Feels Safe at Home: Yes Safety Concerns: Feels Safe At This Time Childhood Exposure to Second-Hand Smoke: No Dental Care, Regularly: No Physical Activity Frequency: Does not Exercise Seatbelt Use: always Sunscreen Use: No Assistive Devices: Denture - Upper and Glasses Review of Systems See HPI for pertinent positives & negatives. and A total of 10 systems reviewed and were otherwise negative Physical Exam Vital Signs: Vital Signs - 24 hr 07/03/21 18:10 07/03/21 19:28 Pulse Rate [Finger ] 84 86 Respiratory Rate 18 20 Respiratory Effort / Characteristics Non-Labored Respiratory Depth Normal Blood Pressure [Ri ght Arm] 114/55 L 99/76 L Blood Pressure T[place] n [Right Arm] 74 83 Pulse Oximetry 97 94 Oxygen Delivery Me thod Room Air Room Air Physical Exam: GENERAL: Wearing glasses and a mask, NAD, non-toxic. EYE EXAM: Normal conjunctiva. PERRL, no anisocoria and EOM's grossly intact w/o pain. NECK: Supple, no nuchal rigidity, no adenopathy, non-tender. No signs of meningismus. LUNGS: Clear to auscultation. Normal chest wall mechanics. HEART: NSR, no MRG. ABDOMEN: Abdomen soft, non-tender, normo-active bowel sounds, no masses, no rebound or guarding. BACK: No CVA TTP. SKIN: No rashes and no bruising. UPPER EXTREMITIES: Upper extremities are grossly normal. LOWER EXTREMITIES: Grossly normal, no edema. NEURO EXAM: A&O x3, cranial nerves II-XII grossly intact, normal speech, moves all 4 extremities on command w/o issue. [Good finger to nose, no drift, no sensory deficits.] Course Course Cardiac monitoring: An order was placed for continuous cardiac monitoring. The monitor shows a rate of 75 with sinus rhythm. Administered Medications Aspirin (Aspirin 81 Mg Ectab) 81 mg PO QAM [facility] Stop: 08/03/21 08:59 Last Admin: 07/04/21 08:40 Dose: 81 mg Documented by: [id number] Atorvastatin Calcium (Atorvastatin 40 Mg Tab) 80 mg PO QAM [facility] Stop: 08/03/21 08:59 Last Admin: 07/04/21 08:40 Dose: 80 mg Documented by: [id number] Buspirone HCl (Buspirone 15 Mg Tab) 30 mg PO BID [facility] Stop: 08/02/21 23:26 Last Admin: 07/04/21 08:40 Dose: 30 mg Documented by: [id number] Admin: 07/04/21 00:55 Dose: 30 mg Documented by: [id number] Cyanocobalamin (Cyanocobalamin 500 Mcg Tablet (Vitamin B-12)) 1,000 mcg PO QAM [facility] Stop: 08/03/21 08:59 Last Admin: 07/04/21 08:40 Dose: 1,000 mcg Documented by: [id number] Sodium Chloride (Nss 1000ml) 1,000 mls @ 80 mls/hr IV .[id number] [facility] Stop: 08/03/21 13:29 Last Admin: 07/04/21 14:38 Dose: 80 mls/hr Documented by: [id number] Lamotrigine (Lamotrigine 100 Mg Tab) 200 mg PO BID [facility] Stop: 08/02/21 23:26 Last Admin: 07/04/21 08:40 Dose: 200 mg Documented by: [id number] Admin: 07/04/21 00:56 Dose: 200 mg Documented by: [id number] Lamotrigine (Lamotrigine 25 Mg Tab) 25 mg PO BID [facility] Stop: 08/02/21 23:26 Last Admin: 07/04/21 08:40 Dose: 25 mg Documented by: [id number] Admin: 07/04/21 00:56 Dose: 25 mg Documented by: [id number] Levothyroxine Sodium (Levothyroxine Sodium 50 Mcg Tablet) 50 mcg PO DAILYBB [facility] Stop: 08/03/21 06:29 Last Admin: 07/04/21 05:57 Dose: 50 mcg Documented by: [id number] Genaroaneous (Brexpiprazole [Rexulti]: Order Awaiting Action) 1 ea N/A QS [facility] Stop: 08/03/21 00:00 Last Admin: 07/04/21 15:27 Dose: Not Given Documented by: [id number] Admin: 07/04/21 10:48 Dose: Not Given Documented by: [id number] Admin: 07/04/21 01:09 Dose: Not Given Documented by: [id number] Miscellkacie (Remove Nicoderm Patch) 1 ea N/A DAILY [facility] Stop: 08/03/21 08:59 Last Admin: 07/04/21 10:48 Dose: Not Given Documented by: [id number] Naltrexone HCl (Naltrexone Hcl 50 Mg Tab) 25 mg PO [facility] Stop: 08/02/21 23:26 Last Admin: 07/04/21 00:57 Dose: 25 mg Documented by: [id number] Nicotine (Nicotine 14 Mg/24 Hr Patch) 14 mg TD DAILY [facility] Stop: 08/03/21 08:59 Last Admin: 07/04/21 08:41 Dose: 14 mg Documented by: [id number] Ondansetron HCl (Ondansetron Inj 2 Mg/Ml 2 Ml Vial) 4 mg IV Q6H PRN PRN Reason: Nausea Stop: 08/02/21 23:26 Last Admin: 07/04/21 09:04 Dose: 4 mg Documented by: [id number] Sertraline HCl (S[facility]ine Hcl 100 Mg Tablet) [facility] [place]: 08/03/21 08:59 Last Admin: 07/04/21 08:40 Dose: 200 mg Documented by: [id number] Topiramate (Topiramate 50 Mg Tab) 50 mg PO [facility] Stop: 08/02/21 23:26 Last Admin: 07/04/21 00:59 Dose: 50 mg Documented by: [id number] Topiramate (Topiramate 50 Mg Tab) [facility] [place] Stop: 08/03/21 08:59 Last Admin: 07/04/21 08:41 Dose: 25 mg Documented by: [id number] Vitamin D (Cholecalciferol 1,000 Units 25 Mcg Tab) 2,000 units PO QAM [facility] Stop: 08/03/21 08:59 Last Admin: 07/04/21 08:40 Dose: 2,000 units Documented by: [id number] Discontinued Medications Acetaminophen (Acetaminophen 325 Mg Tab) 325 mg PO NOW ONE Stop: 07/04/21 08:53 Last Admin: 07/04/21 13:11 Dose: Not Given Documented by: [id number] Diphenhydramine HCl (Diphenhydramine 50 Mg/Ml Vial) 12.5 mg IV NOW STA Stop: 07/03/21 15:33 Last Admin: 07/03/21 15:49 Dose: 12.5 mg Documented by: [id number] Gadobutrol (Gadobutrol 65ml Vial) 10.7 ml IV ONCE ONE Stop: 07/04/21 14:01 Last Admin: 07/04/21 14:01 Dose: 10.7 ml Documented by: [id number] Sodium Chloride (Nss 1000ml) 1,000 mls @ 999 mls/hr IV .Q1H1M [facility] Stop: 07/03/21 16:45 Last Infusion: 07/03/21 16:59 Dose: 0 mls/hr Documented by: [id number] Admin: 07/03/21 15:49 Dose: 999 mls/hr Documented by: [id number] Magnesium Sulfate/Dextrose (Magnesium Sulfate / D5w) 1 gm in 100 mls @ 100 mls/hr IV NOW ONE Stop: 07/03/21 16:31 Last Infusion: 07/03/21 16:28 Dose: 0 mls/hr Documented by: [id number] Admin: 07/03/21 15:50 Dose: 100 mls/hr Documented by: [id number] Ioversol (Optiray 320 125ml) 116 ml IV ONCE ONE Stop: 07/03/21 20:44 Last Admin: 07/03/21 20:44 Dose: 116 ml Documented by: [id number] Ondansetron HCl (Ondansetron Inj 2 Mg/Ml 2 Ml Vial) 4 mg IV NOW STA Stop: 07/03/21 15:33 Last Admin: 07/03/21 15:49 Dose: 4 mg Documented by: [id number] Pantoprazole Sodium (Pantoprazole 40 Mg Tab) 40 mg PO BID [facility] Stop: 08/02/21 23:26 Last Admin: 07/04/21 08:40 Dose: 40 mg Documented by: [id number] Admin: 07/04/21 00:58 Dose: 40 mg Documented by: [id number] Medical Decision Making Differential Diagnosis Infection, dehydration, metabolic abnormality, hypo/hyperglycemia, electrolyte disturbance, anemia, hypoxia, cardiac sources, intracerebral event, toxicologic, neurologic, as well as other pathologies. Medical Records Attestation: I reviewed the patient's medical records. Home Medications Current Medication List: was personally reviewed by me Laboratory Data Attestation: I reviewed the patient's lab results. Result diagrams: 07/04/21 05:27 07/04/21 05:27 Lab Results 07/03/21 07/03/21 07/03/21 Range/Units 15:43 15:43 15:43 WBC 5.92 (4.8-10.8) K/uL RBC 4.35 (4.2-5.4) M/uL Hgb 13.2 (12.0-16.0) g/dL Hct 39.3 (37-47) % MCV 90.3 (80-100) fL MCH 30.3 (25-34) pg MCHC 33.6 (32-36) g/dL RDW Std Deviation 46.5 H (36.4-46.3) fL RDW Coeff of Tammi 14.1 (11.5-14.5) % Plt Count 176 (130-400) K/uL MPV 10.9 H (7.4-10.4) fL Immature Gran % (Auto) 0.2 % Neut % (Auto) 57.3 % Lymph % (Auto) 32.1 % Fannin % (Auto) 6.4 % Eos % (Auto) 3.5 % Baso % (Auto) 0.5 % Neut # (Auto) 3.39 (1.4-6.5) K/uL Lymph # (Auto) 1.90 (1.2-3.4) K/uL Fannin # (Auto) 0.38 (0.11-0.59) K/uL Eos # (Auto) 0.21 (0-0.5) K/uL Baso # (Auto) 0.03 (0-0.2) K/uL Immature Gran # (Auto) 0.01 (0.00-0.02) K/uL Sodium 141 (136-145) mmol/L Potassium 3.2 L (3.5-5.1) mmol/L Chloride 111 H (98-107) mmol/L Carbon Dioxide 26 (21-32) mmol/L Anion Gap 4.0 (3-11) BUN 9 (7-18) mg/dl Creatinine 0.74 (0.6-1.2) mg/dl Est Cr Clr Drug Dosing 112.8 ml/min Est GFR ( Amer) 111.0 ml/min Est GFR (Non-Af Amer) 95.8 ml/min BUN/Creatinine Ratio 11.8 (10-20) Glucose 83 (70-99) mg/dl Calcium 8.8 (8.5-10.1) mg/dl Magnesium 2.2 (1.8-2.4) mg/dl Total Bilirubin 0.5 (0.2-1) mg/dl AST 68 H (15-37) U/L ALT 93 H (12-78) U/L Alkaline Phosphatase 118 H (45-117) U/L Total Protein 7.3 (6.4-8.2) gm/dl Albumin 3.8 (3.4-5.0) gm/dl Globulin 3.5 (2.5-4.0) gm/dl Albumin/Globulin Ratio 1.1 (0.9-2) Triglycerides 204 H (0-150) mg/dl Cholesterol 179 (0-200) mg/dl LDL Cholesterol, Calc 97 mg/dl VLDL Cholesterol, Calc 41 mg/dl HDL Cholesterol 41 mg/dl Cholesterol/HDL Ratio 4 TSH 1.290 (0.300-4.500) uIu/ml Urine Color Urine Appearance (Clear) Urine pH (4.5-7.5) Ur Specific Sundown (1.000-1.030) Urine Protein (Negative) Urine Glucose (UA) (Negative) Urine Ketones (Negative) Urine Blood (Negative) Urine Nitrite (Negative) Urine Bilirubin (Negative) Urine Urobilinogen (Negative) Ur Leukocyte Esterase (Negative) COVID-19 Eval Order SARS-CoV-2 (PCR) (Negative) 07/03/21 07/03/21 07/03/21 Range/Units 15:55 16:14 16:14 WBC (4.8-10.8) K/uL RBC (4.2-5.4) M/uL Hgb (12.0-16.0) g/dL Hct (37-47) % MCV (80-100) fL MCH (25-34) pg MCHC (32-36) g/dL RDW Std Deviation (36.4-46.3) fL RDW Coeff of Tammi (11.5-14.5) % Plt Count (130-400) K/uL MPV (7.4-10.4) fL Immature Gran % (Auto) % Neut % (Auto) % Lymph % (Auto) % Fann[place] % (Auto) % Eos % (Auto) % Baso % (Auto) % Neut # (Auto) (1.4-6.5) K/uL Lymph # (Auto) (1.2-3.4) K/uL Fannin # (Auto) (0.11-0.59) K/uL Eos # (Auto) (0-0.5) K/uL Baso # (Auto) (0-0.2) K/uL Immature Gran # (Auto) (0.00-0.02) K/uL Sodium (136-145) mmol/L Potassium (3.5-5.1) mmol/L Chloride (98-107) mmol/L Carbon Dioxide (21-32) mmol/L Anion Gap (3-11) BUN (7-18) mg/dl Creatinine (0.6-1.2) mg/dl Est Cr Clr Drug Dosing ml/min Est GFR ( Amer) ml/min Est GFR (Non-Af Amer) ml/min BUN/Creatinine Ratio (10-20) Glucose (70-99) mg/dl Calcium (8.5-10.1) mg/dl Magnesium (1.8-2.4) mg/dl Total Bilirubin (0.2-1) mg/dl AST (15-37) U/L ALT (12-78) U/L Alkaline Phosphatase (45-117) U/L Total Protein (6.4-8.2) gm/dl Albumin (3.4-5.0) gm/dl Globulin (2.5-4.0) gm/dl Albumin/Globulin Ratio (0.9-2) Triglycerides (0-150) mg/dl Cholesterol (0-200) mg/dl LDL Cholesterol, Calc mg/dl VLDL Cholesterol, Calc mg/dl HDL Cholesterol mg/dl Cholesterol/HDL Ratio TSH (0.300-4.500) uIu/ml Urine Color Yellow Urine Appearance Clear (Clear) Urine pH 5.5 (4.5-7.5) Ur Specific Sundown 1.014 (1.000-1.030) Urine Protein Negative (Negative) Urine Glucose (UA) Negative (Negative) Urine Ketones Negative (Negative) Urine Blood Negative (Negative) Urine Nitrite Negative (Negative) Urine Bilirubin Negative (Negative) Urine Urobilinogen Negative (Negative) Ur Leukocyte Esterase Negative (Negative) COVID-19 Eval Order Covid19 at [facility] SARS-CoV-2 (PCR) NEGATIVE (Negative) Imaging Data Radiologist's Impression: Reviewed the patient's outpatient MRI which did show this possible infarct within the corpus callosum. Chest X-Ray 07/03/21 15:32 SINGLE VIEW CHEST CLINICAL HISTORY: Generalized weakness. FINDINGS: An AP, portable, upright chest radiograph is compared to study dated 06/04/2021. The cardiomediastinal silhouette is unremarkable. There is bibasilar atelectasis. The lungs and pleural spaces are otherwise clear. No pneumothorax is seen. The bony thorax is grossly intact. IMPRESSION: No active disease in the chest. ACT 112: Negative or not required by law. Electronically signed by: Gallito Patel M.D. 07/03/2021 4:00 PM ECG Data Attestation: I personally reviewed and interpreted this ECG as follows: Additional Comments: Normal sinus rhythm, rate 85, normal intervals, normal axis, no ST changes T [place] MDM Narrative Patient was seen as a referral due to concern for abnormal MRI for possible infarct. The patient has been seen several times due to concern for nausea and vomiting with unremarkable imaging and blood work. The patient is a smoker and is not vaccinated for Covid. The patient has complained of some posterior occipital headache that is nonradiating. The patient has not taken anything for the discomfort at home. Patient has had the nausea with the vomiting. The patient denies any recent falls or head trauma. The patient does not take any blood thinning medications. Patient did have blood work completed which is grossly unremarkable. Given the patient's concern on MR I did speak with the on-call hospitalist and the patient was admitted to the medicine service. Impression & Plan Acute CVA (cerebrovascular accident), Nausea & vomiting, Headache Discharge Plan Visit Data Chief Complaint: Abnormal Labs/Diagnostic Testing Stated Complaint: ABNORMAL MRI ED Provider: Jose Elias Castro Discharge Problem: Acute CVA (cerebrovascular accident), Nausea & vomiting, Headache Patient Disposition: Admitted As Inpatient Discharge Instructions Interventions: ED Discharge Assessment Last Done: 07/03/21 22:46
[2021-07-03] MEDS ORDERED: MAGNESIUM SULFATE / D5W 1 GM/100 ML BAG IV ONE (15:32)
[2021-07-03] MEDS ORDERED: diphenhydrAMINE 50 MG/ML VIAL IV STA (15:32)
[2021-07-03] MEDS ORDERED: ONDANSETRON INJ 2 MG/ML 2 ML VIAL IV STA (15:32)
[2021-07-03] MEDS ORDERED: SODIUM CHLORIDE 0.9% 1000ML 1,000 ML IV SCH (15:45)
--- NOTE | 2021-07-03 16:02 | XRay Report ---
SINGLE VIEW CHEST CLINICAL HISTORY: Generalized weakness. FINDINGS: An AP, portable, upright chest radiograph is compared to study dated 06/04/2021. The cardiom ediastinal silhouette is unremarkable. There is bibasilar atelectasis. The lungs and pleural spaces a re otherwise clear. No pneumothorax is seen. The bony thorax is grossly intact. IMPRESSION: No active disease in the chest. ACT 112: Negative or not required by law. Electronically signed by: Gallito Patel M.D. 07/03/2021 4:00 PM
[2021-07-03 16:05] LABS: Basophils # (auto) 0.03 K/uL (0-0.2); Basophils % (auto) 0.5 %; Eosinophils # (auto) 0.21 K/uL (0-0.5); Eosinophils % (auto) 3.5 %; Hematocrit (blood only) 39.3 % (37-47); Hemoglobin 13.2 g/dL (12.0-16.0); Immature Granulocytes # (auto) 0.01 K/uL (0.00-0.02); Immature Granulocytes % (auto) 0.2 %; Lymphocytes % (auto) 32.1 %; Mean Corpuscular Hemoglobin 30.3 pg (25-34); Mean Corpuscular Hgb Conc 33.6 g/dL (32-36); Mean Corpuscular Volume 90.3 fL (80-100); Mean Platelet Volume 10.9 fL (7.4-10.4); Monocytes # (auto) 0.38 K/uL (0.11-0.59); Monocytes % (auto) 6.4 %; Neutrophils # (auto) 3.39 K/uL (1.4-6.5); Neutrophils % (auto) 57.3 %; Platelet Count 176 K/uL (130-400); RDW Coefficient of Variation 14.1 % (11.5-14.5); RDW Standard Deviation 46.5 fL (36.4-46.3); Red Blood Count 4.35 M/uL (4.2-5.4); White Blood Count 5.92 K/uL (4.8-10.8)
[2021-07-03 16:14] LABS: Appearance Urine Clear (Clear); Bilirubin Urine Negative (Negative); Blood Urine Negative (Negative); Color Urine Yellow; Glucose Urine UA Negative (Negative); Ketones Urine Negative (Negative); Leukocyte Esterase Urine Negative (Negative); Nitrite Urine Negative (Negative); Protein Urine Negative (Negative); Specific Gravity Urine 1.014 (1.000-1.030); Urobilinogen Urine Negative (Negative); pH Urine 5.5 (4.5-7.5)
[2021-07-03 16:22] LABS: Albumin Level 3.8 gm/dl (3.4-5.0); BUN Creatinine Ratio 11.8 (10-20); Calcium 8.8 mg/dl (8.5-10.1); Creatinine Clr Calc Pharmacy 112.8 ml/min; Est GFR (Non-African American) 95.8 ml/min; Magnesium 2.2 mg/dl (1.8-2.4); Potassium 3.2 mmol/L (3.5-5.1)
[2021-07-03 16:33] LABS: Albumin Globulin Ratio 1.1 (0.9-2); Bilirubin,Total 0.5 mg/dl (0.2-1); Globulin 3.5 gm/dl (2.5-4.0); Thyroid Stimulating Hormone 1.29 uIu/ml (0.300-4.500); Total Protein 7.3 gm/dl (6.4-8.2)
--- NOTE | 2021-07-03 17:47 | Electrocardiogram Report ---
Test Reason : Blood Pressure : / mmHG Vent. Rate : 085 BPM Atrial Rate : 085 BPM P-R Int : 176 ms QRS Dur : 100 ms QT Int : 390 ms P-R-T Axes : 055 001 046 degrees QTc Int : 464 ms Normal sinus rhythm Normal ECG When compared with ECG of 13-JUN-2021 15:02, Minimal criteria for Anterior infarct are no longer Present Confirmed by Louie Cope ([id number]) on 07/03/2021 5:46:42 PM Referred By: REFERRED SELF Confirmed By:Jeremy Cope
--- NOTE | 2021-07-03 20:05 | History & Physical Report ---
Date of Service July 03, 2021 Assessment & Plan (1) CVA (cerebral vascular accident): (2) HTN (hypertension): (3) GERD without esophagitis: (4) Seizure disorder: (5) Hypothyroidism: (6) Depression with anxiety: (7) Hypercholesterolemia: (8) Breast cancer: Plan: 50 yo F Hx HTN, HLD, active smoker, breast cancer s/p chemorads and lumpectomy in 2016, GERD, seizure disorder, hypothyroidism, migraines, depression, anxiety admitted for suspected CVA. CVA, Hx breast cancer: Presented with 1 week of worsening nausea, vomiting, gait instability dizziness. Due to concern for brain metastasis from Hx breast cancer s/p chemorads, MRI performed. Findings noted: Subcentimeter focus of restricted diffusion involving the midline splenium of the corpus callosum is suggestive of an acute infarct. CTA Head/Neck ordered, pending. No TPA given due to outside of treatment interval. Encouraged smoking cessation for secondary risk prevention. A1c and lipid panel pending. Will start daily aspirin. No anticoagulation at this time given acute CVA. Echo ordered for AM. Neurology consulted. GERD without esophagitis, transaminitis: EGD May 2021 with erosive gastritis, started on BID PPI. Will continue. Has a history of elevated LFTs, noted on RUQ US in May to have hepatic steatosis. Suspect fatty liver, recommend weight loss. HTN, HLD: Holding lisinopril/HCTZ given hypotension and acute CVA. Continue atorvastatin at increased dose 80mg daily. Lipid panel ordered. Seizure disorder, anxiety, depression: [place] [facility]. Last seizure occurred in the fall 2018, and is on lamotrigine 225mg daily. Will also continue home brexipiprazole, Buspar, hydroxyzine, Zoloft. Code Status: FULL CODE FEN: Heart Healthy diet, tolerating swallow well and no indication for Speech evaluation prior to initiation of diet DVT ppx: SCDs, ad reza with assistance Dispo: Med/Surg with Telemetry History of Present Illness Chief Complaint: abnormal MRI; recent nausea, vomiting, gait instability Primary Care Provider: Salvatore Parra, III, HOLLI 50 yo F Hx HTN, HLD, breast cancer s/p chemorads and lumpectomy in 2016, GERD, seizure disorder, hypothyroidism, migraines, depression, anxiety presents due to abnormal MRI in outpatient, and also due to endorsement of several weeks of nausea, gait instability, headaches, and dizziness. She was recently admitted 05/2021 for workup of epigastric pain and nausea, with EGD performed that showed erosive gastritis. She also had RUQ US for chronic transaminitis which showed hepatic steatosis. On discharge she was started on BID PPI. Due to continued symptoms, and Hx breast cancer, MRI brain was ordered to rule out brain metastasis. MRI showed possible acute CVA in corpus callosum. Drs. Parra and Rosalind advised patient to be evaluated in the ER. In the ER labwork largely normal save for hypokalemia to 3.2. Patient denies chest pain, SOB, fevers or chills. Does still endorse epigastric tenderness and nausea, but her headache that she had on presentation is since resolved. Of note, patient is a current every day smoker. Allergies Allergy/AdvReac Type Severity Reaction Status Date / Time methylene blue Allergy Intermediate seizures Verified 07/03/21 16:31 Home Medications Medication Instructions Recorded Confirmed Type cholecalciferol (vitamin D3) 50 2,000 units PO QAM cap 07/11/19 07/03/21 History mcg (2,000 unit) capsule (Vitamin D3) cyanocobalamin (vitamin B-12) 1,000 mcg PO QAM tab 07/11/19 07/03/21 History 1,000 mcg tablet (Vitamin B-12) buspirone 30 mg tablet 30 mg PO BID 07/27/19 07/03/21 History brexpiprazole 2 mg tablet (Rexulti) 2 mg PO HS tab 09/26/20 07/03/21 History prazosin 2 mg capsule (Minipress) 2 mg PO HS 10/10/20 07/03/21 History sertraline 100 mg tablet (Zoloft) 200 mg PO QAM 01/29/21 07/03/21 History levothyroxine 50 mcg tablet 50 mcg PO QAM 02/20/21 07/03/21 History (Synthroid) promethazine 25 mg tablet 25 - 50 mg PO Q6H PRN #20 tab 06/04/21 07/03/21 Rx atorvastatin 20 mg tablet (Lipitor) 20 mg PO QAM 06/13/21 07/03/21 History hydroxyzine HCl 25 mg tablet 25 mg PO TID PRN 06/13/21 07/03/21 History lamotrigine 200 mg tablet 200 mg PO BID 06/13/21 07/03/21 History (Lamictal) lamotrigine 25 mg tablet (Lamictal) 25 mg PO BID 06/13/21 07/03/21 History lisinopril 20 1 tab PO QAM 06/13/21 07/03/21 History mg-hydrochlorothiazide 25 mg tablet (Zestoretic) naltrexone 50 mg tablet 25 mg PO HS 06/13/21 07/03/21 History nicotine 14 mg/24 hr daily 14 mg TRANSDERMAL Q24H 06/13/21 07/03/21 History transdermal patch (Nicoderm CQ) ondansetron HCl 4 mg tablet 4 mg PO Q8H PRN 06/13/21 07/03/21 History (Zofran) potassium chloride 10 mEq 20 meq PO BID 06/13/21 07/03/21 History tablet,extended release (Klor-Con) promethazine 25 mg rectal 25 mg ME Q6H PRN 06/13/21 07/03/21 History suppository (Promethegan) topiramate 50 mg tablet (Topamax) See Rx Instructions .ROUTE .COMPLEX 06/13/21 07/03/21 History pantoprazole 40 mg tablet,delayed 40 mg PO BID #60 tab 06/16/21 07/03/21 Rx release (Protonix) Past Med/Surg History Medical History Anxiety Breast cancer (07/13/16) Degenerative disc disease Depression Diverticular disease GERD (gastroesophageal reflux disease) Hiatal hernia History of Clostridium difficile infection History of diverticulitis History of seizures last seizure 1.5 yrs ago HLD (hyperlipidemia) HTN (hypertension) Hypothyroidism Obesity (BMI 30-39.9) Osteoarthritis PTSD (post-traumatic stress disorder) Surgical History History of anesthesia reaction "I had a seizure coming out of anesthesia." -- hyster 2018 @ [place] History of breast biopsy History of cholecystectomy History of lumpectomy of left breast History of removal of Port-a-Cath History of tooth extraction History of total hysterectomy with bilateral salpingo-oophorectomy (BSO) History of vascular access device Family History Mother Breast cancer Father Myocardial infarction Grandmother (Maternal) Breast cancer Grandmother (Paternal) Breast cancer Sister Migraine Denies family history of Ovarian cancer Prostate cancer Colorectal cancer Social History Smoking Status: Current every day smoker Tobacco Type: Cigarettes Age Started Using Tobacco: 28; packs per day: 1.5; Cigarettes Per Day: 15 per day; Second Hand Exposure: Yes; Do You Dip or Chew Tobacco: No; Tobacco Cessation Education Requested by Patient: No Hx Alcohol Use: Yes Alcohol type: hard liquor Hx Substance Use: No Preferred Language: [place] Communication Ability: Effective Visual Impairment: No Limitations Hearing Ability: Normal Skilled Laborer Required: No Beliefs That Will Affect Care: None marital status: Current Living Situation: Spouse current occupational status: unemployed Other Information That Helps Us Care for You: No Feels Safe at Home: Yes Safety Concerns: Feels Safe At This Time Childhood Exposure to Second-Hand Smoke: No Dental Care, Regularly: No Physical Activity Frequency: Does not Exercise Seatbelt Use: always Sunscreen Use: No Assistive Devices: Denture - Upper and Glasses Review of Systems Review of Systems: All systems reviewed & are unremarkable except as noted in HPI & below Constitutional: no fever, no chills and no malaise Respiratory: no cough and no dyspnea Cardiovascular: no chest pain, no palpitations and no edema Gastrointestinal: + abdominal pain (epigastric) and + nausea; no constipation and no diarrhea/loose stools Genitourinary: no dysuria and no hematuria Physical Exam Constitutional: WD/WN, vitals as above Eyes: PERRL, conjunctivae normal, anicteric sclerae ENMT: external ear and nose normal, oropharynx normal Neck: normal visual inspection Respiratory: normal respiratory effort, lungs clear to auscultation Cardiovascular: RRR, no murmur, no edema Gastrointestinal (Abdomen): normal bowel sounds, soft, nontender, no hepatosplenomegaly Musculoskeletal: no cyanosis or clubbing, extremities motor strength 5/5 Skin: no rashes, warm and dry Neurologic: AAOx3, normal speech. PERRLA, EOMI, no nystagmus. Normal visual acuity bilaterally. Bilateral UE, LE, and face without sensory or motor deficits. II-XII intact bilaterally. No pronator drift. No tremor. No ataxia. Psychiatric: A+Ox3, euthymic affect Results & Data Results & Data ([facility]) Vital Signs (Past 12 Hours) Vital Signs Temp Pulse Pulse Resp BP BP Pulse Ox 07/03/21 19:28 86 20 99/76 L 94 07/03/21 18:10 84 18 114/55 L 97 07/03/21 16:29 84 16 94/56 L 97 07/03/21 15:45 83 16 103/64 97 07/03/21 14:51 36.5 C 95 H 18 123/84 98 Diagnostic Findings Laboratory Results WBC 5.92 K/uL (4.8-10.8) 07/03/21 15:43 RBC 4.35 M/uL (4.2-5.4) 07/03/21 15:43 Hgb 13.2 g/dL (12.0-16.0) 07/03/21 15:43 Hct 39.3 % (37-47) 07/03/21 15:43 MCV 90.3 fL (80-100) 07/03/21 15:43 MCH 30.3 pg (25-34) 07/03/21 15:43 MCHC 33.6 g/dL (32-36) 07/03/21 15:43 RDW Std Deviation 46.5 fL (36.4-46.3) H 07/03/21 15:43 RDW Coeff of Tammi 14.1 % (11.5-14.5) 07/03/21 15:43 Plt Count 176 K/uL (130-400) 07/03/21 15:43 MPV 10.9 fL (7.4-10.4) H 07/03/21 15:43 Immature Gran % (Auto) 0.2 % 07/03/21 15:43 Neut % (Auto) 57.3 % 07/03/21 15:43 Lymph % (Auto) 32.1 % 07/03/21 15:43 Saline % (Auto) 6.4 % 07/03/21 15:43 Eos % (Auto) 3.5 % 07/03/21 15:43 Baso % (Auto) 0.5 % 07/03/21 15:43 Neut # (Auto) 3.39 K/uL (1.4-6.5) 07/03/21 15:43 Lymph # (Auto) 1.90 K/uL (1.2-3.4) 07/03/21 15:43 Saline # (Auto) 0.38 K/uL (0.11-0.59) 07/03/21 15:43 Eos # (Auto) 0.21 K/uL (0-0.5) 07/03/21 15:43 Baso # (Auto) 0.03 K/uL (0-0.2) 07/03/21 15:43 Immature Gran # (Auto) 0.01 K/uL (0.00-0.02) 07/03/21 15:43 Sodium 141 mmol/L (136-145) 07/03/21 15:43 Potassium 3.2 mmol/L (3.5-5.1) L 07/03/21 15:43 Chloride 111 mmol/L (98-107) H 07/03/21 15:43 Carbon Dioxide 26 mmol/L (21-32) 07/03/21 15:43 Anion Gap 4.0 (3-11) 07/03/21 15:43 BUN 9 mg/dl (7-18) 07/03/21 15:43 Creatinine 0.74 mg/dl (0.6-1.2) 07/03/21 15:43 Est Cr Clr Drug Dosing 112.8 ml/min 07/03/21 15:43 Est GFR ( Amer) 111.0 ml/min 07/03/21 15:43 Est GFR (Non-Af Amer) 95.8 ml/min 07/03/21 15:43 BUN/Creatinine Ratio 11.8 (10-20) 07/03/21 15:43 Glucose 83 mg/dl (70-99) 07/03/21 15:43 Calcium 8.8 mg/dl (8.5-10.1) 07/03/21 15:43 Magnesium 2.2 mg/dl (1.8-2.4) 07/03/21 15:43 Total Bilirubin 0.5 mg/dl (0.2-1) 07/03/21 15:43 AST 68 U/L (15-37) H 07/03/21 15:43 ALT 93 U/L (12-78) H 07/03/21 15:43 Alkaline Phosphatase 118 U/L (45-117) H 07/03/21 15:43 Total Protein 7.3 gm/dl (6.4-8.2) 07/03/21 15:43 Albumin 3.8 gm/dl (3.4-5.0) 07/03/21 15:43 Globulin 3.5 gm/dl (2.5-4.0) 07/03/21 15:43 Albumin/Globulin Ratio 1.1 (0.9-2) 07/03/21 15:43 Triglycerides 204 mg/dl (0-150) H 07/03/21 15:43 Cholesterol 179 mg/dl (0-200) 07/03/21 15:43 LDL Cholesterol, Calc 97 mg/dl 07/03/21 15:43 VLDL Cholesterol, Calc 41 mg/dl 07/03/21 15:43 HDL Cholesterol 41 mg/dl 07/03/21 15:43 Cholesterol/HDL Ratio 4 07/03/21 15:43 TSH 1.290 uIu/ml (0.300-4.500) 07/03/21 15:43 Urine Color Yellow 07/03/21 15:55 Urine Appearance Clear (Clear) 07/03/21 15:55 Urine pH 5.5 (4.5-7.5) 07/03/21 15:55 Ur Specific [place] 1.014 (1.000-1.030) 07/03/21 15:55 Urine Protein Negative (Negative) 07/03/21 15:55 Urine Glucose (UA) Negative (Negative) 07/03/21 15:55 Urine Ketones Negative (Negative) 07/03/21 15:55 Urine Blood Negative (Negative) 07/03/21 15:55 Urine Nitrite Negative (Negative) 07/03/21 15:55 Urine Bilirubin Negative (Negative) 07/03/21 15:55 Urine Urobilinogen Negative (Negative) 07/03/21 15:55 Ur Leukocyte Esterase Negative (Negative) 07/03/21 15:55 COVID-19 Eval Order Covid19 at [facility] 07/03/21 16:14 SARS-CoV-2 (PCR) NEGATIVE (Negative) 07/03/21 16:14 Impressions Chest X-Ray 07/03/21 15:32 SINGLE VIEW CHEST CLINICAL HISTORY: Generalized weakness. FINDINGS: An AP, portable, upright chest radiograph is compared to study dated 06/04/2021. The cardiomediastinal silhouette is unremarkable. There is bibasilar atelectasis. The lungs and pleural spaces are otherwise clear. No pneumothorax is seen. The bony thorax is grossly intact. IMPRESSION: No active disease in the chest. MRI Brain 07/02/21 IMPRESSION: 1. Subcentimeter focus of restricted diffusion involving the midline splenium of the corpus callosum is suggestive of an acute infarct. This finding however is present within an atypical location secondary to the vascular supply within this territory. As a precautionary measure, a 3 month follow-up MRI of the brain is recommended. 2. No abnormal enhancement. Code Status & VTE Plan VTE Prophylaxis Plan VTE Prophylaxis will be ordered: Yes Supervising Physician Co-Signing Physician Notes Patient seen and examined, chart reviewed, case discussed with Dr. Curran and I agree with her assessment and plan as documented above. In brief, patient is a 50-year-old female with history of hypertension, hyperlipidemia, tobacco use, breast cancer status post treatment presenting with several weeks of nausea, gait instability, headaches and dizziness. Patient had an MRI ordered by her outpatient provider due to concern for brain metastasis given her history of breast cancer. The MRI showed a possible acute CVA in the corpus callosum. Therefore, the patient was instructed to come to the emergency room for additional work-up. On physical exam she is afebrile, hemodynamic stable, no acute distress Skinwarm, dry, intact HEENT, normocephalic/atraumatic, pupils equal round and reactive, moist mucous membranes, neck supple Heart+ S1/S2, regular, no murmur/rubs/gallops Lungsequal air entry bilaterally, no rales/rhonchi/wheezes Abdomen+ bowel sounds, soft, nontender nondistended Neurocranial nerves grossly intact, sensation to light touch intact, muscle strength 5 out of 5 in upper and lower extremities bilaterally, no pronator drift Labs and images reviewed Assessment/plan Continue stroke work-up to include CTA head and neck, echo, A1c and lipid panel Neurology consultation appreciated Hold lisinopril/HCT in setting of possible stroke Continue atorvastatin Start aspirin Remainder of plan as above (1) HTN (hypertension) Hypertension type: essential hypertension Qualified Code(s): I10 - Essential (primary) hypertension
[2021-07-03 20:29] LABS: Chol HDL Ratio 4; Cholesterol 179 mg/dl (0-200); HDL Cholesterol 41 mg/dl; LDL Cholesterol Calculated 97 mg/dl; Triglycerides 204 mg/dl (0-150); VLDL Cholesterol 41 mg/dl
[2021-07-03] MEDS ORDERED: OPTIRAY 320 125ml IV ONE (20:43)
--- NOTE | 2021-07-03 21:02 | CT Scan Report ---
HEAD & NECK CTA HISTORY: Abnormal brain MRI. Possible stroke. History of metastatic disease. Nausea. Headache. TECHNIQUE: Multiaxial CT images of the head were performed following the intravenous administration o f contrast to evaluate the major cerebral vessels. Multiaxial CT images of the neck were also perform ed following the intravenous administration of contrast to evaluate the major cervical vessels. Maxim um intensity projection images were also obtained. A dose lowering technique was utilized adhering to the principles of ALARA. COMPARISON: Brain MRI 07/02/2021. FINDINGS: The abnormality at the splenium of the corpus callosum seen on the recent brain MRI is not well evalu ated by this modality. There is no midline shift or intracranial hemorrhage. No abnormal enhancement within the brain. Mild mucosal thickening within the left ethmoid air cells. The mastoid air cells ar e clear. The major dural venous sinuses appear patent. Visualized intracranial internal carotid arter ies, distal vertebral arteries, and basilar artery are widely patent. There is no significant stenosi s, occlusion, or aneurysm seen within the bilateral ACAs, MCAs, or shotweld operator. The aortic arch and proximal great vessels are widely patent. There is no significant stenosis, occ lusion, or dissection identified within the bilateral common carotid, internal carotid, or vertebral arteries. Mild calcified plaque within the bilateral carotid bifurcations. IMPRESSION: 1. No significant stenosis, occlusion, or aneurysm within the [place]. 2. No significant stenosis, occlusion, or dissection identified within the carotid or vertebral arter ies. 3. The abnormality at the splenium of the corpus callosum seen on the recent brain MRI is not well vi sualized by this modality. ACT 112: Negative or not required by law. Electronically signed by: Dilan Ricardo M.D. 07/03/2021 9:00 PM
--- NOTE | 2021-07-03 21:02 | CT Scan Report ---
HEAD & NECK CTA HISTORY: Abnormal brain MRI. Possible stroke. History of metastatic disease. Nausea. Headache. TECHNIQUE: Multiaxial CT images of the head were performed following the intravenous administration o f contrast to evaluate the major cerebral vessels. Multiaxial CT images of the neck were also perform ed following the intravenous administration of contrast to evaluate the major cervical vessels. Maxim um intensity projection images were also obtained. A dose lowering technique was utilized adhering to the principles of ALARA. COMPARISON: Brain MRI 07/02/2021. FINDINGS: The abnormality at the splenium of the corpus callosum seen on the recent brain MRI is not well evalu ated by this modality. There is no midline shift or intracranial hemorrhage. No abnormal enhancement within the brain. Mild mucosal thickening within the left ethmoid air cells. The mastoid air cells ar e clear. The major dural venous sinuses appear patent. Visualized intracranial internal carotid arter ies, distal vertebral arteries, and basilar artery are widely patent. There is no significant stenosi s, occlusion, or aneurysm seen within the bilateral ACAs, MCAs, or manager private. The aortic arch and proximal great vessels are widely patent. There is no significant stenosis, occ lusion, or dissection identified within the bilateral common carotid, internal carotid, or vertebral arteries. Mild calcified plaque within the bilateral carotid bifurcations. IMPRESSION: 1. No significant stenosis, occlusion, or aneurysm within the [place]. 2. No significant stenosis, occlusion, or dissection identified within the carotid or vertebral arter ies. 3. The abnormality at the splenium of the corpus callosum seen on the recent brain MRI is not well vi sualized by this modality. ACT 112: Negative or not required by law. Electronically signed by: Dilan Ricardo M.D. 07/03/2021 9:00 PM
[2021-07-03] MEDS ORDERED: ONDANSETRON INJ 2 MG/ML 2 ML VIAL IV PRN (23:27)
[2021-07-03] MEDS ORDERED: PHARMACIST DISCHARGE MED REC CONSULT PRN (23:27)
[2021-07-03] MEDS ORDERED: hydrOXYzine HCl 25 MG TAB PO PRN (23:27)
[2021-07-03] MEDS ORDERED: ACETAMINOPHEN 325 MG TAB PO PRN (23:27)
[2021-07-04] MEDS: busPIRone 15 MG TAB PO SCH ×3 (00:55→21:49)
[2021-07-04] MEDS: lamoTRIgine 100 MG TAB PO SCH ×3 (00:56→21:48)
[2021-07-04] MEDS: lamoTRIgine 25 MG TAB PO SCH ×3 (00:56→21:49)
[2021-07-04] MEDS: NALTREXONE HCL 50 MG TAB PO SCH ×2 (00:57→21:48)
[2021-07-04] MEDS: PANTOprazole 40 MG TAB PO SCH ×2 (00:58→08:40)
[2021-07-04] MEDS: TOPIRAMATE 50 MG TAB PO SCH ×3 (00:59→21:47)
[2021-07-04] MEDS: LEVOTHYROXINE SODIUM 50 MCG TABLET PO SCH (05:57)
[2021-07-04 06:08] LABS: Basophils # (auto) 0.02 K/uL (0-0.2); Basophils % (auto) 0.4 %; Eosinophils # (auto) 0.18 K/uL (0-0.5); Eosinophils % (auto) 3.4 %; Hematocrit (blood only) 38.5 % (37-47); Hemoglobin 12.5 g/dL (12.0-16.0); Lymphocytes % (auto) 37.7 %; Mean Corpuscular Hemoglobin 29.4 pg (25-34); Mean Corpuscular Hgb Conc 32.5 g/dL (32-36); Mean Corpuscular Volume 90.6 fL (80-100); Mean Platelet Volume 11.3 fL (7.4-10.4); Monocytes # (auto) 0.34 K/uL (0.11-0.59); Monocytes % (auto) 6.4 %; Neutrophils # (auto) 2.77 K/uL (1.4-6.5); Neutrophils % (auto) 52.1 %; Platelet Count 165 K/uL (130-400); RDW Coefficient of Variation 14.2 % (11.5-14.5); RDW Standard Deviation 46.8 fL (36.4-46.3); Red Blood Count 4.25 M/uL (4.2-5.4); White Blood Count 5.31 K/uL (4.8-10.8)
[2021-07-04 06:27] LABS: BUN Creatinine Ratio 15.3 (10-20); Calcium 8.6 mg/dl (8.5-10.1); Creatinine Clr Calc Pharmacy 124.9 ml/min; Est GFR (African American) 120.5 ml/min; Est GFR (Non-African American) 103.9 ml/min; Potassium 3.7 mmol/L (3.5-5.1)
[2021-07-04 07:10] LABS: Estimated Average Glucose 120 mg/dl; Hemoglobin A1C 5.8 % (4.5-5.6)
--- NOTE | 2021-07-04 08:39 | Neurology Consultation ---
Date of Consultation July 04, 2021 Assessment & Plan (1) CVA (cerebral vascular accident): (2) Seizure disorder: (3) Gait disturbance: (4) Dizziness: (5) Cervical radiculopathy: (6) Migraines: (7) Depression with anxiety: (8) Breast cancer: this is a somewhat challenging case neurologically. Patient has multiple nonspecific symptoms that have been occurring for at least 4 weeks including nausea, dizziness (lightheadedness mostly) nonspecific balance issues, unusual dysesthesias in the limbs, and a general sense of weakness / easy fatigability. On neurologic examination, she has no focal findings, meningeal signs, or encephalopathy. MRI of the brain reveals a small, isolated lesion in the midline splenium of the corpus callosum, most consistent with an acute ischemic stroke. This is a very unusual location for ischemic stroke, although it can occur. CT angiography r eveals no vascular anomalies in the head or neck. The lesion does not have enhancement or mass effect so therefore not consistent with a tumor ( has a history of breast cancer post treatment ). Patient has a history of seizure disorder of uncertain etiology. I am not convinced she has a true epilepsy, but she did have 1 EEG was some right temporal sharp waves, in the past. Other testing has been unremarkable. She has been on lamotrigine and has not had a seizures since August of 2019. most recent lamotrigine level was low therapeutic at 5.8, in December of 2020. The lamotrigine also has a mood stabilizer for her significant psychiatric issues. Currently, her psychiatric issues are improved and stable. The patient has a history of cervical radiculopathy at C7 on the left and an MRI of the cervical spine with some spinal stenosis at C3-4. Some of her nonspecific dysesthesias and balance issues may be related to a myelopathy although she has no obvious myelopathy noted on neurologic examination today. Recommendations: 1. awaiting echocardiogram 2. initiate 81 milligram aspirin tablet daily. I see no indication for anticoagulation at this time. 3. Check a lamotrigine level, ESR, B12, TSH, and Lyme antibody titer 4. MRI of the cervical spine with and without contrast. Compare to previous scan. Overall, I spent a total of 100 minutes with this case including review of records, review of MRI films, direct evaluation the patient bedside, and discussion of the case with the patient and RN at bedside, and Dr. Orta, including differential diagnosis and treatment options. History of Present Illness Reason for Consultation: Patient is a 50-year-old, who I was asked to see at the request of Dr. Liriano, for neurologic consultation regarding stroke. Requesting Physician: Dr. Liriano Attending Physician: Lalito Orta MD History of Present Illness this patient has a longstanding history of hypertension, dyslipidemia, and hypothyroidism. She has anxiety and depression along with PTSD. These issues are largely controlled on medication. Patient has a history of breast cancer diagnosed with the left lobectomy in 2015 followed by chemotherapy and radiation. As far as the patient is aware there has been no recurrence. In January of 2018 the patient underwent a laparoscopic total hysterectomy with bilateral salpingo-oophorectomy. Apparently the patient had seizure-like activity postoperatively. Patient continued to have intermittent seizure-like activity thereafter. In March of 2018 MRI of the brain and EEG were unremarkable. an EEG in June of 2018 revealed some right temporal slowing and sharp waves. She did not tolerate levetiracetam has been maintained on lamotrigine. This was titrated up and her last seizure was in August of 2019. She has been on lamotrigine 225 milligrams twice daily since. Patient was having cervical pain and left upper extremity numbness. EMG nerve conduction studies in November of 2020 revealed a left C7 radiculopathy. MRI of the cervical spine in December of 2020 revealed multilevel cervical spondylosis with some mild spinal stenosis at multiple levels but mostly C3-4. The disc was abutting the anterior cord. She is not currently having specific left upper extremity pain weakness or numbness like she was earlier this year. Patient was doing fairly well until May of 2021 when she was admitted with nausea, vomiting, dizziness, and balance issues. Extensive evaluation revealed gastritis and gastric erosions. Liver enzymes were elevated as well. He has hepatic steatosis as well gastroesophageal reflux disease esophagitis. Since discharge in late May she has continued to have nausea, dizziness and balance issues. She is not vomiting and the dizziness is more of a lightheadedness. She does not experience vertigo. The dizziness is worse when she stands up and moves. It makes her balance worse. She feels that she is thinking "in a fog" at times but she can speak, communicate and remember. She feels weak in general and tires easily. She has unusual dysesthesias of her arms and legs of a nonspecific intermittent nature. Because of her symptoms she was sent for an MRI of the brain which was obtained on July 02. There was a subcentimeter focus of restricted diffusion in the midline of the splenium of the corpus callosum consistent with an acute infarct. There was no enhancement and no mass effect. No other abnormalities were noted on the MRI. I reviewed this MRI. She was admitted July 03. CT angiography of the head and neck were un remarkable with no significant vascular stenoses are not always. There was no arterial dissection in the head. Laboratory studies were largely unremarkable except for the elevated liver enzymes. Triglycerides were 204 and total cholesterol was 179. Hemoglobin A1c was 5.8. Currently she has a nonspecific lightheadedness as before and the dysesthesias in the limbs. She does not feel that 1 hand is clumsy compared to the other. Allergies Allergy/AdvReac Type Severity Reaction Status Date / Time methylene blue Allergy Intermediate seizures Verified 07/03/21 16:31 Home Medications Medication Instructions Recorded Confirmed Type cholecalciferol (vitamin D3) 50 2,000 units PO QAM cap 07/11/19 07/03/21 History mcg (2,000 unit) capsule (Vitamin D3) cyanocobalamin (vitamin B-12) 1,000 mcg PO QAM tab 07/11/19 07/03/21 History 1,000 mcg tablet (Vitamin B-12) buspirone 30 mg tablet 30 mg PO BID 07/27/19 07/03/21 History brexpiprazole 2 mg tablet (Rexulti) 2 mg PO HS tab 09/26/20 07/03/21 History prazosin 2 mg capsule (Minipress) 2 mg PO HS 10/10/20 07/03/21 History sertraline 100 mg tablet (Zoloft) 200 mg PO QAM 01/29/21 07/03/21 History levothyroxine 50 mcg tablet 50 mcg PO QAM 02/20/21 07/03/21 History (Synthroid) promethazine 25 mg tablet 25 - 50 mg PO Q6H PRN #20 tab 06/04/21 07/03/21 Rx atorvastatin 20 mg tablet (Lipitor) 20 mg PO QAM 06/13/21 07/03/21 History hydroxyzine HCl 25 mg tablet 25 mg PO TID PRN 06/13/21 07/03/21 History lamotrigine 200 mg tablet 200 mg PO BID 06/13/21 07/03/21 History (Lamictal) lamotrigine 25 mg tablet (Lamictal) 25 mg PO BID 06/13/21 07/03/21 History lisinopril 20 1 tab PO QAM 06/13/21 07/03/21 History mg-hydrochlorothiazide 25 mg tablet (Zestoretic) naltrexone 50 mg tablet 25 mg PO HS 06/13/21 07/03/21 History nicotine 14 mg/24 hr daily 14 mg TRANSDERMAL Q24H 06/13/21 07/03/21 History transdermal patch (Nicoderm CQ) ondansetron HCl 4 mg tablet 4 mg PO Q8H PRN 06/13/21 07/03/21 History (Zofran) potassium chloride 10 mEq 20 meq PO BID 06/13/21 07/03/21 History tablet,extended release (Klor-Con) promethazine 25 mg rectal 25 mg NC Q6H PRN 06/13/21 07/03/21 History suppository (Promethegan) topiramate 50 mg tablet (Topamax) See Rx Instructions .ROUTE .COMPLEX 06/13/21 07/03/21 History pantoprazole 40 mg tablet,delayed 40 mg PO BID #60 tab 06/16/21 07/03/21 Rx release (Protonix) Patient History Medical History Anxiety Breast cancer (07/13/16) Degenerative disc disease Depression Diverticular disease GERD (gastroesophageal reflux disease) Hiatal hernia History of Clostridium difficile infection History of diverticulitis History of seizures last seizure 1.5 yrs ago HLD (hyperlipidemia) HTN (hypertension) Hypothyroidism Obesity (BMI 30-39.9) Osteoarthritis PTSD (post-traumatic stress disorder) Surgical History History of anesthesia reaction "I had a seizure coming out of anesthesia." -- hyster 2018 @ [place] History of breast biopsy History of cholecystectomy History of lumpectomy of left breast History of removal of Port-a-Cath History of tooth extraction History of total hysterectomy with bilateral salpingo-oophorectomy (BSO) History of vascular access device Family History Mother Breast cancer Father Myocardial infarction Grandmother (Maternal) Breast cancer Grandmother (Paternal) Breast cancer Sister Migraine Denies family history of Ovarian cancer Prostate cancer Colorectal cancer Social History Smoking Status: Current every day smoker Tobacco Type: Cigarettes Age Started Using Tobacco: 28; packs per day: 1.5; Cigarettes Per Day: 15 per day; Second Hand Exposure: Yes; Do You Dip or Chew Tobacco: No; Tobacco Cessation Education Requested by Patient: No Hx Alcohol Use: Yes Alcohol type: hard liquor Hx Substance Use: No Preferred Language: Slovenian Communication Ability: Effective Visual Impairment: No Limitations Hearing Ability: Normal Eight Arm Operator Required: No Beliefs That Will Affect Care: None marital status: Current Living Situation: Spouse current occupational status: unemployed Other Information That Helps Us Care for You: No Feels Safe at Home: Yes Safety Concerns: Feels Safe At This Time Childhood Exposure to Second-Hand Smoke: No Dental Care, Regularly: No Physical Activity Frequency: Does not Exercise Seatbelt Use: always Sunscreen Use: No Assistive Devices: Denture - Upper and Glasses Review of Systems Constitutional: + fatigue and + weakness; no fever Eyes: no diplopia, no eye pain and no worsening vision Ear, Nose, Mouth, Throat: + dizziness; no ear pain, no tinnitus, no hearing loss, no hoarseness and no dysphagia Respiratory: no cough and no dyspnea Cardiovascular: no chest pain, no palpitations and no lightheadedness Gastrointestinal: no abdominal pain, no nausea and no vomiting Genitourinary: no dysuria, no urinary frequency and no urinary incontinence Musculoskeletal: + neck pain; no back pain, no radicular pain, no joint pain and no myalgia Integumentary: no rash and no lesions Neurologic: + gait abnormality, + generalized weakness and + paresthesia; no localized weakness, no tingling, no numbness, no tremor(s), no abnormal movements, no headache(s), no abnormal speech, no confusion and no memory loss Psychiatric: + depression and + anxiety; no irritability, no difficulty concentrating, no confusion and no hallucinations Endocrine: no fatigue and no flushing Hematologic / Lymphatic: no easy bleeding and no easy bruising Allergy / Immunological: no urticaria and no problem reported Exam (Neuro) Physical Exam: The patient is right-handed. The patient is awake, alert, and attentive. Speech is normal without any aphasia or dysarthria. The patient can name objects, repeat phrases, and has normal spontaneous speech. Mentation and thought processes are intact, with orientation to person, place and time, and normal fund of knowledge. Attention and concentration are normal. Mood and affect are normal and appropriate. General appearance and grooming are normal. Short and long-term memory are intact. The discs are sharp with positive venous pulsations bilaterally. There are no exudates, hemorrhages, or blood vessel changes seen. Pupils are 4 mm bilaterally and reactive to light. Extraocular eye muscles are intact without nystagmus. Visual acuity and visual agosto seem normal grossly to confrontation. There are no deficits to sensation in the face in all 3 distributions of the fifth cranial nerve bilaterally. Corneal reflexes are positive bilaterally. Facial strength and symmetry was normal bilaterally. Hearing seems normal bilaterally. Palate moves well without asymmetry. There is normal sternocleidomastoid and trapezius (shoulder shrug) strength bilaterally. Tongue is midline with good strength bilaterally. Neck has a full range of motion without discomfort. There are no cervical bruits bilaterally. There are no cranial or ocular bruits. Heart is without murmur. There is a regular rhythm and rate. Cervical, thoracic, and lumbar spine are nontender to palpation. Gait is narrow based, with good arm swing, turns, and stance. Balance is normal eyes open or closed. With outstretched arms there is no drift. There are no resting, postural, or action tremors. There is no ataxia with finger to nose testing. There is good facility in the hands. No other abnormal involuntary movements are noted. Motor strength is 5/5 diffusely in the arms bilaterally including deltoids, biceps, triceps, brachioradialis, wrist flexors and extensors, air defense specialist, and intrinsic hand muscles. Motor strength is 5/5 diffusely in the legs bilaterally including hip flexors, quadriceps, hamstrings, gastrocnemius, tibialis anterior, tibialis posterior, and Peroneii muscles. Toe extensors are normal and there is good bulk in the extensor digitorum brevis muscles bilaterally. The limbs have good tone without rigidity or spasticity. There is no atrophy noted in the muscles. Muscle bulk is normal, there is no tenderness to palpation, no myotonia to percussion, and no fasciculations seen. Sensory examination is intact to touch and pin throughout all 4 limbs diffusely. The patient can identify objects in each hand and can identify numbers traced out in each hand equally well. Reflexes are 2/4 in the biceps, triceps, brachioradialis, quadriceps, and Achilles tendons bilaterally. There is no clonus bilaterally. Toes are downgoing with plantar stimulation bilaterally. Peripheral pulses are present and of normal quality distally in all 4 limbs. There is no peripheral edema noted in the limbs. Results & Data ([facility]) Vital Signs (Past 12 Hours) Vital Signs Temp Pulse Pulse Resp BP Pulse Ox 07/04/21 07:00 71 07/04/21 01:16 66 07/03/21 23:15 36.8 C 86 18 113/78 95 07/03/21 22:07 82 20 110/73 95 07/03/21 21:02 93 H 20 127/64 96 07/03/21 20:21 83 20 103/62 94 PG Care Time/CCT Total # of Minutes Spent Total Time Spent with Patient: Total time spent is greater than 50% in coordination of care (as documented) at patient's floor/unit and/or counseling patient: Coding Level of Care Code 56957 Inpt Consult Level 5 Diagnoses CVA (cerebral vascular accident) I63.9 Gait disturbance R26.9 Dizziness R42 Cervical radiculopathy M54.12 Seizure disorder G40.909 Migraines G43.909 Depression with anxiety F41.8 Breast cancer C50.919 Time Spent (min) 100
[2021-07-04] MEDS: ATORVASTATIN 40 MG TAB PO SCH (08:40)
[2021-07-04] MEDS: SERTRALINE HCL 100 MG TABLET PO SCH (08:40)
[2021-07-04] MEDS: CHOLECALCIFEROL 1,000 UNITS 25 MCG TAB PO SCH (08:40)
[2021-07-04] MEDS: ASPIRIN 81 MG ECTAB PO SCH (08:40)
[2021-07-04] MEDS: CYANOCOBALAMIN 500 MCG TABLET (VITAMIN B-12) PO SCH (08:40)
[2021-07-04] MEDS: NICOTINE 14 MG/24 HR PATCH TD SCH (08:41)
[2021-07-04] MEDS ORDERED: ACETAMINOPHEN 325 MG TAB PO ONE (08:52)
[2021-07-04 12:18] LABS: Lyme Ab IgG w/WB Rflx Negative (Negative); Lyme Ab IgM w/WB Rflx Negative (Negative)
--- NOTE | 2021-07-04 12:38 | XCELERA ---
[id number]
[2021-07-04] MEDS ORDERED: ACETAMINOPHEN 65 ML IV PRN (13:30)
[2021-07-04] MEDS ORDERED: GADOBUTROL 65ML VIAL IV ONE (14:00)
[2021-07-04] MEDS: SODIUM CHLORIDE 0.9% 1000ML 1,000 ML IV SCH (14:38)
--- NOTE | 2021-07-04 15:54 | Hospitalist Progress Note ---
Date of Service July 04, 2021 Assessment & Plan (1) CVA (cerebral vascular accident): (2) HTN (hypertension): (3) GERD without esophagitis: (4) Seizure disorder: (5) Hypothyroidism: (6) Depression with anxiety: (7) Hypercholesterolemia: (8) Breast cancer: Plan: 50 yo F Hx HTN, HLD, active smoker, breast cancer s/p chemorads and lumpectomy in 2016, GERD, seizure disorder, hypothyroidism, migraines, depression, anxiety admitted for suspected CVA. CVA, Hx breast cancer: Presented with 1 week of worsening nausea, vomiting, gait instability dizziness. Due to concern for brain metastasis from Hx breast cancer s/p chemorads, MRI performed. Findings noted: Subcentimeter focus of restricted diffusion involving the midline splenium of the corpus callosum is suggestive of an acute infarct. CTA Head/Neck --> negative. No TPA given due to outside of treatment interval. Encouraged smoking cessation for secondary risk prevention. A1c 5.8, triglycerides 204. Started daily aspirin. No anticoagulation at this time given acute CVA. Echo shows no significance change since 2017. Unremarkable. Neurology consulted --> ordered lamotrigine, ESR, B12, TSH, lyme, MRI c spine w/wo contrast. Labs thus far unremarkable. MRI pending. IV tylenol for pain relief, started maintenance fluids GERD without esophagitis, transaminitis: EGD May 2021 with erosive gastritis, started on BID PPI. --> switched PPI to from PO to IV; will add famotidine if pain continues Has a history of elevated LFTs, noted on RUQ US in May to have hepatic steatosis. Suspect fatty liver, recommend weight loss. HTN, HLD: Holding lisinopril/HCTZ given hypotension and acute CVA. Continue atorvastatin at increased dose 80mg daily. Seizure disorder, anxiety, depression: Follows with [facility] [place] [facility]. Last seizure occurred in the fall 2018, and is on lamotrigine 225mg daily. Will also continue home brexipiprazole, Buspar, hydroxyzine, Zoloft. Code Status: FULL CODE FEN: Heart Healthy diet, tolerating swallow well and no indication for Speech evaluation prior to initiation of diet DVT ppx: SCDs, ad reza with assistance Dispo: Med/Surg with Telemetry Admission and Anticipated Discharge Date Admission Date: July 03, 2021 Supervising Physician Co-Signing Physician Notes Attending attestation Pt seen and examined in concert with Dr. Brandon. In agreement with the documented findings as noted in the resident documentation with any exceptions or additions as noted here. Resting in bed following meal complaining of mild exacerbation of nausea and abdominal fullness without ondansetron presently. Headache has resolved at this time. On examination, S1/S2 nl RRR no MCG. CTAB. Abd NT/ND BS+ve. CNII-XII grossly int act. Dizziness/gait instability w/ worsening n/v - neuro consult - f/u MRI cspine, lamotrigine level, remaning studies. Convert APAP to IV 2/2 ongoing nausea GERD with gastritis, transaminitis - PPI IV BID, consider addition of famotidine. Continue ondansetron. Sx appear similar to recent GERD/gastritis Else see resident documentation as noted. Subjective Patient is having diffuse abdominal pain and feels nauseas. Threw up once liquids after having her medications. Slight headache. No vision changes, dizziness, or gait instability when ambulating. Review of Systems Constitutional: no fever, no chills and no malaise Respiratory: no cough and no dyspnea Cardiovascular: no chest pain, no palpitations and no edema Gastrointestinal: + abdominal pain (epigastric) and + nausea; no constipation and no diarrhea/loose stools Genitourinary: no dysuria and no hematuria Physical Exam Constitutional: WD/WN, vitals as above Eyes: PERRL, conjunctivae normal, anicteric sclerae ENMT: external ear and nose normal, oropharynx normal Neck: normal visual inspection Respiratory: normal respiratory effort, lungs clear to auscultation Cardiovascular: RRR, no murmur, no edema Gastrointestinal (Abdomen): normal bowel sounds, soft, nontender, no hepatosplenomegaly Musculoskeletal: no cyanosis or clubbing, extremities motor strength 5/5 Skin: no rashes, warm and dry Psychiatric: A+Ox3, euthymic affect Results & Data Results & Data ([facility]) Vital Signs (Past 12 Hours) Vital Signs Temp Pulse Pulse Resp BP BP Pulse Ox 07/04/21 15:28 74 07/04/21 12:09 36.4 C L 84 20 96/68 L 94 07/04/21 08:36 36.4 C L 78 18 104/61 94 07/04/21 07:00 71 Resident Activity Tracking Resident Involvement: Resident Care Provided Care Provided: Adult Hospital Medicine (1) HTN (hypertension) Hypertension type: essential hypertension Qualified Code(s): I10 - Essential (primary) hypertension
[2021-07-04] MEDS: PANTOprazole 40 MG in SYRINGE 0 ML IV SCH (21:50)
--- NOTE | 2021-07-04 22:05 | Magnetic Resonance Report ---
MR cervical spine wo/w con HISTORY: 50 years-old Female cervical radiculopathy chronic neck pain COMPARISON: MRI cervical spine 12/29/2020 TECHNIQUE: Multiplanar multisequence MRI of the cervical spine was obtained both with and without the use of 10.7 mL Gadavist FINDINGS: The pug mill operator localizer images demonstrate no gross extraspinal abnormality. No abnormal enhancement. The imaged posterior fossa structures are unremarkable. The paraspinal tissues are within normal limi ts. There is no acute fracture, subluxation, bone marrow or soft tissue edema. Study is mildly motion degraded. Signal within the cervical and imaged thoracic spinal cord appears normal. Trace mastoid e ffusions. C2-C3: No central canal or neural foraminal narrowing. C3-C4: Unchanged mild to moderate vertebral disc space narrowing. Mild facet arthrosis. Posterior michelle ular disc bulge with disc osteophyte complex is redemonstrated resulting in mild central canal stenos is, AP dimension of the thecal sac measuring 9 mm. There is unchanged moderate left with mild right n eural foraminal narrowing. C4-C5: Mild intervertebral disc space narrowing with tiny posterior annular disc bulge, uncovertebral spurring and mild facet arthrosis. Unchanged [id number] left neural foraminal narrowing. The c entral canal and right neural foramen are patent. C5-C6: Mild intervertebral disc space narrowing with tiny posterior annular disc bulge and mild facet arthrosis. The central canal and left neural foramen are patent. Mild right neural foraminal narrowi ng has mildly progressed. C6-C7: Mild intervertebral disc space narrowing with uncovertebral spurring and tiny posterior annula r disc bulge with mild facet arthrosis. Mild left neural foraminal narrowing has slightly progressed. The central canal and right neural foramen are patent. IMPRESSION: 1. Mild multilevel discogenic degeneration with uncovertebral spurring and facet arthrosis as detaile d above. 2. Unchanged mild central canal stenosis at C3-C4. 3. No abnormal enhancement. 4. Normal signal of the cervical spinal cord. ACT 112: Negative or not required by law. The above report was generated using voice recognition software. It may contain grammatical, syntax o r spelling errors. Electronically signed by: Cornel Us M.D. 07/04/2021 10:04 PM
--- NOTE | 2021-07-04 23:26 | Billing Data ---
Date of Service July 03, 2021 Coding Level of Care Code 62906 Initial Inpt Care Lvl 3
[2021-07-05] MEDS: LEVOTHYROXINE SODIUM 50 MCG TABLET PO SCH (06:22)
[2021-07-05] MEDS: SODIUM CHLORIDE 0.9% 1000ML 1,000 ML IV SCH ×2 (06:24→15:33)
[2021-07-05 08:04] LABS: Basophils # (auto) 0.02 K/uL (0-0.2); Basophils % (auto) 0.5 %; Eosinophils # (auto) 0.22 K/uL (0-0.5); Hematocrit (blood only) 38.5 % (37-47); Hemoglobin 12.6 g/dL (12.0-16.0); Lymphocytes # (auto) 1.42 K/uL (1.2-3.4); Lymphocytes % (auto) 32.1 %; Mean Corpuscular Hemoglobin 29.7 pg (25-34); Mean Corpuscular Hgb Conc 32.7 g/dL (32-36); Mean Corpuscular Volume 90.8 fL (80-100); Mean Platelet Volume 11.2 fL (7.4-10.4); Monocytes # (auto) 0.23 K/uL (0.11-0.59); Monocytes % (auto) 5.2 %; Neutrophils # (auto) 2.54 K/uL (1.4-6.5); Neutrophils % (auto) 57.2 %; Platelet Count 164 K/uL (130-400); RDW Coefficient of Variation 14.3 % (11.5-14.5); RDW Standard Deviation 47.6 fL (36.4-46.3); Red Blood Count 4.24 M/uL (4.2-5.4); White Blood Count 4.43 K/uL (4.8-10.8)
[2021-07-05 08:28] LABS: BUN Creatinine Ratio 16.1 (10-20); Calcium 8.7 mg/dl (8.5-10.1); Creatinine Clr Calc Pharmacy 128.9 ml/min; Est GFR (African American) 121.7 ml/min; Potassium 3.8 mmol/L (3.5-5.1)
[2021-07-05] MEDS: lamoTRIgine 100 MG TAB PO SCH (09:02)
[2021-07-05] MEDS: SERTRALINE HCL 100 MG TABLET PO SCH (09:02)
[2021-07-05] MEDS: ATORVASTATIN 40 MG TAB PO SCH (09:02)
[2021-07-05] MEDS: busPIRone 15 MG TAB PO SCH (09:02)
[2021-07-05] MEDS: lamoTRIgine 25 MG TAB PO SCH (09:02)
[2021-07-05] MEDS: NICOTINE 14 MG/24 HR PATCH TD SCH ×2 (09:03→12:50)
[2021-07-05] MEDS: PANTOprazole 40 MG in SYRINGE 0 ML IV SCH (09:03)
[2021-07-05] MEDS: CHOLECALCIFEROL 1,000 UNITS 25 MCG TAB PO SCH (09:03)
[2021-07-05] MEDS: CYANOCOBALAMIN 500 MCG TABLET (VITAMIN B-12) PO SCH (09:03)
[2021-07-05] MEDS: ASPIRIN 81 MG ECTAB PO SCH (09:03)
[2021-07-05] MEDS: TOPIRAMATE 50 MG TAB PO SCH (09:03)
--- NOTE | 2021-07-05 10:07 | Neurology Progress Note ---
Date of Service July 05, 2021 Assessment & Plan (1) CVA (cerebral vascular accident): (2) Seizure disorder: (3) Gait disturbance: (4) Dizziness: (5) Cervical radiculopathy: (6) Migraines: (7) Depression with anxiety: (8) Breast cancer: Plan: This is a somewhat challenging case neurologically. Patient has multiple nonspecific symptoms that have been occurring for at least 4 weeks including nausea, dizziness (lightheadedness mostly) nonspecific balance issues, unusual dysesthesias in the limbs, and a general sense of weakness / easy fatigability. On neurologic examination, she has no focal findings, meningeal signs, or encephalopathy. MRI of the brain revealed a small, isolated lesion in the midline splenium of the corpus callosum, most consistent with an acute ischemic stroke. This is a very unusual location for ischemic stroke, although it can occur. CT angiography reveals no vascular anomalies in the head or neck. The lesion does not have enhancement or mass effect so therefore not consistent with a tumor ( has a history of breast cancer, post treatment ). Patient has a history of seizure disorder of uncertain etiology. I am not convinced she has a true epilepsy, but she did have 1 EEG was some right temporal sharp waves, in the past. Other testing has been unremarkable. She has been on lamotrigine and has not had a seizures since August of 2019. Most recent lamotrigine level was low therapeutic at 5.8, in December of 2020. The lamotrigine also has a mood stabilizer for her significant psychiatric issues. Currently, her psychiatric issues are improved and stable. The patient has a history of cervical radiculopathy at C7 on the left and an MRI of the cervical spine with some spinal stenosis at C3-4. Some of her nonspecific dysesthesias and balance issues may be related to a myelopathy although she has no obvious myelopathy noted on neurologic examination today. Repeat MRI of the cervical spine showed no change, although in reviewing this, I wonder about some relatively significant spinal stenosis at C3-4. The cord does look like it is impinged although there is no abnormal cord signal. Recommendations: 1. Continue 81 milligram aspirin tablet daily. Three is no indication for anticoagulation at this time. 2. Lamotrigine level is pending 3. Continue atorvastatin 80 milligrams daily 4. Increase activity as able. 5. Consider a surgical opinion regarding the MRI of the cervical spine. 6. The patient can follow up with Dr. Boyer as an outpatient Overall, I spent a total of 25 minutes with this case including review of records, review of MRI films, direct evaluation the patient bedside, and discussion of the case with the patient and RN at bedside, and Dr. Orta, including differential diagnosis and treatment options. Admission and Anticipated Discharge Date Admission Date: July 03, 2021 Subjective the patient feels improved with her nausea and dizziness. She was to take a shower but the nurse is a little reluctant given her dizziness. She has no weakness or numbness and no significant pain. Echocardiogram showed no abnormalities of significance and no change from the previous study of April of 2017. CBC and Chem profile were unremarkable. B12 and Lyme were normal. ESR is normal at 23. Lamictal level is pending. MRI of the cervical spine showed the disc in bone changes at C3-4 with some mild spinal stenosis at that area. Radiology felt it was the same as December of 2020. Blood pressure is 119/75 and she is afebrile. Results & Data ([facility]) Vital Signs (Past 12 Hours) Vital Signs Temp Pulse Pulse Resp BP BP Pulse Ox 07/05/21 07:39 37.1 C 72 16 119/75 95 07/05/21 04:40 37.0 C 74 18 99/64 L 95 07/05/21 03:00 72 07/04/21 23:50 37.3 C 73 18 99/60 L 93 07/04/21 23:18 72 Exam (Neuro) Physical Exam: She is awake and alert. Speech is without aphasia or dysarthria. Mood and affect are normal appropriate. Thought processes are intact with good long and short-term memory. There is no facial droop. Tongue is midline. Strength is symmetrical in the limbs. PG Care Time/CCT Total # of Minutes Spent Total Time Spent with Patient: Total time spent is greater than 50% in co ordination of care (as documented) at patient's floor/unit and/or counseling patient: Coding Level of Care Code 60849 Subseq Hosp Care Lvl 2 Diagnoses CVA (cerebral vascular accident) I63.9 Seizure disorder G40.909 Gait disturbance R26.9 Dizziness R42 Cervical radiculopathy M54.12 Migraines G43.909 Depression with anxiety F41.8 Breast cancer C50.919 Time Spent (min) 25
[2021-07-05 11:25] LABS: Alanine Aminotransferase 86 U/L (12-78); Albumin Level 3.4 gm/dl (3.4-5.0); Alkaline Phosphatase 112 U/L (45-117); Aspartate Aminotransferase 60 U/L (15-37); Bilirubin Direct < 0.1 mg/dl (0-0.2); Bilirubin,Total 0.2 mg/dl (0.2-1); Total Protein 6.4 gm/dl (6.4-8.2)
--- NOTE | 2021-07-05 13:24 | Discharge Summary ---
Date of Service July 05, 2021 Admission HPI Per Admitting Provider 50 yo F Hx HTN, HLD, breast cancer s/p chemorads and lumpectomy in 2016, GERD, seizure disorder, hypothyroidism, migraines, depression, anxiety presents due to abnormal MRI in outpatient, and also due to endorsement of several weeks of nausea, gait instability, headaches, and dizziness. She was recently admitted 05/2021 for workup of epigastric pain and nausea, with EGD performed that showed erosive gastritis. She also had RUQ US for chronic transaminitis which showed hepatic steatosis. On discharge she was started on BID PPI. Due to continued symptoms, and Hx breast cancer, MRI brain was ordered to rule out brain metastasis. MRI showed possible acute CVA in corpus callosum. Drs. Parra and Rosalind advised patient to be evaluated in the ER. In the ER labwork largely normal save for hypokalemia to 3.2. Patient denies chest pain, SOB, fevers or chills. Does still endorse epigastric tenderness and nausea, but her headache that she had on presentation is since resolved. Of note, patient is a current every day smoker. Admission Exam Per Admitting Provider Constitutional: WD/WN, vitals as above Eyes: PERRL, conjunctivae normal, anicteric sclerae ENMT: external ear and nose normal, oropharynx normal Neck: normal visual inspection Respiratory: normal respiratory effort, lungs clear to auscultation Cardiovascular: RRR, no murmur, no edema Gastrointestinal (Abdomen): normal bowel sounds, soft, nontender, no hepatosplenomegaly Musculoskeletal: no cyanosis or clubbing, extremities motor strength 5/5 Skin: no rashes, warm and dry Neurologic: AAOx3, normal speech. PERRLA, EOMI, no nystagmus. Normal visual acuity bilaterally. Bilateral UE, LE, and face without sensory or motor deficits. II-XII intact bilaterally. No pronator drift. No tremor. No ataxia. Psychiatric: A+Ox3, euthymic affect Principal Diagnosis Acute CVA Discharge Exam Constitutional WD/WN, vitals as above Eyes PERRL, conjunctivae normal, anicteric sclerae ENMT external ear and nose normal, oropharynx normal Neck normal visual inspection Respiratory normal respiratory effort, lungs clear to auscultation Cardiovascular RRR, no murmur, no edema Gastrointestinal (Abdomen) normal BS, minimall tender in midline of abdomen Musculoskeletal no cyanosis or clubbing, extremities motor strength 5/5 Skin no rashes, warm and dry Psychiatric A+Ox3, euthymic affect Discharge Data Allergies Allergy/AdvReac Type Severity Reaction Status Date / Time methylene blue Allergy Intermediate seizures Verified 07/03/21 16:31 Consultations 07/03/21 17:18 ED Decision to Admit Stat 07/03/21 19:59 Consult Neurology Routine Ordered Studies 07/03/21 19:59 CT angio head w con Stat CT angio neck with con Stat 07/04/21 10:40 MR cervical spine wo/w con Routine Laboratory Results WBC 4.43 K/uL (4.8-10.8) L 07/05/21 07:53 RBC 4.24 M/uL (4.2-5.4) 07/05/21 07:53 Hgb 12.6 g/dL (12.0-16.0) 07/05/21 07:53 Hct 38.5 % (37-47) 07/05/21 07:53 MCV 90.8 fL (80-100) 07/05/21 07:53 MCH 29.7 pg (25-34) 07/05/21 07:53 MCHC 32.7 g/dL (32-36) 07/05/21 07:53 RDW Std Deviation 47.6 fL (36.4-46.3) H 07/05/21 07:53 RDW Coeff of Tammi 14.3 % (11.5-14.5) 07/05/21 07:53 Plt Count 164 K/uL (130-400) 07/05/21 07:53 MPV 11.2 fL (7.4-10.4) H 07/05/21 07:53 Immature Gran % (Auto) 0.0 % 07/05/21 07:53 Neut % (Auto) 57.2 % 07/05/21 07:53 Lymph % (Auto) 32.1 % 07/05/21 07:53 [place] % (Auto) 5.2 % 07/05/21 07:53 Eos % (Auto) 5.0 % 07/05/21 07:53 Baso % (Auto) 0.5 % 07/05/21 07:53 Neut # (Auto) 2.54 K/uL (1.4-6.5) 07/05/21 07:53 Lymph # (Auto) 1.42 K/uL (1.2-3.4) 07/05/21 07:53 [place] # (Auto) 0.23 K/uL (0.11-0.59) 07/05/21 07:53 Eos # (Auto) 0.22 K/uL (0-0.5) 07/05/21 07:53 Baso # (Auto) 0.02 K/uL (0-0.2) 07/05/21 07:53 Immature Gran # (Auto) 0.00 K/uL (0.00-0.02) 07/05/21 07:53 ESR 23 mm/hr (0-20) H 07/04/21 10:49 Sodium 143 mmol/L (136-145) 07/05/21 07:53 Potassium 3.8 mmol/L (3.5-5.1) 07/05/21 07:53 Chloride 116 mmol/L (98-107) H 07/05/21 07:53 Carbon Dioxide 22 mmol/L (21-32) 07/05/21 07:53 Anion Gap 5.0 (3-11) 07/05/21 07:53 BUN 11 mg/dl (7-18) 07/05/21 07:53 Creatinine 0.65 mg/dl (0.6-1.2) 07/05/21 07:53 Est Cr Clr Drug Dosing 128.9 ml/min 07/05/21 07:53 Est GFR ( Amer) 121.7 ml/min 07/05/21 07:53 Est GFR (Non-Af Amer) 105.0 ml/min 07/05/21 07:53 BUN/Creatinine Ratio 16.1 (10-20) 07/05/21 07:53 Glucose 106 mg/dl (70-99) H 07/05/21 07:53 Estimat Average Glucose 120 mg/dl 07/04/21 05:27 Hemoglobin A1c 5.8 % (4.5-5.6) H 07/04/21 05:27 Calcium 8.7 mg/dl (8.5-10.1) 07/05/21 07:53 Magnesium 2.2 mg/dl (1.8-2.4) 07/03/21 15:43 Total Bilirubin 0.2 mg/dl (0.2-1) 07/05/21 07:53 Direct Bilirubin < 0.1 mg/dl (0-0.2) 07/05/21 07:53 AST 60 U/L (15-37) H 07/05/21 07:53 ALT 86 U/L (12-78) H 07/05/21 07:53 Alkaline Phosphatase 112 U/L (45-117) 07/05/21 07:53 Total Protein 6.4 gm/dl (6.4-8.2) 07/05/21 07:53 Albumin 3.4 gm/dl (3.4-5.0) 07/05/21 07:53 Globulin 3.5 gm/dl (2.5-4.0) 07/03/21 15:43 Albumin/Globulin Ratio 1.1 (0.9-2) 07/03/21 15:43 Triglycerides 204 mg/dl (0-150) H 07/03/21 15:43 Cholesterol 179 mg/dl (0-200) 07/03/21 15:43 LDL Cholesterol, Calc 97 mg/dl 07/03/21 15:43 VLDL Cholesterol, Calc 41 mg/dl 07/03/21 15:43 HDL Cholesterol 41 mg/dl 07/03/21 15:43 Cholesterol/HDL Ratio 4 07/03/21 15:43 Vitamin B12 1089 pg/ml (193-986) H 07/04/21 10:49 TSH 1.290 uIu/ml (0.300-4.500) 07/03/21 15:43 Urine Color Yellow 07/03/21 15:55 Urine Appearance Clear (Clear) 07/03/21 15:55 Urine pH 5.5 (4.5-7.5) 07/03/21 15:55 Ur Specific [place] 1.014 (1.000-1.030) 07/03/21 15:55 Urine Protein Negative (Negative) 07/03/21 15:55 Urine Glucose (UA) Negative (Negative) 07/03/21 15:55 Urine Ketones Negative (Negative) 07/03/21 15:55 Urine Blood Negative (Negative) 07/03/21 15:55 Urine Nitrite Negative (Negative) 07/03/21 15:55 Urine Bilirubin Negative (Negative) 07/03/21 15:55 Urine Urobilinogen Negative (Negative) 07/03/21 15:55 Ur Leukocyte Esterase Negative (Negative) 07/03/21 15:55 Lyme Disease IgG Ab Negative (Negative) 07/04/21 10:49 Lyme Disease IgM Ab Negative (Negative) 07/04/21 10:49 COVID-19 Eval Order Covid19 at [facility] 07/03/21 16:14 SARS-CoV-2 (PCR) NEGATIVE (Negative) 07/03/21 16:14 Impressions Chest X-Ray 07/03/21 15:32 SINGLE VIEW CHEST CLINICAL HISTORY: Generalized weakness. FINDINGS: An AP, portable, upright chest radiograph is compared to study dated 06/04/2021. The cardiomediastinal silhouette is unremarkable. There is bibasilar atelectasis. The lungs and pleural spaces are otherwise clear. No pneumothorax is seen. The bony thorax is grossly intact. IMPRESSION: No active disease in the chest. ACT 112: Negative or not required by law. Electronically signed by: Gallito Patel M.D. 07/03/2021 4:00 PM Head CTA 07/03/21 19:59 HEAD & NECK CTA HISTORY: Abnormal brain MRI. Possible stroke. History of metastatic disease. Nausea. Headache. TECHNIQUE: Multiaxial CT images of the head were performed following the intravenous administration of contrast to evaluate the major cerebral vessels. Multiaxial CT images of the neck were also performed following the intravenous administration of contrast to evaluate the major cervical vessels. Maximum intensity projection images were also obtained. A dose lowering technique was utilized adhering to the principles of ALARA. COMPARISON: Brain MRI 07/02/2021. FINDINGS: The abnormality at the splenium of the corpus callosum seen on the recent brain MRI is not well evaluated by this modality. There is no midline shift or intracranial hemorrhage. No abnormal enhancement within the brain. Mild mucosal thickening within the left ethmoid air cells. The mastoid air cells are clear. The major dural venous sinuses appear patent. Visualized intracranial internal carotid arteries, distal vertebral arteries, and basilar artery are widely patent. There is no significant stenosis, occlusion, or aneurysm seen within the bilateral ACAs, MCAs, or semiconductor processor. The aortic arch and proximal great vessels are widely patent. There is no significant stenosis, occlusion, or dissection identified within the bilateral common carotid, internal carotid, or vertebral arteries. Mild calcified plaque within the bilateral carotid bifurcations. IMPRESSION: 1. No significant stenosis, occlusion, or aneurysm within the [place]. 2. No significant stenosis, occlusion, or dissection identified within the carotid or vertebral arteries. 3. The abnormality at the splenium of the corpus callosum seen on the recent brain MRI is not well visualized by this modality. ACT 112: Negative or not required by law. Electronically signed by: Dilan Ricardo M.D. 07/03/2021 9:00 PM Neck CTA 07/03/21 19:59 HEAD & NECK CTA HISTORY: Abnormal brain MRI. Possible stroke. History of metastatic disease. Nausea. Headache. TECHNIQUE: Multiaxial CT images of the head were performed following the intravenous administration of contrast to evaluate the major cerebral vessels. Multiaxial CT images of the neck were also performed following the intravenous administration of contrast to evaluate the major cervical vessels. Maximum intensity projection images were also obtained. A dose lowering technique was utilized adhering to the principles of ALARA. COMPARISON: Brain MRI 07/02/2021. FINDINGS: The abnormality at the splenium of the corpus callosum seen on the recent brain MRI is not well evaluated by this modality. There is no midline shift or intracranial hemorrhage. No abnormal enhancement within the brain. Mild mucosal thickening within the left ethmoid air cells. The mastoid air cells are clear. The major dural venous sinuses appear patent. Visualized intracranial internal carotid arteries, distal vertebral arteries, and basilar artery are widely patent. There is no significant stenosis, occlusion, or aneurysm seen within the bilateral ACAs, MCAs, or semiconductor processor. The aortic arch and proximal great vessels are widely patent. There is no significant stenosis, occlusion, or dissection identified within the bilateral common carotid, internal carotid, or vertebral arteries. Mild calcified plaque within the bilateral carotid bifurcations. IMPRESSION: 1. No significant stenosis, occlusion, or aneurysm within the [place]. 2. No significant stenosis, occlusion, or dissection identified within the carotid or vertebral arteries. 3. The abnormality at the splenium of the corpus callosum seen on the recent brain MRI is not well visualized by this modality. ACT 112: Negative or not required by law. Electronically signed by: Dilan Ricardo M.D. 07/03/2021 9:00 PM Cervical Spine MRI 07/04/21 10:40 MR cervical spine wo/w con HISTORY: 50 years-old Female cervical radiculopathy chronic neck pain COMPARISON: MRI cervical spine 12/29/2020 TECHNIQUE: Multiplanar multisequence MRI of the cervical spine was obtained both with and without the use of 10.7 mL Gadavist FINDINGS: The associate professor of literacy localizer images demonstrate no gross extraspinal abnormality. No abnormal enhancement. The imaged posterior fossa structures are unremarkable. The paraspinal tissues are within normal limits. There is no acute fracture, subluxation, bone marrow or soft tissue edema. Study is mildly motion degraded. Signal within the c ervical and imaged thoracic spinal cord appears normal. Trace mastoid effusions. C2-C3: No central canal or neural foraminal narrowing. C3-C4: Unchanged mild to moderate vertebral disc space narrowing. Mild facet arthrosis. Posterior annular disc bulge with disc osteophyte complex is redemonstrated resulting in mild central canal stenosis, AP dimension of the thecal sac measuring 9 mm. There is unchanged moderate left with mild right neural foraminal narrowing. C4-C5: Mild intervertebral disc space narrowing with tiny posterior annular disc bulge, uncovertebral spurring and mild facet arthrosis. Unchanged [id number] left neural foraminal narrowing. The central canal and right neural foramen are patent. C5-C6: Mild intervertebral disc space narrowing with tiny posterior annular disc bulge and mild facet arthrosis. The central canal and left neural foramen are patent. Mild right neural foraminal narrowing has mildly progressed. C6-C7: Mild intervertebral disc space narrowing with uncovertebral spurring and tiny posterior annular disc bulge with mild facet arthrosis. Mild left neural foraminal narrowing has slightly progressed. The central canal and right neural foramen are patent. IMPRESSION: 1. Mild multilevel discogenic degeneration with uncovertebral spurring and facet arthrosis as detailed above. 2. Unchanged mild central canal stenosis at C3-C4. 3. No abnormal enhancement. 4. Normal signal of the cervical spinal cord. ACT 112: Negative or not required by law. The above report was generated using voice recognition software. It may contain grammatical, syntax or spelling errors. Electronically signed by: Cornel Us M.D. 07/04/2021 10:04 PM Hospital Course (1) CVA (cerebral vascular accident): (2) HTN (hypertension): (3) GERD without esophagitis: (4) Seizure disorder: (5) Hypothyroidism: (6) Depression with anxiety: (7) Hypercholesterolemia: (8) Breast cancer: 50 yo F Hx HTN, HLD, active smoker, breast cancer s/p chemorads and lumpectomy in 2016, GERD, seizure disorder, hypothyroidism, migraines, depression, anxiety admitted for suspected CVA. CVA, Hx breast cancer: Presented with 1 week of worsening nausea, vomiting, gait instability dizziness. Due to concern for brain metastasis from Hx breast cancer s/p chemorads, MRI performed. Findings noted: Subcentimeter focus of restricted diffusion involving the midline splenium of the corpus callosum is suggestive of an acute infarct. -CTA Head/Neck --> negative. -No TPA given due to outside of treatment interval. -Started daily aspirin. No anticoagulation at this time given acute CVA. -Echo showed no significance change since 2017. Unremarkable. -Neurology consulted --> ordered lamotrigine, ESR, B12, TSH, lyme, MRI c spine w/wo contrast.Beyond some mild elevation ESR and B12 labs were unremarkable. Lyme was negative. Lamotrigine is still pending however I do not believe this should hold the patient from being discharged from the hospital today. MRI of the C-spine showed multilevel D ARIANNA along with mild stenosis at C3-C4. Unsure if this was a potential cause of her presenting gait instability but neurology suggest patient follows up with orthopedic spine for further evaluation. It should also follow-up with Dr. Boyer neurology in the outpatient setting for further evaluation of symptoms and acute CVA. -Smoking cessation and diet discussed with the patient. GERD without esophagitis, Gastritis -EGD May 2021 with erosive gastritis, started on BID PPI. --> Patient was switched to IV PPI in the hospital and tolerated well with reduced symptoms of nausea. Due to ongoing nausea and mild abdominal pain we will add famotidine to daily regimen. -Has a history of elevated LFTs, noted on RUQ US in May to have hepatic steatosis. LFTs downtrended. Discussed dietary changes with patient. HTN, HLD: -Patient's hypertension was low to normal During her visit so her home meds were held. Recommend her checking her blood pressure at home before continuing her lisinopril and hydrochlorothiazide this may take her blood pressure too low. She can follow-up with her primary care provider for more details. As for her HLD we increased her atorvastatin to 80 mg daily this will decrease her triglycerides as well as protect her from future CVA. Seizure disorder, anxiety, depression: [place] [facility] [place]. Last seizure occurred in the fall 2018, and is on lamotrigine 225mg daily. Will also continue home brexipiprazole, Buspar, hydroxyzine, Zoloft. -Neurology unsure whether patient actually has seizure disorder despite History however patient should continue her medications and medications can be adjusted during her neurology follow-up. Total Time Total Time Spent Total Time Spent (In Minutes): 45 Discharge Plan Discharge Items Patient Disposition: Home - Self-Care Discharge Diagnosis: Acute CVA Activity: Per Instructions section Non-emergency contact: Primary Care Provider Call non-emergency contact if: you have any medication questions, your symptoms worsen, your pain is not controlled, your pain is worsening and you have a fever Follow-up/Referrals: Dewey Boyer MD [Physician] - Salvatore Parra III, CRNP [Primary Care Provider] - 07/15/21 9:20 am Basilio Christianson MD [Physician] - Diet: Regular Addtl Attending Provider Instructions: The MRI you had before he came to the hospital showed an acute cerebrovascular accident in the corpus callosum of your brain a rare but possible area for infarct. These infarcts are the result of Atherosclerotic disease which can be precipitated by lifestyle changes including your diet and smoking habits. It is unknown whether or not this infarct was causing your symptoms and can be further evaluated with your follow-up appointment with neurology. It appears your nausea and vomiting may just be secondary to the gastritis that was found during your visit in May. For your nausea you can continue taking home Protonix and Zofran. I was not able to prescribe you famotidine nor an alternative Carafate due to your allergies with methylene blue and potential seizure side affects. Please follow up with PCP for further management fo gastritis. Per neurology I would also like you to follow-up with orthopedic spine to evaluate some of the findings found on your MRI of your neck which showed some narrowing of your spinal canal to evaluate whether or not this was the cause of your gait instability and dizziness. Going forward I urged you to make lifestyle changes to your diet and smoking habits as these can both add to our atherosclerotic disease and may be a precipitating cause to your stroke. Smoking cessation has the potential to prevent future strokes and other diseases down the road. Upon further studies we also found that you had elevated triglycerides so we increased your atorvastatin from 20 mg to 80 mg daily which she should take going forward. This would not only help control your triglyceride levels but also help prevent future stroke. You should also take a daily 81mg aspirin which I prescribed as well. Pending Studies at Discharge: Yes Studies:: Lamotrigine level Stand-Alone Forms: Medications to Prevent Stroke, My [facility], Smoking Cessation Medications and DC Order Prescriptions: New aspirin 81 mg Tablet,Delayed Release (Dr/Ec) 81 mg PO QAM Qty: 30 RF: 0 atorvastatin 80 mg tablet 80 mg PO QAM Qty: 30 RF: 0 Continued buspirone 30 mg tablet 30 mg PO BID RF: 0 Rexulti 2 mg tablet 2 mg PO HS RF: 0 cholecalciferol (vitamin D3) [Vitamin D3] 2,000 unit capsule 2,000 units PO QAM RF: 0 cyanocobalamin (vitamin B-12) [Vitamin B-12] 1,000 mcg tablet 1,000 mcg PO QAM RF: 0 prazosin [Minipress] 2 mg capsule 2 mg PO HS RF: 0 levothyroxine [Synthroid] 50 mcg tablet 50 mcg PO QAM RF: 0 sertraline [Zoloft] 100 mg tablet 200 mg PO QAM RF: 0 promethazine 25 mg tablet 25 - 50 mg PO Q6H PRN (Reason: nausea and vomiting) Qty: 20 RF: 1 nicotine [Nicoderm CQ] 14 mg/24 hr patch 24 hour 14 mg transdermal Q24H RF: 0 naltrexone 50 mg tablet 25 mg PO HS RF: 0 hydroxyzine HCl 25 mg tablet 25 mg PO TID PRN (Reason: Anxiety) RF: 0 topiramate [Topamax] 50 mg tablet See Rx Instructions .ROUTE .COMPLEX RF: 0 ondansetron HCl [Zofran] 4 mg tablet 4 mg PO Q8H PRN (Reason: Nausea And Vomiting) RF: 0 lamotrigine [Lamictal] 200 mg tablet 200 mg PO BID RF: 0 promethazine [Promethegan] 25 mg suppository 25 mg IN Q6H PRN (Reason: sedation) RF: 0 potassium chloride [Klor-Con 10] 10 mEq tablet extended release 20 meq PO BID RF: 0 lamotrigine [Lamictal] 25 mg tablet 25 mg PO BID RF: 0 lisinopril-hydrochlorothiazide [Zestoretic] 20-25 mg tablet 1 tab PO QAM RF: 0 Hold Instructions: Hypotension pantoprazole [Protonix] 40 mg tablet,delayed release (DR/EC) 40 mg PO BID Qty: 60 RF: 4 Discontinued atorvastatin [Lipitor] 20 mg tablet 20 mg PO QAM RF: 0 Discharge Orders: Discharge Order (Routine); Ordered 07/05/21 Ordered By: Tripp Brandon Admission Data Admit Date/Time: 07/03/21 19:59 Attending Provider: Lalito Orta Admit Provider: Kristin Curran Primary Care Provider: Salvatore Parra III Other Providers: Dewey Boyer ; Félix Bazan Other Interventions: Discharge Summary Assessment (RN) Last Done: 07/05/21 14:19 Supervising Physician Co-Signing Physician Notes Attending attestation Pt seen and examined in concert with Dr. Brandon. In agreement with the documented findings as noted in the resident documentation with any exceptions or additions as noted here. Improvement in nausea with current medication regimen, now described as mild and not actively interfering with PO intake. Intermittent mild bilateral frontal [place] which resolve spontaneously or with APAP. On examination, S1/S2 nl RRR no MCG. CTAB. Abd NT/ND BS+ve. CNII-XII grossly intact. CVA - neurology consultation - likely noncontributory to presenting symptoms - continue atorvastatin 80mg, ASA Dizziness/gait instability - resolved - MRI cspine without urgent findings - lamotrigine level pending GERD with gastritis, transaminitis - return to PO PPI BID, added famotidine for continued gastritis control. Continue ondansetron. Extensive counseling re: importance of continued follow up with neurology and primary care in the setting of ongoing symptoms without discrete cause. Else see resident documentation as noted. Total attending time spent on this case on the day of discharge: 35 minutes. Resident Activity Tracking Resident Involvement: Resident Care Provided Care Provided: Adult Hospital Medicine
[2021-07-05] MEDS ORDERED: STROKE PATIENT DISCHARGE STA (16:18)
== END 2021-07-05 16:49 | disposition home or self-care (01) | DRG 66 ==
LOC: ED 14:40 → 2W 19:59 → SUATTDRO 19:59 → 2W 22:46
DX: Z68.39 Body mass index [BMI] 39.0-39.9, adult; G40.909 Epilepsy, unspecified, not intractable, without status epilepticus; F17.210 Nicotine dependence, cigarettes, uncomplicated; F43.10 Post-traumatic stress disorder, unspecified; M54.12 Radiculopathy, cervical region; E66.9 Obesity, unspecified; F32.9 Major depressive disorder, single episode, unspecified; Z79.82 Long term (current) use of aspirin; I63.9 Cerebral infarction, unspecified; F41.9 Anxiety disorder, unspecified; E78.5 Hyperlipidemia, unspecified; K21.9 Gastro-esophageal reflux disease without esophagitis; Z85.3 Personal history of malignant neoplasm of breast; Z90.49 Acquired absence of other specified parts of digestive tract; E03.9 Hypothyroidism, unspecified; I10 Essential (primary) hypertension

== ENCOUNTER 2023-01-19 13:47 | Observation (INO) ==
--- NOTE | 2023-01-19 13:59 | Emergency Department Note ---
Impression & Plan Stroke-like symptoms, Weakness, Diarrhea, History of seizure ED Provider Note NAME: MATEO WANG AGE: 52 SEX: F : 1970 ARRIVES VIA: Walk-In INFORMANT: Patient, ED PROVIDER(S): ED TEMP CHIEF COMPLAINT: Strokelike symptoms MEDICAL DECISION MAKING: Patient was initiated as a code stroke from triage due to concern for left-sided weakness. Code stroke was initiated I did evaluate the patient upon returning from CAT scan promptly. The patient does have left upper extremity and left lower extremity weakness. I did speak with on-call telestroke neurologist Dr. Saldana who did evaluate the patient. Was determined that the patient's last known well would have been last evening and this is more of a wake-up weakness. No TNK at this time. An MRI of the brain was ordered. The patient's blood work is fairly unremarkable. Patient CT head and CT angiography of the head and neck did not show any acute concerning findings. Patient has mild leukopenia with white count of 4.1 with normal H&H and platelet count. The patient's kidney function is grossly unremarkable BSG at 120 but not DKA and not a fasting glucose. COVID-negative. Upon reassessment the patient was feeling improved was more awake and alert. The patient has had some improvement in her weakness. The patient was ordered additional IV fluids as well as 243 of aspirin as the patient already taken a baby aspirin this morning. I did speak with the on-call hospitalist service Dr. Sosa and the patient was admitted to the medicine service. Critical Care: I have personally spent 35 minutes of critical care time in direct management of this patient. This includes bedside care, interpretation of diagnostic studies, and testing, discussion with consultants, patient, and family members, and other require inpatient management activities. This 35 minutes is in excess of all separately billable procedures. Prior /Outside records reviewed: I did review the patient's prior neurology visit from September 2021. Patient does have a prior history of CVA. The patient is on Lamictal. Patient did have an MRI completed prior to then which showed a small isolated lesion in the midline splenium of the corpus callosum most likely ischemic in nature. CT angio was negative at that time the patient's TTE revealed normal LV function and no shunt or PFO Differential diagnosis: Infection, dehydration, metabolic abnormality, hypo/hyperglycemia, electrolyte disturbance, anemia, hypoxia, cardiac sources, intracerebral event, toxicologic, neurologic, as well as other pathologies. Diagnostics, as interpreted by me: ECG: Normal sinus rhythm, rate of 84 normal intervals left axis deviation no ST elevations or T WI. Cardiac monitoring: An order was placed for continuous cardiac monitoring. The monitor shows a rate of 88 with sinus rhythm. Patient was placed on pulse oximetry Medical decision rules: none Imaging studies: See below HPI: Patient presents due to concern for weakness. Patient states that initially yesterday she had some more diarrhea symptoms and did not feel well. The patient believes that she developed some left-sided weakness which started earlier this morning somewhere between 10 and 11 AM. The patient does take a baby aspirin and has a prior history of stroke but did not have any residual def icits at that time. Patient states that she had gotten up and was weak and fell to the side unsure as without she struck her head or LOC. Patient denies any chest pains or shortness of breath. Patient denies any nausea vomiting but has had the diarrhea. No blood in the stool. Patient denies any known sick contacts or recent travel. The patient does smoke tobacco. Patient denies any drugs or alcohol use PAST MEDICAL HISTORY: See Below PAST SURGICAL HISTORY: See Below SOCIAL HISTORY: See Below HOME MEDICATIONS: See Below ALLERGIES: See Below VITALS: See Below PHYSICAL EXAMINATION: GENERAL: NAD, wearing a mask, non-toxic. EYE EXAM: Normal conjunctiva. PERRL, no anisocoria and EOM's grossly intact w/o pain. NECK: Supple, no nuchal rigidity, no adenopathy, non-tender. No signs of meningismus. FROM of the neck with good chin to chest and neck extension. No stridor. LUNGS: Clear to auscultation. Normal chest wall mechanics. HEART: NSR, no MRG. ABDOMEN: Abdomen soft, non-tender, normo-active bowel sounds, no masses, no rebound or guarding. BACK: No CVA TTP. SKIN: No rashes and no bruising. UPPER EXTREMITIES: Upper extremities are grossly normal. LOWER EXTREMITIES: Grossly normal, no edema. NEURO EXAM: GCS of 14, opens eyes to voice A&O x3, cranial nerves II-XII grossly intact, normal speech, moves all 4 extremities but with 4-5 weakness left upper extremity and 3-5 weakness left lower extremity Past Med/Surg History Medical History Anxiety Breast cancer (07/13/16) COVID-19 HX 2020 Degenerative disc disease Depression Diverticular disease Dizziness Factor 5 Leiden mutation, heterozygous PT REPORTS TESTED + FOR FACTOR 5 MUTATION GENE DAUGHTER HAD HX OF STROKE IN THE EYE...TESTING FOR FACTOR 5 AND + , REASON FOR PT TESTING Gait disturbance GERD (gastroesophageal reflux disease) Hiatal hernia History of breast cancer 1995 ,LUMPECTOMY , HX CHEMO & RADIATION History of Clostridium difficile infection History of diverticulitis History of seizures last seizure 1.5 yrs ago / DR FERRER History of stroke JUN 2021 - NO RESIDUALS HLD (hyperlipidemia) HTN (hypertension) HX, NOT A CURRENT PROBLEM IT'S BEEN NORMAL PER PT Hypothyroidism Nightmares Obesity (BMI 30-39.9) Osteoarthritis PTSD (post-traumatic stress disorder) Surgical History History of anesthesia reaction "I had a seizure coming out of anesthesia." -- hyster 2018 @ [place] History of breast biopsy History of cholecystectomy History of colonoscopy History of endoscopy History of lumpectomy of left breast History of removal of Port-a-Cath History of tooth extraction History of total hysterectomy with bilateral salpingo-oophorectomy (BSO) History of vascular access device Family History Mother Breast cancer Father Myocardial infarction Grandmother (Maternal) Breast cancer Grandmother (Paternal) Breast cancer Sister Migraine Denies family history of Ovarian cancer Prostate cancer Colorectal cancer Social History Smoking Status: Current every day smoker Tobacco Type: Cigarettes Age Started Using Tobacco: 28; packs per day: 1.5; Cigarettes Per Day: .5PPD/ADVISED NPO; Second Hand Exposure: Yes; Hx Alcohol Use: Yes Alcohol type: hard liquor Hx Substance Use: No Preferred Language: Korean Communication Ability: Effective Visual Impairment: No Limitations Hearing Ability: Normal Shut Off Worker Required: No Beliefs That Will Affect Care: Spiritual marital status: Current Living Situation: Spouse current occupational status: unemployed Feels Safe at Home: Yes Childhood Exposure to Second-Hand Smoke: No Dental Care, Regularly: No Physical Activity Frequency: Does not Exercise Seatbelt Use: always Sunscreen Use: No Assistive Devices: Denture - Upper and Glasses Allergies Allergies Allergy/AdvReac Type Severity Reaction Status Date / Time methylene blue AdvReac Severe seizures Verified 01/19/23 15:23 Home Meds Home Medications Medication Instructions Recorded Confirmed cholecalciferol (vitamin D3) 50 2,000 units PO QAM 07/11/19 01/19/23 mcg (2,000 unit) capsule (Vitamin D3) cyanocobalamin (vitamin B-12) 1,000 mcg PO QAM 07/11/19 01/19/23 1,000 mcg tablet (Vitamin B-12) buspirone 30 mg tablet 30 mg PO BID 07/27/19 01/19/23 prazosin 2 mg capsule (Minipress) 2 mg PO HS 10/10/20 01/19/23 hydroxyzine HCl 25 mg tablet 25 mg PO TID PRN Anxiety 06/13/21 01/19/23 desvenlafaxine 50 mg 25 mg PO QAM 06/18/22 01/19/23 tablet,extended release 24 hr aspirin 81 mg tablet,delayed 81 mg PO QAM 01/19/23 01/19/23 release pantoprazole 40 mg tablet,delayed 40 mg PO BID 01/19/23 01/19/23 release Previous Rx's Medication Instructions Recorded levothyroxine 75 mcg capsule 75 mcg PO QAM #90 caps 07/05/22 atorvastatin 80 mg tablet 80 mg PO QAM #90 tabs 07/19/22 potassium chloride 10 mEq 20 meq PO BID #360 tabs 08/24/22 tablet,extended release lamotrigine 200 mg tablet 200 mg PO BID #180 tabs 09/27/22 (Lamictal) lamotrigine 25 mg tablet (Lamictal) 25 mg PO BID 90 days #180 tabs 09/27/22 albuterol sulfate 90 mcg/actuation 1 inh inhalation QID PRN shortness 01/10/23 aerosol inhaler of breath or wheezing #8.5 grams Results & Data (ED) Vital Signs Vital Signs - 24 hr 01/19/23 13:49 01/19/23 14:15 01/19/23 14:15 Temperature 36.7 C Temperature Source Temporal Artery Scan Pulse Rate 102 H 89 Pulse Rate [Apical] 89 Pulse Rhythm [Apical] Regular Pulse Strength [Apical] Respiratory Rate 20 18 Respiratory Effort / Characteristics Non-Labored Spontaneous Non-Labored Spontaneous Respiratory Depth Normal Normal Respiratory Pattern Regular Regular Blood Pressure 98/67 L Blood Pressure [Right Arm] 128/84 Blood Pressure Mean 77 Blood Pressure Mean [Right Arm] 98 Blood Pressure Position [Right Arm] Lying Pulse Oximetry 97 95 Oxygen Delivery Method Room Air Room Air Sepsis Recent Fever Within 48 Hours No Sepsis New/Unexplained Change in Mental Status No Sepsis Action Taken by Nursing No Action Required 01/19/23 14:48 01/19/23 14:53 01/19/23 15:00 Temperature Temperature Source Pulse Rate 67 82 Pulse Rate [Apical] 83 Pulse Rhythm [Apical] Regular Pulse Strength [Apical] Normal Respiratory Rate 17 20 15 Respiratory Effort / Characteristics Non-Labored Spontaneous Respiratory Depth Normal Respiratory Pattern Regular Blood Pressure 124/82 128/76 Blood Pressure [Right Arm] 124/82 Blood Pressure Mean 96 93 Blood Pressure Mean [Right Arm] 96 Blood Pressure Position [Right Arm] Semi-fowlers Pulse Oximetry 96 95 94 Oxygen Delivery Method Room Air Room Air Sepsis Recent Fever Within 48 Hours Sepsis New/Unexplained Change in Mental Status Sepsis Action Taken by Nursing 01/19/23 15:19 01/19/23 15:30 01/19/23 16:00 Temperature Temperature Source Pulse Rate 70 72 79 Pulse Rate [Apical] Pulse Rhythm [Apical] Pulse Strength [Apical] Respiratory Rate 17 17 15 Respiratory Effort / Characteristics Respiratory Depth Respiratory Pattern Blood Pressure 114/82 103/71 121/75 Blood Pressure [Right Arm] Blood Pressure Mean 92 81 90 Blood Pressure Mean [Right Arm] Blood Pressure Position [Right Arm] Pulse Oximetry 95 95 97 Oxygen Delivery Method Sepsis Recent Fever Within 48 Hours Sepsis New/Unexplained Change in Mental Status Sepsis Action Taken by Group Home Medications Current Medication List: was personally reviewed by me Laboratory Data Attestation: I reviewed the patient's lab results. 01/20/23 06:06 01/20/23 06:06 Lab Results 01/19/23 01/19/23 01/19/23 Range/Units 14:12 14:12 14:12 WBC 4.18 L (4.8-10.8) K/ul RBC 4.73 (4.20-5.40) M/uL Hgb 13.6 (12.0-16.0) g/dl Hct 41.0 (37.0-47.0) % MCV 86.7 (80.0-100.0) fL MCH 28.8 (25.0-34.0) pg MCHC 33.2 (32.0-36.0) g/dL RDW Std Deviation 40.8 (36.4-46.3) fL RDW Coeff of Tammi 12.9 (11.5-14.5) % Plt Count 146 (130-400) K/uL MPV 11.2 (9.4-12.4) fL Immature Gran % (Auto) 0.5 % Neut % (Auto) 67.7 % Lymph % (Auto) 24.6 % Harrison % (Auto) 7.2 % Eos % (Auto) 0.0 % Baso % (Auto) 0.0 % Neut # (Auto) 2.83 (1.40-6.50) K/uL Lymph # (Auto) 1.03 L (1.2-3.4) K/uL Harrison # (Auto) 0.30 (0.11-0.59) K/uL Eos # (Auto) 0.00 (0-0.50) K/uL Baso # (Auto) 0.00 (0-0.2) K/uL Immature Gran # (Auto) 0.02 (0.01-0.20) K/uL PT 11.4 (9.0-12.0) Seconds INR 1.1 (0.9-1.1) APTT 26.2 (21.0-31.0) Seconds PTT Ratio 1.0 Sodium 135 L (136-145) mmol/L Potassium 3.5 (3.5-5.1) mmol/L Chloride 105 (98-107) mmol/L Carbon Dioxide 25 (21-32) mmol/L Anion Gap 5 (3-11) BUN 16 (6-23) mg/dl Creatinine 0.93 (0.6-1.2) mg/dl Est Cr Clr Drug Dosing 89.5 ml/min Est GFR ( Amer) 83.1 ml/min Est GFR (Non-Af Amer) 71.7 ml/min BUN/Creatinine Ratio 17.2 (10-20) Glucose 120 H (70-99(Fasting)) mg/dl POC Glucose (70-99) mg/dl Calcium 8.7 (8.5-10.1) mg/dl Magnesium 1.9 (1.7-2.4) mg/dl Total Bilirubin 0.8 (0.2-1.0) mg/dl AST 41 H (13-39) U/L ALT 50 (7-52) U/L Alkaline Phosphatase 130 H (34-104) U/L Troponin I High Sens < 2.3 (0-14) pg/ml Total Protein 6.5 (6.0-8.3) gm/dl Albumin 4.2 (3.4-5.0) gm/dl Globulin 2.3 L (2.5-4.0) gm/dl Albumin/Globulin Ratio 1.8 (0.9-2) SARS-CoV-2, RNA, NAAT (NEGATIVE) 01/19/23 01/19/23 Range/Units 14:12 15:10 WBC (4.8-10.8) K/ul RBC (4.20-5.40) M/uL Hgb (12.0-16.0) g/dl Hct (37.0-47.0) % MCV (80.0-100.0) fL MCH (25.0-34.0) pg MCHC (32.0-36.0) g/dL RDW Std Deviation (36.4-46.3) fL RDW Coeff of Tammi (11.5-14.5) % Plt Count (130-400) K/uL MPV (9.4-12.4) fL Immature Gran % (Auto) % Neut % (Auto) % Lymph % (Auto) % Harrison % (Auto) % Eos % (Auto) % Baso % (Auto) % Neut # (Auto) (1.40-6.50) K/uL Lymph # (Auto) (1.2-3.4) K/uL Harrison # (Auto) (0.11-0.59) K/uL Eos # (Auto) (0-0.50) K/uL Baso # (Auto) (0-0.2) K/uL Immature Gran # (Auto) (0.01-0.20) K/uL PT (9.0-12.0) Seconds INR (0.9-1.1) APTT (21.0-31.0) Seconds PTT Ratio Sodium (136-145) mmol/L Potassium (3.5-5.1) mmol/L Chloride (98-107) mmol/L Carbon Dioxide (21-32) mmol/L Anion Gap (3-11) BUN (6-23) mg/dl Creatinine (0.6-1.2) mg/dl Est Cr Clr Drug Dosing ml/min Est GFR ( Amer) ml/min Est GFR (Non-Af Amer) ml/min BUN/Creatinine Ratio (10-20) Glucose (70-99(Fasting)) mg/dl POC Glucose 139 H (70-99) mg/dl Calcium (8.5-10.1) mg/dl Magnesium (1.7-2.4) mg/dl Total Bilirubin (0.2-1.0) mg/dl AST (13-39) U/L ALT (7-52) U/L Alkaline Phosphatase (34-104) U/L Troponin I High Sens (0-14) pg/ml Total Protein (6.0-8.3) gm/dl Albumin (3.4-5.0) gm/dl Globulin (2.5-4.0) gm/dl Albumin/Globulin Ratio (0.9-2) SARS-CoV-2, RNA, NAAT NEGATIVE (NEGATIVE) Administered Medications Aspirin (Aspirin 81 Mg Ectab) 81 mg PO [facility] Stop: 02/19/23 08:59 Last Admin: 01/20/23 08:35 Dose: 81 mg Documented By: AG Atorvastatin Calcium (Atorvastatin 40 Mg Tab) 80 mg PO [facility] Stop: 02/19/23 08:59 Last Admin: 01/20/23 08:35 Dose: 80 mg Documented By: AG Buspirone HCl (Buspirone 15 Mg Tab) 30 mg PO BID [facility] Stop: 02/18/23 20:59 Last Admin: 01/20/23 08:35 Dose: 30 mg Documented By: Admin: 01/19/23 20:19 Dose: 30 mg Documented By: VARINDER Desvenlafaxine Succinate (Desvenlafaxine Succinate Er Tablet) 1 tab PO [facility] Stop: 02/19/23 08:59 Last Admin: 01/20/23 08:36 Dose: 1 tab Documented By: AG Lamotrigine (Lamotrigine 25 Mg Tab) 25 mg PO BID [facility] Stop: 02/18/23 20:59 Last Admin: 01/20/23 08:35 Dose: 25 mg Documented By: Admin: 01/19/23 20:21 Dose: 25 mg Documented By: VARINDER Lamotrigine (Lamotrigine 100 Mg Tab) 200 mg PO BID [facility] Stop: 02/18/23 20:59 Last Admin: 01/20/23 08:35 Dose: 200 mg Documented By: Admin: 01/19/23 20:21 Dose: 200 mg Documented By: VARINDER Levothyroxine Sodium (Levothyroxine Sodium 75 Mcg Tablet) 75 mcg PO QAM [facility] Stop: 02/19/23 08:59 Last Admin: 01/20/23 08:36 Dose: 75 mcg Documented By: AG Pantoprazole Sodium (Pantoprazole 40 Mg Tab) 40 mg PO BID [facility] Stop: 02/18/23 20:59 Last Admin: 01/20/23 08:35 Dose: 40 mg Documented By: Admin: 01/19/23 20:20 Dose: 40 mg Documented By: VARINDER Potassium Chloride (Potassium Chloride Crtab 20 Meq Tabcr) 20 meq PO BID [facility] Stop: 02/18/23 20:59 Last Admin: 01/20/23 08:35 Dose: 20 meq Documented By: Admin: 01/19/23 20:20 Dose: 20 meq Documented By: VARINDER Prazosin HCl (Prazosin Hcl 1 Mg Cap) 2 mg PO HS [facility] Stop: 02/18/23 20:59 Last Admin: 01/19/23 20:20 Dose: 2 mg Documented By: DM Discontinued Medications Aspirin (Aspirin Chew 324 Mg) 243 mg PO NOW STA Stop: 01/19/23 16:06 Last Admin: 01/19/23 16:12 Dose: 243 mg Documented By: OAJanie Gadobutrol (Gadobutrol 65ml Vial) 10.5 ml IV ONCE ONE Stop: 01/19/23 22:07 Last Admin: 01/19/23 22:07 Dose: 10.5 ml Documented By: ZIYAD Sodium Chloride (Nss 1000ml) 1,000 mls @ 999 mls/hr IV .Q1H1M ONE Stop: 01/19/23 17:05 Last Infusion: 01/19/23 18:31 Dose: 0 mls/hr Documented By: Admin: 01/19/23 16:11 Dose: 999 mls/hr Documented By: BRIANDA Ioversol (Optiray 320 500ml) 120 ml IV ONCE ONE Stop: 01/19/23 14:01 Last Admin: 01/19/23 14:00 Dose: 120 ml Documented By: LE Imaging Data Radiologist's Impression: Head CT 01/19/23 13:[address] DOSE: HISTORY: Left-sided weakness. neuro deficit, acute stroke suspected TECHNIQUE: Multiaxial CT images of the head were performed without the use of intravenous contrast. Automated exposure control was utilized for this study. A dose lowering technique was utilized adhering to the principles of ALARA. Comparison: Brain MRI 07/02/2021. Findings: The paranasal sinuses and mastoid air cells are clear. The calvarium a nd skull base are intact. The ventricles and sulci are within normal limits. There is no mass, hematoma, midline shift, or acute infarct. Impression: No acute intracranial abnormality. ACT 112: Negative or not required by law. Electronically signed by: Dilan Ricardo M.D. 01/19/2023 2:23 PM Head CTA 01/19/23 13:56 CTA ANGIOGRAPHY OF THE HEAD CLINICAL HISTORY: neuro deficit, acute stroke suspected. Left-sided weakness. COMPARISON STUDY: CTA of the head July 03, 2021. TECHNIQUE: Helical axial images of the head were obtained following uneventful intravenous administration of 120 cc of Optiray. Sagittal and coronal reconstructions were viewed as well as maximal intensity projections on an independent 3-D workstation. Automated exposure control was utilized for the study. A dose lowering technique was utilized adhering to the principles of ALARA. FINDINGS: Head CT will be reported separately. No acute intracranial hemorrhage is evident on this exam. Ventricular system is normal. Basal cisterns are patent. There are no extra-axial collections. The bilateral M1, M2, A1 and A2 segments are patent. The posterior circulation is intact. There is no central vessel occlusion. There is no intracranial aneurysm. IMPRESSION: Unremarkable CTA of the head. No central vessel occlusion. No intracranial aneurysm. ACT 112: Negative or not required by law. Electronically signed by: Rohan Rivas M.D. 01/19/2023 2:35 PM Neck CTA 01/19/23 13:56 CT angio neck with con CLINICAL HISTORY: 52 years-old Female with neuro deficit, acute stroke suspected. Acute strokelike symptoms COMPARISON STUDY: CTA had of same day, CTA neck 07/03/2021 TECHNIQUE: Following the IV administration of 1 20 mL of Optiray, CT angiogram of the neck was performed from the aortic arch to the skull base. Images are reviewed in the axial, sagittal, and coronal planes. 3-D MIPS images are created and assessed. I V contrast was administered without complication. All measurements were calculated based on NASCET criteria. A dose lowering technique was utilized adhering to the principles of ALARA. CT DOSE: 1245.05 mGy.cm FINDINGS: Three-vessel morphology of the thoracic aorta arch. Patency of the innominate and imaged subclavian arteries. Common carotid arteries are widely patent. Moderate atherosclerotic plaque of the carotid bulbs resulting in less than 50% stenosis bilaterally. Codominant and patent vertebral arteries. Lung apices are clear. Unremarkable soft tissues. No acute fracture identified. Degenerative changes of the cervical spine. IMPRESSION:Atherosclerotic plaque of the carotid bulbs. No aneurysm, dissection, high-grade stenosis or arterial occlusion. ACT 112: Negative or not required by law. The above report was generated using voice recognition software. It may contain grammatical, syntax or spelling errors. Electronically signed by: Cornel Us M.D. 01/19/2023 2:48 PM Discharge Plan Visit Data Chief Complaint: Stroke/CVA Symptoms Stated Complaint: LEFT SIDE NUMBNESS, BLURRY VISION, CVA SYMPTOMS ED Provider: Jose Elias Castro Discharge Problem: Stroke-like symptoms, Weakness, Diarrhea, History of seizure Patient Disposition: Admitted As Inpatient Discharge Instructions Interventions: ED Discharge Assessment Last Done: 01/19/23 16:58
[2023-01-19] MEDS ORDERED: OPTIRAY 320 500ml IV ONE (14:00)
--- NOTE | 2023-01-19 14:25 | CT Scan Report ---
HEAD CT NONCONTRAST CT DOSE: HISTORY: Left-sided weakness. neuro deficit, acute stroke suspected TECHNIQUE: Multiaxial CT images of the head were performed without the use of intravenous contrast. A utomated exposure control was utilized for this study. A dose lowering technique was utilized adheri ng to the principles of ALARA. Comparison: Brain MRI 07/02/2021. Findings: The paranasal sinuses and mastoid air cells are clear. The calvarium and skull base are int act. The ventricles and sulci are within normal limits. There is no mass, hematoma, midline shift, or acute infarct. Impression: No acute intracranial abnormality. ACT 112: Negative or not required by law. Electronically signed by: Dilan Ricardo M.D. 01/19/2023 2:23 PM
[2023-01-19 14:34] LABS: Hemoglobin 13.6 g/dl (12.0-16.0); Immature Granulocytes # (auto) 0.02 K/uL (0.01-0.20); Immature Granulocytes % (auto) 0.5 %; Lymphocytes # (auto) 1.03 K/uL (1.2-3.4); Lymphocytes % (auto) 24.6 %; Mean Corpuscular Hemoglobin 28.8 pg (25.0-34.0); Mean Corpuscular Hgb Conc 33.2 g/dL (32.0-36.0); Mean Corpuscular Volume 86.7 fL (80.0-100.0); Mean Platelet Volume 11.2 fL (9.4-12.4); Monocytes % (auto) 7.2 %; Neutrophils # (auto) 2.83 K/uL (1.40-6.50); Neutrophils % (auto) 67.7 %; Platelet Count 146 K/uL (130-400); RDW Coefficient of Variation 12.9 % (11.5-14.5); RDW Standard Deviation 40.8 fL (36.4-46.3); Red Blood Count 4.73 M/uL (4.20-5.40); White Blood Count 4.18 K/ul (4.8-10.8)
--- NOTE | 2023-01-19 14:36 | CT Scan Report ---
CTA ANGIOGRAPHY OF THE HEAD CLINICAL HISTORY: neuro deficit, acute stroke suspected. Left-sided weakness. COMPARISON STUDY: CTA of the head July 03, 2021. TECHNIQUE: Helical axial images of the head were obtained following uneventful intravenous administr ation of 120 cc of Optiray. Sagittal and coronal reconstructions were viewed as well as maximal inten sity projections on an independent 3-D workstation. Automated exposure control was utilized for the study. A dose lowering technique was utilized adhering to the principles of ALARA. FINDINGS: Head CT will be reported separately. No acute intracranial hemorrhage is evident on this ex am. Ventricular system is normal. Basal cisterns are patent. There are no extra-axial collections. Th e bilateral M1, M2, A1 and A2 segments are patent. The posterior circulation is intact. There is no c entral vessel occlusion. There is no intracranial aneurysm. IMPRESSION: Unremarkable CTA of the head. No central vessel occlusion. No intracranial aneurysm. ACT 112: Negative or not required by law. Electronically signed by: Rohan Rivas M.D. 01/19/2023 2:35 PM
[2023-01-19 14:43] LABS: Alanine Aminotransferase 50 U/L (7-52); Albumin Globulin Ratio 1.8 (0.9-2); Albumin Level 4.2 gm/dl (3.4-5.0); Alkaline Phosphatase 130 U/L (34-104); Anion Gap 5 (3-11); Aspartate Aminotransferase 41 U/L (13-39); BUN Creatinine Ratio 17.2 (10-20); Bilirubin,Total 0.8 mg/dl (0.2-1.0); Blood Urea Nitrogen 16 mg/dl (6-23); Calcium 8.7 mg/dl (8.5-10.1); Carbon Dioxide 25 mmol/L (21-32); Chloride 105 mmol/L (98-107); Creatinine Clr Calc Pharmacy 89.5 ml/min; Est GFR (African American) 83.1 ml/min; Est GFR (Non-African American) 71.7 ml/min; Globulin 2.3 gm/dl (2.5-4.0); Glucose 120 mg/dl (70-99(Fasting)); Magnesium 1.9 mg/dl (1.7-2.4); Potassium 3.5 mmol/L (3.5-5.1); Sodium 135 mmol/L (136-145); Total Protein 6.5 gm/dl (6.0-8.3)
[2023-01-19 14:49] LABS: Troponin I High Sensitivity < 2.3 pg/ml (0-14)
--- NOTE | 2023-01-19 14:50 | CT Scan Report ---
CT angio neck with con CLINICAL HISTORY: 52 years-old Female with neuro deficit, acute stroke suspected. Acute strokelike symptoms COMPARISON STUDY: CTA had of same day, CTA neck 07/03/2021 TECHNIQUE: Following the IV administration of 1 20 mL of Optiray, CT angiogram of the neck was performed from the aortic arch to the skull base . Images are reviewed in the axial, sagittal, and coronal planes. 3-D MIPS images are created and ass essed. IV contrast was administered without complication. All measurements were calculated based on N ASCET criteria. A dose lowering technique was utilized adhering to the principles of ALARA. CT DOSE: 1245.05 mGy.cm FINDINGS: Three-vessel morphology of the thoracic aorta arch. Patency of the innominate and imaged ojeda bclavian arteries. Common carotid arteries are widely patent. Moderate atherosclerotic plaque of the carotid bulbs resulting in less than 50% stenosis bilaterally. Codominant and patent vertebral arteri es. Lung apices are clear. Unremarkable soft tissues. No acute fracture identified. Degenerative changes of the cervical spine. IMPRESSION:Atherosclerotic plaque of the carotid bulbs. No aneurysm, dissection, high-grade stenosis or arterial occlusion. ACT 112: Negative or not required by law. The above report was generated using voice recognition software. It may contain grammatical, syntax o r spelling errors. Electronically signed by: Cornel sU M.D. 01/19/2023 2:48 PM
[2023-01-19 15:05] LABS: INR 1.1 (0.9-1.1); Partial Thromboplastin Time 26.2 Seconds (21.0-31.0); Prothrombin Time 11.4 Seconds (9.0-12.0)
--- NOTE | 2023-01-19 15:31 | Electrocardiogram Report ---
Test Reason : Blood Pressure : / mmHG Vent. Rate : 084 BPM Atrial Rate : 084 BPM P-R Int : 180 ms QRS Dur : 116 ms QT Int : 404 ms P-R-T Axes : 070 -03 056 degrees QTc Int : 477 ms Normal sinus rhythm Possible Left atrial enlargement Incomplete right bundle branch block Borderline ECG When compared with ECG of 03-JUL-2021 15:34, Incomplete right bundle branch block is now Present Confirmed by Heri Leigh ([id number]) on 01/19/2023 3:31:09 PM Referred By: REFERRED SELF Confirmed By:Heri Leigh
--- NOTE | 2023-01-19 15:36 | History & Physical Report ---
Date of Service January 19, 2023 Assessment & Plan (1) Left arm weakness: Plan: Left-sided arm weakness, suspect CVA Onset of left-sided weakness about 6 hours before hospitals evaluation. TNKase not recommended on telestroke consult due to improving symptoms. Patient with acute on chronic left-sided weakness. No dysarthria/aphasia. No facial symptoms. About 50% improved by time of hospitalist assessment CT-H naf - CTA-H/N:IMPRESSION:Atherosclerotic plaque of the carotid bulbs. No aneurysm, dissection, high-grade stenosis or arterial occlusion. Unremarkable CTA of the head. No central vessel occlusion. No intracranial aneurysm. - Last echo with bubble study shwoed no PFO 2020 Prior MRI with small lesion midline splenium of corpus callosum suspected ischemic. Normal CT angio at that time, echo without PFO Repeat echo due to syncope Repeat MRI pending Patient with history of seizure disorder on Lamictal Continue atorvastatin, aspirin Received full dose aspirin in ER, if new ischemia DAPT for 3 weeks and convert to Plavix rather than aspirin Seizure precautions Hyperlipidemia Continue atorvastatin History of seizures Continue Lamictal 225 mg p.o. twice daily. No seizures in last 3 years. McDole also helps with anxiety/depression per patient Hypothyroidism Continue Synthroid 75 mcg daily TSH pending Anxiety/depression Continue BuSpar, desvenlafaxine, hydroxyzine, prazosin DVT prophylaxis: Lovenox CODE STATUS: Full code Disposition: Med telemetry Diet: Regular after it passes swallow eval (2) HTN (hypertension): (3) GERD without esophagitis: (4) Depression with anxiety: (5) Morbid obesity: (6) Hypercholesterolemia: History of Present Illness Primary Care Provider: Salvatore Parra III, HOLLI 52-year-old female with a past medical history of hypertension, GERD, PLMD, hypothyroidism, seizures, cervical radiculopathy, DDD, family history of clotting disorder who presents for CVA evaluation. L arm and leg weakness, no difficultyspeaking. No facial sx Symptoms started 10am. Heavy l side similar to prior stroke Stood up, walked a few steps and passed out. Not sure how long she was out for +headache no chest pain, chest pressure L weakness ~50% improved compared to onset 'A lot better, still numb and heavy though.' No shortness of breath. No neck pain Medical History: Reviewed Medications: Reviewed Surgical History: Reviewed Allergies: Reviewed Social History: Currently uses cigarettes, 0.5ppd. Smoker x25 years. Rare alcohol use. Code Status:Full Code Allergies Allergy/AdvReac Type Severity Reaction Status Date / Time methylene blue AdvReac Severe seizures Verified 01/19/23 15:23 Home Medications Medication Instructions Recorded Confirmed Type cholecalciferol (vitamin D3) 50 2,000 units PO QAM 07/11/19 01/19/23 History mcg (2,000 unit) capsule (Vitamin D3) cyanocobalamin (vitamin B-12) 1,000 mcg PO QAM 07/11/19 01/19/23 History 1,000 mcg tablet (Vitamin B-12) buspirone 30 mg tablet 30 mg PO BID 07/27/19 01/19/23 History prazosin 2 mg capsule (Minipress) 2 mg PO HS 10/10/20 01/19/23 History hydroxyzine HCl 25 mg tablet 25 mg PO TID PRN Anxiety 06/13/21 01/19/23 History desvenlafaxine 50 mg 25 mg PO QAM 06/18/22 01/19/23 History tablet,extended release 24 hr levothyroxine 75 mcg capsule 75 mcg PO QAM #90 caps 07/05/22 01/19/23 Rx atorvastatin 80 mg tablet 80 mg PO QAM #90 tabs 07/19/22 01/19/23 Rx potassium chloride 10 mEq 20 meq PO BID #360 tabs 08/24/22 01/19/23 Rx tablet,extended release lamotrigine 200 mg tablet 200 mg PO BID #180 tabs 09/27/22 01/19/23 Rx (Lamictal) lamotrigine 25 mg tablet (Lamictal) 25 mg PO BID 90 days #180 tabs 09/27/22 01/19/23 Rx albuterol sulfate 90 mcg/actuation 1 inh inhalation QID PRN shortness 01/10/23 01/19/23 Rx aerosol inhaler of breath or wheezing #8.5 grams aspirin 81 mg tablet,delayed 81 mg PO QAM 01/19/23 01/19/23 History release pantoprazole 40 mg tablet,delayed 40 mg PO BID 01/19/23 01/19/23 History release Past Med/Surg History Medical History Anxiety COVID-19 HX 2020 Degenerative disc disease Depression Diverticular disease Factor 5 Leiden mutation, heterozygous PT REPORTS TESTED + FOR FACTOR 5 MUTATION GENE DAUGHTER HAD HX OF STROKE IN THE EYE...TESTING FOR FACTOR 5 AND + , REASON FOR PT TESTING GERD (gastroesophageal reflux disease) Hiatal hernia History of breast cancer 1995 ,LUMPECTOMY , HX CHEMO & RADIATION History of Clostridium difficile infection History of diverticulitis History of seizures last seizure 1.5 yrs ago / DR FERRER History of stroke JUN 2021 - NO RESIDUALS HLD (hyperlipidemia) HTN (hypertension) HX, NOT A CURRENT PROBLEM IT'S BEEN NORMAL PER PT Hypothyroidism Nightmares Obesity (BMI 30-39.9) Osteoarthritis PTSD (post-traumatic stress disorder) Surgical History History of anesthesia reaction "I had a seizure coming out of anesthesia." -- hyster 2017 [facility] History of breast biopsy History of cholecystectomy History of colonoscopy History of endoscopy History of lumpectomy of left breast History of removal of Port-a-Cath History of tooth extraction History of total hysterectomy with bilateral salpingo-oophorectomy (BSO) History of vascular access device Family History Mother Breast cancer Father Myocardial infarction Grandmother (Maternal) Breast cancer Grandmother (Paternal) Breast cancer Sister Migraine Denies family history of Ovarian cancer Prostate cancer Colorectal cancer Social History Smoking Status: Current every day smoker Tobacco Type: Cigarettes Age Started Using Tobacco: 28; packs per day: 1.5; Cigarettes Per Day: .5PPD/ADVISED NPO; Second Hand Exposure: Yes; Hx Alcohol Use: Yes Alcohol type: hard liquor Hx Substance Use: No Preferred Language: Latvian Communication Ability: Effective Visual Impairment: No Limitations Hearing Ability: Normal Money Market Dealer Required: No Beliefs That Will Affect Care: Spiritual marital status: Current Living Situation: Spouse current occupational status: unemployed Feels Safe at Home: Yes Childhood Exposure to Second-Hand Smoke: No Dental Care, Regularly: No Physical Activity Frequency: Does not Exercise Seatbelt Use: always Sunscreen Use: No Assistive Devices: Denture - Upper and Glasses Review of Systems Review of Systems: All systems reviewed & are unremarkable except as noted in HPI & below Physical Exam Physical Exam: General: A&Ox3. NAD. Cooperative. HEENT: Atraumatic, normocephalic. Pulm: CTAB A&P. -wheezes, -rales, -rhonchi. Symmetrical chest rise. No increased work of breathing. No respiratory distress. Cardiac: RRR, -mrg. Radial pulses intact and symmetrical. Abdominal: Nontender, nondistended, soft. BS present. CRANIAL NERVES: II: Pupils equal and reactive, no relative afferent pupillary defect, no VF cuts III, IV, : EOM intact, no gaze preference or deviation, no nystagmus. V: normal sensation in V1, V2, and V3 segments bilaterally VII: no asymmetry, no nasolabial fold flattening VIII: normal hearing to speech IX, X: normal palatal elevation, no uvular deviation XI: 5/5 head turn and 5/5 shoulder shrug bilaterally XII: midline tongue protrusion MOTOR: RUE: 5/5 Shoulder internal rotation, external rotation, flexion, extension, abduction, adduction 5/5 Elbow flexion/extension, wrist flexion/extension 5/5 hairspring cutter strength, finger flexion/extension, interosseus LUE: 4/5 hairspring cutter strength, shoulder flexion, elbow flexion, ankle dorsiflexion/plantarflexion. 4 -/5 hip flexion in bed RLE: 5/5 to hip flexion/extension, knee flexion/extension, ankle dorsiflexion/plantarflexion SENSORY: Normal to touch in upper and lower extremities without deficit or asymmetry Results & Data Results & Data ([facility]) Vital Signs (Past 12 Hours) Vital Signs Temp Pulse Pulse Resp BP BP Pulse Ox 01/19/23 14:53 67 20 124/82 95 01/19/23 14:48 83 17 124/82 96 01/19/23 14:15 89 01/19/23 14:15 89 18 128/84 95 01/19/23 13:49 36.7 C 102 H 20 98/67 L 97 O2 Del Method 01/19/23 14:53 Room Air 01/19/23 14:48 Room Air 01/19/23 14:15 01/19/23 14:15 Room Air 01/19/23 13:49 Room Air PG Care Time/CCT Total # of Minutes Spent Total Time Spent with Patient: Total time spent is greater than 50% in coordination of care (as documented) at patient's floor/unit and/or counseling patient: Coding Level of Care Code 49894 INT INP/OBS CARE 375MIN Diagnoses Left arm weakness R29.898 HTN (hypertension) I10 Hypertension type: essential hypertension GERD without esophagitis K21.9 Depression with anxiety F41.8 Morbid obesity E66.01 Hypercholesterolemia E78.00 (2) HTN (hypertension) Hypertension type: essential hypertension Qualified Code(s): I10 - Essential (primary) hypertension
[2023-01-19] MEDS ORDERED: SODIUM CHLORIDE 0.9% 1000ML 1,000 ML IV ONE (16:05)
[2023-01-19] MEDS ORDERED: ASPIRIN CHEW 324 MG PO STA (16:05)
[2023-01-19] MEDS ORDERED: PHARMACIST DISCHARGE MED REC CONSULT PRN (17:48)
[2023-01-19] MEDS ORDERED: ALBUTEROL HFA 8 GM INHALER INH PRN (17:48)
[2023-01-19] MEDS ORDERED: hydrOXYzine HCl 25 MG TAB PO PRN (17:48)
[2023-01-19] MEDS: busPIRone 15 MG TAB PO SCH (20:19)
[2023-01-19] MEDS: PANTOprazole 40 MG TAB PO SCH (20:20)
[2023-01-19] MEDS: POTASSIUM CHLORIDE CRTAB 20 MEQ TABCR PO SCH (20:20)
[2023-01-19] MEDS: lamoTRIgine 25 MG TAB PO SCH (20:21)
[2023-01-19] MEDS: lamoTRIgine 100 MG TAB PO SCH (20:21)
[2023-01-19] MEDS ORDERED: PRAZOSIN HCL 1 MG CAP PO SCH (21:00)
[2023-01-19] MEDS ORDERED: Nursing to Pharmacy Communication SCH (22:00)
[2023-01-19] MEDS ORDERED: GADOBUTROL 65ML VIAL IV ONE (22:06)
[2023-01-20 07:16] LABS: Hematocrit (blood only) 39.5 % (37.0-47.0); Immature Granulocytes # (auto) 0.01 K/uL (0.01-0.20); Immature Granulocytes % (auto) 0.2 %; Lymphocytes # (auto) 1.57 K/uL (1.2-3.4); Lymphocytes % (auto) 37.6 %; Mean Corpuscular Hemoglobin 28.9 pg (25.0-34.0); Mean Corpuscular Hgb Conc 32.9 g/dL (32.0-36.0); Mean Corpuscular Volume 87.8 fL (80.0-100.0); Mean Platelet Volume 11.3 fL (9.4-12.4); Monocytes # (auto) 0.36 K/uL (0.11-0.59); Monocytes % (auto) 8.6 %; Neutrophils # (auto) 2.23 K/uL (1.40-6.50); Neutrophils % (auto) 53.6 %; Platelet Count 144 K/uL (130-400); RDW Standard Deviation 41.5 fL (36.4-46.3); White Blood Count 4.17 K/ul (4.8-10.8)
[2023-01-20 07:33] LABS: Estimated Average Glucose 108 mg/dl; Hemoglobin A1C 5.4 % (4.5-5.6)
[2023-01-20 07:47] LABS: BUN Creatinine Ratio 18.9 (10-20); Chol HDL Ratio 3.5 (0-5); Creatinine Clr Calc Pharmacy 110.7 ml/min; Est GFR (African American) 109.5 ml/min; Est GFR (Non-African American) 94.5 ml/min; Potassium 3.9 mmol/L (3.5-5.1)
--- NOTE | 2023-01-20 08:13 | Magnetic Resonance Report ---
MR brain wo/w con HISTORY: 52 years-old Female CVA eval, hx of seizure acute strokelike symptoms with history of seizu res COMPARISON: Head CT of same day, brain MRI 07/02/2021 TECHNIQUE: Multiplanar multisequence MRI of the brain was obtained both with and without the use of 1 0.5 cc Gadavist FINDINGS: No restricted diffusion. Midline structures appear unremarkable. Partially empty sella. No pathologic blooming artifact on the T2 star series. No acute intracranial hemorrhage, midline shift, abnormal e xtra-axial collection, hydrocephalus or intracranial mass. Cerebral venous sinuses and major arterial flow voids appear patent. Skull, orbits and soft tissues a re unremarkable. Trace mastoid effusions. Minimal mucosal thickening of the ethmoid air cells. Study is mildly motion degraded. No significant T2/flair signal abnormalities of the brain parenchyma ident ified. Mild involutional changes. Mesial temporal lobes are within normal limits. No evidence of esperanza al temporal sclerosis, yost matter heterotopia or cortical dysplasia. No abnormal enhancement. IMPRESSION: 1. No acute intracranial abnormality. No acute or subacute infarct. 2. No acute seizure focus or evidence of mesial temporal sclerosis. 3. No abnormal enhancement. ACT 112: Negative or not required by law. The above report was generated using voice recognition software. It may contain grammatical, syntax o r spelling errors. Electronically signed by: Cornel Us M.D. 01/20/2023 8:12 AM
[2023-01-20] MEDS: busPIRone 15 MG TAB PO SCH (08:35)
[2023-01-20] MEDS: POTASSIUM CHLORIDE CRTAB 20 MEQ TABCR PO SCH (08:35)
[2023-01-20] MEDS: PANTOprazole 40 MG TAB PO SCH (08:35)
[2023-01-20] MEDS: lamoTRIgine 25 MG TAB PO SCH (08:35)
[2023-01-20] MEDS: lamoTRIgine 100 MG TAB PO SCH (08:35)
[2023-01-20] MEDS ORDERED: DESVENLAFAXINE SUCCINATE ER TABLET PO SCH (09:00)
[2023-01-20] MEDS ORDERED: ATORVASTATIN 40 MG TAB PO SCH (09:00)
[2023-01-20] MEDS ORDERED: LEVOTHYROXINE SODIUM 75 MCG TABLET PO SCH (09:00)
[2023-01-20] MEDS ORDERED: ASPIRIN 81 MG ECTAB PO SCH (09:00)
--- NOTE | 2023-01-20 13:47 | XCELERA ---
[id number] \\[id number]
--- NOTE | 2023-01-20 14:07 | Neurology Consultation ---
Date of Consultation January 20, 2023 Assessment & Plan (1) Syncope: (2) Stroke-like symptoms: (3) Migraines: (4) Seizure disorder: Plan 52-year-old female with a history of episodic migraine, seizure-like episodes, presenting with what sounds like a syncopal episode occurring in the context of diarrhea. She had some associated left-sided paresthesias as well as a feeling of heaviness for the left face and arm. Her symptoms are nearly resolved although she does have a low-grade posterior headache at this time. She has an intact neurological examination and has an unremarkable brain MRI without evidence of acute or subacute stroke. At this point, I suspect her current neurologic symptoms are related to complicated migraine which was triggered by a syncopal episode in the context of diarrhea. Again, her brain MRI is normal as is her CT angiography of the head and neck. She has a normal echocardiogram, no history of atrial fibrillation although is heterozygous for both the factor V gene mutation and MTHFR gene mutation. Either way, no known history of DVT or PE. She should continue with daily low-dose aspirin. She is also on atorvastatin, I see no reason to change either of these medications at this time. Would recommend mobile cardiac outpatient telemetry, however. Would also recommend increasing her dosage of lamotrigine to 250 mg twice daily. Lamotrigine is useful for both prevention of migraine and seizures. I do not think another EEG is necessary at this time although we could consider obtaining additional EEG evaluation in the outpatient setting including possibly ambulatory monitoring. Discussed with hospitalist physician, Dr. Voss Would also recommend checking a follow-up lamotrigine trough level in 1 week. Patient has a follow-up appointment scheduled in our office for March 18, 2023. She may keep this appointment. History of Present Illness Reason for Consultation: left sided weakness Requesting Physician: Dr. Voss Attending Physician: Leonie Voss MD History of Present Illness The patient is a 52-year-old female who is known to the neurology service, she has been following with me periodically for over 10 years regarding a history of episodic migraine, subsequently complicated by seizure-like episodes occurring about 5 years ago, after undergoing a hysterectomy. She was admitted to the [facility] in June 2021 for an unusual neurologic episode characterized by prolonged nausea, dizziness, generalized weakness, and was found to have an unusual appearing lesion within the center of the splenium of the corpus callosum on MRI, diffusion weighted sequences potentially consistent with an infarct although per my review, and injury due to metabolic derangement or toxin also possible. She has been on lamotrigine for prevention of seizures and migraine although I think her diagnosis of seizure disorder has been brought into question, uncertain if she truly has epilepsy, previous EEG did reveal some right temporal sharps, however. She was last seen in our neurology clinic with Tiffanie Chandler in September 2021. She has been taking lamotrigine 225 mg twice daily as well as daily low-dose aspirin. She informs me that she is scheduled for a follow-up appointment in our office next month. She had presented to the emergency department yesterday for further evaluation of strokelike symptoms. She indicates that she has been having diarrhea for the previous couple of days, she stood up, felt lightheaded, dizzy, diaphoretic and apparently had a loss of consciousness yesterday morning. Upon awakening, she complained of low-grade headache, posterior location, with associated left-sided weakness and numbness. She did have a telestroke consultation but was not felt to be an appropriate candidate for administration of thrombolytics. She had an unremarkable CT angiogram of the head and neck and CT of the head. She had a normal-appearing brain MRI as well, seizure protocol. I did independently review the images, no areas of abnormal restricted diffusion to suggest acute or subacute infarct, no pathologic blooming artifact on susceptibility weighted sequences. No significant asymmetry of the medial temporal lobes or evidence of mesial temporal sclerosis with seizure protocol, no significant abnormality on T2/FLAIR weighted sequences, no abnormal postcontrast enhancement. No evidence of residual injury within the splenium of the corpus callosum related to the previous area of restricted diffusion in that area on her prior MRI. This afternoon, the patient was evaluated while she was sitting up on the edge of the bed, had just completed eating lunch. She does report a low-grade posterior headache and continues to complain of a subtle feeling of numbness and tingling affecting the left side of the face as well as some subtle weakness or heaviness affecting the left arm. She has been ambulating independently, no difficulty using the restroom. Allergies Allergy/AdvReac Type Severity Reaction Status Date / Time methylene blue AdvReac Severe seizures Verified 01/19/23 15:23 Home Medications Medication Instructions Recorded Confirmed Type cholecalciferol (vitamin D3) 50 2,000 units PO QAM 07/11/19 01/19/23 History mcg (2,000 unit) capsule (Vitamin D3) cyanocobalamin (vitamin B-12) 1,000 mcg PO QAM 07/11/19 01/19/23 History 1,000 mcg tablet (Vitamin B-12) buspirone 30 mg tablet 30 mg PO BID 07/27/19 01/19/23 History prazosin 2 mg capsule (Minipress) 2 mg PO HS 10/10/20 01/19/23 History hydroxyzine HCl 25 mg tablet 25 mg PO TID PRN Anxiety 06/13/21 01/19/23 History desvenlafaxine 50 mg 25 mg PO QAM 06/18/22 01/19/23 History tablet,extended release 24 hr levothyroxine 75 mcg capsule 75 mcg PO QAM #90 caps 07/05/22 01/19/23 Rx atorvastatin 80 mg tablet 80 mg PO QAM #90 tabs 07/19/22 01/19/23 Rx potassium chloride 10 mEq 20 meq PO BID #360 tabs 08/24/22 01/19/23 Rx tablet,extended release lamotrigine 200 mg tablet 200 mg PO BID #180 tabs 09/27/22 01/19/23 Rx (Lamictal) lamotrigine 25 mg tablet (Lamictal) 25 mg PO BID 90 days #180 tabs 09/27/22 01/19/23 Rx albuterol sulfate 90 mcg/actuation 1 inh inhalation QID PRN shortness 01/10/23 01/19/23 Rx aerosol inhaler of breath or wheezing #8.5 grams aspirin 81 mg tablet,delayed 81 mg PO QAM 01/19/23 01/19/23 History release pantoprazole 40 mg tablet,delayed 40 mg PO BID 01/19/23 01/19/23 History release Patient History Medical History Anxiety Breast cancer (07/13/16) COVID-19 HX 2020 Degenerative disc disease Depression Diverticular disease Dizziness Factor 5 Leiden mutation, heterozygous PT REPORTS TESTED + FOR FACTOR 5 MUTATION GENE DAUGHTER HAD HX OF STROKE IN THE EYE...TESTING FOR FACTOR 5 AND + , REASON FOR PT TESTING Gait disturbance GERD (gastroesophageal reflux disease) Hiatal hernia History of breast cancer 1995 ,LUMPECTOMY , HX CHEMO & RADIATION History of Clostridium difficile infection History of diverticulitis History of seizures last seizure 1.5 yrs ago / DR FERRER History of stroke JUN 2021 - NO RESIDUALS HLD (hyperlipidemia) HTN (hypertension) HX, NOT A CURRENT PROBLEM IT'S BEEN NORMAL PER PT Hypothyroidism Nightmares Obesity (BMI 30-39.9) Osteoarthritis PTSD (post-traumatic stress disorder) Surgical History History of anesthesia reaction "I had a seizure coming out of anesthesia." -- hyster 2018 @ [place] History of breast biopsy History of cholecystectomy History of colonoscopy History of endoscopy History of lumpectomy of left breast History of removal of Port-a-Cath History of tooth extraction History of total hysterectomy with bilateral salpingo-oophorectomy (BSO) History of vascular access device Family History Mother Breast cancer Father Myocardial infarction Grandmother (Maternal) Breast cancer Grandmother (Paternal) Breast cancer Sister Migraine Denies family history of Ovarian cancer Prostate cancer Colorectal cancer Social History Smoking Status: Current every day smoker Tobacco Type: Cigarettes Age Started Using Tobacco: 28; packs per day: 1.5; Cigarettes Per Day: .5PPD/ADVISED NPO; Second Hand Exposure: Yes; Hx Alcohol Use: Yes Alcohol type: hard liquor Hx Substance Use: No Preferred Language: Japanese Communication Ability: Effective Visual Impairment: No Limitations Hearing Ability: Normal Budget Examiner Required: No Beliefs That Will Affect Care: Spiritual marital status: Current Living Situation: Spouse current occupational status: unemployed Feels Safe at Home: Yes Childhood Exposure to Second-Hand Smoke: No Dental Care, Regularly: No Physical Activity Frequency: Does not Exercise Seatbelt Use: always Sunscreen Use: No Assistive Devices: None Review of Systems Constitutional: no fever and no chills Eyes: no blind spots and no diplopia Ear, Nose, Mouth, Throat: no ear pain and no hearing loss Respiratory: no cough and no dyspnea Cardiovascular: no chest pain and no palpitations Gastrointestinal: as per Subjective / HPI Genitourinary: no dysuria Musculoskeletal: no back pain and no neck pain Integumentary: no rash and no lesions Neurologic: as per Subjective / HPI Psychiatric: no depression and no anxiety Hematologic / Lymphatic: no easy bleeding and no easy bruising Exam (Neuro) Constitutional: well developed and well nourished; no acute distress Eyes: normal visual agosto by confrontation, PERRL, normal accommodation and EOM intact bilaterally; no fundoscopic abnormality, no nystagmus and no papilledema Cardiovascular: Vessels: normal carotid upstroke; no carotid bruit Neurologic: Oriented to:: Person, Place and Time Memory: Short Term Intact and Remote Intact Attention: Span Intact and Concentration Intact Language: Naming Objects and Repeating Phrases Speech Fluency: negative Dysarthria Speech Aphasia: negative Aphasia Fund of Knowledge: Current Events, Past History and Vocabulary Cranial Nerves: Normal II (Visual agosto full to confrontation, visual acuity normal), III, IV, (Pupils equal round reactive to light and accommodation, eye movements normal), V (Facial sensation intact), VII (There is no facial droop or weakness), VIII (Hearing intact), IX, X (Palate elevates to midline), XI (Shoulder shrug intact) and XII (Tongue protrudes to midline) Motor Strength: Normal Lower Extremities and Normal Upper Extremities; negative Pronator Drift Motor Tone: Normal Lower Extremities and Normal Upper Extremities Muscle Bulk/Involuntary Movements: No Involuntary Movements; negative Muscle Atrophy Sensation: Light Touch Intact, Pain/Temperature Intact, Vibration Intact and Proprioception Intact Coordination: Normal; negative Limited Balance, Dysdiadochokinesia, Finger-Nose Abnormal or Heel-Valadez Abnormal Deep Tendon Reflexes: Rt Triceps: 2+, Lt Triceps: 2+, Rt Biceps: 2+, Lt Biceps: 2+, Rt Brachioradialis: 2+, Lt Brachioradialis: 2+, Rt Patellar: 2+, Lt Patellar: 2+, Rt Ankle: 2+ and Lt Ankle: 2+ Special Tests: negative Babinski Present Gait: Normal Station and Gait Results & Data ([facility]) Vital Signs (Past 12 Hours) Vital Signs Temp Pulse Pulse Resp BP Pulse Ox O2 Del Method 01/20/23 11:54 36.8 C 72 18 120/70 95 Room Air 01/20/23 07:46 36.7 C 73 18 106/69 93 Room Air 01/20/23 07:07 75 01/20/23 03:14 36.8 C 83 18 105/67 93 Room Air Laboratory Results WBC 4.17, hemoglobin 13.0, hematocrit 39.5, platelet count 144, sodium 141, potassium 3.9, BUN 14, creatinine 0.74, glucose 120, hemoglobin A1c 5.4, calcium 9.0, magnesium 1.9, AST 41, ALT 50, triglycerides 101, cholesterol 114, LDL 61, VLDL 20, HDL 33, patient is heterozygous for the MTHFR gene mutation, she is also heterozygous for the factor V Leiden gene mutation. (No known history of DVT or PE.) Diagnostic Findings CT of the head, CT angiography of the head and neck, and brain MRI are as described above in the HPI, I independently reviewed these images as well as the previous brain MRI completed in June 2021. An echocardiogram completed today revealed normal left ventricular size and systolic function, EF 60 to 65%, no regional wall motion abnormalities, no cardioembolic source, no significant change compared with previous echocardiogram done in June 2021. Electrocardiogram revealed a normal sinus rhythm, 84 bpm. PG Care Time/CCT Total # of Minutes Spent Total Time Spent with Patient: Total time spent is greater than 50% in coordination of care (as documented) at patient's floor/unit and/or counseling patient: 90 minutes Coding Level of Care Code 71059 INT INP/OBS CARE 75MIN Diagnoses Syncope R55 Stroke-like symptoms R29.90 Migraines G43.909 Seizure disorder G40.909
[2023-01-20] MEDS ORDERED: STROKE PATIENT DISCHARGE STA (16:07)
--- NOTE | 2023-01-20 16:14 | Discharge Summary ---
Date of Service January 20, 2023 Admission HPI Per Admitting Provider 52-year-old female with a past medical history of hypertension, GERD, PLMD, hypothyroidism, seizures, cervical radiculopathy, DDD, family history of clotting disorder who presents for CVA evaluation. L arm and leg weakness, no difficultyspeaking. No facial sx Symptoms started 10am. Heavy l side similar to prior stroke Stood up, walked a few steps and passed out. Not sure how long she was out for +headache no chest pain, chest pressure L weakness ~50% improved compared to onset 'A lot better, still numb and heavy though.' No shortness of breath. No neck pain Medical History: Reviewed Medications: Reviewed Surgical History: Reviewed Allergies: Reviewed Social History: Currently uses cigarettes, 0.5ppd. Smoker x25 years. Rare alcohol use. Code Status:Full Code Principal Diagnosis Left sided weakness likely secondary to complicated migraine Syncope Discharge Exam Constitutional WD/WN, vitals as above Eyes PERRL, conjunctivae normal, anicteric sclerae EOM intact bilaterally; no anisocoria and no nystagmus ENMT external ear and nose normal, oropharynx normal Respiratory normal respiratory effort, lungs clear to auscultation Cardiovascular RRR, no murmur, no edema Gastrointestinal (Abdomen) normal bowel sounds, soft, nontender, no hepatosplenomegaly Skin no rashes, warm and dry Neurologic CN's II-XI intact bilaterally (Except mild weakness left side of face) and + focal motor deficit (4+/5 strength in left upper and lower extremities) Speech / Cognition: normal speech Motor/Sensory: no tremor, no pronator drift and no sensory deficit Coordination: normal [id number] test, normal [id number] test and normal rapid alternating movements Psychiatric A+Ox3, euthymic affect Discharge Data Allergies Allergy/AdvReac Type Severity Reaction Status Date / Time methylene blue AdvReac Severe seizures Verified 01/19/23 15:23 Consultations 01/19/23 15:03 ED Decision to Admit Stat 01/20/23 10:11 Consult Neurology Routine Ordered Studies 01/19/23 13:56 CT angio head w con Stat CT angio neck with con Stat CT head/brain wo con Stat 01/19/23 17:48 MR brain wo/w con Routine Echocardiogram Hospital Course (1) Left arm weakness: Presented with acute onset of left sided weakness and left facial tingling in the setting of having a syncopal episode. This was associated with a posterior headache and photophobia. She had this exact same presentation in 2020 and was told that she had a stroke MRI of the brain at that time showed possible acute stroke in the corpus callosum. She has been on a baby aspirin and high intensity statin ever since. She does have MTHFR and factor V Leiden heterozygous mutations. She had testing for this after her daughter was found to be positive for factor V Leiden in the setting of a stroke of the eye. Syncope could be related to migraine or perhaps had syncope from recent diarrhea and this precipitated this migraine. CT of the head here is negative CTA-H/N:IMPRESSION:Atherosclerotic plaque of the carotid bulbs. No aneurysm, dissection, high-grade stenosis or arterial occlusion. Unremarkable CTA of the head. No central vessel occlusion. No intracranial aneurysm. Last echo with bubble study showed no PFO 2020. Repeat echocardiogram here negative for thrombus Telemetry with normal sinus rhythm-we will arrange for 30-day cardiac event monitor after discharge Repeat brain MRI here is negative for stroke-independently reviewed by neurologist who thinks that the previous finding on brain MRI from 2020 is now resolved. This means that she did not have a stroke in 2020 She continued to have persistent left-sided mild weakness and tingling and a headache despite negative MRI findings-consistent with complicated migraine Appreciate neurology consultation Patient with history of seizure disorder on Lamictal-this is most likely not a seizure. Lamictal dose will be increased to 250 Mg p.o. twice daily in case this is a complicated migraine as this is also prophylactic for migraines Continue atorvastatin, aspirin Hyperlipidemia Continue atorvastatin -Lipid panel acceptable History of seizures Had seizures in response to methylene blue. Has been on Lamictal. Increase dose as above for migraine prevention Hypothyroidism Continue Synthroid 75 mcg daily TSH normal in the last 6 months Anxiety/depression Continue BuSpar, desvenlafaxine, hydroxyzine, prazosin DVT prophylaxis: Lovenox CODE STATUS: Full code Disposition: Stable for discharge to home (2) GERD without esophagitis: (3) Depression with anxiety: (4) Morbid obesity: (5) Hypercholesterolemia: (6) Migraine variant: (7) Hypothyroidism: (8) Seizure disorder: (9) Syncope: (10) Factor V Leiden carrier: (11) MTHFR mutation: Total Time Total Time Spent Total Time Spent (In Minutes): 40 minutes Total Time Includes: Examination of the Patient, Discharge Planning, Medication Reconciliation and Communication With Other Providers (Neurology) Discharge Plan Discharge Items Patient Disposition: Home - Self-Care Reason For Visit: LEFT SIDE NUMBNESS, BLURRY VISION, CVA SYMPTOMS Discharge Diagnosis: Complicated migraine, left-sided weakness, Syncope Condition on Discharge: Fair Activity: Resume your previous activity Non-emergency contact: Primary Care Provider and Neurologist Call non-emergency contact if: you have any medication questions and your symptoms worsen Follow-up/Referrals: Dewey Boyer MD [Physician] - (Follow-up as scheduled in March at the neurology office.) Salvatore Parra III, CRNP [Primary Care Provider] - (Follow-up within 1 to 2 weeks.) Diet: Heart Healthy Ambulatory Orders: Lamictal(Lamotrigine) (Routine) Timeframe: 1 Week Location: None Selected Ordered By: Leonie Machado Attending Provider Instructions: You were admitted after passing out and having left-sided facial and extremity weakness. You also having a headache. Your MRI was negative for stroke. There is a chance that this could be related to a complicated migraine. The rest of your work-up of the heart and brain were normal. A cardiac event monitor will be mailed to your house to monitor you for abnormal rhythms of the heart that can be associated with TIA and stroke. Your Lamictal dose was increased to 250 Mg twice a day and you will need to have your Lamictal blood level checked in 1 week. This can help prevent migraines as well as help with your history of seizures. Please continue your aspirin and atorvastatin as before. No changes were made to that. You can take Tylenol as needed for your migraine headache. Pending Studies at Discharge: No Stand-Alone Forms: My [employer], Smoking Cessation Medications and DC Order Prescriptions: Continued levothyroxine 75 mcg capsule 75 mcg PO QAM Qty: 90 1RF atorvastatin 80 mg tablet 80 mg PO QAM Qty: 90 3RF potassium chloride 10 mEq tablet extended release 20 meq PO BID Qty: 360 1RF Rx Instructions: TAKE 2 TABLETS BY MOUTH TWICE A DAY albuterol sulfate 90 mcg/actuation HFA aerosol inhaler 1 inh inhalation QID PRN (Reason: shortness of breath or wheezing) Qty: 8.5 0RF buspirone 30 mg tablet 30 mg PO BID cholecalciferol (vitamin D3) [Vitamin D3] 2,000 unit capsule 2,000 units PO QAM cyanocobalamin (vitamin B-12) [Vitamin B-12] 1,000 mcg tablet 1,000 mcg PO QAM prazosin [Minipress] 2 mg capsule 2 mg PO HS hydroxyzine HCl 25 mg tablet 25 mg PO TID PRN (Reason: Anxiety) desvenlafaxine 50 mg Tablet Extended Release 24 Hr 25 mg PO QAM aspirin 81 mg tablet,delayed release (DR/EC) 81 mg PO QAM Rx Instructions: TAKE 1 TABLET BY MOUTH EVERY MORNING pantoprazole 40 mg tablet,delayed release (DR/EC) 40 mg PO BID Rx Instructions: TAKE 1 TABLET BY MOUTH TWICE A DAY lamotrigine [Lamictal] 200 mg tablet 200 mg PO BID Qty: 180 3RF Rx Instructions: Take with two 25mg Tablets to equal 250mg Changed lamotrigine [Lamictal] 25 mg tablet 50 mg PO BID Qty: 120 0RF Rx Instructions: Take with 200mg tablet to equal 250mg Discharge Orders: Discharge Order (Routine); Ordered 01/20/23 Ordered By: Leonie Voss Admission Data Admit Date/Time: 01/19/23 16:04 Attending Provider: Leonie Voss Admit Provider: Ronaldo Sosa Primary Care Provider: Salvatore Parra III Other Providers: Ronaldo Sosa ; Carl Harkins Coding Level of Care Code 77219 INP/OBS DISCH >30 MIN Diagnoses Left arm weakness R29.898 GERD without esophagitis K21.9 Depression with anxiety F41.8 Morbid obesity E66.01 Hypercholesterolemia E78.00 Migraine variant G43.809 Hypothyroidism E03.9 Seizure disorder G40.909 Syncope R55 Factor V Leiden carrier D68.51 MTHFR mutation Z15.89
[2023-01-20] MEDS ORDERED: ENOXAPARIN INJ 40 MG/0.4 ML SYR SQ SCH (16:15)
[2023-01-20] MEDS ORDERED: lamoTRIgine 25 MG TAB PO SCH (21:00)
== END 2023-01-20 16:32 | disposition home or self-care (01) ==
LOC: 2W 13:47 → ED 13:47 → SUATTDRO 16:04 → 2W 16:58
DX: R53.1 Weakness; Z20.822 Contact with and (suspected) exposure to COVID-19; R55 Syncope and collapse; D68.51 Activated protein C resistance; E78.5 Hyperlipidemia, unspecified; E03.9 Hypothyroidism, unspecified; Z68.36 Body mass index [BMI] 36.0-36.9, adult; Z79.82 Long term (current) use of aspirin; Z79.51 Long term (current) use of inhaled steroids; Z79.899 Other long term (current) drug therapy; G43.109 Migraine with aura, not intractable, without status migrainosus; Z15.89 Genetic susceptibility to other disease; Z86.73 Personal history of transient ischemic attack (TIA), and cerebral infarction without residual deficits; F17.210 Nicotine dependence, cigarettes, uncomplicated; G43.809 Other migraine, not intractable, without status migrainosus; E66.01 Morbid (severe) obesity due to excess calories; Z79.890 Hormone replacement therapy

== ENCOUNTER 2025-07-05 06:36 | Observation (INO) ==
--- NOTE | 2025-05-27 16:09 | PAT Medication Instructions ---
Medication Instructions Date of Service May 27, 2025 Home Medications Medication Instructions Recorded aspirin 81 mg tablet,delayed 81 mg PO QAM #90 tabs 08/01/23 release atorvastatin 80 mg tablet See Rx Instructions .Route 06/25/24 .COMPLEX #90 tabs lamotrigine 200 mg tablet 200 mg PO BID #180 tabs 08/23/24 (Lamictal) lamotrigine 25 mg tablet (Lamictal) 50 mg (2 x 25 mg) PO BID #120 tabs 08/23/24 rizatriptan 5 mg tablet 5 mg PO Q2H PRN migraine headache 11/12/24 #8 tabs levothyroxine 75 mcg capsule 75 mcg PO QAM #90 caps 01/15/25 albuterol sulfate 90 mcg/actuation 2 puff inhalation QID PRN 03/21/25 aerosol inhaler shortness of breath or wheezing #8.5 grams pantoprazole 40 mg tablet,delayed 40 mg PO DAILY #90 tabs 03/21/25 release potassium chloride 10 mEq 20 meq (2 x 10 mEq) PO DAILY #180 03/27/25 tablet,extended release tabs meloxicam 7.5 mg tablet 7.5 - 15 mg (1 - 2 x 7.5 mg) PO 04/08/25 ONCE PRN knee pain #60 tabs cholecalciferol (vitamin D3) 50 mcg (2,000 unit) capsule (Vitamin D3) 2,000 units PO QAM buspirone 30 mg tablet 30 mg PO BID prazosin 2 mg capsule (Minipress) 4 mg PO HS aspirin 81 mg tablet,delayed release 81 mg PO QAM atorvastatin 80 mg tablet See Rx Instructions .Route .COMPLEX lamotrigine 200 mg tablet (Lamictal) 200 mg PO BID lamotrigine 25 mg tablet (Lamictal) 50 mg (2 x 25 mg) PO BID rizatriptan 5 mg tablet 5 mg PO Q2H PRN levothyroxine 75 mcg capsule 75 mcg PO QAM albuterol sulfate 90 mcg/actuation aerosol inhaler 2 puff inhalation QID PRN pantoprazole 40 mg tablet,delayed release 40 mg PO DAILY potassium chloride 10 mEq tablet,extended release 20 meq (2 x 10 mEq) PO DAILY meloxicam 7.5 mg tablet 7.5 - 15 mg (1 - 2 x 7.5 mg) PO ONCE PRN magnesium 100 mg tablet 720 mg PO HS vilazodone 20 mg tablet 20 mg PO QAM Continue as directed atorvastatin 80 mg tablet See Rx Instructions .Route .COMPLEX pantoprazole 40 mg tablet,delayed release 40 mg PO DAILY ASK your surgeon for instructions meloxicam 7.5 mg tablet 7.5 - 15 mg (1 - 2 x 7.5 mg) PO ONCE PRN ASK your prescriber and surgeon aspirin 81 mg tablet,delayed release 81 mg PO QAM DO NOT take the morning of surgery cholecalciferol (vitamin D3) 50 mcg (2,000 unit) capsule (Vitamin D3) 2,000 units PO QAM potassium chloride 10 mEq tablet,extended release 20 meq (2 x 10 mEq) PO DAILY Take morning of surgery With a small sip of water, OTHERWISE NOTHING TO EAT OR DRINK AFTER MIDNIGHT: buspirone 30 mg tablet 30 mg PO BID lamotrigine 200 mg tablet (Lamictal) 200 mg PO BID lamotrigine 25 mg tablet (Lamictal) 50 mg (2 x 25 mg) PO BID rizatriptan 5 mg tablet 5 mg PO Q2H PRN(if needed) levothyroxine 75 mcg capsule 75 mcg PO QAM albuterol sulfate 90 mcg/actuation aerosol inhaler 2 puff inhalation QID PRN(use if needed; please bring with you to hospital day of surgery if possible) vilazodone 20 mg tablet 20 mg PO QAM Take evening before surgery buspirone 30 mg tablet 30 mg PO BID prazosin 2 mg capsule (Minipress) 4 mg PO HS lamotrigine 200 mg tablet (Lamictal) 200 mg PO BID lamotrigine 25 mg tablet (Lamictal) 50 mg (2 x 25 mg) PO BID rizatriptan 5 mg tablet 5 mg PO Q2H PRN(if needed) albuterol sulfate 90 mcg/actuation aerosol inhaler 2 puff inhalation QID PRN(if needed) magnesium 100 mg tablet 720 mg PO HS Other Notes If you have any questions please call us at [phone] or [phone] or [phone] or [phone]
--- NOTE | 2025-06-03 10:48 | Anesthesiology Consultation ---
Date of Service June 03, 2025 Assessment & Plan (1) Encounter for pre-operative examination: - Outpatient joint assessment: Patient is currently scheduled for inpatient pathway. If re-evaluated and patient/surgeon requests outpatient pathway, patient is not an acceptable candidate for outpatient joint program. Chart Review Chart Review: Acceptable Risk for Surgery and Patient seen in Pre Admission Testing Teaching & Discussion Pre-Anesthesia Teaching/Discussion Notes: Instructed NPO after midnight before surgery, except medications with 15 cc of water. Medication instructions provided according to the PAT guidelines. History Surgery Operation Date: 07/05/25 12:00 Proposed Procedures p Left Total Knee Arthroplasty - Dewey Hackett, Height/Weight Height: 5 ft 7 in Weight: 98.1 kg Allergies Allergy/AdvReac Type Severity Reaction Status Date / Time methylene blue AdvReac Severe seizures Verified 05/27/25 11:13 Medications Home Medications Medication Instructions Recorded Confirmed Last Taken cholecalciferol (vitamin D3) 50 2,000 units PO QAM 07/11/19 05/27/25 01/19/24 mcg (2,000 unit) capsule (Vitamin D3) buspirone 30 mg tablet 30 mg PO BID 07/27/19 05/27/25 01/19/24 08:00 prazosin 2 mg capsule (Minipress) 4 mg PO HS 01/21/23 05/27/25 01/18/24 aspirin 81 mg tablet,delayed 81 mg PO QAM #90 tabs 08/01/23 05/27/25 01/19/24 release atorvastatin 80 mg tablet See Rx Instructions .Route 06/25/24 05/27/25 Unknown .COMPLEX #90 tabs lamotrigine 200 mg tablet 200 mg PO BID #180 tabs 08/23/24 05/27/25 Unknown (Lamictal) lamotrigine 25 mg tablet (Lamictal) 50 mg (2 x 25 mg) PO BID #120 tabs 08/23/24 05/27/25 Unknown rizatriptan 5 mg tablet 5 mg PO Q2H PRN migraine headache 11/12/24 05/27/25 Unknown #8 tabs levothyroxine 75 mcg capsule 75 mcg PO QAM #90 caps 01/15/25 05/27/25 Unknown albuterol sulfate 90 mcg/actuation 2 puff inhalation QID PRN 03/21/25 05/27/25 Unknown aerosol inhaler shortness of breath or wheezing #8.5 grams pantoprazole 40 mg tablet,delayed 40 mg PO DAILY #90 tabs 03/21/25 05/27/25 Unkn own release potassium chloride 10 mEq 20 meq (2 x 10 mEq) PO DAILY #180 03/27/25 05/27/25 Unknown tablet,extended release tabs meloxicam 7.5 mg tablet 7.5 - 15 mg (1 - 2 x 7.5 mg) PO 04/08/25 05/27/25 Unknown ONCE PRN knee pain #60 tabs magnesium 100 mg tablet 720 mg PO HS 05/27/25 05/27/25 Unknown vilazodone 20 mg tablet 20 mg PO QAM 05/27/25 05/27/25 Unknown Past Medical History Medical History Anxiety Cardiac syndrome X Cervical radiculopathy DDD (degenerative disc disease), cervical Depression Factor V Leiden carrier Family history of clotting disorder factor V deficiency Gait disturbance GERD (gastroesophageal reflux disease) Hiatal hernia History of breast cancer (~1995) s/p left lumpectomy, chemo and radiation-limb restriction History of Clostridium difficile infection (~2019) ~2019 History of COVID-19 (~2020) denies hospitalization-symptoms resolved History of diverticulitis no recent flares, last flare several years ago History of seizures last seizure ~2020 / Dr Boyer HLD (hyperlipidemia) HTN (hypertension) controlled, stable per pt Hx of blood clots (~2020) hx ~2020>> cerebral blood clot, caused pts "stroke like symptoms" treated w/ aspirin Hypothyroidism Limb alert care status Patient states was informed to follow left arm restriction in 1995, but that for years has had BP/labs/IVs done on the left arm without issue and has medical staff do testing on both arms Lumbar facet joint syndrome Lumbar spondylosis Medial meniscus tear hx MTHFR mutation does not follow w/ hematology Nightmares hx - on prazosin Obesity (BMI 30-39.9) Osteoarthritis Periodic limb movement disorder (PLMD) PTSD (post-traumatic stress disorder) Right knee DJD Spinal stenosis Splenomegaly Stroke-like symptoms (~2020) hx ~2020>> cerebral blood clot Syncope hx - no recent issues Varicose veins of both lower extremities Patient denies h/o heart attack, heart failure, DM, or blood transfusions. Exercise / Class Metabolic Activity II 4-5 Yardwork/Stairs/Walk up hill (denies chest discomfort or shortness of breath with one flight of stairs) Past Family History Family History Mother Breast cancer Father Myocardial infarction Grandmother (Maternal) Breast cancer Grandmother (Paternal) Breast cancer Sister Migraine Denies family history of Ovarian cancer Prostate cancer Colorectal cancer Past Surgical History Surgical History History of anesthesia reaction "I had a seizure coming out of anesthesia." -- hyster 2018 @ [facility] History of breast biopsy History of cholecystectomy History of colonoscopy History of endoscopy History of lumpectomy of left breast History of removal of Port-a-Cath History of tooth extraction History of total hysterectomy with bilateral salpingo-oophorectomy (BSO) History of vascular access device Past Anesthesia History No Family Hx of Anesthesia Complications and Other (seizure post-op hysterectomy in 2018-states was attributed to "being brought out of anesthesia too quickly") History of PONV No Hx of PONV and No Hx of Motion Sickness Social History Smoking Status: Light tobacco smoker tobacco type: cigarettes Smoking cigarettes per day: .5PPD/ADVISED NPO Do You Dip or Chew Tobacco: No Hx Alcohol Use: No Hx Substance Use: No substance use type: does not use Review of Systems Snoring, denies witnessed apneas. Patient denies chest pain, shortness of breath, dyspnea on exertion, fever, chills, cough, wheezing, or palpitations. Physical Exam Vital Signs Vitals BP 119/80 P 66 TEMP 98.0 SP02 97% on RA RESP 18 Physical Patient resting comfortably in chair in no acute distress, alert and oriented, responding appropriately throughout visit Full cervical extension range of motion without pain TMD 3.5 finger breadths Mallampati Score 2 Dentition: upper dentures, denies loose or chipped teeth, caps/crowns, implants or bridges Lungs: normal respiratory effort. Good air movement, clear throughout to auscultation, no adventitious breath sounds Cardiac: regular rate and rhythm, no murmurs noted Carotid arteries: negative bruit bilat Lab Results Anesthesia Preop Results Results Anesthesia Widget: WBC 4.67 K/ul (4.8-10.8) L 06/03/25 Hgb 14.3 g/dl (12.0-16.0) 06/03/25 Hct 43.8 % (37.0-47.0) 06/03/25 Plt 160 K/uL (130-400) 06/03/25 Na 142 mmol/L (136-145) 06/03/25 K 4.8 mmol/L (3.5-5.1) 06/03/25 Cl 107 mmol/L (98-107) 06/03/25 CO2 32 mmol/L (21-32) 06/03/25 BUN 11 mg/dl (6-23) 06/03/25 Creat 0.80 mg/dl (0.6-1.2) 06/03/25 Glucose Level 74 mg/dl (70-99(Fasting)) 06/03/25 PT 10.0 Seconds (9.0-12.0) 06/03/25 PTT 25 Seconds (21-31) 06/03/25 INR 0.9 (0.9-1.1) 06/03/25 Blood Type AB Positive 06/03/25 Antibody Screen NEGATIVE 06/03/25 Testing Electrocardiogram Date: 06/03/25 NSR, rate 67 bpm No significant change was found Chest X-Ray Date: 12/17/24 No pneumonia seen. Echocardiogram Date: 01/20/23 EF 60-65% No regional wall motion abnormalities No LVH No significant valvular abnormalities Stress Test Date: 12/15/23 MPHR 88% METS 7 1. Maximum exercise stress test negative for chest pain. 2. Normal ST segment response to exercise. No ECG evidence of stress-induced myocardial ischemia. 3. Hypertensive blood pressure response to exercise. 4. No exercise-induced arrhythmias. Other Testing Head and neck CTA 11/10/23 Negative CTA neck. Normal head CTA.
--- NOTE | 2025-07-04 07:21 | History & Physical Report ---
Date of Service July 04, 2025 Assessment & Plan (1) Left knee DJD: We will proceed with a left total knee arthroplasty. Postoperatively, she will be started on Eliquis for DVT prophylaxis and kept overnight in the hospital for postop medical management. She plans to use energy physical therapy at discharge. History of Present Illness Chief Complaint: Osteoarthritis of the left knee. Primary Care Provider: Salvatore Parra, III, SHELL CORE AND MOLDING SUPERVISOR Aleja is a pleasant 54-year-old female who has been dealing with chronic left knee pain. She underwent a left knee arthroscopy in [address] Jimenez. Initially, she did fairly well but her symptoms then worsened. More recent MRI shows tricompartmental arthritis of her left knee. She has had multiple injections. She has failed conservative treatment. She is unable to stand at work all day. She has elected proceed with a left total knee arthroplasty. Allergies Allergy/AdvReac Type Severity Reaction Status Date / Time methylene blue AdvReac Severe seizures Verified 05/27/25 11:13 Home Medications Medication Instructions Recorded Confirmed Type cholecalciferol (vitamin D3) 50 2,000 units PO QAM 07/11/19 05/27/25 History mcg (2,000 unit) capsule (Vitamin D3) buspirone 30 mg tablet 30 mg PO BID 07/27/19 05/27/25 History prazosin 2 mg capsule (Minipress) 4 mg PO HS 01/21/23 05/27/25 History aspirin 81 mg tablet,delayed 81 mg PO QAM #90 tabs 08/01/23 05/27/25 Rx release lamotrigine 200 mg tablet 200 mg PO BID #180 tabs 08/23/24 05/27/25 Rx (Lamictal) rizatriptan 5 mg tablet 5 mg PO Q2H PRN migraine headache 11/12/24 05/27/25 Rx #8 tabs levothyroxine 75 mcg capsule 75 mcg PO QAM #90 caps 01/15/25 05/27/25 Rx albuterol sulfate 90 mcg/actuation 2 puff inhalation QID PRN 03/21/25 05/27/25 Rx aerosol inhaler shortness of breath or wheezing #8.5 grams pantoprazole 40 mg tablet,delayed 40 mg PO DAILY #90 tabs 03/21/25 05/27/25 Rx release potassium chloride 10 mEq 20 meq (2 x 10 mEq) PO DAILY #180 03/27/25 05/27/25 Rx tablet,extended release tabs meloxicam 7.5 mg tablet 7.5 - 15 mg (1 - 2 x 7.5 mg) PO 04/08/25 05/27/25 Rx ONCE PRN knee pain #60 tabs magnesium 100 mg tablet 720 mg PO HS 05/27/25 05/27/25 History vilazodone 20 mg tablet 20 mg PO QAM 05/27/25 05/27/25 History lamotrigine 25 mg tablet (Lamictal) 50 mg (2 x 25 mg) PO BID #120 tabs 06/17/25 Rx atorvastatin 80 mg tablet See Rx Instructions .Route 07/01/25 Rx .COMPLEX #90 tabs Past Med/Surg History Problem List Recurrent left knee instability Cyst of meniscus of left knee Left knee pain 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) Migraines Splenomegaly Synovial cyst of left popliteal space Left knee DJD Morbid obesity (Chronic) Hypothyroidism (Chronic) Seizure disorder (Chronic) Cardiac syndrome X (Chronic) Periodic limb movement disorder (PLMD) (Chronic) Hypercholesterolemia (Chronic) GERD without esophagitis (Chronic) Depression with anxiety (Chronic) HTN (hypertension) (Chronic) Medical History Limb alert care status Patient states was informed to follow left arm restriction in 1995, but that for years has had BP/labs/IVs done on the left arm without issue and has medical staff do testing on both arms History of COVID-19 (~2020) denies hospitalization-symptoms resolved Periodic limb movement disorder (PLMD) Cardiac syndrome X Splenomegaly Varicose veins of both lower extremities Hx of blood clots (~2020) hx ~2020>> cerebral blood clot, caused pts "stroke like symptoms" treated w/ aspirin Right knee DJD DDD (degenerative disc disease), cervical Cervical radiculopathy Lumbar facet joint syndrome Spinal stenosis Lumbar spondylosis Medial meniscus tear hx Family history of clotting disorder factor V deficiency MTHFR mutation does not follow w/ hematology Factor V Leiden carrier Syncope hx - no recent issues Stroke-like symptoms (~2020) hx ~2020>> cerebral blood clot Nightmares hx - on prazosin History of breast cancer (~1995) s/p left lumpectomy, chemo and radiation-limb restriction Gait disturbance Osteoarthritis History of Clostridium difficile infection (~2019) ~2019 Hypothyroidism PTSD (post-traumatic stress disorder) Depression Anxiety History of seizures last seizure ~2020 / Dr Boyer HLD (hyperlipidemia) HTN (hypertension) controlled, stable per pt History of diverticulitis no recent flares, last flare several years ago Obesity (BMI 30-39.9) Hiatal hernia GERD (gastroesophageal reflux disease) Surgical History History of endoscopy History of colonoscopy History of removal of Port-a-Cath History of total hysterectomy with bilateral salpingo-oophorectomy (BSO) History of anesthesia reaction "I had a seizure coming out of anesthesia." -- hyster 2017 @ [place] History of tooth extraction History of cholecystectomy History of vascular access device History of breast biopsy History of lumpectomy of left breast Family History Mother Breast cancer Father Myocardial infarction Grandmother (Maternal) Breast cancer Grandmother (Paternal) Breast cancer Sister Migraine Denies family history of Ovarian cancer Prostate cancer Colorectal cancer Social History Smoking Status: Light tobacco smoker Tobacco Type: Cigarettes Age Started Using Tobacco: 28; packs per day: 0.5; Cigarettes Per Day: .5PPD/ADVISED NPO; Second Hand Exposure: Yes (hx); Do You Dip or Chew Tobacco: No; Tobacco Cessation Education Requested by Patient: No Hx Alcohol Use: No Hx Substance Use: No Preferred Language: Polish Communication Ability: Effective Visual Impairment: No Limitations Hearing Ability: Normal Wood Casket Maker Required: No Beliefs That Will Affect Care: None marital status: Current Living Situation: Spouse current occupational status: unemployed Other Information That Helps Us Care for You: No Feels Safe at Home: Yes Safety Concerns: Feels Safe At This Time Childhood Exposure to Second-Hand Smoke: No Diet: regular Diet Comment: regular Dental Care, Regularly: No Physical Activity Frequency: Does not Exercise Seatbelt Use: always Sunscreen Use: No Assistive Devices: Denture - Upper and Glasses Review of Systems All systems reviewed & are unremarkable except as noted in HPI & below. Physical Exam On physical exam of the left knee, she has no deformity. She has no effusion. She has pain over the distal femoral condyles.. Constitutional WD/WN, vitals as above Eyes PERRL, conjunctivae normal, anicteric sclerae ENMT external ear and nose normal, oropharynx normal Neck trachea midline, no thyromegaly Respiratory normal respiratory effort Cardiovascular RRR, no murmur, no edema Gastrointestinal (Abdomen) normal bowel sounds, soft, nontender, no hepatosplenomegaly Psychiatric A+Ox3, euthymic affect Results & Data Results & Data Laboratory Results . Diagnostic Findings X-rays of the left knee do show some mild osteoarthritis with some joint space narrowing MRI of the left knee shows more advanced tricompartmental arthritis.. PG Care Time/CCT Total # of Minutes Spent Total Time Spent with Patient: Total time spent is greater than 50% in coordination of care (as documented) at patient's floor/unit and/or counseling patient: Coding Level of Care Code None Diagnoses Left knee DJD M17.12
[~2025-07-05 06:36] MED LIST changes: +BUPIVACAINE 0.5 % 5 MG/1 ML PF 10ML VIAL ONE; -BUPR-83 PO; -BUSP30TA2 PO; -CHOL200027 PO; -CYAN100073 PO; -EXM/25 PO; -LAMO200T35 PO; -LEVE250T PO; -LISI-788 PO; -LPT10 PO; -POTA-639 PO; -RANI150T85 PO; +ROPIVACAINE 0.5% 5 MG/ML 30 ML VIAL ONE; -VENL150C56 PO
--- NOTE | 2025-07-05 06:37 | History & Physical Bridge Note ---
Date of Service July 05, 2025 History & Physical Bridge Note I have examined the patient, reviewed the History & Physical and in the interval since the performance of the History & Physical I have noted the following changes of clinical significance: no changes noted
[2025-07-05] MEDS: ACETAMINOPHEN 500 MG TAB PO SCH ×2 (07:01→15:19)
[2025-07-05] MEDS: FAMOTIDINE 20 MG TAB PO SCH (07:02)
[2025-07-05] MEDS: LR 60ML/HR IV SCH (07:02)
[2025-07-05] MEDS: dexAMETHasone**PF** 10 MG/ML VIAL IV SCH (07:02)
[2025-07-05] MEDS: GABAPENTIN 900 MG DOSE PO SCH (07:02)
[2025-07-05] MEDS ORDERED: LIDOCAINE 2% 2 ML VIAL/AMP(20MG/ML) INFIL ONE (07:12)
[2025-07-05] MEDS ORDERED: ONDANSETRON INJ 2 MG/ML 2 ML VIAL ONE (07:12)
[2025-07-05] MEDS ORDERED: PROPOFOL IV EMULSION 10 MG/ML 20 ML VIAL IV ONE (07:12)
[2025-07-05] MEDS ORDERED: MIDAZOLAM HCL 1 MG/ML 2ML VIAL ONE (07:13)
[2025-07-05] MEDS ORDERED: DexMEDEtomidine HCL IV 100 MCG/ML VIAL IV ONE (07:13)
[2025-07-05] MEDS ORDERED: ONDANSETRON INJ 2 MG/ML 2 ML VIAL IV PRN ×2 (07:33→11:27)
[2025-07-05] MEDS ORDERED: ATROPINE SULFATE 0.1 MG/ML 10ML SYR IV PRN (07:33)
[2025-07-05] MEDS: LR 500ML BOLUS, THEN 15ML/HR IV SCH (07:45)
[2025-07-05] MEDS: TRANEXAMIC ACID 1,000 MG **IV Pre-op IV SCH (07:54)
[2025-07-05] MEDS ORDERED: PHENYLEPHRINE HCL 10 MG/ML VIAL ONE (08:23)
[2025-07-05] MEDS: ROPIV 0.5% 246mg, Ketorolac 30mg, EPINEPHrine 0.5mg in NSS INFIL SCH (08:49)
[2025-07-05] MEDS: ORTHO JOINT ANESTHETIC ONE (08:49)
--- NOTE | 2025-07-05 09:34 | Operative Report ---
PG Post Operative Report Pre & Post Diagnosis Operation Date: 07/05/25 08:00 Pre-Op Diagnosis: Left Knee Degenerative Joint Disease Post-Op Diagnosis: Left Knee Degenerative Joint Disease I identified the patient and participated in the time-out.: Yes Procedure Operation Date: 07/05/25 08:00 Actual Procedures p Robotic Assisted Left Total Knee Arthroplasty(Left) - Dewey Hackett DO Surgeon Dewey Hackett DO Jewelry Bearing Maker Best Monroy PA-C Estimated Blood Loss 30 Findings Consistent with Post-Op Diagnosis Specimens Left femoral and tibial bone Description of Procedure Implants used: I used a Jordana Persona total knee arthroplasty system with a size 8 narrow femur, D tibia, 28 oval patella, and a size 12 CPS polyethylene bearing. All components were cemented in place with Biomet cement. Aleja arrived [facility] for the above procedure. She was seen in the preoperative holding area and the operative extremity was identified and signed. She was given a preoperative antibiotic, TXA, a spinal anesthetic and an adductor nerve block. She was taken back to the operating room and laid on the table in supine position. She was given basic sedation. The operative knee was then prepped and draped in sterile fashion. A timeout was done, and the patient and the operative extremity was properly identified. A midline incision was made directly over the patella. Dissection was taken down to the extensor mechanism. A medial parapatellar arthrotomy was used. The medial retinaculum was released and the fat pad was mostly excised. The knee was flexed and the ACL, PCL, and meniscus were removed. The alignment of the knee replacement was assisted with a [employer] robotic knee. The femoral array was pinned in the distal femur and the tibial array was pinned using a percutaneous technique in the upper shaft of the tibia. The robot was appropriately calibrated and the structure of the knee was mapped out. The components were then manipulated on the screen to account for any malalignment and to assist in gap balancing. Once I was happy with the placement of the components on the screen, a distal femoral cutting guide was brought in place. The distal femur was then resected. The femur measured to be a size 8. A 4-in-1 cutting block was then put into place by the robot and 2 peg holes were drilled. The 4-in-1 cutting block was then impacted into place and anterior, posterior, and chamfer cuts were made. The cutting block was then brought down to the tibia and pinned into place. The proximal tibia was then resected. The posterior aspect of the knee was then opened up and any additional meniscus fragments and osteophytes were removed. The tibia measured to be a size D. The tibial plate was then placed in the appropriate rotation and the tibia was drilled and punched. Trial components were then placed. The patella was then everted and 9 mm was resected off the posterior aspect of the patella. The patella measured to be a size 21 oval. 3 peg holes were then drilled. A trial patella was placed. A size 12 CPS polyethylene insert was then trialed. The knee was brought through a full range of motion and felt to be stable. Trial components were then removed. The surrounding soft tissues were injected with 100 cc of an orthopedic pain control cocktail. All components were then cemented into place with Biomet cement. The final polyethylene insert was then snapped into place. Once cement was dry the tourniquet was deflated. Hemostasis was obtained. A dilute betadyne lavage was then done for 3 minutes. The joint was then irrigated with normal saline solution. The medial parapatellar arthrotomy was then closed with #1 Vicryl suture. The skin was closed with 2-0 Vicryl, 3-0V lock suture, and Kathryn zip line. A soft compressive dressing was placed. She was then transferred to a hospital bed and taken to the postanesthesia care unit in stable condition. She tolerated the procedure well. Best Monroy PA-C, was present for the entire procedure. He was critical for patient positioning, prepping, draping, retraction exposure, wound closure and application of sterile dressing. I attest to the content of the Intraoperative Record and any orders documented therein. Any exceptions are noted below.
--- NOTE | 2025-07-05 10:41 | XRay Report ---
XR knee RT 1 or 2V routine CLINICAL HISTORY: Surgical Post Op COMPARISON: None FINDINGS: Left knee prosthesis shows no hardware complication. There is expected soft tissue gas. IMPRESSION: Unremarkable postoperative exam. ACT 112: Negative or not required by law. Electronically signed by: Raj Lomeli M.D. 07/05/2025 10:40 AM
--- NOTE | 2025-07-05 10:51 | Anesthesiology Progress Note ---
Date of Service July 05, 2025 Anesthesia Post Procedure Vital Signs Vital Signs: Temp Pulse Pulse Resp BP Pulse Ox O2 Del Method 07/05/25 10:40 70 14 127/86 96 Room Air 07/05/25 10:30 70 12 149/97 H 99 Oxymask 07/05/25 10:20 68 12 147/93 H 100 Oxymask 07/05/25 10:10 69 16 139/87 100 Oxymask 07/05/25 10:00 96.8 F L 73 16 145/98 H 97 Oxymask 07/05/25 06:51 97.7 F 66 20 117/71 97 Room Air O2 Flow Rate 07/05/25 10:40 07/05/25 10:30 2 07/05/25 10:20 3 07/05/25 10:10 4 07/05/25 10:00 6 07/05/25 06:51 Transfer of Care Handoff Completed per policy Notes Mental Status: alert / awake / arousable and participated in evaluation Patient Amnestic to Procedure: Yes Nausea / Vomiting: adequately controlled Pain: adequately controlled Airway Patency, RR, SpO2: stable & adequate BP & HR: stable & adequate Hydration State: stable & adequate Neuraxial Anesthesia: was administered and sensory block is resolving Anesthetic Complications: no major complications apparent and Pt Satisfied with anesthetic care
[2025-07-05] MEDS ORDERED: NALOXONE HCL 0.4 MG/1 ML VIAL/CARP IV PRN (11:27)
[2025-07-05] MEDS ORDERED: METOCLOPRAMIDE HCL INJ 5 MG/ML 2 ML VIAL IV PRN (11:27)
[2025-07-05] MEDS ORDERED: MAGNESIUM HYDROXIDE SUSP 30 ML UDC PO PRN (11:27)
[2025-07-05] MEDS ORDERED: HYDROmorphone INJ 0.5 MG/0.5 ML SYR IV PRN (11:27)
[2025-07-05 12:12] VITALS: RESP 16
[2025-07-05] MEDS: KETOROLAC TROMETHAMINE 15 MG/ML VIAL IV SCH (12:31)
[2025-07-05] MEDS: SODIUM CHLORIDE 0.9% 1,000 ML IV SCH (12:58)
[2025-07-05] MEDS: SENNA 8.6 MG TAB PO SCH (21:02)
[2025-07-05] MEDS: lamoTRIgine 100 MG TAB PO SCH (21:03)
[2025-07-05] MEDS: busPIRone 15 MG TAB PO SCH (21:03)
[2025-07-05] MEDS: PRAZOSIN HCL 1 MG CAP PO SCH (21:03)
[2025-07-05] MEDS: DOCUSATE SODIUM 100 MG CAP PO SCH (21:03)
[2025-07-05] MEDS: lamoTRIgine 25 MG TAB PO SCH (21:03)
[2025-07-06] MEDS: LEVOTHYROXINE SODIUM 75 MCG TABLET PO SCH (05:40)
[2025-07-06] MEDS: ATORVASTATIN 40 MG TAB PO SCH (08:40)
[2025-07-06] MEDS: APIXABAN 2.5 MG TAB PO SCH (08:40)
[2025-07-06] MEDS: MULTIVITAMIN TAB PO SCH (08:42)
--- NOTE | 2025-07-06 09:08 | Orthopedic Progress Note ---
Date of Service July 06, 2025 Assessment & Plan (1) Status post left knee replacement: Overall she is doing fairly well. She is not having much pain in the left knee. She will be seen by physical therapy today for ambulation and range of motion exercises. The nursing staff can change her dressing after physical therapy. She is on aspirin for DVT prophylaxis. She can be discharged to home later today. She will follow-up with orthopedics in 2 weeks. Jameson Masterson was seen and examined at bedside this morning. Overall she is doing very well. She is not having much pain in the left knee. She has been up and ambulated to the bathroom. She has no complaints.. Review of Systems All systems reviewed & are unremarkable except as noted in HPI & below. Physical Exam On physical exam of the left knee, the dressing is clean and dry. The leg is out full extension. She has active dorsiflexion plantarflexion of the left ankle.. Results & Data Results & Data Laboratory Results . Diagnostic Findings Postoperative x-rays of the left knee show the prosthesis to be in anatomic alignment without any evidence of fracture, dislocation, or loosening.. PG Care Time/CCT Total # of Minutes Spent Total Time Spent with Patient: Total time spent is greater than 50% in coordination of care (as documented) at patient's floor/unit and/or counseling patient: Coding Level of Care Code 98820 Post Operative Follow-Up Diagnoses Status post left knee replacement Z96.652
[2025-07-06] MEDS: VILAZODONE HCL 20 MG PO SCH (09:15)
[2025-07-06 11:10] VITALS: BP 143/78; PULSE 66; TEMP 97.5; O2SAT 97
== END 2025-07-06 12:33 | disposition home or self-care (01) ==
LOC: ASU 06:36 → 3E 06:36